=== PATIENT | female | born 1975 ===

== ENCOUNTER → 2020-04-30 09:03 | Outpatient (BNVA) | payer OTHER, SELFPAY | PROVIDERS: PCP Internal Medicine; Referring Provider Internal Medicine; Visit Provider Nurse Practitioner | DX: K59.04 Chronic idiopathic constipation (principal); K21.9 Gastro-esophageal reflux disease without esophagitis; R10.11 Right upper quadrant pain | CPT/HCPCS: 99214 ==

== ENCOUNTER 2020-06-12 15:28 | Outpatient (REF) | payer OTHER, SELFPAY ==
--- NOTE | 2020-06-12 | MM_ITS ---
EXAMINATION: MM SCREENING DIGITAL BREAST TOMOSYNTHESIS, BILATERAL CLINICAL INFORMATION: Screening. Asymptomatic. The lifetime risk of breast cancer based on the Tyrer-Cuzick Model is 8.6%. COMPARISON: Mammography: 06/07/2019 and studies dating back to 10/25/2012 TECHNIQUE: Digital breast tomosynthesis is performed in both the craniocaudal and mediolateral oblique views along with computer-aided detection (CAD). Synthesized 2D images are generated from the tomosynthesis. FINDINGS: There are scattered areas of fibroglandular density (ACR BI-RADS breast composition Category b). There is stable appearance of the right breast without new abnormal dominant mass or suspicious grouping of microcalcifications. On craniocaudal view of the left breast anteriorly, there are some small calcifications for which further evaluation with magnification films are recommended. I do not definitely see the calcifications on mediolateral oblique image. MM/MM tomosynthesis screening BI IMPRESSION: Question left breast calcifications for further evaluation with spot magnification views in craniocaudal and 90 degree mediolateral view. ASSESSMENT: BI-RADS 0: Incomplete - Need Additional Imaging Evaluation. RECOMMENDATION: 1. Additional views of the left breast. 2. Targeted ultrasound if warranted after review of the additional views. 3. Radiology department staff will contact the patient for additional imaging. This patient's information was entered into a reminder system with a target due date for their next mammogram.
== END 2020-06-12 15:29 | disposition home or self-care (01) ==
LOC: HO.MAMMO 15:28
PROVIDERS: PCP Internal Medicine; Visit Provider Internal Medicine
DX: Z12.31 Encounter for screening mammogram for malignant neoplasm of breast (principal)
CPT/HCPCS: 77063; 77067

== ENCOUNTER 2020-07-12 10:44 | Outpatient (REF) | payer OTHER, SELFPAY | END 2020-07-12 10:45 | disposition home or self-care (01) | LOC: HO.LAB 10:44 | PROVIDERS: Visit Provider Internal Medicine | DX: Z20.822 Contact with and (suspected) exposure to COVID-19 (principal) | CPT/HCPCS: 36415; C9803; U0003 ==

== ENCOUNTER 2020-07-16 11:55 | Outpatient (REF) | payer OTHER, SELFPAY ==
--- NOTE | 2020-07-16 11:59 | MM_ITS ---
EXAMINATION: MM DIAGNOSTIC DIGITAL MAMMOGRAPHY, LEFT CLINICAL INFORMATION: Recall from screening for question of punctate calcifications anterior breast on CC view. COMPARISON: Mammography: 06/12/2020 TECHNIQUE: Digital mammography is performed in the following views: Magnification CC, magnification ML FINDINGS: There are scattered areas of fibroglandular density (ACR BI-RADS breast composition Category b). The additional views show no grouped calcifications in the area of imaging concern. Findings on recent imaging are consistent with digital processing artifact. The tomographic images from the recent screening exam show no grouped calcifications at area of concern. Results are discussed with the patient at time of visit. MM/MM added views LT IMPRESSION: Additional views show no grouped calcifications in area of recent concern. Findings on recent imaging are consistent with digital processing artifact. ASSESSMENT: BI-RADS 1: Negative RECOMMENDATION: Routine annual mammography screening. This patient's information was entered into a reminder system with a target due date for their next mammogram.
== END 2020-07-16 11:56 | disposition home or self-care (01) ==
LOC: HO.MAMMO 11:55
PROVIDERS: PCP Internal Medicine; Visit Provider Internal Medicine
DX: R92.1 Mammographic calcification found on diagnostic imaging of breast (principal)
CPT/HCPCS: 77065

== ENCOUNTER → 2020-07-30 13:06 | Outpatient (BNVA) | payer OTHER, SELFPAY | PROVIDERS: PCP Internal Medicine; Visit Provider Nurse Practitioner | DX: R10.11 Right upper quadrant pain (principal); K59.04 Chronic idiopathic constipation; K21.9 Gastro-esophageal reflux disease without esophagitis | CPT/HCPCS: Q3014 ==

== ENCOUNTER 2020-09-16 13:46 | Outpatient (REF) | payer OTHER, SELFPAY | END 2020-09-16 13:47 | disposition home or self-care (01) | LOC: HO.LAB 13:46 | PROVIDERS: Visit Provider Internal Medicine | DX: Z20.822 Contact with and (suspected) exposure to COVID-19 (principal) | CPT/HCPCS: 36415; C9803; U0003; U0005 ==

== ENCOUNTER 2020-10-16 10:20 | Outpatient (REF) | payer OTHER, SELFPAY ==
--- NOTE | ~2020-10-16 | US_ITS ---
EXAMINATION: US ABDOMEN COMPLETE CLINICAL INFORMATION: Upper abdominal pain. COMPARISON: Abdominal ultrasound 02/20/2020, CT abdomen and pelvis with contrast 12/09/2019 TECHNIQUE: Real-time imaging of the abdominal viscera. FINDINGS: PANCREAS: Normal in size, contour, and echogenicity. No pancreatic ductal distention or retroperitoneal effusion. ABDOMINAL AORTA: Unremarkable. No aneurysmal enlargement. INFERIOR VENA CAVA: Visualized portions are normal. LIVER: The liver is normal in size and smooth in contour. There is increased hepatic parenchymal echogenicity consistent with hepatic steatosis. No focal hepatic parenchymal lesion or intrahepatic biliary ductal dilatation. GALLBLADDER: Surgically absent. COMMON BILE DUCT: Normal in caliber measuring 0.7 cm in diameter. RIGHT KIDNEY: Normal. No hydronephrosis. No renal calculi or focal parenchymal lesions. The kidney measures 11.4 cm in maximum dimension. LEFT KIDNEY: Normal. No hydronephrosis. No renal calculi or focal parenchymal lesions. The kidney measures 10.7 cm in maximum dimension. SPLEEN: Normal. The spleen measures 10.3 cm in maximum dimension. FREE FLUID: None. US/US abdomen complete IMPRESSION: 1. Prior cholecystectomy. No ductal dilatation. 2. Unremarkable pancreas. No hydronephrosis. 3. Hepatic steatosis.
== END 2020-10-16 10:21 | disposition home or self-care (01) ==
LOC: HO.US 10:20
PROVIDERS: Visit Provider Nurse Practitioner
DX: R10.10 Upper abdominal pain, unspecified (principal)
CPT/HCPCS: 76700

== ENCOUNTER → 2020-10-31 09:08 | Outpatient (BNVA) | payer OTHER, SELFPAY | PROVIDERS: PCP Internal Medicine; Visit Provider Nurse Practitioner | DX: Z13.89 Encounter for screening for other disorder (principal) | CPT/HCPCS: Q3014 ==

== ENCOUNTER 2020-11-04 12:38 | Outpatient (REF) | payer OTHER, SELFPAY ==
[2020-11-04 13:12] LABS: COVID-19 Test Negative (Negative)
== END 2020-11-04 12:39 | disposition home or self-care (01) ==
LOC: HO.LAB 12:38
PROVIDERS: Visit Provider Internal Medicine
DX: Z20.822 Contact with and (suspected) exposure to COVID-19 (principal)
CPT/HCPCS: 36415; 87635; C9803

== ENCOUNTER 2020-11-22 21:38 | Emergency (ER) | payer OTHER, SELFPAY | END 2020-11-23 02:08 | disposition left against medical advice (07) | PROVIDERS: Emergency Provider Emergency Medicine | DX: M54.2 Cervicalgia (principal) ==

== ENCOUNTER 2020-11-23 09:30 | Emergency (ER) | payer OTHER, SELFPAY ==
--- NOTE | ~2020-11-23 | XR_ITS ---
EXAMINATION: XR CERVICAL SPINE CLINICAL INFORMATION: Neck pain. COMPARISON: 06/30/2006 cervical spine radiographs. TECHNIQUE: 3 views of the cervical spine were obtained. FINDINGS: There is straightening of the normal cervical lordosis with normal spinal alignment. Mild anterior osteophyte formation is seen at C5-6. The vertebral bodies are intact. The intervertebral disc spaces are unremarkable. The odontoid process is intact. The prevertebral soft tissues are unremarkable. XR/XR cervical spine 3V IMPRESSION: Straightening of the normal cervical lordosis may be secondary to positioning and/or muscle spasm. No acute abnormality.
[2020-11-23 09:43] VITALS: BP 132/88; PULSE 102; RESP 16; TEMP 36.6; O2SAT 97; BMI 35.1
--- NOTE | 2020-11-23 09:57 | ECG_ITS ---
Test Reason : PALPITATIONS Blood Pressure : / mmHG Vent. Rate : 090 BPM Atrial Rate : 090 BPM P-R Int : 152 ms QRS Dur : 074 ms QT Int : 358 ms P-R-T Axes : 047 -04 019 degrees QTc Int : 437 ms Normal sinus rhythm Moderate voltage criteria for LVH, may be normal variant Borderline ECG When compared with ECG of 13-NOV-2008 13:19, Vent. rate has increased BY 31 BPM QT has lengthened Referred By: Jane Simmons Electronically Signed By:WENDY BERRIOS MD
--- NOTE | 2020-11-23 09:59 | ED_ITS ---
HPI - Neck Pain/Injury General Chief Complaint: Neck Pain/Injury Stated Complaint: neck pain Time Seen by Provider: 11/23/20 09:44 Source: patient Mode of arrival: ambulatory History of Present Illness HPI Narrative: 45-year-old female with a past medical history of asthma, presenting to the ED complaining of generalized fatigue and neck pain since waking on . Denies known injury/trauma, falls, new exercises or heavy lifting. 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 Denies palpitations at present. Denies fever, CP/SOB, abdominal pain, nausea/vomiting, lightheadedness/dizziness, ear pain, weakness MD complaint: neck pain Related Data Home Medications Medication Instructions Recorded Confirmed simethicone 180 mg capsule 180 mg PO . q.i.d. PRN cap 04/29/20 04/29/20 acetaminophen 650 mg 650 mg PO Q8H PRN 10/31/20 tablet,extended release bupropion HCl 300 mg 24 hr tablet, 300 mg PO QAM 10/31/20 extended release calcium carbonate 500 mg (1,250 1 tab PO BID 10/31/20 mg)-vitamin D3 200 unit tablet cholecalciferol (vitamin D3) 50 0 mcg PO 10/31/20 mcg (2,000 unit) capsule clonazepam 1 mg tablet 0 mg PO 10/31/20 lurasidone 40 mg tablet 40 mg PO DAILY 10/31/20 olanzapine 10 mg tablet 10 mg PO QPM 10/31/20 perphenazine 8 mg tablet 8 mg PO TID 10/31/20 prazosin 5 mg capsule 5 mg PO BEDTIME 10/31/20 valacyclovir 500 mg tablet 500 mg PO BID 10/31/20 zolpidem 10 mg tablet 10 mg PO BEDTIME PRN 10/31/20 Previous Rx's Medication Instructions Recorded imipramine HCl 25 mg tablet 50 mg PO BEDTIME 30 Days #60 tab 10/31/20 sennosides 8.6 mg tablet 17.2 mg PO .bedtime and am 30 Days 10/31/20 tab dexlansoprazole 60 mg 60 mg PO DAILY #30 cap 11/13/20 capsule,biphase delayed release [id number] 1 cap PO QID #120 cap 11/13/20 24,000-76,000-120,000 unit capsule,delayed rel linaclotide 290 mcg capsule 290 mcg PO QAM #30 cap 11/20/20 acetaminophen [Tylenol Extra 500 mg PO Q6H PRN #20 tab 11/23/20 Strength] cyclobenzaprine 5 mg PO Q8H PRN 5 Days #14 tab 11/23/20 lidocaine [Lidoderm] 1 patch TOPICAL DAILY PRN #30 ea 11/23/20 MDD remove after 12 hours Allergies Allergy/AdvReac Type Severity Reaction Status Date / Time aspirin [ASPIRIN] Allergy Unknown UNKNOWN Verified 10/31/20 09:09 REACTION PER PT. Review of Systems Review of Systems: Constitutional: No Fever, + Chills, No Night Sweats, + Fatigue, + Malaise ENT/Mouth: No Ear Pain, No Nasal Congestion, No Sinus Pain, + sore throat, No Swallowing Difficulty Eyes: No Eye Pain, No Vision Changes Cardiovascular: No Chest Pain, No SOB, + Palpitations (not at present) Respiratory: No Cough, No Dyspnea Gastrointestinal: No Nausea, No Vomiting, No Diarrhea, No Abdominal pain Genitourinary: No Dysuria, No Urinary Frequency, No Hematuria, No Flank Pain Musculoskeletal: No joint pain, No Myalgias, No Joint Swelling Skin: No Skin Lesions, No rash Neuro: No Weakness, No Numbness, No Paresthesias, No Dizziness, + Headache Yes all other systems are reviewed and are negative Neurologic: Denies Abnormal speech present [facility] Past Medical History Attestation statement: The following information was validated with the patient. Medical History (Updated 11/23/20 @ 11:38 by PAT Lutz) Asthma Surgical History (Updated 11/23/20 @ 09:46 by Mayra Pruett) History of colonoscopy Hx of cholecystectomy Hx of endoscopy Family History Family History Father No problems noted. Mother No problems noted. Social History Social History (Updated 10/31/20 @ 09:09 by ODILON Vargas) Alcohol intake: current Alcohol intake frequency: holidays/special occasions only Smoking Status: Never smoker Advance Directives: No Advance Directives Information Provided: No Patient : No Physical Exam Vital Signs: Vital Signs: Last Vital Signs Temp 97.9 F 11/23/20 09:43 Pulse 102 H 11/23/20 09:43 Resp 16 11/23/20 09:43 BP 132/88 11/23/20 09:43 Pulse Ox 97 11/23/20 09:43 Body Mass Index 35.1 Const: General: cooperative, healthy appearing, comfortable and no acute distress Orientation/consciousness: patient oriented x3 Limitations: no limitations HENMT: Head: Yes normal to inspection and Yes atraumatic Ears: hearing grossly normal bilaterally and TM's normal bilaterally General nose exam: Normal external nose present Face and sinus: Yes normal facial exam and Yes face symmetric Mouth: Normal oral and palatal mucosa present Teeth and gingiva: dentition normal Throat: Yes posterior oropharynx normal, Yes tonsils normal, Yes uvula midline, No peritonsillar mass, No uvula laterally displaced and No uvular edema Eyes: General: appearance normal, both eyes and all related structures Pupils: Equal, round and reactive pupils present EOM: EOMs intact bilaterally Neck: Other: No midline cervical spinous tenderness or step-offs. + bilateral paraspinal/MSK tenderness to palpation. Limited ROM of neck secondary to pain Neck: Yes normal visual inspection, Yes no lymphadenopathy, Yes no meningeal signs, Yes supple and No anterior neck swelling Chest: Chest palpation & inspection: normal inspection of the chest Resp: Effort & Inspection: normal respiratory effort, not labored and no respiratory distress Cardio: Rate: regular rate and tachycardic Rhythm: regular rhythm GI: Inspection: Yes normal to inspection Palpation (GI): Soft to palpation, nontender, no guarding and not rigid Skin: Rashes: no rashes Wounds: no wounds Neuro: General: patient oriented x3, gait normal, tone normal, moves all extremities, no meningeal signs, no focal motor deficits and CN's II-XI intact bilaterally Cranial nerves: Yes Equal, round and reactive pupils present Cognition (Neuro): normal cognition Speech: No Abnormal speech present Gait exam (Neuro): Normal gait present Motor exam (neuro): 5/5 motor strength present throughout, Pronator motor function not present and no tremor noted Coordination: [id number] test normal Extrem: General: Yes normal to inspection Course Course Course Narrative: XR cervical spine 3V IMPRESSION: Straightening of the normal cervical lordosis may be secondary to positioning and/or muscle spasm. No acute abnormality > results discussed with patient with wool supplier including worrisome signs and symptoms and strict return precautions MDM - Neck Pain/Injury MDM Narrative Medical decision making narrative: 45-year-old female with a past medical history of asthma, presenting to the ED complaining of generalized fatigue and neck pain since waking on . Also reports sore throat, headache, chills and intermittent palpitations. On exam mildly tachycardic, NAD/nontoxic appearing, physical exam as above. Likely MSK neck pain vs viral syndrome/COVID-19 vs migraine DE LEON. Patient without palpitations at present, will obtain EKG to rule out arrhythmia. Low concern for ACS/PE, CVT, meningitis/encephalitis. No evidence of strep at this time Plan: EKG, cervical spine x-ray due to patient request, COVID-19 testing, rapid strep Discharge Plan Discharge Clinical Impression: Neck muscle spasm Patient Disposition: Home, Self-Care Instructions: Muscle Spasm (ED) Additional Instructions: Your x-ray showed muscle spasm in her neck. Your COVID-19 and rapid strep are currently pending, I will call you with results later today. In the meantime yo u need to self isolate. Flexeril as a muscle relaxer, take at night as it makes you drowsy, do not drive, drink alcohol, or operate machinery while taking. Addition take Tylenol, and Lidoderm patches or numbing patches, apply to painful area. Follow-up with doctor. If symptoms persist or worsen, pain becomes unbearable, you develop weakness, or fever return to the ED Schulte radiograf?a mostr? espasmos musculares en schulte willian. Schulte COVID-19 y estreptococo r?pido est?n actualmente pendientes, lo llamar? hoy m?s tarde para informarle los resultados. Mientras tanto, necesita aislarse a s? mismo. Fl exeril sierra relajante muscular, t?preciado por la noche ya que le produce somnolencia, no conduzca, no tex alcohol ni utilice maquinaria mientras lo est? tomando. Adem?s, tome Tylenol y parches de Lidoderm o parches anest?sicos, apl?quelos en el ?rosa dolorida. Seguimiento con el m?dico. Si los s?ntomas persisten o empeoran, el dolor se vuelve insoportable, desarrolla debilidad o la fiebre vuelve al servicio de urgencias Prescriptions: New acetaminophen [Tylenol Extra Strength] 500 mg tablet 500 mg PO Q6H PRN (Reason: pain or fever) Qty: 20 RF: 0 lidocaine [Lidoderm] 5 % adhesive patch,medicated 1 patch topical DAILY MDD remove after 12 hours PRN (Reason: pain) Qty: 30 RF: 0 cyclobenzaprine 5 mg tablet 5 mg PO Q8H PRN (Reason: pain (scale score 7-10)) 5 Days Qty: 14 RF: 0 No Action Dexilant 60 mg capsule,biphase delayed releas 60 mg PO DAILY Qty: 30 RF: 0 Creon 24,000-76,000 -120,000 unit capsule,delayed release(DR/EC) 1 cap PO QID Qty: 120 RF: 0 linaclotide [Linzess] 290 mcg capsule 290 mcg PO QAM Qty: 30 RF: 0 simethicone [Gas Relief (simethicone)] 180 mg capsule 180 mg PO . q.i.d. PRNRF: 0 calcium carbonate-vitamin D3 500 mg(1,250mg) -200 unit tablet 1 tab PO BID RF: 0 perphenazine 8 mg tablet 8 mg PO TID RF: 0 Latuda 40 mg tablet 40 mg PO DAILY RF: 0 bupropion HCl 300 mg tablet extended release 24 hr 300 mg PO QAM RF: 0 zolpidem 10 mg tablet 10 mg PO BEDTIME PRNRF: 0 clonazepam 1 mg tablet 0 mg PO RF: 0 valacyclovir 500 mg tablet 500 mg PO BID RF: 0 prazosin 5 mg capsule 5 mg PO BEDTIME RF: 0 acetaminophen 650 mg tablet extended release 650 mg PO Q8H PRNRF: 0 cholecalciferol (vitamin D3) 50 mcg (2,000 unit) capsule 0 mcg PO RF: 0 olanzapine 10 mg tablet 10 mg PO QPM RF: 0 imipramine HCl 25 mg tablet 50 mg PO BEDTIME 30 Days Qty: 60 RF: 3 sennosides [So-wolfgang] 8.6 mg tablet 17.2 mg PO .bedtime and am 30 Days RF: 3 Referrals: Jane Piedra MD [Primary Care Provider] - 2 days Print Language: Swedish
[2020-11-23] MEDS: Cyclobenzaprine HCl 5 MG TABLET PO (10:17)
[2020-11-23] MEDS: Acetaminophen 325 MG TABLET 650 MG PO (10:17)
[2020-11-23] MEDS: Lidocaine 4 % Patch ADH..PATCH 1 PATCH TRANSDERMA (10:32)
[2020-11-23 11:41] LABS: Strep A Nucleic Acid Negative (Negative)
[2020-11-23 12:20] LABS: Influenza A PCR NEGATIVE (Negative); Influenza B PCR NEGATIVE (Negative); Resp Syncy Virus RNA Qual PCR NEGATIVE (Negative); SARS COV2 PCR INHOUSE NEGATIVE (Negative)
== END 2020-11-23 11:53 | disposition home or self-care (01) ==
PROVIDERS: Physician Assistant; Emergency Provider Emergency Medicine; PCP Internal Medicine
DX: M62.838 Other muscle spasm (principal); M54.2 Cervicalgia; R00.0 Tachycardia, unspecified; Z20.822 Contact with and (suspected) exposure to COVID-19; J02.9 Acute pharyngitis, unspecified; R51.9 Headache, unspecified; R68.83 Chills (without fever); R00.2 Palpitations; J45.909 Unspecified asthma, uncomplicated
CPT/HCPCS: 0241U; 36415; 72040; 87651; 93005; 99283; 99284

== ENCOUNTER → 2020-12-03 10:12 | Outpatient (BNVA) | payer OTHER, SELFPAY | PROVIDERS: PCP Internal Medicine; Visit Provider Nurse Practitioner | DX: R10.11 Right upper quadrant pain (principal); K59.04 Chronic idiopathic constipation; K21.9 Gastro-esophageal reflux disease without esophagitis; R13.12 Dysphagia, oropharyngeal phase | CPT/HCPCS: Q3014 ==

== ENCOUNTER → 2020-12-25 14:16 | Outpatient (BNVA) | payer OTHER, SELFPAY | PROVIDERS: PCP Internal Medicine; Referring Provider Internal Medicine; Visit Provider Internal Medicine Cardiovascular Disease | DX: R00.0 Tachycardia, unspecified (principal); R07.89 Other chest pain | CPT/HCPCS: 93005; 99202 ==

== ENCOUNTER 2020-12-27 14:10 | Outpatient (REF) | payer OTHER, SELFPAY ==
[2020-12-27 14:59] LABS: Hematocrit 38.9 % (37-47); Hemoglobin 13.1 g/dl (12.0-16.0); Mean Corpuscular HGB Conc 33.7 g/dl (31.0-35.0); Mean Platelet Volume 9.6 fL (9.4-12.3); Platelet Count 281 X10*3/uL (160-400); Red Blood Count 3.97 X10*6/uL (4.20-5.50); Red Cell Distribution Width 12.8 % (11.0-16.0); White Blood Count 6.5 X10*3/uL (4.8-10.8)
[2020-12-27 15:40] LABS: TSH reflex Free T4 1.94 uIU/mL (0.32-4.0)
== END 2020-12-27 14:11 | disposition home or self-care (01) ==
LOC: HO.LAB 14:10
PROVIDERS: PCP Internal Medicine; Visit Provider Internal Medicine Cardiovascular Disease
DX: R00.0 Tachycardia, unspecified (principal)
CPT/HCPCS: 36415; 84443; 85027

== ENCOUNTER → 2021-01-29 09:32 | Outpatient (REF) | payer OTHER, SELFPAY ==
--- NOTE | 2021-01-29 09:37 | ECG_ITS ---
Hook-up date: 2021-01-29 10:33:00 Duration: 25:12:00 Test Indications: UNSPEC. TACHYCARDIA Medications: 436187 QRS complexes * Ventricular ectopics which represent % of total QRS comp. 51 Supraventricular ectopics which represent <1 % of total QRS comp. * Paced QRS complexs which represent % of total QRS comp. VENTRICULAR ECTOPY * Isolated * Bigeminal Cycles * Couplets * Runs * Beats in Runs * Beats LONGEST at * BPM at :: -- * Beats FASTEST at * BPM at :: -- SUPRAVENTRICULAR ECTOPY 34 Isolated 7 Couplets 1 Runs 3 Beats in Runs 3 Beats LONGEST at 123 BPM at 18:09:07 2021-01-29 3 Beats FASTEST at 123 BPM at 18:09:07 2021-01-29 HEART RATES 62 MIN at 05:52:41 2021-01-30 91 AVG 132 MAX at 22:16:41 2021-01-29 LONGEST RR 0.9760 secs at 05:52:39 2021-01-30 S-T LEVELS Channel 1 - 128 mm at 10:33:00 2021-01-29 - 128 mm at 10:33:00 2021-01-29 Channel 2 - 128 mm at 10:33:00 2021-01-29 - 128 mm at 10:33:00 2021-01-29 Channel 3 - 128 mm at 02:95:21 -- - 128 mm at 02:95:21 Underlying rhythm is sinus; Average ventricular rate 91/mni; range 62-132/min; About 16% of the time, rate >100/min; Rare Premature atrial complexes ; No sustained arrhythmias; Patient did not report any symptoms in the diary Referred By: Mook Aguirre Overread By: HAI HOUGH
--- NOTE | 2021-01-29 09:37 | CA_ITS ---
Transthoracic Echocardiogram Patient (Last, First, Middle): Jesica Boothe, Gender: Female Date of : 1975 Age: 45 Procedure Date: 01/29/2021 Procedure Type: Transthoracic Echocardiogram Location: OP Height: 165.1 cm Weight: 83.92 kg BSA: 1.91 m2 Heart Rate: bpm BP: 120 / 80 mmHg Retail Account Manager: ZEE Referring MD: Mook Aguirre MD Symptoms: I42.9 - Cardiomyopathy, unspecified Study Quality: Fair/Contrast ECG Rhythm: Sinus Conclusions: - The left ventricular systolic function is mildly decreased. The visually estimated ejection fraction is between 45-50%. - No obvious valvular pathology seen on this study. Findings Procedure Information Contrast agent, definity, is being given per protocol without apparent complications. Left Ventricle Normal left ventricular cavity size. There is normal left ventricular wall thickness. The left ventricular systolic function is mildly decreased. The visually estimated ejection fraction is between 45-50%. There is mild global hypokinesis. Diastolic function is normal for age. Right Ventricle Normal right ventricular cavity size and systolic function. Atria Both atria are normal in size. Aortic Valve There is a normal trileaflet aortic valve. There is no aortic valve stenosis. There is no aortic valve regurgitation. Mitral Valve The mitral valve appears normal. There is trace mitral valve regurgitation. There is no mitral valve stenosis. Pulmonic Valve The pulmonic valve was not well visualized. Tricuspid Valve There is no tricuspid valve regurgitation. The pulmonary artery systolic pressure is normal. Great Vessels The aortic annulus, sinuses of valsalva, and asc aorta are normal in size. Venous The inferior vena cava is normal in size and collapses greater than 50% with inspiration. Pericardium/Pleural There is no evidence of pericardial effusion. Prior Study Comparison No prior study available for comparison. Recommendations, Care & Conclusions No obvious valvular pathology seen on this study. Measurements 2D Linear Measurements IVSd: 0.92 0.6-0.9/0.6-1.0 cm LVIDd: 4.18 3.9-5.3/4.2-5.9 cm LVIDd Index: 2.19 2.4-3.2/2.2-3.1 cm/m2 LVIDs: 2.96 2.0-3.6 cm LVPWd: 0.64 0.7-1.1 cm Ao Root: 3.00 2.1-3.5 cm LA Diam: 3.00 2.7-3.8/3.0-4.0 cm LAIDs Index: 1.57 1.5-2.3 cm/m2 LV Mass: 120.52 67-162/88-224 g LV Mass Index: 63.10 43-95/49-115 g/m2 LVOT Diam: 2.00 3.0+(-)1.3 cm 2D Systolic Function EF 4C: 56.70 >55% EF 2C: 51.60 >55% EF BiP: 54.50 >55% Mitral Valve MV Pk E: 1.03 MV PK A: 1.10 MV Decel Time: 162.00 E/A: 0.90 E'Lateral: 9.46 E'Medial: 7.94 E/E' Med: 13.00 E/E' Lat: 10.90 PHT: 47.00 MVA PHT: 4.68 Decel [place]: 6.35 Aortic Valve AoV Pk Juno: 1.22 AoV Mn Juno: 0.88 AoV VTI: 0.27 AoV Pk Grad: 6.00 Aov Mn Grad: 4.00 SHERRILL Cont.VTI: 2.40 LVOT LVOT Pk Juno: 0.91 LVOT Mn Juno: 0.64 LVOT VTI: 0.21 LVOT Pk Grad: 3.00 LVOT Mn Grad: 2.00 LVOT Diam: 2.00 LVOT Area: 3.14 Diastolic Function MV Pk E: 1.03 MV Pk A: 1.10 E/A: 0.90 E'Medial: 7.94 E/E' Med: 13.00 E' Laterial: 9.46 E/E' Lat: 10.90 Right Ventricle TAPSE (mm): 2.44 Tricuspid Valve TR Pk Juno: 2.40 TR Pk Grad: 23.00 Great Vessels Aorta Ao Root-2D: 3.00 2.0-3.7 cm Ao Asc: 3.20 2.1-3.4 cm Ao Arch: 2.60 Updated in Other Vendor System with Status of Final Maco Grace MD electronically signed on 01/31/2021 2:13:02 PM with status of Final
== END ==
LOC: HO.CARD 09:32
PROVIDERS: Visit Provider Internal Medicine Cardiovascular Disease
DX: R00.0 Tachycardia, unspecified (principal)
CPT/HCPCS: 93225; 93226; 93306; Q9957

== ENCOUNTER → 2021-02-11 08:33 | Outpatient (REF) | payer OTHER, SELFPAY ==
--- NOTE | 2021-02-11 08:37 | CA_ITS ---
Acquisition Time: 2021-02-11 08:35:49 Total Exercise Time: 00:08:00 Test Indications: Abnormal ECG Medications: SEE H Protocol: BIGG Max HR: 150 BPM 86% of Pred: 173 BPM Max BP: 134/080 mmHG Max Work Load: 10.1 METS Exercise stress test with exercise 8 min of Bigg protocol, without anginal symptoms, without arrythmia, with normotensive and normal chronotropic response to exercise, without EKG changes meeting criteria for ischemia. Test reviewed with Dr Nazario. Referred By: Mook Aguirre Overread By: DEMARCO QUESADA
== END ==
LOC: HO.CARD 08:33
PROVIDERS: Visit Provider Internal Medicine Cardiovascular Disease
DX: I42.9 Cardiomyopathy, unspecified (principal)
CPT/HCPCS: 93017

== ENCOUNTER → 2021-03-20 12:38 | Outpatient (BNVA) | payer OTHER, SELFPAY | PROVIDERS: PCP Internal Medicine; Visit Provider Internal Medicine Cardiovascular Disease | DX: I42.9 Cardiomyopathy, unspecified (principal); R00.0 Tachycardia, unspecified | CPT/HCPCS: 99212 ==

== ENCOUNTER 2021-03-28 08:49 | Outpatient (REF) | payer OTHER, SELFPAY ==
--- NOTE | 2021-03-28 | PFT_ITS ---
Forced vital capacity, FEV1, [id number] are normal. MVV is slightly decreased. Post bronchodilator therapy, no significant change except for the fact that MVV is improved. Total lung capacity and residual volume normal. Diffusion capacity normal. CONCLUSION: Normal pulmonary function tests. No evidence of obstructive or restrictive pulmonary disorder. MD PRANAY Cook/ANSHULL / [phone]
== END 2021-03-28 08:50 | disposition home or self-care (01) ==
LOC: HO.RESP 08:49
PROVIDERS: Visit Provider Internal Medicine
DX: J45.20 Mild intermittent asthma, uncomplicated (principal)
CPT/HCPCS: 94060; 94727; 94729

== ENCOUNTER 2021-04-03 13:10 | Outpatient (REF) | payer OTHER, SELFPAY | END 2021-04-03 13:11 | disposition home or self-care (01) | LOC: HO.LAB 13:10 | PROVIDERS: PCP Internal Medicine; Visit Provider Internal Medicine | DX: Z20.822 Contact with and (suspected) exposure to COVID-19 (principal) | CPT/HCPCS: C9803; U0003; U0005 ==

== ENCOUNTER 2021-06-02 10:19 | Outpatient (REF) | payer OTHER, SELFPAY ==
[2021-06-02 15:29] LABS: TSH reflex Free T4 1.48 uIU/mL (0.32-4.0)
== END 2021-06-02 10:20 | disposition home or self-care (01) ==
LOC: HO.LAB 10:19
PROVIDERS: PCP Internal Medicine; Referring Provider Internal Medicine; Visit Provider Internal Medicine Cardiovascular Disease
DX: R07.89 Other chest pain (principal); R00.0 Tachycardia, unspecified; I42.9 Cardiomyopathy, unspecified
CPT/HCPCS: 36415; 84443; 99212

== ENCOUNTER → 2021-06-16 10:27 | Outpatient (REF) | payer OTHER, SELFPAY ==
--- NOTE | 2021-06-16 10:30 | CA_ITS ---
Transthoracic Echocardiogram Patient (Last, First, Middle): Jesica Boothe, Gender: Female Date of : 1975 Age: 45 Procedure Date: 06/16/2021 Procedure Type: Transthoracic Echocardiogram Location: OP Height: 165.1 cm Weight: 90.72 kg BSA: 1.98 m2 Heart Rate: bpm BP: 126 / 82 mmHg Framing Manager: ZEE Harden MD: Mook Aguirre MD Inspector Chief: Mook Aguirre MD Symptoms: I42.9 - Cardiomyopathy, unspecified Study Quality: Fair/Contrast Conclusions: - Normal left ventricular size and systolic function. There is mildly increased left ventricular wall thickness. The visually estimated ejection fraction is between 55-60%. - Normal right ventricular cavity size and systolic function. Findings Procedure Information Contrast agent, definity, is being given per protocol without apparent complications. Left Ventricle Normal left ventricular size and systolic function. There is mildly increased left ventricular wall thickness. The visually estimated ejection fraction is between 55-60%. There is no evidence of regional wall motion abnormalities. Diastolic function is normal for age. Right Ventricle Normal right ventricular cavity size and systolic function. Atria Both atria are normal in size. Aortic Valve Normal aortic valve structure and function. There is no aortic valve stenosis. There is no aortic valve regurgitation. Mitral Valve Normal mitral valve structure and function. There is no mitral valve regurgitation. There is no mitral valve stenosis. Pulmonic Valve The pulmonic valve is likely normal. Tricuspid Valve Normal tricuspid valve structure and function. There is trace tricuspid valve regurgitation. Normal right atrial pressure. There is no evidence of pulmonary hypertension. Great Vessels All visible segments of the aorta are normal in size. The visualized portions of the pulmonary artery and branches are normal. Venous The inferior vena cava is normal in size and collapses greater than 50% with inspiration. Pericardium/Pleural Normal pericardial structure. There is no evidence of pericardial effusion. Prior Study Comparison Changes noted compared to prior study dated: 01/29/2021. LVEF is normal. Measurements 2D Linear Measurements IVSd: 0.99 0.6-0.9/0.6-1.0 cm LVIDd: 4.43 3.9-5.3/4.2-5.9 cm LVIDd Index: 2.24 2.4-3.2/2.2-3.1 cm/m2 LVIDs: 3.00 2.0-3.6 cm LVPWd: 0.98 0.7-1.1 cm Ao Root: 3.10 2.1-3.5 cm LA Diam: 2.90 2.7-3.8/3.0-4.0 cm LAIDs Index: 1.46 1.5-2.3 cm/m2 LV Mass: 182.34 67-162/88-224 g LV Mass Index: 92.09 43-95/49-115 g/m2 LVOT Diam: 2.00 3.0+(-)1.3 cm 2D Systolic Function EF 4C: 55.70 >55% EF 2C: 47.00 >55% EF BiP: 52.00 >55% Mitral Valve MV Pk E: 0.97 MV PK A: 1.34 MV Decel Time: 167.00 E/A: 0.70 E'Lateral: 7.72 E'Medial: 7.94 E/E' Med: 12.20 E/E' Lat: 12.60 PHT: 49.00 MVA PHT: 4.49 Decel [place]: 5.81 Aortic Valve AoV Pk Juno: 1.19 AoV Mn Juno: 0.86 AoV VTI: 0.24 AoV Pk Grad: 6.00 Aov Mn Grad: 3.00 SHERRILL Cont.VTI: 2.44 LVOT LVOT Pk Juno: 0.91 LVOT Mn Juno: 0.72 LVOT VTI: 0.19 LVOT Pk Grad: 3.00 LVOT Mn Grad: 2.00 LVOT Diam: 2.00 LVOT Area: 3.14 Diastolic Function MV Pk E: 0.97 MV Pk A: 1.34 E/A: 0.70 E'Medial: 7.94 E/E' Med: 12.20 E' Laterial: 7.72 E/E' Lat: 12.60 Right Ventricle TAPSE (mm): 2.03 TVS' Juno: 12.40 Tricuspid Valve TR Pk Juno: 2.19 TR Pk Grad: 19.00 RA Press: 3.00 RVSP: 22.00 Great Vessels Aorta Ao Root-2D: 3.10 2.0-3.7 cm Ao Asc: 3.00 2.1-3.4 cm Ao Arch: 2.70 Updated in Other Vendor System with Status of Final Mook Aguirre MD electronically signed on 06/16/2021 9:19:10 PM with status of Final
== END ==
LOC: HO.CARD 10:27
PROVIDERS: PCP Internal Medicine; Visit Provider Internal Medicine Cardiovascular Disease
DX: I42.9 Cardiomyopathy, unspecified (principal)
CPT/HCPCS: 93306; Q9957

== ENCOUNTER → 2021-07-17 07:17 | Outpatient (BNVA) | payer OTHER, SELFPAY | PROVIDERS: PCP Internal Medicine; Referring Provider Internal Medicine; Visit Provider Nurse Practitioner | DX: K59.04 Chronic idiopathic constipation (principal); K21.9 Gastro-esophageal reflux disease without esophagitis; K63.89 Other specified diseases of intestine | CPT/HCPCS: 99212 ==

== ENCOUNTER → 2021-07-22 13:53 | Outpatient (BNVA) | payer OTHER, SELFPAY | PROVIDERS: PCP Internal Medicine; Referring Provider Internal Medicine; Visit Provider Nurse Practitioner Family | DX: I42.9 Cardiomyopathy, unspecified (principal); R07.89 Other chest pain; R00.0 Tachycardia, unspecified | CPT/HCPCS: 99212 ==

== ENCOUNTER 2021-08-11 11:37 | Outpatient (REF) | payer OTHER, SELFPAY ==
[2021-08-11 13:23] LABS: Cholesterol 169 mg/dL; HDL Cholesterol 47 mg/dL; LDL Cholesterol Calculated 77 mg/dl; Triglycerides 226 mg/dL
[2021-08-11 13:30] LABS: Anion Gap 12 (12-20); Blood Urea Nitrogen 14 mg/dL (9-16); Calcium 9.4 mg/dL (8.4-10.2); Carbon Dioxide 26 mmol/L (22-29); Chloride 106 mmol/L (96-108); Estimated Glomerular Filt Rate > 60; Glucose Random 99 mg/dL (60-115); Potassium 4.7 mmol/L (3.3-5.1); Sodium 139 mmol/L (135-145)
[2021-08-11 14:27] LABS: HCG Quantitative 3 mIU/mL
== END 2021-08-11 11:38 | disposition home or self-care (01) ==
LOC: HO.LAB 11:37
PROVIDERS: Absent Provider Internal Medicine; PCP Internal Medicine; Visit Provider Internal Medicine Cardiovascular Disease
DX: I42.9 Cardiomyopathy, unspecified (principal); B37.2 Candidiasis of skin and nail; N95.1 Menopausal and female climacteric states; R79.9 Abnormal finding of blood chemistry, unspecified
CPT/HCPCS: 36415; 80048; 80061; 84702

== ENCOUNTER 2021-09-07 18:58 | Emergency (ER) | payer OTHER, SELFPAY ==
[2021-09-07 19:47] VITALS: BP 148/93; PULSE 113; RESP 18; TEMP 36.8; O2SAT 98; BMI 33.9
[2021-09-07] MEDS: Acetaminophen 325 MG TABLET 650 MG PO (19:52)
--- NOTE | 2021-09-07 22:01 | ED_ITS ---
HPI - Wound/Laceration General Chief Complaint: Wound/Laceration Stated Complaint: laceration above eye Time Seen by Provider: 09/07/21 22:01 Source: patient and diplomatic interpreter/translator Mode of arrival: ambulatory History of Present Illness HPI narrative: 46-year-old female was helping put together a bed when it slipped and fell onto the side of her face she did not lose consciousness. Related Data Home Medications Medication Instructions Recorded Confirmed acetaminophen 650 mg 650 mg PO Q8H PRN 10/31/20 07/22/21 tablet,extended release bupropion HCl 300 mg 24 hr tablet, 300 mg PO QAM 10/31/20 07/22/21 extended release calcium carbonate 500 mg-vitamin 1 tab PO BID 10/31/20 07/22/21 D3 5 mcg (200 unit) tablet cholecalciferol (vitamin D3) 50 0 mcg PO 10/31/20 07/22/21 mcg (2,000 unit) capsule clonazepam 1 mg tablet 0 mg PO 10/31/20 07/22/21 lurasidone 40 mg tablet 40 mg PO DAILY 10/31/20 07/22/21 olanzapine 10 mg tablet 10 mg PO QPM 10/31/20 07/22/21 perphenazine 8 mg tablet 8 mg PO TID 10/31/20 07/22/21 valacyclovir 500 mg tablet 500 mg PO BID 10/31/20 07/22/21 zolpidem 10 mg tablet 10 mg PO BEDTIME PRN 10/31/20 07/22/21 albuterol sulfate 90 mcg/actuation 0 mcg INHALATION 07/22/21 07/22/21 aerosol inhaler gabapentin 100 mg capsule 100 mg PO TID 07/22/21 07/22/21 Previous Rx's Medication Instructions Recorded acetaminophen 500 mg tablet 500 mg PO Q6H PRN #20 tab 11/23/20 (Tylenol Extra Strength) cyclobenzaprine 5 mg tablet 5 mg PO Q8H PRN 5 Days #14 tab 11/23/20 lidocaine 5 % topical patch 1 patch TOPICAL DAILY PRN #30 ea 11/23/20 (Lidoderm) MDD remove after 12 hours linaclotide 290 mcg capsule 290 mcg PO QAM #30 cap 12/03/20 (Linzess) dexlansoprazole 60 mg 60 mg PO DAILY #30 cap 02/06/21 capsule,biphase delayed release (Dexilant) simethicone 180 mg capsule (Gas 180 mg PO QID #90 cap 06/03/21 Relief (simethicone)) sulfamethoxazole 800 1 tab PO BID 5 Days #10 tab 06/30/21 mg-trimethoprim 160 mg tablet (Bactrim DS) Lactobacill 1 cap PO DAILY #30 cap 07/17/21 acidophilus-L.helvetic-B.bifidum 250 million cell capsule (Acidophilus Probiotic Complex) metronidazole 500 mg tablet 500 mg PO TID 10 Days #30 tab 07/17/21 metoprolol tartrate 25 mg tablet 25 mg PO ONCE #1 tab 07/22/21 epdujp-yykrnwub-egmhxvn 1 cap PO QID #120 cap 08/13/21 24,000-76,000-120,000 unit capsule,delayed rel (Creon) sennosides 8.6 mg tablet (So-wolfgang) 17.2 mg PO BID #120 tab 08/13/21 imipramine HCl 25 mg tablet 50 mg PO BEDTIME #60 ea 08/28/21 Allergies Allergy/AdvReac Type Severity Reaction Status Date / Time aspirin [ASPIRIN] Allergy Unknown UNKNOWN Verified 09/07/21 19:42 REACTION PER PT. Review of Systems Review of Systems: Pertinent positives and negatives as stated in HPI 10 point review of systems is otherwise negative. [facility]LY [facility] Past Medical History Source: nursing notes reviewed Medical History Anxiety Asthma Surgical History History of colonoscopy Hx of cholecystectomy Hx of endoscopy Family History Family History Father No problems noted. Mother No problems noted. Social History Social History Household Members: Children Alcohol intake: current Alcohol intake frequency: holidays/special occasions only Patient Tobacco Use Status: Never used Tobacco Advance Directives: No Advance Directives Information Provided: No Physical Exam Vital Signs: Vital Signs: Last Vital Signs Temp 98.3 F 09/07/21 19:47 Pulse 113 H 09/07/21 19:47 Resp 18 09/07/21 19:47 BP 148/93 H 09/07/21 19:47 Pulse Ox 98 09/07/21 19:47 BMI result Body Mass Index 33.9 VITAL SIGNS: Reviewed. GENERAL: Well developed, well nourished, in no acute distress. HEAD: Normocephalic/6 cm laceration cross acting the left eyebrow and into the left upper lid to the lateral canthus, hemostatic, neurovascular is intact (patient is able to open and close eyes raise and lower eyebrows) EYES: PERRLA, EOMI OROPHARYNX: no oral lesions noted, posterior pharynx clear LUNGS: Normal breath sounds. No adventitious sounds or accessory muscle use. SpO2<98> CARDIOVASCULAR: Regular rate and rhythm without noted murmurs ABDOMEN: Soft, non-tender, non-distended with bowel sounds. NEUROLOGIC: Alert and oriented x 4. Strength and sensation to light touch were grossly intact x 4. Course Course Course Narrative: 46-year-old female with history and clinical presentation consistent with moderate complexity laceration to the left eyebrow/left upper lid that is neurovascularly intact. After instilling local anesthetic patient underwent a 2 layer repair. Patient received Tdap as well as pain medication. Procedures Laceration Laceration 1: Site: face Side (If applicable): left Size (cm): 6 Description: linear and clean Depth: simple, single layer Local Anesthetic: lidocaine 2% Amount of anesthesia used (mL): 2 Pre-repair: wound explored, irrigated extensively and deep structures intact Skin layer closed with: nylon Size (cm): 6-0 Number of sutures: 7 Technique: simple, interrupted Subcutaneous layer closed with: vicryl Size: 5-0 Number of sutures: 3 Technique: simple, interrupted Discharge Plan Discharge Clinical Impression: Laceration Patient Disposition: Home, Self-Care Instructions: Care For Your Stitches (ED), Facial Laceration (ED), Laceration (ED) Additional Instructions: 1. Limpie suavemente el ?rosa con agua y jab?n, luego s?quela suavemente y aplique kumar pomada antibi?patricio (disponible sin receta). 2. Deber? retirar las suturas en 5 d?as, ya sea por horan proveedor de atenci?n primaria o regresar a esta gagandeep de emergencias. 3. Tylenol 1000 mg, por v?a oral, cada 6 horas seg?n sea necesario para controlar el dolor. No exceda los 4000 mg dentro de las 24 horas. 4. Aplique hielo sobre la piel no expuesta anival 5 a 10 minutos, 3 a 4 veces al d?a. Regrese a la gagandeep de emergencias si los s?ntomas empeoran. Prescriptions: No Action Dexilant 60 mg capsule,biphase delayed releas 60 mg PO DAILY Qty: 30 4RF simethicone [Gas Relief (simethicone)] 180 mg capsule 180 mg PO QID Qty: 90 6RF sennosides [So-wolfgang] 8.6 mg tablet 17.2 mg PO BID Qty: 120 6RF Creon 24,000-76,000 -120,000 unit capsule,delayed release(DR/EC) 1 cap PO QID Qty: 120 6RF imipramine HCl 25 mg tablet 50 mg PO BEDTIME Qty: 60 4RF acetaminophen [Tylenol Extra Strength] 500 mg tablet 500 mg PO Q6H PRN (Reason: pain or fever) Qty: 20 0RF lidocaine [Lidoderm] 5 % adhesive patch,medicated 1 patch topical DAILY MDD remove after 12 hours PRN (Reason: pain) Qty: 30 0RF Rx Instructions: leave on most painful area for up to 12 hrs cyclobenzaprine 5 mg tablet 5 mg PO Q8H PRN (Reason: pain (scale score 7-10)) 5 Days Qty: 14 0RF sulfamethoxazole-trimethoprim [Bactrim DS] 800-160 mg tablet 1 tab PO BID 5 Days Qty: 10 0RF Acidophilus Probiotic Complex 250 million cell capsule 1 cap PO DAILY Qty: 30 6RF metronidazole 500 mg tablet 500 mg PO TID 10 Days Qty: 30 0RF calcium carbonate-vitamin D3 500 mg(1,250mg) -200 unit tablet 1 tab PO BID 0RF perphenazine 8 mg tablet 8 mg PO TID 0RF Latuda 40 mg tablet 40 mg PO DAILY 0RF bupropion HCl 300 mg tablet extended release 24 hr 300 mg PO QAM 0RF zolpidem 10 mg tablet 10 mg PO BEDTIME PRN0RF clonazepam 1 mg tablet 0 mg PO 0RF valacyclovir 500 mg tablet 500 mg PO BID 0RF acetaminophen 650 mg tablet extended release 650 mg PO Q8H PRN0RF cholecalciferol (vitamin D3) 50 mcg (2,000 unit) capsule 0 mcg PO 0RF olanzapine 10 mg tablet 10 mg PO QPM 0RF Linzess 290 mcg capsule 290 mcg PO QAM Qty: 30 6RF albuterol sulfate 90 mcg/actuation HFA aerosol inhaler 0 mcg inhalation 0RF gabapentin 100 mg capsule 100 mg PO TID 0RF metoprolol tartrate 25 mg tablet 25 mg PO ONCE Qty: 1 0RF Rx Instructions: take 1 tablet one hour prior to CT scan of heart Print Language: Serbian
[2021-09-07] MEDS: Acetaminophen 325 MG TABLET 975 MG PO (22:17)
[2021-09-07] MEDS: Diphth,Pertus(ACell),Tet Adult 0.5 ML SYRINGE IM (22:17)
[2021-09-07] MEDS: oxyCODONE HCl Immed Release 5 MG TABLET PO (22:18)
[2021-09-07] MEDS: Bacitracin Oint 14 GM TUBE 1 APPL TOPICAL (22:18)
[2021-09-07] MEDS: Lidocaine HCl 2 % 20 ML VIAL 5 ML SUBCUT (22:19)
== END 2021-09-07 22:28 | disposition home or self-care (01) ==
PROVIDERS: Emergency Provider Student in an Organized Health Care Education/Training Program
DX: S01.112A Laceration without foreign body of left eyelid and periocular area, initial encounter (principal); W06.XXXA Fall from bed, initial encounter; Y93.9 Activity, unspecified; Y92.003 Bedroom of unspecified non-institutional (private) residence as the place of occurrence of the external cause; Y99.9 Unspecified external cause status; Z79.899 Other long term (current) drug therapy
CPT/HCPCS: 12014; 90471; 90715; 96372; 99283; 99284

== ENCOUNTER 2021-11-11 10:37 | Outpatient (REF) | payer OTHER, SELFPAY ==
--- NOTE | 2021-11-11 | PFT_ITS ---
Forced vital capacity 78%, FEV1 82%. FEV1/FVC ratio is 85, normal. FEF 25-75 is 89% and MVV 80%. Post-bronchodilator therapy, there is no significant improvement rather slight decrease in the flow volumes. Total lung capacity 87%. Residual volume 103%, normal. Diffusion capacity normal. CONCLUSION: Normal pulmonary function test. Slight decrease in FVC is probably effort related. No response to bronchodilator therapy. Compared to the pulmonary function study on 03/28/2021, there is slight decrease in FVC, but no other significant changes noted. Lee Eduardo MD MSB/MODL / [id number]
== END 2021-11-11 10:38 | disposition home or self-care (01) ==
LOC: HO.RESP 10:37
PROVIDERS: PCP Internal Medicine; Visit Provider Internal Medicine
DX: R06.02 Shortness of breath (principal)
CPT/HCPCS: 94060; 94727; 94729

== ENCOUNTER 2021-12-09 10:43 | Outpatient (REF) | payer OTHER, SELFPAY ==
--- NOTE | ~2021-12-09 | XR_ITS ---
EXAMINATION: XR SHOULDER, LEFT XR CERVICAL SPINE CLINICAL INFORMATION: Left shoulder pain and neck pain. COMPARISON: None. TECHNIQUE: Left shoulder 4 views. Cervical spine 6 views. FINDINGS: LEFT SHOULDER: There is no visible acute fracture, dislocation or subluxation. No bony erosive changes. The left AC joint is normal. The soft tissues are normal. CERVICAL SPINE: There is mild straightening of cervical lordosis. The vertebral heights and alignment are normal. There is loss of C5-C6 disc height with mild ventral spondylosis. Rest of the disc heights are normal. The neural foramina are patent bilaterally. No acute fracture or dislocation seen. The prevertebral soft tissues are normal. No lytic or sclerotic process seen. XR/XR cervical spine min 6V IMPRESSION: Unremarkable left shoulder exam. Mild degenerative disc changes C5-C6 disc level with ventral spondylosis. No acute fracture or dislocation. Mild straightening of cervical lordosis likely positional or spasm.
--- NOTE | ~2021-12-09 | XR_ITS ---
EXAMINATION: XR SHOULDER, LEFT XR CERVICAL SPINE CLINICAL INFORMATION: Left shoulder pain and neck pain. COMPARISON: None. TECHNIQUE: Left shoulder 4 views. Cervical spine 6 views. FINDINGS: LEFT SHOULDER: There is no visible acute fracture, dislocation or subluxation. No bony erosive changes. The left AC joint is normal. The soft tissues are normal. CERVICAL SPINE: There is mild straightening of cervical lordosis. The vertebral heights and alignment are normal. There is loss of C5-C6 disc height with mild ventral spondylosis. Rest of the disc heights are normal. The neural foramina are patent bilaterally. No acute fracture or dislocation seen. The prevertebral soft tissues are normal. No lytic or sclerotic process seen. XR/XR shoulder LT min 2V IMPRESSION: Unremarkable left shoulder exam. Mild degenerative disc changes C5-C6 disc level with ventral spondylosis. No acute fracture or dislocation. Mild straightening of cervical lordosis likely positional or spasm.
== END 2021-12-09 10:44 | disposition home or self-care (01) ==
LOC: HO.XRAY 10:43
PROVIDERS: Absent Provider Internal Medicine; PCP Internal Medicine; Visit Provider Emergency Medicine
DX: M54.2 Cervicalgia (principal)
CPT/HCPCS: 72052; 73030

== ENCOUNTER 2021-12-12 11:34 | Outpatient (REF) | payer OTHER, SELFPAY ==
[2021-12-12 13:58] LABS: Amylase 68 U/L (28-100); Lipase 42 U/L (8-78)
== END 2021-12-12 11:35 | disposition home or self-care (01) ==
LOC: HO.LAB 11:34
PROVIDERS: PCP Internal Medicine; Visit Provider Nurse Practitioner
DX: K59.04 Chronic idiopathic constipation (principal); K29.60 Other gastritis without bleeding; K21.9 Gastro-esophageal reflux disease without esophagitis; R14.0 Abdominal distension (gaseous); R10.10 Upper abdominal pain, unspecified; R10.11 Right upper quadrant pain
CPT/HCPCS: 36415; 82150; 83690; 99212

== ENCOUNTER 2022-02-26 14:15 | Outpatient (REF) | payer OTHER, SELFPAY ==
--- NOTE | ~2022-02-26 | XR_ITS ---
EXAMINATION: XR ABDOMEN WITH SUPINE AND UPRIGHT VIEWS CLINICAL INDICATION: Abdominal pain COMPARISON: March 22, 2020 TECHNIQUE: Supine and upright abdomen. FINDINGS: The bowel gas pattern is normal with no evidence of ileus or obstruction. No unusual soft tissue calcifications are noted. The bones are unremarkable. Clips from previous cholecystectomy and place. Psoas margins intact. Multiple phleboliths about the pelvis. XR/XR abdomen w decubitus IMPRESSION: No evidence of ileus or obstruction. No free air.
== END 2022-02-26 14:16 | disposition home or self-care (01) ==
LOC: HO.XRAY 14:15
PROVIDERS: PCP Internal Medicine; Visit Provider Nurse Practitioner
DX: R10.9 Unspecified abdominal pain (principal); K21.9 Gastro-esophageal reflux disease without esophagitis; K59.04 Chronic idiopathic constipation; K59.9 Functional intestinal disorder, unspecified
CPT/HCPCS: 74021; 99212

== ENCOUNTER 2022-03-17 10:03 | Emergency (ER) | payer OTHER, SELFPAY ==
[2022-03-17] VITALS (7 sets, daily range): BP systolic 122–143; BP diastolic 68–81; PULSE 77–118; RESP 16–25; TEMP 36.6–37.1; O2SAT 95–98; BMI 35.1
--- NOTE | ~2022-03-17 | XR_ITS ---
EXAMINATION: XR CHEST CLINICAL INFORMATION: Chest pain, shortness of breath. COMPARISON: None TECHNIQUE: Frontal view of the chest was obtained. FINDINGS: No significant abnormality is noted involving the heart, lungs, mediastinum, bony thorax or soft tissues. XR/XR chest 1V IMPRESSION: No acute cardiopulmonary process.
--- NOTE | 2022-03-17 10:34 | ECG_ITS ---
Test Reason : chest pain Blood Pressure : / mmHG Vent. Rate : 089 BPM Atrial Rate : 089 BPM P-R Int : 160 ms QRS Dur : 072 ms QT Int : 356 ms P-R-T Axes : 041 -01 019 degrees QTc Int : 433 ms Normal sinus rhythm Minimal voltage criteria for LVH, may be normal variant ( R in aVL ) Borderline ECG When compared with ECG of 23-NOV-2020 10:07, No significant change was found Referred By: Generic ED Physician Electronically Signed By:JON BECKER
[2022-03-17 11:04] LABS: COVID-19 Test Negative (Negative); IDNOW Serial# 55D5AD1C
--- NOTE | 2022-03-17 15:35 | ED.GENADULT ---
HPI - General Adult General Chief complaint: General Medical <PAT Cardona - Last Filed: 03/17/22 18:14> Stated complaint: Diff. breathing/chest pains/headaches <PAT Cardona Last Filed: 03/17/22 18:14> Time Seen by Provider: 03/17/22 15:30 <PAT Cardona - Last Filed: 03/17/22 18:14> Source: patient <PAT Cardona - Last Filed: 03/17/22 18:14> Mode of arrival: ambulatory <PAT Cardona Last Filed: 03/17/22 18:14> History of Present Illness HPI narrative: 46-year-old female with a past medical history of anxiety, asthma, presenting to the ED complaining dry cough, SOB, and chest discomfort when coughing times a couple days. Reports SOB worsening on exertion and when lying flat. Also reports bilateral LE soreness/pain. Has been using albuterol without relief. Denies fever, abdominal pain, nausea/vomiting, oral OCPs, cigarette smoking, sick contacts <PAT Cardona - Last Filed: 03/17/22 18:14> Onset (ago): day(s) <PAT Cardona - Last Filed: 03/17/22 18:14> Related Data Home medications: Home Medications Medication Instructions Recorded Confirmed bupropion HCl 300 mg 24 hr tablet, 300 mg PO QAM 10/31/20 07/22/21 extended release calcium carbonate 500 mg-vitamin 1 tab PO BID 10/31/20 07/22/21 D3 5 mcg (200 unit) tablet olanzapine 10 mg tablet 10 mg PO QPM 10/31/20 07/22/21 perphenazine 8 mg tablet 8 mg PO TID 10/31/20 07/22/21 valacyclovir 500 mg tablet 500 mg PO BID 10/31/20 07/22/21 gabapentin 100 mg capsule 100 mg PO TID 07/22/21 07/22/21 cetirizine 10 mg tablet 10 mg PO DAILY 12/12/21 diclofenac sodium 1 % topical gel 2 g topical QID 12/12/21 fluticasone propionate 50 spray intranasal 12/12/21 mcg/actuation nasal spray,suspension nystatin 100,000 unit/gram topical topical DAILY 12/12/21 powder tizanidine 2 mg tablet 2 mg PO Q8H PRN 12/12/21 venlafaxine 75 mg capsule,extended 225 mg PO DAILY 12/12/21 release 24 hr albuterol sulfate 90 mcg/actuation 2 inh inhalation PRN 02/26/22 aerosol inhaler cholecalciferol (vitamin D3) 50 2,000 unit PO DAILY 02/26/22 mcg (2,000 unit) capsule clonazepam 1 mg tablet 1 mg PO DAILY 02/26/22 fluticasone propionate 110 1 puff PO BID 02/26/22 mcg/actuation HFA aerosol inhaler (Flovent HFA) lurasidone 60 mg tablet (Latuda) 60 mg PO DAILY 02/26/22 naproxen sodium 550 mg tablet 550 mg PO BID 02/26/22 zolpidem 12.5 mg tablet,extended 12.5 mg PO BEDTIME PRN insomnia 02/26/22 release,multiphase Previous Rx's Medication Instructions Recorded acetaminophen 500 mg tablet 500 mg PO Q6H PRN pain or fever 11/23/20 (Tylenol Extra Strength) #20 tabs cyclobenzaprine 5 mg tablet 5 mg PO Q8H PRN pain (scale score 11/23/20 7-10) 5 days #14 tabs lidocaine 5 % topical patch 1 patch topical DAILY PRN pain #30 11/23/20 (Lidoderm) ea Lactobacill 1 cap PO DAILY #30 caps 07/17/21 acidophilus-L.helvetic-B.bifidum 250 million cell capsule (Acidophilus Probiotic Complex) metoprolol tartrate 25 mg tablet 25 mg PO ONCE #1 tab 07/22/21 dexlansoprazole 60 mg 60 mg PO DAILY #30 caps 12/12/21 capsule,biphase delayed release (Dexilant) linaclotide 290 mcg capsule 290 mcg PO QAM #30 caps 12/12/21 (Linzess) simethicone 180 mg capsule (Gas 180 mg PO QID #90 caps 12/12/21 Relief (simethicone)) reuisu-komgvalh-lfkweqr 1 cap PO QID #120 caps 02/19/22 24,000-76,000-120,000 unit capsule,delayed rel (Creon) sennosides 8.6 mg tablet (So-wolfgang) 17.2 mg PO BID #120 tabs 02/19/22 metoclopramide HCl 5 mg tablet 5 mg PO QIDACHS #120 tabs 02/26/22 (Reglan) albuterol sulfate 2.5 mg/0.5 mL 5 mg inhalation Q4H PRN shortness 03/17/22 solution for nebulization of breath or wheezing #30 ea prednisone 20 mg tablet 40 mg PO DAILY 5 days #10 tabs 03/17/22 <PAT Cardona Last Filed: 03/17/22 18:14> Allergies/adverse reactions: Allergies Allergy/AdvReac Type Severity Reaction Status Date / Time aspirin [ASPIRIN] Allergy Unknown UNKNOWN Verified 02/26/22 13:38 REACTION PER PT. <PAT Cardona Last Filed: 03/17/22 18:14> Review of Systems Review of Systems: Constitutional: No Fever, No Chills, No Fatigue, No Malaise ENT/Mouth: No Ear Pain, No Nasal Congestion, No sore throat, No Rhinorrhea, No Swallowing Difficulty Eyes: No Eye Pain, No Swelling, No Redness, No Vision Changes Cardiovascular: + Chest Pain, + SOB, + Dyspnea on Exertion, + Orthopnea, No Edema, No Palpitations Respiratory: + Cough, No Sputum, No Wheezing, No Dyspnea Gastrointestinal: No Nausea, No Vomiting, No Diarrhea, No Constipation, No Abdominal pain Genitourinary: No Dysuria, No Urinary Frequency, No Hematuria, No Flank Pain Musculoskeletal: No joint pain, No Myalgias, No Joint Swelling Skin: No Skin Lesions, No rash Neuro: No Weakness, No Numbness, No Dizziness, No Headache <PAT Cardona Last Filed: 03/17/22 18:14> Yes all other systems are reviewed and are negative <PAT Cardona Last Filed: 03/17/22 18:14> Constitutional: Constitutional: Reports as per HPI <PAT Cardona Last Filed: 03/17/22 18:14> [facility] Past Medical History Attestation statement: The following information was validated with the patient. <PAT Cardona Last Filed: 03/17/22 18:14> Medical History: Medical History Anxiety Asthma <PAT Cardona - Last Filed: 03/17/22 18:14> Surgical History: Surgical History History of colonoscopy Hx of cholecystectomy Hx of endoscopy <PAT Cardona - Last Filed: 03/17/22 18:14> Family History Family History: Family History Father No problems noted. Mother No problems noted. <PAT Cardona - Last Filed: 03/17/22 18:14> Social History Social History: Social History Household Members: Children Alcohol intake: current Alcohol intake frequency: holidays/special occasions only Patient Tobacco Use Status: Never used Tobacco Advance Directives: No Advance Directives Information Provided: Yes <PAT Cardona - Last Filed: 03/17/22 18:14> Physical Exam ED Vital Signs: Vital Signs - 24 hr 03/17/22 10:42 03/17/22 15:47 03/17/22 16:00 Temperature 98.7 F 97.8 F Pulse Rate 81 77 96 Respiratory Rate 16 18 18 Blood Pressure 137/81 143/79 H Pulse Oximetry 98 96 Oxygen Delivery Method Room Air Aerosol Mask 03/17/22 17:16 03/17/22 19:41 03/17/22 19:44 Temperature Pulse Rate 105 H 115 H 116 H Respiratory Rate 24 H 25 H 24 H Blood Pressure 122/70 Pulse Oximetry 96 Oxygen Delivery Method Room Air 03/17/22 23:55 Temperature 97.8 F Pulse Rate 118 H Respiratory Rate 24 H Blood Pressure 128/68 Pulse Oximetry 95 Oxygen Delivery Method Room Air BMI result Body Mass Index 35.1 <PAT Cardona - Last Filed: 03/17/22 18:14> Vital Signs - 24 hr 03/17/22 10:42 03/17/22 15:47 03/17/22 16:00 Temperature 98.7 F 97.8 F Pulse Rate 81 77 96 Respiratory Rate 16 18 18 Blood Pressure 137/81 143/79 H Pulse Oximetry 98 96 Oxygen Delivery Method Room Air Aerosol Mask 03/17/22 17:16 03/17/22 19:41 03/17/22 19:44 Temperature Pulse Rate 105 H 115 H 116 H Respiratory Rate 24 H 25 H 24 H Blood Pressure 122/70 Pulse Oximetry 96 Oxygen Delivery Method Room Air 03/17/22 23:55 Temperature 97.8 F Pulse Rate 118 H Respiratory Rate 24 H Blood Pressure 128/68 Pulse Oximetry 95 Oxygen Delivery Method Room Air BMI result Body Mass Index 35.1 <PAT Olvera - Last Filed: 03/18/22 01:36> Const General: cooperative, healthy appearing and no acute distress <PAT Cardona Last Filed: 03/17/22 18:14> Orientation/consciousness: patient oriented x3 <PAT Cardona - Last Filed: 03/17/22 18:14> Limitations: no limitations <PAT Cardona Last Filed: 03/17/22 18:14> HENMT Head: Yes normal to inspection and Yes atraumatic <PAT Cardona - Last Filed: 03/17/22 18:14> Ears: hearing grossly normal bilaterally <PAT Cardona Last Filed: 03/17/22 18:14> General nose exam: Normal external nose present <PAT Cardona Last Filed: 03/17/22 18:14> Face and sinus: Yes normal facial exam <PAT Cardona Last Filed: 03/17/22 18:14> Eyes General: appearance normal, both eyes and all related structures <PAT Cardona Last Filed: 03/17/22 18:14> EOM: EOMs intact bilaterally <PAT Cardona Last Filed: 03/17/22 18:14> Neck Neck: Yes normal visual inspection and Yes no meningeal signs <PAT Cardona Last Filed: 03/17/22 18:14> Resp Effort & Inspection: normal respiratory effort and no respiratory distress <PAT Cardona Last Filed: 03/17/22 18:14> Auscultation: wheezes expiratory wheezes and throughout <PAT Cardona Last Filed: 03/17/22 18:14> Cardio Rate: regular rate <PAT Cardona - Last Filed: 03/17/22 18:14> Heart sounds: S1 normal heart sound present and S2 normal heart sound present <PAT Cardona - Last Filed: 03/17/22 18:14> GI Inspection: Yes normal to inspection <Jane Tony PA - Last Filed: 03/17/22 18:14> Palpation (GI): Soft to palpation, nontender, no guarding and not rigid <Jane Tony PA - Last Filed: 03/17/22 18:14> General: Yes no CVA tenderness <Jane Tony PA - Last Filed: 03/17/22 18:14> Back/Spine/Pelvis Back: no CVA tenderness <Jane Tony PA - Last Filed: 03/17/22 18:14> Skin Rashes: no rashes <Jane Tony PA - Last Filed: 03/17/22 18:14> Wounds: no wounds <Jane Tony PA - Last Filed: 03/17/22 18:14> Neuro General: patient oriented x3, tone normal and no meningeal signs <PAT Cardona - Last Filed: 03/17/22 18:14> Gait exam (Neuro): Normal gait present <Jane Tony PA - Last Filed: 03/17/22 18:14> Extrem Other: 1+ bilateral LE edema with mild calf tenderness <Jane Tony PA - Last Filed: 03/17/22 18:14> General: Yes normal to inspection and Yes no pedal edema <Jane Tony PA - Last Filed: 03/17/22 18:14> Course Course Course Narrative: -no leukocytosis. Labs otherwise unremarkable. D-dimer WNL > PE unlikely XR chest 1V IMPRESSION: No acute cardiopulmonary process. -COVID-19 negative. 1700--on re-evaluation patient is still with shallow breath sounds and slight expiratory wheeze. Will order additional DuoNeb and IV magnesium -1800--ED care transferred to PAT Tang pending re-evaluation and anticipated discharge home <PAT Cardona - Last Filed: 03/17/22 18:14> Reevaluation(s) Reevaluation #1: Patient was still complaining of some chest discomfort, troponin was repeated and was slightly elevated, patient is still complaining of chest pain, was given cyclobenzaprine. Next troponin is pending. Sign-out given to Dr. Taylor <PAT Olvera - Last Filed: 03/18/22 01:36> Time: 01:36 <PAT Olvera - Last Filed: 03/18/22 01:36> Medical Decision Making MDM Narrative Medical decision making narrative: 46-year-old female with a past medical history of anxiety, asthma, presenting to the ED complaining dry cough, SOB, and chest discomfort when coughing times a couple days. On exam vital signs stable, NAD, diffuse expiatory wheezing noted, 1+ bilateral LE edema with calf tenderness. Concern for asthma exacerbation vs viral illness vs pneumonia vs DVT/PE or CHF. Lower suspicion for ACS Plan: EKG, labs, CXR, COVID-19 testing, DuoNebs, IV Solu-Medrol <PAT Cardona - Last Filed: 03/17/22 18:14> Medical Records Medical records reviewed: Yes I reviewed the patient's medical records. <PAT Cardona - Last Filed: 03/17/22 18:14> Lab Data Lab results reviewed: Yes I reviewed the patient's lab results. <PAT Cardona - Last Filed: 03/17/22 18:14> Result diagrams: : 03/17/22 16:07 03/17/22 16:07 <PAT Cardona - Last Filed: 03/17/22 18:14> Labs: Lab Results 03/17/22 03/17/22 03/17/22 Range/Units 10:39 16:07 16:07 WBC 7.6 (4.8-10.8) X10*3/uL RBC 3.87 L (4.20-5.50) X10*6/uL Hgb 12.3 (12.0-16.0) g/dl Hct 37.6 (37.0-47.0) % MCV 97.2 (80.0-98.0) fL MCH 31.8 (27.0-33.0) pg MCHC 32.7 (31.0-35.0) g/dl RDW 12.3 (11.0-16.0) % Plt Count 226 (160-400) X10*3/uL MPV 9.6 (9.4-12.3) fL Immature Gran % (Auto) 0.3 (0.0-0.4) % Neut % (Auto) 52.8 (45-73) % Lymph % (Auto) 34.1 (20-40) % [place] % (Auto) 6.3 (2-11) % Eos % (Auto) 6.0 H (0-4) % Baso % (Auto) 0.5 (0-2) % Lymph # (Auto) 2.6 (1.2-4.9) X10*3/uL [place] # (Auto) 0.5 (0.1-1.2) X10*3/uL Eos # (Auto) 0.5 H (0.0-0.4) X10*3/uL Baso # (Auto) 0.0 (0.0-0.2) X10*3/uL Abs Immat Gran (auto) 0.02 (0.00-0.03) X10*3/uL Absolute Neuts (auto) 4.0 (2.0-8.3) x10*3/uL Absolute Nucleated RBC 0.000 (0.0-0.012) X10*3/uL Nucleated RBC % (auto) 0.0 (0.0-0.2) /100WBC D-Dimer High Sensitivty 162 NG/ML Sodium (135-145) mmol/L Potassium (3.3-5.1) mmol/L Chloride (96-108) mmol/L Carbon Dioxide (22-29) mmol/L Anion Gap (12-20) BUN (9-16) mg/dL Creatinine (0.5-1.4) mg/dL Estim Creat Clear Calc Estimated GFR Random Glucose (60-115) mg/dL Calcium (8.4-10.2) mg/dL Troponin I High Sens (<3.5-17.0) ng/L B-Natriuretic Peptide (<100) pg/mL COVID-19 ([facility]) Negative (Negative) COVID-19 Clin Com See Note 03/17/22 03/17/22 03/17/22 Range/Units 16:07 16:07 22:22 WBC (4.8-10.8) X10*3/uL RBC (4.20-5.50) X10*6/uL Hgb (12.0-16.0) g/dl Hct (37.0-47.0) % MCV (80.0-98.0) fL MCH (27.0-33.0) pg MCHC (31.0-35.0) g/dl RDW (11.0-16.0) % Plt Count (160-400) X10*3/uL MPV (9.4-12.3) fL Immature Gran % (Auto) (0.0-0.4) % Neut % (Auto) (45-73) % Lymph % (Auto) (20-40) % [place] % (Auto) (2-11) % Eos % (Auto) (0-4) % Baso % (Auto) (0-2) % Lymph # (Auto) (1.2-4.9) X10*3/uL [place] # (Auto) (0.1-1.2) X10*3/uL Eos # (Auto) (0.0-0.4) X10*3/uL Baso # (Auto) (0.0-0.2) X10*3/uL Abs Immat Gran (auto) (0.00-0.03) X10*3/uL Absolute Neuts (auto) (2.0-8.3) x10*3/uL Absolute Nucleated RBC (0.0-0.012) X10*3/uL Nucleated RBC % (auto) (0.0-0.2) /100WBC D-Dimer High Sensitivty NG/ML Sodium 143 (135-145) mmol/L Potassium 4.4 (3.3-5.1) mmol/L Chloride 107 (96-108) mmol/L Carbon Dioxide 27 (22-29) mmol/L Anion Gap 13 (12-20) BUN 17 H (9-16) mg/dL Creatinine 0.78 (0.5-1.4) mg/dL Estim Creat Clear Calc 100.9 Estimated GFR > 60 Random Glucose 88 (60-115) mg/dL Calcium 9.4 (8.4-10.2) mg/dL Troponin I High Sens 4.6 8.0 D (<3.5-17.0) ng/L B-Natriuretic Peptide 15 (<100) pg/mL COVID-19 ([facility]) (Negative) COVID-19 Clin Com <PAT Cardona - Last Filed: 03/17/22 18:14> Lab Results 03/17/22 03/17/22 03/17/22 Range/Units 10:39 16:07 16:07 WBC 7.6 (4.8-10.8) X10*3/uL RBC 3.87 L (4.20-5.50) X10*6/uL Hgb 12.3 (12.0-16.0) g/dl Hct 37.6 (37.0-47.0) % MCV 97.2 (80.0-98.0) fL MCH 31.8 (27.0-33.0) pg MCHC 32.7 (31.0-35.0) g/dl RDW 12.3 (11.0-16.0) % Plt Count 226 (160-400) X10*3/uL MPV 9.6 (9.4-12.3) fL Immature Gran % (Auto) 0.3 (0.0-0.4) % Neut % (Auto) 52.8 (45-73) % Lymph % (Auto) 34.1 (20-40) % [place] % (Auto) 6.3 (2-11) % Eos % (Auto) 6.0 H (0-4) % Baso % (Auto) 0.5 (0-2) % Lymph # (Auto) 2.6 (1.2-4.9) X10*3/uL [place] # (Auto) 0.5 (0.1-1.2) X10*3/uL Eos # (Auto) 0.5 H (0.0-0.4) X10*3/uL Baso # (Auto) 0.0 (0.0-0.2) X10*3/uL Abs Immat Gran (auto) 0.02 (0.00-0.03) X10*3/uL Absolute Neuts (auto) 4.0 (2.0-8.3) x10*3/uL Absolute Nucleated RBC 0.000 (0.0-0.012) X10*3/uL Nucleated RBC % (auto) 0.0 (0.0-0.2) /100WBC D-Dimer High Sensitivty 162 NG/ML Sodium (135-145) mmol/L Potassium (3.3-5.1) mmol/L Chloride (96-108) mmol/L Carbon Dioxide (22-29) mmol/L Anion Gap (12-20) BUN (9-16) mg/dL Creatinine (0.5-1.4) mg/dL Estim Creat Clear Calc Estimated GFR Random Glucose (60-115) mg/dL Calcium (8.4-10.2) mg/dL Troponin I High Sens (<3.5-17.0) ng/L B-Natriuretic Peptide (<100) pg/mL COVID-19 ([facility]) Negative (Negative) COVID-19 Clin Com See Note 03/17/22 03/17/22 03/17/22 Range/Units 16:07 16:07 22:22 WBC (4.8-10.8) X10*3/uL RBC (4.20-5.50) X10*6/uL Hgb (12.0-16.0) g/dl Hct (37.0-47.0) % MCV (80.0-98.0) fL MCH (27.0-33.0) pg MCHC (31.0-35.0) g/dl RDW (11.0-16.0) % Plt Count (160-400) X10*3/uL MPV (9.4-12.3) fL Immature Gran % (Auto) (0.0-0.4) % Neut % (Auto) (45-73) % Lymph % (Auto) (20-40) % [place] % (Auto) (2-11) % Eos % (Auto) (0-4) % Baso % (Auto) (0-2) % Lymph # (Auto) (1.2-4.9) X10*3/uL [place] # (Auto) (0.1-1.2) X10*3/uL Eos # (Auto) (0.0-0.4) X10*3/uL Baso # (Auto) (0.0-0.2) X10*3/uL Abs Immat Gran (auto) (0.00-0.03) X10*3/uL Absolute Neuts (auto) (2.0-8.3) x10*3/uL Absolute Nucleated RBC (0.0-0.012) X10*3/uL Nucleated RBC % (auto) (0.0-0.2) /100WBC D-Dimer High Sensitivty NG/ML Sodium 143 (135-145) mmol/L Potassium 4.4 (3.3-5.1) mmol/L Chloride 107 (96-108) mmol/L Carbon Dioxide 27 (22-29) mmol/L Anion Gap 13 (12-20) BUN 17 H (9-16) mg/dL Creatinine 0.78 (0.5-1.4) mg/dL Estim Creat Clear Calc 100.9 Estimated GFR > 60 Random Glucose 88 (60-115) mg/dL Calcium 9.4 (8.4-10.2) mg/dL Troponin I High Sens 4.6 8.0 D (<3.5-17.0) ng/L B-Natriuretic Peptide 15 (<100) pg/mL COVID-19 ([facility]) (Negative) COVID-19 Clin Com <PAT Olvera - Last Filed: 03/18/22 01:36> Critical Care Time Critical Care Time Critical Care Time: No <PAT Olvera - Last Filed: 03/18/22 01:36> Discharge Plan Discharge Clinical Impression: Asthma exacerbation <PAT Cardona - Last Filed: 03/17/22 18:14> Patient Disposition: Home, Self-Care <PAT Cardona - Last Filed: 03/17/22 18:14> Instructions: Asthma (ED) <PAT Cardona - Last Filed: 03/17/22 18:14> Additional Instructions: Your blood work and chest x-ray were reassuring. You likely have an asthma exacerbation. Continue using albuterol inhaler and nebulizer at home. In addition starting prednisone. If symptoms persist or worsen return to the emergency department Schulte an?lisis de rsahid y la radiograf?a de t?rax fueron tranquilizadores. Es probable que tenga kumar exacerbaci?n del asma. Contin?e usando el inhalador y el nebulizador de albuterol en casa. Adem?s de empezar con prednisona. Si los s?ntomas persisten o empeoran, regrese al servicio de urgencias. <PAT Cardona - Last Filed: 03/17/22 18:14> Prescriptions: New prednisone 20 mg tablet 40 mg PO DAILY 5 Days Qty: 10 0RF albuterol sulfate 2.5 mg/0.5 mL solution for nebulization 5 mg inhalation Q4H PRN (Reason: shortness of breath or wheezing) Qty: 30 0RF No Action sennosides [So-wolfgang] 8.6 mg tablet 17.2 mg PO BID Qty: 120 6RF Creon 24,000-76,000 -120,000 unit capsule,delayed release(DR/EC) 1 cap PO QID Qty: 120 6RF acetaminophen [Tylenol Extra Strength] 500 mg tablet 500 mg PO Q6H PRN (Reason: pain or fever) Qty: 20 0RF lidocaine [Lidoderm] 5 % adhesive patch,medicated 1 patch topical DAILY MDD remove after 12 hours PRN (Reason: pain) Qty: 30 0RF Rx Instructions: leave on most painful area for up to 12 hrs cyclobenzaprine 5 mg tablet 5 mg PO Q8H PRN (Reason: pain (scale score 7-10)) 5 Days Qty: 14 0RF Acidophilus Probiotic Complex 250 million cell capsule 1 cap PO DAILY Qty: 30 6RF calcium carbonate-vitamin D3 500 mg(1,250mg) -200 unit tablet 1 tab PO BID perphenazine 8 mg tablet 8 mg PO TID bupropion HCl 300 mg tablet extended release 24 hr 300 mg PO QAM valacyclovir 500 mg tablet 500 mg PO BID olanzapine 10 mg tablet 10 mg PO QPM cholecalciferol (vitamin D3) 50 mcg (2,000 unit) capsule 2,000 unit PO DAILY clonazepam 1 mg tablet 1 mg PO DAILY Latuda 60 mg tablet 60 mg PO DAILY zolpidem 12.5 mg tablet,ext release multiphase 12.5 mg PO BEDTIME PRN (Reason: insomnia) fluticasone propionate [Flovent HFA] 110 mcg/actuation HFA aerosol inhaler 1 puff PO BID naproxen sodium 550 mg tablet 550 mg PO BID metoclopramide HCl [Reglan] 5 mg tablet 5 mg PO QIDACHS Qty: 120 3RF Rx Instructions: Provider aware of possible interactions with antipsychotics and is monitoring gabapentin 100 mg capsule 100 mg PO TID metoprolol tartrate 25 mg tablet 25 mg PO ONCE Qty: 1 0RF Rx Instructions: take 1 tablet one hour prior to CT scan of heart albuterol sulfate 90 mcg/actuation HFA aerosol inhaler 2 inh inhalation PRN venlafaxine 75 mg capsule,extended release 24hr 225 mg PO DAILY tizanidine 2 mg tablet 2 mg PO Q8H PRN cetirizine 10 mg tablet 10 mg PO DAILY diclofenac sodium 1 % gel 2 g topical QID fluticasone propionate 50 mcg/actuation spray,suspension intranasal nystatin 100,000 unit/gram powder topical DAILY dexlansoprazole [Dexilant] 60 mg capsule,biphase delayed releas 60 mg PO DAILY Qty: 30 6RF Linzess 290 mcg capsule 290 mcg PO QAM Qty: 30 6RF simethicone [Gas Relief (simethicone)] 180 mg capsule 180 mg PO QID Qty: 90 6RF <PAT Cardona - Last Filed: 03/17/22 18:14> Referrals: Jane Piedra MD [Primary Care Provider] - 2 days <PAT Cardona - Last Filed: 03/17/22 18:14> Stand Alone Forms: Work/School Release <PAT Cardona - Last Filed: 03/17/22 18:14> Print Language: Citizen Of [place] <PAT Cardona - Last Filed: 03/17/22 18:14>
[2022-03-17] MEDS: Albuterol Sulfate 2.5 MG/0.5 ML VIAL.NEB 5 MG INHALE (15:46)
[2022-03-17] MEDS: Albuterol/Iprat 2.5/0.5MG 3 ML AMPUL.NEB INHALE ×2 (15:46→17:15)
[2022-03-17 16:23] LABS: MANUAL DIFF FLAG NO
[2022-03-17 16:27] LABS: Basophils Percent Auto 0.5 % (0-2); Eosinophils Absolute Auto 0.5 X10*3/uL (0.0-0.4); Hematocrit 37.6 % (37.0-47.0); Hemoglobin 12.3 g/dl (12.0-16.0); Imm Gran Abs Auto 0.02 X10*3/uL (0.00-0.03); Imm Gran Pct Auto 0.3 % (0.0-0.4); Lymphocytes Absolute Auto 2.6 X10*3/uL (1.2-4.9); Lymphocytes Percent Auto 34.1 % (20-40); Mean Corpuscular HGB Conc 32.7 g/dl (31.0-35.0); Mean Corpuscular Hemoglobin 31.8 pg (27.0-33.0); Mean Corpuscular Volume 97.2 fL (80.0-98.0); Mean Platelet Volume 9.6 fL (9.4-12.3); Monocytes Absolute Auto 0.5 X10*3/uL (0.1-1.2); Monocytes Percent Auto 6.3 % (2-11); Neutrophils Percent Auto 52.8 % (45-73); Platelet Count 226 X10*3/uL (160-400); Red Blood Count 3.87 X10*6/uL (4.20-5.50); Red Cell Distribution Width 12.3 % (11.0-16.0); White Blood Count 7.6 X10*3/uL (4.8-10.8)
[2022-03-17 16:35] LABS: D Dimer High Sensitivity 162 NG/ML
[2022-03-17 16:40] LABS: Anion Gap 13 (12-20); Blood Urea Nitrogen 17 mg/dL (9-16); Calcium 9.4 mg/dL (8.4-10.2); Carbon Dioxide 27 mmol/L (22-29); Chloride 107 mmol/L (96-108); Creatinine Clr Calc Pharmacy 100.9; Estimated Glomerular Filt Rate > 60; Glucose Random 88 mg/dL (60-115); Potassium 4.4 mmol/L (3.3-5.1); Sodium 143 mmol/L (135-145)
[2022-03-17 16:47] LABS: B Type Natriuretic Peptide 15 pg/mL (<100); Troponin-I High Sensitivity 4.6 ng/L (<3.5-17.0)
[2022-03-17] MEDS: Magnesium Sulfate/H2O 2 GM/50 ML PIGGYBACK IV (17:24)
[2022-03-17] MEDS: methylPREDNISolone Sod Succ 125 MG/2 ML VIAL IVPUSH (17:24)
[2022-03-17] MEDS: Albuterol Sulfate 2.5 MG, Albuterol Sulfate (0.083%) 2.5 MG 5 MG INHALE (19:40)
[2022-03-17] MEDS: Morphine Sulfate 2 MG/ML CARTRIDGE IVPUSH (20:23)
[2022-03-17] MEDS: Cyclobenzaprine HCl 10 MG TABLET PO (23:37)
[2022-03-18 02:51] LABS: Troponin-I High Sensitivity 15.7 ng/L (<3.5-17.0)
[2022-03-18 03:38] VITALS: BP 129/61; PULSE 112; RESP 20; TEMP 36.8; O2SAT 95
[2022-03-18] MEDS: Metoprolol Tartrate 12.5 MG HALFTAB PO (03:40)
== END 2022-03-18 04:04 | disposition home or self-care (01) ==
PROVIDERS: Physician Assistant; Emergency Provider Student in an Organized Health Care Education/Training Program; PCP Internal Medicine
DX: J45.901 Unspecified asthma with (acute) exacerbation (principal); R06.02 Shortness of breath; R00.0 Tachycardia, unspecified; Z20.822 Contact with and (suspected) exposure to COVID-19; Z79.899 Other long term (current) drug therapy
CPT/HCPCS: 36415; 71045; 80048; 83880; 84484; 85025; 85379; 87635; 93005; 94640; 96365; 96366; 96375; 99285; J2270; J2930; J3475

== ENCOUNTER → 2022-04-14 15:03 | Outpatient (BNVA) | payer OTHER, SELFPAY | PROVIDERS: PCP Internal Medicine; Visit Provider Internal Medicine Pulmonary Disease | DX: J45.909 Unspecified asthma, uncomplicated (principal) | CPT/HCPCS: 99202 ==

== ENCOUNTER → 2022-04-15 09:31 | Outpatient (BNVA) | payer OTHER, SELFPAY | PROVIDERS: PCP Internal Medicine; Visit Provider Internal Medicine Cardiovascular Disease | DX: R07.9 Chest pain, unspecified (principal) | CPT/HCPCS: 99212 ==

== ENCOUNTER 2022-04-29 08:47 | Outpatient (REF) | payer OTHER, SELFPAY ==
[2022-04-29 09:04] LABS: MANUAL DIFF FLAG NO
[2022-04-29 10:07] LABS: Basophils Percent Auto 0.7 % (0-2); Eosinophils Absolute Auto 0.2 X10*3/uL (0.0-0.4); Eosinophils Percent Auto 3.3 % (0-4); Hematocrit 36.7 % (37.0-47.0); Hemoglobin 12.4 g/dl (12.0-16.0); Imm Gran Abs Auto 0.03 X10*3/uL (0.00-0.03); Imm Gran Pct Auto 0.6 % (0.0-0.4); Lymphocytes Absolute Auto 2.1 X10*3/uL (1.2-4.9); Lymphocytes Percent Auto 39.4 % (20-40); Mean Corpuscular HGB Conc 33.8 g/dl (31.0-35.0); Mean Corpuscular Hemoglobin 33.1 pg (27.0-33.0); Mean Corpuscular Volume 97.9 fL (80.0-98.0); Mean Platelet Volume 9.8 fL (9.4-12.3); Monocytes Absolute Auto 0.3 X10*3/uL (0.1-1.2); Monocytes Percent Auto 6.1 % (2-11); Neutrophils Absolute Auto 2.7 x10*3/uL (2.0-8.3); Neutrophils Percent Auto 49.9 % (45-73); Platelet Count 267 X10*3/uL (160-400); Red Blood Count 3.75 X10*6/uL (4.20-5.50); Red Cell Distribution Width 12.2 % (11.0-16.0); White Blood Count 5.4 X10*3/uL (4.8-10.8)
[2022-04-29 10:12] LABS: INTERNATIONAL NORM RATIO 0.9 (0.9-1.1); Prothrombin Time 10.6 SEC (10.0-13.1)
[2022-04-29 10:44] LABS: Anion Gap 17 (12-20); Blood Urea Nitrogen 14 mg/dL (9-16); Calcium 9.6 mg/dL (8.4-10.2); Carbon Dioxide 22 mmol/L (22-29); Chloride 108 mmol/L (96-108); Estimated Glomerular Filt Rate > 60; Glucose Random 90 mg/dL (60-115); Potassium 4.7 mmol/L (3.3-5.1); Sodium 142 mmol/L (135-145)
== END 2022-04-29 08:48 | disposition home or self-care (01) ==
LOC: HO.LAB 08:47
PROVIDERS: PCP Internal Medicine; Visit Provider Internal Medicine Cardiovascular Disease
DX: R07.9 Chest pain, unspecified (principal); I42.9 Cardiomyopathy, unspecified
CPT/HCPCS: 36415; 80048; 85025; 85610

== ENCOUNTER 2022-05-20 13:25 | Outpatient (REF) | payer OTHER, SELFPAY ==
--- NOTE | ~2022-05-20 | MM_ITS ---
EXAMINATION: MM SCREENING DIGITAL BREAST TOMOSYNTHESIS, BILATERAL CLINICAL INFORMATION: Screening. Asymptomatic. The lifetime risk of breast cancer based on the Tyrer-Cuzick Model is 7%. COMPARISON: Mammography: 07/16/2020, 06/12/2020, 06/07/2019 TECHNIQUE: Digital breast tomosynthesis is performed in both the craniocaudal and mediolateral oblique views along with computer-aided detection (CAD). Synthesized 2D images are generated from the tomosynthesis. FINDINGS: There are scattered areas of fibroglandular density (ACR BI-RADS breast composition Category b). There are no significant masses, abnormal calcifications, or other abnormalities. Breast tissue composition borders on predominantly fatty. Parenchymal pattern is similar to prior studies. There is no developing density or architectural abnormality. The axilla and skin contours are unremarkable. No significant changes. MM/MM tomosynthesis screening BI IMPRESSION: No mammographic evidence of malignancy. ASSESSMENT: BI-RADS 1: Negative RECOMMENDATION: Routine annual mammography screening. This patient's information was entered into a reminder system with a target due date for their next mammogram.
== END 2022-05-20 13:26 | disposition home or self-care (01) ==
LOC: HO.MAMMO 13:25
PROVIDERS: PCP Internal Medicine; Visit Provider Internal Medicine
DX: Z12.31 Encounter for screening mammogram for malignant neoplasm of breast (principal)
CPT/HCPCS: 77063; 77067

== ENCOUNTER → 2022-05-21 11:29 | Outpatient (BNVA) | payer OTHER, SELFPAY | PROVIDERS: PCP Internal Medicine; Visit Provider Internal Medicine Cardiovascular Disease | DX: R07.9 Chest pain, unspecified (principal); R00.0 Tachycardia, unspecified | CPT/HCPCS: 99212 ==

== ENCOUNTER 2022-06-01 06:52 | Emergency (ER) | payer OTHER, SELFPAY ==
--- NOTE | ~2022-06-01 | XR_ITS ---
EXAMINATION: XR CHEST CLINICAL INFORMATION: Cough. COMPARISON: 03/17/2022 chest radiograph. TECHNIQUE: Frontal view of the chest was obtained. FINDINGS: No significant abnormality is noted involving the heart, lungs, mediastinum, bony thorax or soft tissues. A surgical clip overlies the left lower chest. XR/XR chest 1V IMPRESSION: No acute cardiopulmonary process.
[2022-06-01 07:32] VITALS: BP 127/70; PULSE 103; RESP 20; TEMP 36.1; O2SAT 96; BMI 36.8
--- NOTE | 2022-06-01 08:06 | ED_ITS ---
HPI - SOB/Dyspnea General Chief Complaint: Dyspnea Stated Complaint: trouble breathing, cough Time Seen by Provider: 06/01/22 08:04 Source: patient Mode of arrival: ambulatory History of Present Illness HPI Narrative: 46-year-old female with past medical history of anxiety, asthma, presenting to the ED complaining of dry cough, SOB, and sore throat since 02:00. Has been using inhalers relief. Reports associated chest tightness. Denies recent steroid use. + sick contact. Denies any fever, chills, pedal edema, calf pain, recent travel MD elicited complaint: shortness of breath and cough Onset (ago): day(s) Related Data Home Medications Medication Instructions Recorded Confirmed bupropion HCl 300 mg 24 hr tablet, 300 mg PO QAM 10/31/20 05/21/22 extended release calcium carbonate 500 mg-vitamin 1 tab PO BID 10/31/20 05/21/22 D3 5 mcg (200 unit) tablet olanzapine 10 mg tablet 10 mg PO QPM 10/31/20 05/21/22 valacyclovir 500 mg tablet 500 mg PO BID 10/31/20 05/21/22 cetirizine 10 mg tablet 10 mg PO DAILY 12/12/21 05/21/22 diclofenac sodium 1 % topical gel 2 g topical QID 12/12/21 05/21/22 fluticasone propionate 50 spray intranasal 12/12/21 05/21/22 mcg/actuation nasal spray,suspension nystatin 100,000 unit/gram topical topical DAILY 12/12/21 05/21/22 powder venlafaxine 75 mg capsule,extended 225 mg PO DAILY 12/12/21 05/21/22 release 24 hr albuterol sulfate 90 mcg/actuation 2 inh inhalation PRN 02/26/22 05/21/22 aerosol inhaler naproxen sodium 550 mg tablet 550 mg PO BID 02/26/22 05/21/22 zolpidem 12.5 mg tablet,extended 12.5 mg PO BEDTIME PRN insomnia 02/26/22 05/21/22 release,multiphase clonazepam 1 mg tablet 1 mg PO TID 04/15/22 05/21/22 gabapentin 100 mg capsule 300 mg PO TID 04/15/22 05/21/22 gabapentin 300 mg capsule 300 mg PO TID 04/15/22 05/21/22 imipramine HCl 50 mg tablet 50 mg PO DAILY 04/15/22 05/21/22 lurasidone 80 mg tablet (Latuda) 80 mg PO DAILY 04/15/22 05/21/22 Previous Rx's Medication Instructions Recorded acetaminophen 500 mg tablet 500 mg PO Q6H PRN pain or fever 11/23/20 (Tylenol Extra Strength) #20 tabs cyclobenzaprine 5 mg tablet 5 mg PO Q8H PRN pain (scale score 11/23/20 7-10) 5 days #14 tabs dexlansoprazole 60 mg 60 mg PO DAILY #30 caps 12/12/21 capsule,biphase delayed release (Dexilant) linaclotide 290 mcg capsule 290 mcg PO QAM #30 caps 12/12/21 (Linzess) [id number]-[id number] 1 cap PO QID #120 caps 02/19/22 24,000-76,000-120,000 unit capsule,delayed rel (Creon) sennosides 8.6 mg tablet (So-wolfgang) 17.2 mg PO BID #120 tabs 02/19/22 albuterol sulfate 2.5 mg/0.5 mL 5 mg inhalation Q4H PRN shortness 03/17/22 solution for nebulization of breath or wheezing #30 ea metoprolol tartrate 25 mg tablet 12.5 mg PO BID #30 tabs 03/18/22 fluticasone furoate 200 1 inh inhalation DAILY 30 days #1 04/14/22 mcg-vilanterol 25 mcg/dose ea inhalation powder (Breo Ellipta) simethicone 180 mg capsule 180 mg PO QID #90 caps 04/23/22 albuterol sulfate 90 mcg/actuation 2 puff inhalation Q4-6H PRN 06/01/22 aerosol inhaler shortness of breath or wheezing #6.7 grams fluticasone propionate 50 2 spray intranasal DAILY #16 grams 06/01/22 mcg/actuation nasal spray,suspension (Flonase Allergy Relief) prednisone 20 mg tablet 40 mg PO DAILY 5 days #10 tabs 06/01/22 Allergies Allergy/AdvReac Type Severity Reaction Status Date / Time aspirin [ASPIRIN] Allergy Unknown UNKNOWN Verified 05/21/22 11:31 REACTION PER PT. Review of Systems Review of Systems: Constitutional: No Fever, No Chills,No Fatigue, No Malaise ENT/Mouth: No Ear Pain, + Nasal Congestion, No Sinus Pain, + Hoarseness, + sore throat, + Rhinorrhea, No Swallowing Difficulty Eyes: No Eye Pain, No Swelling, No Redness, No Foreign Body, No Discharge, No Vision Changes Cardiovascular: + Chest tightness, +o SOB, No Dyspnea on Exertion, No Orthopnea, No Edema, No Palpitations Respiratory: + Cough, No Sputum, + Wheezing, No Smoke Exposure, No Dyspnea Gastrointestinal: No Nausea, No Vomiting, No Diarrhea, No Constipation, No Abdominal pain Genitourinary: No Dysuria, No Urinary Frequency, No Hematuria, No Flank Pain, No Urinary Flow Changes, No Hesitancy Musculoskeletal: No joint pain, No Myalgias, No Joint Swelling Skin: No Skin Lesions, No rash Neuro: No Weakness, No Numbness, No Paresthesias, No Loss of Consciousness, No Dizziness, No Headache Yes all other systems are reviewed and are negative Constitutional: Constitutional: Reports as per [facility] Past Medical History Attestation statement: The following information was validated with the patient. Medical History Anxiety Asthma Surgical History History of cardiac cath History of colonoscopy Hx of cholecystectomy Hx of endoscopy Family History Family History Father No problems noted. Mother No problems noted. Social History Social History Household Members: Children Alcohol intake: current Alcohol intake frequency: holidays/special occasions only Patient Tobacco Use Status: Never used Tobacco Advance Directives: No Advance Directives Information Provided: Yes Physical Exam Vital Signs: Vital Signs: Last Vital Signs Temp 97.7 F 06/01/22 08:18 Pulse 89 06/01/22 08:23 Resp 18 06/01/22 08:23 BP 137/91 H 06/01/22 08:18 Pulse Ox 96 06/01/22 07:32 O2 Del Method 06/01/22 08:18 BMI result Body Mass Index 36.8 Const: General: cooperative, healthy appearing and no acute distress Orientation/consciousness: patient oriented x3 Limitations: no limitations HEENT: Head: Yes normal to inspection and Yes atraumatic Ears: hearing grossly normal bilaterally, external ears normal, TM's normal bilaterally and mastoids normal General nose exam: Normal external nose present Face and sinus: Yes normal facial exam Mouth: Normal oral and palatal mucosa present Throat: Yes uvula midline, No peritonsillar mass, Yes posterior oropharynx abnormal (+ mild erythema, no exudate) and No uvula laterally displaced Eyes: General: appearance normal, both eyes and all related structures EOM: EOMs intact bilaterally Neck: Neck: Yes normal visual inspection, Yes no lymphadenopathy and Yes no meningeal signs Resp: Effort & Inspection: normal respiratory effort, no respiratory distress and no stridor Auscultation: no crackles and wheezes expiratory wheezes Cardio: Rate: regular rate Heart sounds: S1 normal heart sound present and S2 normal heart sound present GI: Inspection: Yes normal to inspection Palpation (GI): Soft to palpation, nontender, no guarding and not rigid : General: Yes no CVA tenderness Back/Spine/Pelvis: Back: no CVA tenderness Skin: Rashes: no rashes Wounds: no wounds Neuro: General: patient oriented x3, tone normal and no meningeal signs Gait exam (Neuro): Normal gait present Extrem: General: Yes normal to inspection, Yes no pedal edema and Yes no calf tenderness Course Course Course Narrative: -921--no leukocytosis. Labs otherwise unremarkable. Troponin negative -COVID-19/influenza/RSV negative. Rapid strep negative. XR chest 1V IMPRESSION: No acute cardiopulmonary process. >0926---on re-evaluation patient reports symptomatic improvement, lungs CTA, no wheeze. Will discharge patient with albuterol inhaler, Flonase, and prednisone Results discussed with patient including worrisome signs and symptoms and strict return precautions, and when to return to the emergency department. They verbalized understanding and feel safe for discharge at this time. Medications Administered Discontinued Medications Generic Name Dose Route Start Last Admin Trade Name Freq PRN Reason Stop Dose Admin Albuterol/Ipratropium 3 ml 06/01/22 08:13 06/01/22 08:21 Albuterol/Iprat 2.5/0.5mg 3 Ml Ampul.Neb INHALE 06/01/22 08:14 3 ml ONCE ONE Administration Methylprednisolone Sodium Succinate 125 mg 06/01/22 08:13 06/01/22 08:44 Methylprednisolone Sod Succ 125 Mg/2 Ml Vial IVPUSH 06/01/22 08:14 125 mg ONCE ONE Administration MDM - SOB/Dyspnea MDM Narrative Medical decision making narrative: 46-year-old female with past medical history of anxiety, asthma, presenting to the ED complaining of dry cough, SOB, and sore throat since 02:00. On exam mildly tachycardic likely from albuterol use [employer], NAD, nontoxic appearing, mild end-expiratory wheeze noted with posterior or pharyngeal erythema, no uvular deviation, no pedal edema or calf tenderness. Concern for asthma exacerbation vs viral syndrome. Rule out pneumonia. Lower suspicion for ACS/PE. Low concern for severe sepsis at this time Plan: EKG, labs, CXR, COVID-19/influenza/RSV, rapid strep testing, DuoNeb, IV Solu-Medrol Differential Diagnosis Differential diagnosis: Likely acute exacerbation of chronic obstructive airways disease, pneumonia and asthma with exacerbation Medical Records Attestation: I reviewed the patient's medical records. Lab Data Attestation: I reviewed the patient's lab results. Result diagrams: 06/01/22 08:42 06/01/22 08:42 Labs: Lab Results 06/01/22 06/01/22 06/01/22 Range/Units 08:17 08:33 08:42 WBC 5.9 (4.8-10.8) X10*3/uL RBC 4.07 L (4.20-5.50) X10*6/uL Hgb 12.6 (12.0-16.0) g/dl Hct 38.6 (37.0-47.0) % MCV 94.8 (80.0-98.0) fL MCH 31.0 (27.0-33.0) pg MCHC 32.6 (31.0-35.0) g/dl RDW 12.2 (11.0-16.0) % Plt Count 275 (160-400) X10*3/uL MPV 9.4 (9.4-12.3) fL Immature Gran % (Auto) 0.3 (0.0-0.4) % Neut % (Auto) 50.7 (45-73) % Lymph % (Auto) 38.1 (20-40) % [place] % (Auto) 6.5 (2-11) % Eos % (Auto) 3.9 (0-4) % Baso % (Auto) 0.5 (0-2) % Lymph # (Auto) 2.2 (1.2-4.9) X10*3/uL [place] # (Auto) 0.4 (0.1-1.2) X10*3/uL Eos # (Auto) 0.2 (0.0-0.4) X10*3/uL Baso # (Auto) 0.0 (0.0-0.2) X10*3/uL Abs Immat Gran (auto) 0.02 (0.00-0.03) X10*3/uL Absolute Neuts (auto) 3.0 (2.0-8.3) x10*3/uL Absolute Nucleated RBC 0.000 (0.0-0.012) X10*3/uL Nucleated RBC % (auto) 0.0 (0.0-0.2) /100WBC Sodium (135-145) mmol/L Potassium (3.3-5.1) mmol/L Chloride (96-108) mmol/L Carbon Dioxide (22-29) mmol/L Anion Gap (12-20) BUN (9-16) mg/dL Creatinine (0.5-1.4) mg/dL Estim Creat Clear Calc Estimated GFR Random Glucose (60-115) mg/dL Calcium (8.4-10.2) mg/dL Troponin I High Sens (<3.5-17.0) ng/L Influenza Type A (PCR) NEGATIVE (Negative) Influenza Type B (PCR) NEGATIVE (Negative) RSV RNA Qual (PCR) NEGATIVE (Negative) SARS-CoV-2 RNA (RT-PCR) NEGATIVE (Negative) S. pyogenes GrpA ROME Negative (Negative) 06/01/22 06/01/22 Range/Units 08:42 08:42 WBC (4.8-10.8) X10*3/uL RBC (4.20-5.50) X10*6/uL Hgb (12.0-16.0) g/dl Hct (37.0-47.0) % MCV (80.0-98.0) fL MCH (27.0-33.0) pg MCHC (31.0-35.0) g/dl RDW (11.0-16.0) % Plt Count (160-400) X10*3/uL MPV (9.4-12.3) fL Immature Gran % (Auto) (0.0-0.4) % Neut % (Auto) (45-73) % Lymph % (Auto) (20-40) % [place] % (Auto) (2-11) % Eos % (Auto) (0-4) % Baso % (Auto) (0-2) % Lymph # (Auto) (1.2-4.9) X10*3/uL [place] # (Auto) (0.1-1.2) X10*3/uL Eos # (Auto) (0.0-0.4) X10*3/uL Baso # (Auto) (0.0-0.2) X10*3/uL Abs Immat Gran (auto) (0.00-0.03) X10*3/uL Absolute Neuts (auto) (2.0-8.3) x10*3/uL Absolute Nucleated RBC (0.0-0.012) X10*3/uL Nucleated RBC % (auto) (0.0-0.2) /100WBC Sodium 136 (135-145) mmol/L Potassium 4.6 (3.3-5.1) mmol/L Chloride 102 (96-108) mmol/L Carbon Dioxide 25 (22-29) mmol/L Anion Gap 14 (12-20) BUN 17 H (9-16) mg/dL Creatinine 0.79 (0.5-1.4) mg/dL Estim Creat Clear Calc 102.1 Estimated GFR > 60 Random Glucose 108 (60-115) mg/dL Calcium 9.7 (8.4-10.2) mg/dL Troponin I High Sens 4.1 (<3.5-17.0) ng/L Influenza Type A (PCR) (Negative) Influenza Type B (PCR) (Negative) RSV RNA Qual (PCR) (Negative) SARS-CoV-2 RNA (RT-PCR) (Negative) S. pyogenes GrpA ROME (Negative) ECG Data Attestation: I personally reviewed and interpreted this ECG as follows: ECG interpretation date: 11/28/22 ECG interpretation time: 08:26 Interpretation: EKG normal sinus rhythm at a rate of 90. QRS 70. QTc 445. No STEMI. Discharge Plan Discharge Clinical Impression: Asthma exacerbation Patient Disposition: Home, Self-Care Instructions: Asthma (ED) Additional Instructions: Your blood work and x-ray were reassuring today in the emergency department. you tested negative for COVID-19 and the flu Continue to use her inhaler at home Prednisone as a steroid which will help with inflammation/wheezing. Additionally Flonase is a nasal decongestant spray Take Tylenol and Motrin as needed. If symptoms persist or worsen please return to the emergency department. please have close follow-up with her doctor Schulte an?lisis de rashid y perri X fueron tranquilizadores hoy en el departamento d e emergencias. [place] negativo para COVID-19 y la gripe Contin?e usando schulte inhalador en casa Prednisona sierra un esteroide que ayudar? con la inflamaci?n/sibilancias. Adem?s, Flonase es un spray descongestionante nasal. [place] Tylenol y Motrin seg?n sea necesario. Si los s?ntomas persisten o empeoran, regrese al departamento de emergencias. por favor tenga un seguimiento cercano con schulte m?dico Prescriptions: New prednisone 20 mg tablet 40 mg PO DAILY 5 Days Qty: 10 0RF albuterol sulfate 90 mcg/actuation HFA aerosol inhaler 2 puff inhalation Q4-6H PRN (Reason: shortness of breath or wheezing) Qty: 6.7 0RF fluticasone propionate [Flonase Allergy Relief] 50 mcg/actuation spray,s uspension 2 spray intranasal DAILY Qty: 16 0RF Rx Instructions: administer into each nostril No Action sennosides [So-wolfgang] 8.6 mg tablet 17.2 mg PO BID Qty: 120 6RF Creon 24,000-76,000 -120,000 unit capsule,delayed release(DR/EC) 1 cap PO QID Qty: 120 6RF simethicone 180 mg capsule 180 mg PO QID Qty: 90 6RF acetaminophen [Tylenol Extra Strength] 500 mg tablet 500 mg PO Q6H PRN (Reason: pain or fever) Qty: 20 0RF cyclobenzaprine 5 mg tablet 5 mg PO Q8H PRN (Reason: pain (scale score 7-10)) 5 Days Qty: 14 0RF albuterol sulfate 2.5 mg/0.5 mL solution for nebulization 5 mg inhalation Q4H PRN (Reason: shortness of breath or wheezing) Qty: 30 0RF metoprolol tartrate 25 mg tablet 12.5 mg PO BID Qty: 30 0RF calcium carbonate-vitamin D3 500 mg(1,250mg) -200 unit tablet 1 tab PO BID bupropion HCl 300 mg tablet extended release 24 hr 300 mg PO QAM valacyclovir 500 mg tablet 500 mg PO BID olanzapine 10 mg tablet 10 mg PO QPM clonazepam 1 mg tablet 1 mg PO TID zolpidem 12.5 mg tablet,ext release multiphase 12.5 mg PO BEDTIME PRN (Reason: insomnia) naproxen sodium 550 mg tablet 550 mg PO BID fluticasone furoate-vilanterol [Breo Ellipta] 200-25 mcg/dose blister with device 1 inh inhalation DAILY 30 Days Qty: 1 6RF albuterol sulfate 90 mcg/actuation HFA aerosol inhaler 2 inh inhalation PRN gabapentin 100 mg capsule 300 mg PO TID venlafaxine 75 mg capsule,extended release 24hr 225 mg PO DAILY cetirizine 10 mg tablet 10 mg PO DAILY diclofenac sodium 1 % gel 2 g topical QID fluticasone propionate 50 mcg/actuation spray,suspension intranasal nystatin 100,000 unit/gram powder topical DAILY dexlansoprazole [Dexilant] 60 mg capsule,biphase delayed releas 60 mg PO DAILY Qty: 30 6RF Linzess 290 mcg capsule 290 mcg PO QAM Qty: 30 6RF gabapentin 300 mg capsule 300 mg PO TID imipramine HCl 50 mg tablet 50 mg PO DAILY Latuda 80 mg tablet 80 mg PO DAILY Referrals: Physician,Unknown J [Primary Care Provider] - 5 days Stand Alone Forms: Work/School Release Print Language: Brazilian
--- NOTE | 2022-06-01 08:13 | ECG_ITS ---
Test Reason : SOB Blood Pressure : / mmHG Vent. Rate : 090 BPM Atrial Rate : 090 BPM P-R Int : 156 ms QRS Dur : 070 ms QT Int : 364 ms P-R-T Axes : 036 -07 -02 degrees QTc Int : 445 ms Normal sinus rhythm Minimal voltage criteria for LVH, may be normal variant ( R in aVL ) Borderline ECG When compared with ECG of 17-MAR-2022 10:36, No significant change was found Referred By: Jane Tony Electronically Signed By:JORDY LEVY MD
[2022-06-01 08:18] VITALS: BP 137/91; PULSE 87; RESP 14; TEMP 36.5
[2022-06-01] MEDS: Albuterol/Iprat 2.5/0.5MG 3 ML AMPUL.NEB INHALE (08:21)
[2022-06-01 08:23] VITALS: PULSE 89; RESP 18; O2SAT 97
[2022-06-01] MEDS: methylPREDNISolone Sod Succ 125 MG/2 ML VIAL IVPUSH (08:44)
[2022-06-01 08:46] LABS: MANUAL DIFF FLAG NO
[2022-06-01 08:51] LABS: Basophils Percent Auto 0.5 % (0-2); Eosinophils Absolute Auto 0.2 X10*3/uL (0.0-0.4); Eosinophils Percent Auto 3.9 % (0-4); Hematocrit 38.6 % (37.0-47.0); Hemoglobin 12.6 g/dl (12.0-16.0); Imm Gran Abs Auto 0.02 X10*3/uL (0.00-0.03); Imm Gran Pct Auto 0.3 % (0.0-0.4); Lymphocytes Absolute Auto 2.2 X10*3/uL (1.2-4.9); Lymphocytes Percent Auto 38.1 % (20-40); Mean Corpuscular HGB Conc 32.6 g/dl (31.0-35.0); Mean Corpuscular Volume 94.8 fL (80.0-98.0); Mean Platelet Volume 9.4 fL (9.4-12.3); Monocytes Absolute Auto 0.4 X10*3/uL (0.1-1.2); Monocytes Percent Auto 6.5 % (2-11); Neutrophils Percent Auto 50.7 % (45-73); Platelet Count 275 X10*3/uL (160-400); Red Blood Count 4.07 X10*6/uL (4.20-5.50); Red Cell Distribution Width 12.2 % (11.0-16.0); White Blood Count 5.9 X10*3/uL (4.8-10.8)
[2022-06-01 09:06] LABS: Anion Gap 14 (12-20); Blood Urea Nitrogen 17 mg/dL (9-16); Calcium 9.7 mg/dL (8.4-10.2); Carbon Dioxide 25 mmol/L (22-29); Chloride 102 mmol/L (96-108); Creatinine Clr Calc Pharmacy 102.1; Estimated Glomerular Filt Rate > 60; Glucose Random 108 mg/dL (60-115); Potassium 4.6 mmol/L (3.3-5.1); Sodium 136 mmol/L (135-145)
[2022-06-01 09:07] LABS: Influenza A PCR NEGATIVE (Negative); Influenza B PCR NEGATIVE (Negative); Resp Syncy Virus RNA Qual PCR NEGATIVE (Negative); SARS COV2 PCR INHOUSE NEGATIVE (Negative)
[2022-06-01 09:11] LABS: Strep A Nucleic Acid Negative (Negative)
[2022-06-01 09:15] LABS: Troponin-I High Sensitivity 4.1 ng/L (<3.5-17.0)
[2022-06-01 10:00] VITALS: BP 116/85; PULSE 95; RESP 16; O2SAT 96
== END 2022-06-01 10:05 | disposition home or self-care (01) ==
PROVIDERS: Physician Assistant; Emergency Provider Emergency Medicine
DX: J45.901 Unspecified asthma with (acute) exacerbation (principal); Z20.822 Contact with and (suspected) exposure to COVID-19; J02.9 Acute pharyngitis, unspecified
CPT/HCPCS: 0241U; 36415; 71045; 80048; 84484; 85025; 87651; 93005; 94640; 96374; 99284; J2930

== ENCOUNTER → 2022-06-24 14:55 | Outpatient (BNVA) | payer OTHER, SELFPAY | PROVIDERS: PCP Internal Medicine; Visit Provider Nurse Practitioner | DX: R10.11 Right upper quadrant pain (principal); K21.9 Gastro-esophageal reflux disease without esophagitis; K59.04 Chronic idiopathic constipation; K59.9 Functional intestinal disorder, unspecified | CPT/HCPCS: 99212 ==

== ENCOUNTER → 2022-06-25 08:54 | Outpatient (BNVA) | payer OTHER, SELFPAY | PROVIDERS: PCP Internal Medicine; Referring Provider Internal Medicine; Visit Provider Physician Assistant Surgical | DX: Z13.89 Encounter for screening for other disorder (principal) ==

== ENCOUNTER 2022-07-30 14:14 | Emergency (ER) | payer OTHER, SELFPAY ==
--- NOTE | 2022-07-30 15:02 | ED_ITS ---
HPI - Female Genitourinary General Chief complaint: Urogenital-Female <Debbi Orozco NP - Last Filed: 08/01/22 08:08> Stated complaint: blood in urine <Debbi Orozco NP - Last Filed: 08/01/22 08:08> Time Seen by Provider: 07/30/22 15:14 <Debbi Oroczo NP - Last Filed: 08/01/22 08:08> History of Present Illness HPI Narrative: Patient complains of 1 day of some blood in the urine as well as burning and frequency and discomfort with urination She denies fever chills no nausea no vomiting no back pain no abdominal pain, denies any rash denies any vaginal discharge denies any genital sores <PAT Jean - Last Filed: 08/07/22 18:21> Related Data Home medications: Home Medications Medication Instructions Recorded Confirmed bupropion HCl 300 mg 24 hr tablet, 300 mg PO QAM 10/31/20 05/21/22 extended release calcium carbonate 500 mg-vitamin 1 tab PO BID 10/31/20 05/21/22 D3 5 mcg (200 unit) tablet valacyclovir 500 mg tablet 500 mg PO BID 10/31/20 05/21/22 cetirizine 10 mg tablet 10 mg PO DAILY 12/12/21 05/21/22 diclofenac sodium 1 % topical gel 2 g topical QID 12/12/21 05/21/22 fluticasone propionate 50 spray intranasal 12/12/21 05/21/22 mcg/actuation nasal spray,suspension zolpidem 12.5 mg tablet,extended 12.5 mg PO BEDTIME PRN insomnia 02/26/22 05/21/22 release,multiphase clonazepam 1 mg tablet 1 mg PO TID 04/15/22 05/21/22 gabapentin 100 mg capsule 300 mg PO TID 04/15/22 05/21/22 gabapentin 300 mg capsule 300 mg PO TID 04/15/22 05/21/22 imipramine HCl 50 mg tablet 50 mg PO DAILY 04/15/22 05/21/22 lurasidone 80 mg tablet (Latuda) 80 mg PO DAILY 04/15/22 05/21/22 Previous Rx's Medication Instructions Recorded acetaminophen 500 mg tablet 500 mg PO Q6H PRN pain or fever 11/23/20 (Tylenol Extra Strength) #20 tabs cyclobenzaprine 5 mg tablet 5 mg PO Q8H PRN pain (scale score 11/23/20 7-10) 5 days #14 tabs ibonub-kcrglcsz-papunad 1 cap PO QID #120 caps 02/19/22 24,000-76,000-120,000 unit capsule,delayed rel (Creon) sennosides 8.6 mg tablet (So-wolfgang) 17.2 mg PO BID #120 tabs 02/19/22 albuterol sulfate 2.5 mg/0.5 mL 5 mg inhalation Q4H PRN shortness 03/17/22 solution for nebulization of breath or wheezing #30 ea simethicone 180 mg capsule 180 mg PO QID #90 caps 04/23/22 albuterol sulfate 90 mcg/actuation 2 puff inhalation Q4-6H PRN 06/01/22 aerosol inhaler shortness of breath or wheezing #6.7 grams fluticasone propionate 50 2 spray intranasal DAILY #16 grams 06/01/22 mcg/actuation nasal spray,suspension (Flonase Allergy Relief) linaclotide 290 mcg capsule 290 mcg PO QAM #30 caps 06/09/22 (Linzess) metoclopramide HCl 5 mg tablet 5 mg PO QIDACHS #120 tabs 06/24/22 (Reglan) nitrofurantoin 100 mg PO Q12H 5 days #10 caps 07/30/22 monohydrate/macrocrystals 100 mg capsule (Macrobid) phenazopyridine 200 mg tablet 200 mg PO TID PRN Discomfort with 07/30/22 (Pyridium) urination 6 doses #6 tabs azithromycin 250 mg tablet See Rx Instructions PO .COMPLEX 5 07/31/22 days #6 tabs dexlansoprazole 60 mg 60 mg PO DAILY #30 caps 08/04/22 capsule,biphase delayed release <Debbi Orozco NP - Last Filed: 08/01/22 08:08> Allergies/Adverse reactions: Allergies Allergy/AdvReac Type Severity Reaction Status Date / Time aspirin [ASPIRIN] Allergy Unknown UNKNOWN Verified 07/31/22 11:21 REACTION PER PT. <Debbi Orozco NP - Last Filed: 08/01/22 08:08> PMFSH Past Medical History Source: nursing notes reviewed <PAT Jean - Last Filed: 08/07/22 18:21> Medical History: Medical History (Updated 07/31/22 @ 11:55 by Naman Townsend MD) Anxiety <Debbi Orozco NP - Last Filed: 08/01/22 08:08> Surgical History: Surgical History History of cardiac cath History of colonoscopy Hx of cholecystectomy Hx of endoscopy <Debbi Orozco NP - Last Filed: 08/01/22 08:08> Family History Family History: Family History Father No problems noted. Mother No problems noted. <Debbi Orozco NP - Last Filed: 08/01/22 08:08> Social History Social History: Social History Household Members: Children Alcohol intake: never Patient Tobacco Use Status: Never used Tobacco <Debbi Orozco NP - Last Filed: 08/01/22 08:08> Physical Exam Vital Signs: Vital Signs: Last Vital Signs Temp 97.7 F 07/30/22 15:03 Pulse 95 07/30/22 15:03 Resp 18 07/30/22 15:03 BP 141/84 H 07/30/22 15:03 Pulse Ox 99 07/30/22 15:03 O2 Del Method 07/30/22 15:03 BMI result Body Mass Index 37.3 <Debbi Orozco NP - Last Filed: 08/01/22 08:08> Vital Signs: Last Vital Signs Temp 97.7 F 07/30/22 15:03 Pulse 95 07/30/22 15:03 Resp 18 07/30/22 15:03 BP 141/84 H 07/30/22 15:03 Pulse Ox 99 07/30/22 15:03 O2 Del Method 07/30/22 15:03 BMI result Body Mass Index 37.3 <PAT Jean - Last Filed: 08/07/22 18:21> general appearance comfortable no distress Eyes anicteric no pallor Pharynx moist membranes, no redness swelling or exudate Neck is supple Respiratory no distress Abdomen soft nontender The back no CVA tenderness Extremities no edema full range of motion x4 Skin no rash <PAT Jean - Last Filed: 08/07/22 18:21> Course Course Course Narrative: This is a rapid medical exam> Deferred additional HPI, ROS, PE to primary provider. 47 yo female with history of asthma, anxiety/depression here with one day of dysuria/hematuria. NO abdominal pain/back pain. VSS. Will obtain UA, ur preg <Debbi Orozco NP - Last Filed: 08/01/22 08:08> This is a rapid medical exam> Deferred additional HPI, ROS, PE to primary provider. 47 yo female with history of asthma, anxiety/depression here with one day of dysuria/hematuria. NO abdominal pain/back pain. VSS. Will obtain UA, ur preg Urine did show likely infection with 3+ leukocyte esterase, 20 rbc's and 50 wbc's, bacteria was negative and nitrite was negative but given the symptoms it is likely she has a UTI with a new onset of dysuria so she is treated with antibiotics She did request STD testing so she is given the number of the clinic as well as testing for gonorrhea and chlamydia and we will call her if any positives <PAT Jean - Last Filed: 08/07/22 18:21> Medications Administered Discontinued Medications Generic Name Dose Route Start Last Admin Trade Name Freq PRN Reason Stop Dose Admin Nitrofurantoin Macrocrystals 100 mg 07/30/22 16:22 07/30/22 16:51 Nitrofurantoin Monohyd/M-Cryst 100 Mg Capsule PO 07/30/22 16:23 100 mg ONCE ONE Administration Phenazopyridine HCl 200 mg 07/30/22 16:22 07/30/22 16:51 Phenazopyridine Hcl 200 Mg Tablet PO 07/30/22 16:23 200 mg ONCE ONE Administration <Debbi Orozco NP - Last Filed: 08/01/22 08:08> Medications Administered Discontinued Medications Generic Name Dose Route Start Last Admin Trade Name Freq PRN Reason Stop Dose Admin Nitrofurantoin Macrocrystals 100 mg 07/30/22 16:22 07/30/22 16:51 Nitrofurantoin Monohyd/M-Cryst 100 Mg Capsule PO 01/26/23 16:23 100 mg ONCE ONE Administration Phenazopyridine HCl 200 mg 07/30/22 16:22 07/30/22 16:51 Phenazopyridine Hcl 200 Mg Tablet PO 07/30/22 16:23 200 mg ONCE ONE Administration <PAT Jean - Last Filed: 08/07/22 18:21> Medical Decision Making Lab Data Labs: Lab Results 07/30/22 07/30/22 07/30/22 Range/Units 15:17 15:17 16:27 Urine Color [place] A Urine Appearance Turbid Urine pH 5.5 (5.0-9.0) Ur Specific [place] <= 1.005 (1.005-1.025) Urine Protein 100 (2+) H (Neg-Trace) mg/dL Urine Glucose (UA) Negative (Negative) mg/dL Urine Ketones Negative (Negative) mg/dL Urine Blood Large (3+) H (Negative) Urine Nitrite Negative (Negative) Ur Leukocyte Esterase Large (3+) H (Negative) Urine RBC >20 H (0-2) /HPF Urine WBC >50 H (0-5) /HPF Ur Squamous Epith Cells 0-2 (0-2) /HPF Urine Bacteria None Seen (None Seen) Hyaline Casts 0-2 (0-2) /LPF Urine Test NEGATIVE (NEGATIVE) Chlam trachomat DNA PCR NOT DETECTED (Not Detect.) N.gonorrhoeae DNA (PCR) NOT DETECTED (Not Detect.) <Debbi Orozco NP - Last Filed: 08/01/22 08:08> Lab Results 07/30/22 07/30/22 07/30/22 Range/Units 15:17 15:17 16:27 Urine Color [place] A Urine Appearance Turbid Urine pH 5.5 (5.0-9.0) Ur Specific [place] <= 1.005 (1.005-1.025) Urine Protein 100 (2+) H (Neg-Trace) mg/dL Urine Glucose (UA) Negative (Negative) mg/dL Urine Ketones Negative (Negative) mg/dL Urine Blood Large (3+) H (Negative) Urine Nitrite Negative (Negative) Ur Leukocyte Esterase Large (3+) H (Negative) Urine RBC >20 H (0-2) /HPF Urine WBC >50 H (0-5) /HPF Ur Squamous Epith Cells 0-2 (0-2) /HPF Urine Bacteria None Seen (None Seen) Hyaline Casts 0-2 (0-2) /LPF Urine Test NEGATIVE (NEGATIVE) Chlam trachomat DNA PCR NOT DETECTED (Not Detect.) N.gonorrhoeae DNA (PCR) NOT DETECTED (Not Detect.) <PAT Jean - Last Filed: 08/07/22 18:21> Discharge Plan Discharge Clinical Impression: Urinary tract infection <Debbi Orozco NP - Last Filed: 08/01/22 08:08> Patient Disposition: Home, Self-Care <Debbi Oroczo NP - Last Filed: 08/01/22 08:08> Additional Instructions: Urine test showed you likely have a urinary tract infection so we are treating with antibiotic Pyridium turns the urine an orange color but often will relieve bladder discomfort and is taken if needed for discomfort with urination Return any time for fever chills vomiting abdominal pain flank pain or back pain any worse condition or any concerns <Debbi Orozco NP - Last Filed: 08/01/22 08:08> Prescriptions: New nitrofurantoin monohyd/m-cryst [Macrobid] 100 mg capsule 100 mg PO Q12H 5 Days Qty: 10 0RF Rx Instructions: must administer with a meal/food phenazopyridine [Pyridium] 200 mg tablet 200 mg PO TID PRN (Reason: Discomfort with urination) Qty: 6 0RF No Action sennosides [So-wolfgang] 8.6 mg tablet 17.2 mg PO BID Qty: 120 6RF Creon 24,000-76,000 -120,000 unit capsule,delayed release(DR/EC) 1 cap PO QID Qty: 120 6RF simethicone 180 mg capsule 180 mg PO QID Qty: 90 6RF Linzess 290 mcg capsule 290 mcg PO QAM Qty: 30 6RF dexlansoprazole 60 mg capsule,biphase delayed releas 60 mg PO DAILY Qty: 30 1RF acetaminophen [Tylenol Extra Strength] 500 mg tablet 500 mg PO Q6H PRN (Reason: pain or fever) Qty: 20 0RF cyclobenzaprine 5 mg tablet 5 mg PO Q8H PRN (Reason: pain (scale score 7-10)) 5 Days Qty: 14 0RF albuterol sulfate 90 mcg/actuation HFA aerosol inhaler 2 puff inhalation Q4-6H PRN (Reason: shortness of breath or wheezing) Qty: 6.7 0RF fluticasone propionate [Flonase Allergy Relief] 50 mcg/actuation spray,suspension 2 spray intranasal DAILY Qty: 16 0RF Rx Instructions: administer into each nostril albuterol sulfate 2.5 mg/0.5 mL solution for nebulization 5 mg inhalation Q4H PRN (Reason: shortness of breath or wheezing) Qty: 30 0RF calcium carbonate-vitamin D3 500 mg(1,250mg) -200 unit tablet 1 tab PO BID bupropion HCl 300 mg tablet extended release 24 hr 300 mg PO QAM valacyclovir 500 mg tablet 500 mg PO BID clonazepam 1 mg tablet 1 mg PO TID zolpidem 12.5 mg tablet,ext release multiphase 12.5 mg PO BEDTIME PRN (Reason: insomnia) metoclopramide HCl [Reglan] 5 mg tablet 5 mg PO QIDACHS Qty: 120 3RF Rx Instructions: Provider aware of possible interactions with psych meds and is monitoring, please dispense azithromycin 250 mg tablet See Rx Instructions PO .COMPLEX 5 Days Qty: 6 0RF Rx Instructions: For 250 mg dose pack: take 500 mg today (day 1), then 250 mg for 4 days (days 2-5) PO gabapentin 100 mg capsule 300 mg PO TID cetirizine 10 mg tablet 10 mg PO DAILY diclofenac sodium 1 % gel 2 g topical QID fluticasone propionate 50 mcg/actuation spray,suspension intranasal gabapentin 300 mg capsule 300 mg PO TID imipramine HCl 50 mg tablet 50 mg PO DAILY Latuda 80 mg tablet 80 mg PO DAILY <Debbi Orozco NP - Last Filed: 08/01/22 08:08> Interventions: ED Discharge Assessment Last Done: 07/30/22 16:53 <Debbi Orozco NP - Last Filed: 08/01/22 08:08> Discharge Date/Time: 07/30/22 16:56 <Debbi Orozco NP - Last Filed: 08/01/22 08:08>
[2022-07-30 15:03] VITALS: BP 141/84; PULSE 95; RESP 18; TEMP 36.5; O2SAT 99; BMI 37.3
[2022-07-30 15:31] LABS: Urine Pregnancy NEGATIVE (NEGATIVE)
[2022-07-30 15:32] LABS: UPreg QC Valid YES
[2022-07-30 15:45] LABS: Appearance Urine Turbid; Color Urine Orange; Glucose Urine UA Negative (Negative); Leukocyte Esterase Urine Large (3+) (Negative); Nitrite Urine Negative (Negative); PH 5.5 (5.0-9.0); Specific Gravity - Urine <= 1.005 (1.005-1.025); UMIC TRIGGER UACC YES; Urine Blood Large (3+) (Negative); Urine Ketones Negative (Negative); Urine Protein 100 (2+) mg/dL (Neg-Trace)
[2022-07-30 15:46] LABS: Bacteria Urine None Seen (None Seen); Hyaline Casts Urine 0-2 /LPF (0-2); RBC Urine >20 /HPF (0-2); Squamous Epithelial Cell Urine 0-2 /HPF (0-2); UACC Culture Trigger YES; WBC Urine >50 /HPF (0-5)
[2022-07-30] MEDS: Nitrofurantoin Monohyd/M-Cryst 100 MG CAPSULE PO (16:51)
[2022-07-30] MEDS: Phenazopyridine HCL 200 MG TABLET PO (16:51)
[2022-07-30 20:23] LABS: CT PCR NOT DETECTED (Not Detect.); NG PCR NOT DETECTED (Not Detect.)
== END 2022-07-30 16:56 | disposition home or self-care (01) ==
PROVIDERS: Nurse Practitioner Family; Physician Assistant Medical; Emergency Provider Student in an Organized Health Care Education/Training Program; PCP Internal Medicine
DX: N39.0 Urinary tract infection, site not specified (principal); R31.9 Hematuria, unspecified; Z79.899 Other long term (current) drug therapy
CPT/HCPCS: 0353U; 81001; 81025; 87086; 87088; 87147; 87186; 99283; 99284

== ENCOUNTER → 2022-07-31 11:20 | Outpatient (BNVA) | payer OTHER, SELFPAY | PROVIDERS: PCP Internal Medicine; Visit Provider Internal Medicine Pulmonary Disease | DX: J45.909 Unspecified asthma, uncomplicated (principal); G47.33 Obstructive sleep apnea (adult) (pediatric) | CPT/HCPCS: 99212 ==

== ENCOUNTER → 2022-08-12 15:49 | Outpatient (BNVA) | payer OTHER, SELFPAY | PROVIDERS: PCP Internal Medicine; Visit Provider Nurse Practitioner | DX: K59.04 Chronic idiopathic constipation (principal); K21.9 Gastro-esophageal reflux disease without esophagitis; K59.9 Functional intestinal disorder, unspecified; R10.10 Upper abdominal pain, unspecified | CPT/HCPCS: 99212 ==

== ENCOUNTER → 2022-08-25 09:54 | Outpatient (REF) | payer OTHER, SELFPAY | LOC: HO.SL 09:54 | PROVIDERS: Visit Provider Internal Medicine Pulmonary Disease | DX: G47.33 Obstructive sleep apnea (adult) (pediatric) (principal) | CPT/HCPCS: 95806 ==

== ENCOUNTER → 2022-11-23 10:33 | Outpatient (BNVA) | payer OTHER, SELFPAY | PROVIDERS: PCP Internal Medicine; Visit Provider Internal Medicine Cardiovascular Disease | DX: R07.9 Chest pain, unspecified (principal); R00.2 Palpitations; Z79.899 Other long term (current) drug therapy | CPT/HCPCS: 93005; 99212 ==

== ENCOUNTER 2022-12-04 13:52 | Outpatient (REF) | payer OTHER, SELFPAY ==
--- NOTE | ~2022-12-04 | MR_ITS ---
EXAMINATION: MR LUMBAR SPINE WITHOUT CONTRAST CLINICAL INFORMATION: Low back pain. COMPARISON: None TECHNIQUE: MRI of the lumbar spine was obtained using routine sequences without contrast. FINDINGS: The lumbar vertebral bodies maintain normal heights and alignment. There is moderate disc height loss at T10-T11 and T11-T12. There is no bone marrow edema. The distal spinal cord appears normal. The conus medullaris terminates normally at the L1-L2 level. The visualized paraspinal muscles and intra-abdominal and pelvic contents are within normal limits. SPINAL LEVELS: L1-L2: No posterior disc abnormality. No spinal canal or neural foraminal stenosis. L2-L3: Left foraminal protrusion abuts the exiting left L2 nerve root. No spinal canal stenosis. L3-L4: No posterior disc abnormality. No spinal canal or neural foraminal stenosis. L4-L5: Mild disc bulging with shallow central protrusion and mild facet arthropathy. No spinal canal or neural foraminal stenosis. L5-S1: No posterior disc abnormality. Mild facet arthropathy. No spinal canal or neural foraminal stenosis. MR/MR lumbar spine wo con IMPRESSION: At L2-L3 there is left foraminal protrusion which abuts the exiting left L2 nerve root. At L4-L5 there is shallow central protrusion without nerve root compression.
== END 2022-12-04 13:53 | disposition home or self-care (01) ==
LOC: HO.MRI 13:52
PROVIDERS: PCP Internal Medicine; Visit Provider Internal Medicine
DX: M54.50 Low back pain, unspecified (principal); M54.6 Pain in thoracic spine
CPT/HCPCS: 72148

== ENCOUNTER → 2022-12-24 15:22 | Outpatient (BNVA) | payer OTHER, SELFPAY | PROVIDERS: PCP Internal Medicine; Visit Provider Internal Medicine Pulmonary Disease | DX: J45.909 Unspecified asthma, uncomplicated (principal); J20.9 Acute bronchitis, unspecified | CPT/HCPCS: 99212 ==

== ENCOUNTER → 2022-12-31 10:59 | Outpatient (BNVA) | payer OTHER, SELFPAY | PROVIDERS: PCP Internal Medicine; Visit Provider Registered Nurse Emergency | DX: M54.10 Radiculopathy, site unspecified (principal); G62.9 Polyneuropathy, unspecified | CPT/HCPCS: 99202 ==

== ENCOUNTER 2023-02-10 15:34 | Outpatient (AMB) | payer OTHER, SELFPAY ==
--- NOTE | 2023-02-10 15:37 | A.OFFVIS_ITS ---
Intake Vital Signs 02/10/23 15:43 Height 5 ft 5 in Weight 196 lb 3.382 oz BMI 32.6 BP 130/77 Blood Pressure Location Lt brachial Position Sitting Intake Visit Reasons: 6 month follow up paresis, CIC, GERD Intake Note: Patient presents to in office visit today in follow up of CIC, abd pain, and GERD. Patient cc: Patient reports LUQ abdominal pain for a couple months, constipation. She reports GERD symptoms are well managed with medication. Denies any other GI issues. Correspondence Transcriber Required: Yes Correspondence Transcriber Name: Ena tidwell general cleaner Accompanied by: Self / Same As Patient Allergies aspirin [ASPIRIN] Allergy (Unknown, Verified 02/10/23 15:45) UNKNOWN REACTION PER PT. HPI 6 month follow up paresis, CIC, GERD HPI Details Assessment & Plan (1) Small bowel motility disorder: ?Code(s): K59.9 - Functional intestinal disorder, unspecified ?Plan: AFGHAN #AlyssaJimenez She did comply with stopping the Carafate and this combined with the increased dose of the Reglan have resolved her symptoms.? She is quite pleased about this.. She also continues her Dexilant and simethicone with improved control of her GERD now that she does not have gastric delay eyes and rumination. With this she is agreeable to a 6 month follow-up. (2) Chronic idiopathic constipation: ?Code(s): K59.04 - Chronic idiopathic constipation (3) GERD (gastroesophageal reflux disease): ?Code(s): K21.9 - Gastro-esophageal reflux disease without esophagitis (4) Upper abdominal pain: ?Code(s): R10.10 - Upper abdominal pain, unspecified ? ? ? Medications: Refilled linaclotide (Linze ss) 290 mcg? PO QAM 30 caps 6RF K59.04 - Chronic i diopathic constipa tion ? wyjuhs-rgyzipjq-gr ylase 24,000-76,00 0 -120,000 unit (C reon) 1 cap? PO QID 120 caps 6RF ? ? metoclopramide HCl (Reglan) ?? Provi mitch aware of possi ble interactions w ith psych meds and is monitoring, pl ease dispense 5 mg? PO QIDACHS 1 20 tabs 6RF K59.9 - Functional intestinal disord er, unspecified ? sennosides (So-k ot) 17.2 mg (2 x 8.6 m g) PO BID 120 tabs 6RF K21.9 - Gastro-eso phageal reflux dis ease without esoph agitis, K59.04 - C hronic idiopathic constipation, R10. 10 - Upper abdomin al pain, unspecifi ed, R10.11 - Right upper quadrant pa in, R10.9 - Unspec ified abdominal pa in ? simethicone 180 mg? PO QID 90 caps 6RF K21.9 - Gastro-eso phageal reflux dis ease without esoph agitis TODAY'S VISIT AFGHAN #JooJimenez She says that despite taking the Linzess 290 every morning she continues to struggle to move her bowels even with the addition of senna 2 tabs bid. She is also quite embarrassed that her stools are very odiferous (her children make fun of her!). She is also bothered by LUQ pain that is constant and not altered with eating or moving her bowels. I explain that there are many organs in this area, but the bowels are the most common suspect - however she does have significant osteoarthritis of the lumbar spine particularly at the L1-L2 level so it is possible that she has thoracic radiculopathy. She agrees to get an x- ray to help us exclude this as a possible problem. She had a CT scan in 2020 that did not seem to show any problem with the kidneys or any other organs in that general area. She exercises a lot and is currently dieting, but she drinks a LOT of water and eats a lot of fiber. HEr last colonoscopy was in 2019 and she did have a solitary ulcer r/t likely CIC and pressure but not other concerning findings. She continues on her Reglan 5 mg, Dexilant, and simethicone. Return office visit in 3 weeks. [facility] Medical History (Updated 02/10/23 @ 16:32 by JULIANA Rainey) Abdominal pain Anxiety Bile reflux gastritis Cardiomyopathy Chest pain Chest tightness Chronic idiopathic constipation GERD (gastroesophageal reflux disease) ANTHONY (obstructive sleep apnea) Palpitations Reactive airway disease Small bowel motility disorder Small intestinal bacterial overgrowth Tachycardia Upper abdominal pain Surgical History History of cardiac cath History of colonoscopy Hx of cholecystectomy Hx of endoscopy Family History (Reviewed 02/10/23 @ 15:45 by Adam Whitehead [facility]) Father No problems noted. Mother No problems noted. Social History Household Members: Children Alcohol intake: never Patient Tobacco Use Status: Never used Tobacco Review of Systems Const Denies fatigue, Denies fever(s), Denies night sweats, Denies poor appetite and Reports weight loss (Intentional dieting) ENT Reports Normal hearing present, Denies dental pain, Denies dysphagia, Denies hearing loss, Denies mouth pain, Denies odynophagia, Denies throat swelling, Denies tongue swelling and Reports other (Dentition adequate) Card Reports no additional complaints Resp Reports no additional complaints GI Reports abdominal pain, Denies melena, Reports bloating, Denies hematochezia, Reports constipation, Denies GI cramping, Denies dysphagia, Denies excessive flatus, Denies early satiety, Reports heartburn, Denies diarrhea, Denies nausea, Denies odynophagia, Denies vomiting and Denies hematemesis Reports flank pain Musc Reports back pain Skin/Breast Denies pruritus, Denies lesions, Denies rash and Denies jaundice Neuro Reports Normal hearing present and Denies Abnormal speech present Endo Denies fatigue Aller/Immun Denies throat swelling and Denies tongue swelling Physical Exam Const General: cooperative, no acute distress, well developed and well groomed Nutritional Appearance: well nourished and obese Orientation/consciousness: oriented to person, oriented to place and oriented to time Limitations: language barrier HEENT Head: Yes normocephalic and Yes atraumatic Eyes General: appearance normal, both eyes and all related structures Pupils: Equal, round and reactive pupils present Neck Neck: Yes normal visual inspection and Yes no lymphadenopathy Thyroid: Thyroid normal Resp Effort & Inspection: normal respiratory effort and able to speak in complete sentences Auscultation: clear to auscultation bilaterally Cardio Rate: regular rate Rhythm: regular rhythm Heart sounds: Normal, physiologic split S2 sound present Peripheral pulses: radial pulses present and posterior tibial pulses present GI Inspection: No distended, No Abdominal panniculus present and Yes obesity Palpation (GI): Soft to palpation, Tenderness to palpation present (GI) in the LUQ, no guarding, not rigid and No hepatosplenomegaly present Percussion: Yes normal to percussion Auscultation: Hypoactive bowel sounds present Rectal Exam - Female: deferred Skin General skin exam: no rashes or lesions noted, turgor normal, skin not dry, no jaundice, No spider nevi and no striae Rashes: no rashes Nails: normal Neuro General: oriented to person, oriented to place and oriented to time Cranial nerves: Yes Equal, round and reactive pupils present and Yes Normal hearing present Speech: No Abnormal speech present Extrem General: Yes normal to inspection, No clubbing, No cyanosis and No edema Psych Appearance: grossly normal and well kempt Mental Status: mental status grossly normal Speech and movement: Normal speech and movement present Affect: normal affect Attitude: cooperative Thought process: Normal thought process present and not confabulating Thought content: Normal thought content present Insight: Good insight present (Psych) Judgement: Good judgement present (Psych) Assessment & Plan Assessment & Plan (1) Chronic idiopathic constipation: Code(s): K59.04 - Chronic idiopathic constipation Plan: AFGHAN #Joo, Live She says that despite taking the Linzess 290 every morning she continues to struggle to move her bowels even with the addition of senna 2 tabs bid. She is also quite embarrassed that her stools are very odiferous (her children make fun of her!). She is also bothered by LUQ pain that is constant and not altered with eating or moving her bowels. I explain that there are many organs in this area, but the bowels are the most common suspect - however she does have significant osteoarthritis of the lumbar spine particularly at the L1-L2 level so it is possible that she has thoracic radiculopathy. She agrees to get an x- ray to help us exclude this as a possible problem. She had a CT scan in 2020 that did not seem to show any problem with the kidneys or any other organs in that general area. She exercises a lot and is currently dieting, but she drinks a LOT of water and eats a lot of fiber. HEr last colonoscopy was in 2019 and she did have a solita ry ulcer r/t likely CIC and pressure but not other concerning findings. She continues on her Reglan 5 mg, Dexilant, and simethicone. Return office visit in 3 weeks. (2) Right upper quadrant abdominal pain: Code(s): R10.11 - Right upper quadrant pain (3) Abdominal cramping: Code(s): R10.9 - Unspecified abdominal pain (4) Back pain: Code(s): M54.9 - Dorsalgia, unspecified (5) Left flank pain: Code(s): R10.9 - Unspecified abdominal pain (6) GERD (gastroesophageal reflux disease): Code(s): K21.9 - Gastro-esophageal reflux disease without esophagitis Orders: Orders XR thoracic spine 2V Today M54.9 - Dorsalgia, unspecified, R10.9 - Unspecified abdominal pain Medications: New bisacodyl (Dulcolax (bisacodyl)) 10 mg (2 x 5 mg) PO BEDTIME 30 days 60 tabs 6RF Refilled dexlansoprazole 60 mg PO DAILY 30 caps 6RF K59.04 - Chronic idiopathic constipation linaclotide (Linzess) 290 mcg PO QAM 30 caps 6RF K59.04 - Chronic idiopathic constipation yesscm-smoexodd-tqrfhan 24,000-76,000 -120,000 unit (Creon) 1 cap PO QID 120 caps 6RF metoclopramide HCl (Reglan) Provider aware of possible interactions with psych meds and is monitoring, please dispense 5 mg PO QIDACHS 120 tabs 6RF K59.9 - Functional intestinal disorder, unspecified simethicone 180 mg PO QID 90 caps 6RF K21.9 - Gastro-esophageal reflux disease without esophagitis On Hold sennosides (So-wolfgang) Hold Comment: Doctor's Order 17.2 mg (2 x 8.6 mg) PO BID 120 tabs 6RF K21.9 - Gastro-esophageal reflux disease without esophagitis, K59.04 - Chronic idiopathic constipation, R10.10 - Upper abdominal pain, unspecified, R10.11 - Right upper quadrant pain, R10.9 - Unspecified abdominal pain Coding Level of Care Code Est Pt Level 3 (48018) Diagnoses Chronic idiopathic constipation K59.04 Right upper quadrant abdominal pain R10.11 Abdominal cramping R10.9 Back pain M54.9 Left flank pain R10.9 GERD (gastroesophageal reflux disease) K21.9
[2023-02-10 15:43] VITALS: BP 130/77; BMI 32.6
== END 2023-02-10 16:07 | disposition home or self-care (01) ==
PROVIDERS: Visit Provider Nurse Practitioner
DX: K59.04 Chronic idiopathic constipation (principal); R10.11 Right upper quadrant pain; R10.9 Unspecified abdominal pain; M54.9 Dorsalgia, unspecified; K21.9 Gastro-esophageal reflux disease without esophagitis
CPT/HCPCS: 99213

== ENCOUNTER → 2023-02-10 15:34 | Outpatient (BNVA) | payer OTHER, SELFPAY | PROVIDERS: Visit Provider Nurse Practitioner | DX: K59.04 Chronic idiopathic constipation (principal); K21.9 Gastro-esophageal reflux disease without esophagitis; R10.11 Right upper quadrant pain; R10.9 Unspecified abdominal pain; M54.9 Dorsalgia, unspecified | CPT/HCPCS: 99212 ==

== ENCOUNTER 2023-02-11 10:04 | Outpatient (REF) | payer OTHER, SELFPAY ==
--- NOTE | ~2023-02-11 | XR_ITS ---
EXAMINATION: XR THORACIC SPINE CLINICAL INFORMATION: Reason for Exam R10.9 - Unspecified abdominal pain Back pain COMPARISON: Thoracic spine radiographs 10/05/2017 TECHNIQUE: 3 views of the thoracic spine FINDINGS: Vertebral body heights are maintained. Dextroconvex curvature of the thoracic spine. Mild multilevel degenerative disc disease with multilevel loss of disc space height similar to prior. Paravertebral soft tissues are unremarkable. XR/XR thoracic spine 2V IMPRESSION: 1. Dextroconvex curvature of the thoracic spine. 2. Mild multilevel degenerative disc disease similar to prior.
--- NOTE | 2023-02-11 10:12 | EMG_ITS ---
Left tibial and peroneal motor studies were performed. Left sural and superficial peroneal sensory studies were performed. Medial and lateral plantar sensory studies were performed. Tibial H-reflex was obtained. A needle examination was performed. IMPRESSION: 1. Distal tibial neuropathy, left foot. 2. Underlying mild sensory motor peripheral neuropathy. MD UZIEL Schneider/YANN / [id number]
== END 2023-02-11 10:05 | disposition home or self-care (01) ==
LOC: HO.NEURO 10:04
PROVIDERS: Visit Provider Registered Nurse Emergency
DX: R20.0 Anesthesia of skin (principal); R20.2 Paresthesia of skin; M54.10 Radiculopathy, site unspecified
CPT/HCPCS: 72070; 95860; 95886; 95907; 95910

== ENCOUNTER 2023-02-15 12:31 | Outpatient (REF) | payer OTHER, SELFPAY ==
--- NOTE | ~2023-02-15 | XR_ITS ---
EXAMINATION: XR CERVICAL SPINE CLINICAL INFORMATION: Pharyngeal dysphasia, neck pain Patient states neck pain for years COMPARISON: Cervical spine 12/09/2021 TECHNIQUE: 6 views of the cervical spine were obtained. FINDINGS: The tip of the odontoid is obscured on the open-mouth view. The inferior half of C7 is obscured on the lateral view by the soft tissues of the patient's shoulders. This is not better demonstrated on the Swimmer's view. There is no fracture or subluxation. Prevertebral soft tissues are within normal limits. There is mild disc space narrowing with marginal osteophyte formation at C5-C6.. There is straightening of the usual cervical lordosis which can be seen with muscle spasm or be due to patient positioning. The neural foramina are widely patent. XR/XR cervical spine 4V IMPRESSION: 1. Degenerative disc disease at C5-C6. 2. Straightening of the usual cervical lordosis which can be seen with muscle spasm or be due to patient positioning.
== END 2023-02-15 12:32 | disposition home or self-care (01) ==
LOC: HO.HHCX 12:31
PROVIDERS: Visit Provider Internal Medicine
DX: M54.2 Cervicalgia (principal); R13.13 Dysphagia, pharyngeal phase
CPT/HCPCS: 72050

== ENCOUNTER 2023-04-19 10:42 | Emergency (ER) | payer OTHER, SELFPAY ==
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
[2023-04-19 11:14] VITALS: BP 107/77; PULSE 96; RESP 14; TEMP 37.2; O2SAT 96; BMI 31.9
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
[2023-04-19] MEDS: Lidocaine 4 % Patch ADH..PATCH 2 PATCH TRANSDERMA (12:34)
[2023-04-19] MEDS: Acetaminophen 325 MG TABLET 975 MG PO (12:35)
--- NOTE | 2023-04-19 12:46 | PC.NURSE ---
pt medicated per MAR
[2023-04-19 14:28] VITALS: BP 133/69; PULSE 74; RESP 16; TEMP 36.6; O2SAT 100
--- NOTE | 2023-04-19 14:39 | PC.NURSE ---
aox4. calm, coop. no distress. no diff breathing. sitting up at bedside. verbalizes understanding of instructions and will pickling solution maker rx at pharm.
== END 2023-04-19 14:40 | disposition home or self-care (01) ==
PROVIDERS: Emergency Provider Emergency Medicine; PCP Internal Medicine
DX: M79.10 Myalgia, unspecified site (principal); M54.2 Cervicalgia; R07.89 Other chest pain; R51.9 Headache, unspecified; M54.50 Low back pain, unspecified; Z79.899 Other long term (current) drug therapy
CPT/HCPCS: 70450; 71046; 72100; 72125; 93005; 99284; 99285

== ENCOUNTER 2023-06-18 11:32 | Outpatient (REF) | payer OTHER, SELFPAY ==
[2023-06-18 14:13] LABS: Cholesterol 179 mg/dL (<200); HDL Cholesterol 54 mg/dL (>40); LDL Cholesterol Calculated 103 mg/dL (<100); Triglycerides 114 mg/dL (<150)
[2023-06-18 14:15] LABS: Alanine Aminotransferase 14 U/L (0-31); Albumin Level 3.9 g/dL (3.5-5.0); Alkaline Phosphatase 96 U/L (39-117); Anion Gap 14 (12-20); Aspartate Amino Transferase 15 U/L (5-31); Bilirubin Total 0.3 mg/dL (0.0-1.0); Blood Urea Nitrogen 16 mg/dL (9-16); Calcium 9.3 mg/dL (8.4-10.2); Carbon Dioxide 24 mmol/L (22-29); Chloride 110 mmol/L (96-108); Estimated Glomerular Filt Rate > 60; Glucose Random 85 mg/dL (60-115); Potassium 4.5 mmol/L (3.3-5.1); Sodium 143 mmol/L (135-145); Total Protein 6.9 g/dL (6.5-8.0)
[2023-06-18 14:20] LABS: Reflex LDLD? No
[2023-06-18 14:33] LABS: Vitamin D 25-OH Total 37.7 ng/mL (>30)
== END 2023-06-18 11:33 | disposition home or self-care (01) ==
LOC: HO.HHCL 11:32
PROVIDERS: Visit Provider Internal Medicine
DX: M54.9 Dorsalgia, unspecified (principal)
CPT/HCPCS: 36415; 80053; 80061; 82306; 84443

== ENCOUNTER 2023-06-24 08:49 | Outpatient (AMB) | payer OTHER, SELFPAY ==
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
[2023-06-24 08:59] VITALS: BP 134/64; PULSE 84; RESP 18; O2SAT 96; BMI 33.3
== END 2023-06-24 09:20 | disposition home or self-care (01) ==
PROVIDERS: PCP Internal Medicine; Visit Provider Registered Nurse Emergency
DX: G62.9 Polyneuropathy, unspecified (principal); M25.50 Pain in unspecified joint; M47.816 Spondylosis without myelopathy or radiculopathy, lumbar region
CPT/HCPCS: 99213

== ENCOUNTER → 2023-06-24 08:49 | Outpatient (BNVA) | payer OTHER, SELFPAY | PROVIDERS: PCP Internal Medicine; Visit Provider Registered Nurse Emergency | DX: J45.909 Unspecified asthma, uncomplicated (principal); J20.9 Acute bronchitis, unspecified; M25.50 Pain in unspecified joint; M47.816 Spondylosis without myelopathy or radiculopathy, lumbar region; G62.9 Polyneuropathy, unspecified; M54.10 Radiculopathy, site unspecified | CPT/HCPCS: 99212 ==

== ENCOUNTER 2023-06-24 15:26 | Outpatient (AMB) | payer OTHER, SELFPAY ==
[2023-06-24 15:28] VITALS: BP 110/72; PULSE 92; O2SAT 96; BMI 34.1
--- NOTE | 2023-06-24 15:28 | A.OFFVIS_ITS ---
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 HPI asthma HPI Details 47-year-old lady, nonsmoker, with underl tiffanie history of asthma, followed for reactive airway disease, controlled on duo nebs several times a week as needed. Today she complain of significant bronchitic symptoms, particular cough productive of yellowish sputum ongoing for the last [address] [facility] Medical History (Updated 06/24/23 @ 15:41 by Naman Townsend MD) Reactive airway disease Palpitations ANTHONY (obstructive sleep apnea) Chest pain Small bowel motility disorder Bile reflux gastritis Small intestinal bacterial overgrowth Abdominal pain Anxiety Cardiomyopathy Chest tightness Tachycardia Upper abdominal pain GERD (gastroesophageal reflux disease) Chronic idiopathic constipation Surgical History History of cardiac cath Hx of cholecystectomy Hx of endoscopy History of colonoscopy Family History Father No problems noted. Mother No problems noted. Social History Household Members: Children Alcohol intake: never Patient Tobacco Use Status: Never used Tobacco Review of Systems Const Denies daytime sleepiness, Denies excessive sweating, Denies fatigue, Denies fever(s), Denies lethargy, Denies malaise, Denies night sweats, Denies snoring and Denies weight loss Eyes Denies blurry vision and Denies itchy eyes ENT Denies nasal congestion, Denies post nasal drip, Denies sinus pain, Denies sinus pressure and Denies other ( Thrush) Card Denies chest pain, Denies pedal edema, Denies dyspnea, Denies orthopnea and Denies paroxysmal nocturnal dyspnea Resp Denies cough, Denies hemoptysis, Denies excessive phlegm production, Denies dyspnea, Denies snoring and Denies wheezing GI Denies abdominal pain and Denies heartburn Musc Denies myalgias, Denies arthralgias and Denies joint swelling Skin/Breast Denies rash Neuro Denies memory loss and Denies seizure-like activity Psych Denies abnormal sleep pattern, Denies anxiety and Denies memory loss Endo Denies excessive sweating, Denies fatigue and Denies heat intolerance Kain/Lymph Denies easy bruising Aller/Immun Denies itchy eyes, Denies seasonal rhinorrhea and Denies wheezing Physical Exam Vital Signs: Last Vital Signs Pulse 92 06/24/23 15:28 BP 110/72 06/24/23 15:28 Pulse Ox 96 06/24/23 15:28 Oxygen Delivery Method Room Air 06/24/23 15:28 BMI result Body Mass Index 34.1 Const General: no acute distress and alert Nutritional Appearance: not obese Orientation/consciousness: Other orientation findings ( oriented) HEENT Head: Yes atraumatic Eyes General: appearance normal, both eyes and all related structures Sclerae: sclerae normal EOM: EOMs intact bilaterally Neck Neck: Yes supple Lymphatic: no lymphadenopathy noted Resp Effort & Inspection: normal respiratory effort and no use of accessory muscles Auscultation: clear to auscultation bilaterally Cardio Rate: regular rate Rhythm: regular rhythm Heart sounds: no gallops, no murmurs and no rubs Skin General skin exam: other ( warm) Extrem General: No clubbing, No cyanosis and No edema Assessment & Plan Assessment & Plan (1) Acute bronchitis: Code(s): J20.9 - Acute bronchitis, unspecified Plan: Also with sinusitis and postnasal drip symptoms. Will treat with a course of Augmentin. (2) Reactive airway disease: Code(s): J45.909 - Unspecified asthma, uncomplicated Plan: Well controlled on as needed duo nebs and albuterol MDI. Continue current regimen. Medications: New ipratropium-albuterol 0.5 mg-3 mg(2.5 mg base)/3 mL 3 mL inhalation Q4-6H PRN 180 mL 6RF wheezing 30 days amoxicillin-pot clavulanate 875-125 mg 1 tab PO BID 14 days 28 tabs 0RF Coding Level of Care Code Est Pt Level 4 (45868) Diagnoses Acute bronchitis J20.9 Reactive airway disease J45.909
== END 2023-06-24 15:40 | disposition home or self-care (01) ==
PROVIDERS: PCP Internal Medicine; Visit Provider Internal Medicine Pulmonary Disease
DX: J20.9 Acute bronchitis, unspecified (principal); J45.909 Unspecified asthma, uncomplicated
CPT/HCPCS: 99214

== ENCOUNTER 2023-06-30 15:23 | Outpatient (REF) | payer OTHER, SELFPAY | END 2023-06-30 15:24 | disposition home or self-care (01) | LOC: HO.MAMMO 15:23 | PROVIDERS: PCP Internal Medicine; Visit Provider Internal Medicine | DX: Z12.31 Encounter for screening mammogram for malignant neoplasm of breast (principal) | CPT/HCPCS: 77063; 77067 ==

== ENCOUNTER → 2023-06-30 15:45 | Outpatient (BNV) | payer OTHER, SELFPAY | PROVIDERS: PCP Internal Medicine; Visit Provider Radiology Diagnostic Radiology | DX: Z12.31 Encounter for screening mammogram for malignant neoplasm of breast (principal) | CPT/HCPCS: 77063; 77067 ==

== ENCOUNTER 2023-07-08 10:13 | Outpatient (REF) | payer OTHER, SELFPAY | END 2023-07-08 10:14 | disposition home or self-care (01) | LOC: HO.HHCL 10:13 | PROVIDERS: Visit Provider Internal Medicine | DX: Z00.00 Encounter for general adult medical examination without abnormal findings (principal); F33.41 Major depressive disorder, recurrent, in partial remission; Z11.1 Encounter for screening for respiratory tuberculosis | CPT/HCPCS: 36415; 86481; 86704; 86706; 86709; 86803; 87340 ==

== ENCOUNTER 2023-07-27 14:30 | Outpatient (AMB) | payer OTHER, SELFPAY ==
--- NOTE | 2023-07-27 14:39 | MHC.OFFVIS ---
Intake Vital Signs 07/27/23 14:40 Height 5 ft 5 in Weight 209 lb 7.026 oz BMI 34.8 BP 119/66 Blood Pressure Location Lt brachial Position Sitting Pulse 80 Intake Visit Reasons: pt req appointment Intake Note: Patient presents to in office visit today in follow up of X rays. CC: Patient c/o RUQ abdominal pain that comes and goes and hardening above navel. 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 HPI pt req appointment HPI Details Assessment & Plan (1) Chronic idiopathic constipation: Code(s): K59.04 - Chronic idiopathic constipation Plan: SAMOAN #Joo, Live She says that despite taking the Linzess 290 every morning she continues to struggle to move her bowels even with the addition of senna 2 tabs bid. She is also quite embarrassed that her stools are very odiferous (her children make fun of her!). She is also bothered by LUQ pain that is constant and not altered with eating or moving her bowels. I explain that there are many organs in this area, but the bowels are the most common suspect - however she does have significant osteoarthritis of the lumbar spine particularly at the L1-L2 level so it is possible that she has thoracic radiculopathy. She agrees to get an x-ray to help us exclude this as a possible problem. She had a CT scan in 2020 that did not seem to show any problem with the kidneys or any other organs in that general area. She exercises a lot and is currently dieting, but she drinks a LOT of water and eats a lot of fiber. HEr last colonoscopy was in 2019 and she did have a solitary ulcer r/t likely CIC and pressure but not other concerning findings. She continues on her Reglan 5 mg, Dexilant, and simethicone. Return office visit in 3 weeks. (2) Right upper quadrant abdominal pain: Code(s): R10.11 - Right upper quadrant pain (3) Abdominal cramping: Code(s): R10.9 - Unspecified abdominal pain (4) Back pain: Code(s): M54.9 - Dorsalgia, unspecified (5) Left flank pain: Code(s): R10.9 - Unspecified abdominal pain (6) GERD (gastroesophageal reflux disease): Code(s): K21.9 - Gastro-esophageal reflux disease without esophagitis Orders: Orders XR thoracic spine 2V Today M54.9 - Dorsalgia, unspecified, R10. 9 - Unspecified ab dominal pain Medications: New bisacodyl (Dulcola x (bisacodyl)) 10 mg (2 x 5 mg) P O BEDTIME 30 days 60 tabs 6RF Refilled dexlansoprazole 60 mg PO DAILY 30 caps 6RF K59.04 - Chronic i diopathic constipa tion linaclotide (Linze ss) 290 mcg PO QAM 30 caps 6RF K59.04 - Chronic i diopathic constipa tion eerufx-dpujqznx-uc ylase 24,000-76,00 0 -120,000 unit (C reon) 1 cap PO QID 120 caps 6RF metoclopramide HCl (Reglan) Provi mitch aware of possi ble interactions w ith psych meds and is monitoring, pl ease dispense 5 mg PO QIDACHS 1 20 tabs 6RF K59.9 - Functional intestinal disord er, unspecified simethicone 180 mg PO QID 90 caps 6RF K21.9 - Gastro-eso phageal reflux dis ease without esoph agitis On Hold sennosides (So-k ot) Hold Commen t: Doctor's Order 17.2 mg (2 x 8.6 m g) PO BID 120 tabs 6RF K21.9 - Gastro-eso phageal reflux dis ease without esoph agitis, K59.04 - C hronic idiopathic constipation, R10. 10 - Upper abdomin al pain, unspecifi ed, R10.11 - Right upper quadrant pa in, R10.9 - Unspec ified abdominal pa in X-RAY OF THE THORACIC SPINE 02/15/23 FINDINGS: Vertebral body heights are maintained. Dextroconvex curvature of the thoracic spine. Mild multilevel degenerative disc disease with multilevel loss of disc space height similar to prior. Paravertebral soft tissues are unremarkable. XR/XR thoracic spine 2V IMPRESSION: 1. Dextroconvex curvature of the thoracic spine. 2. Mild multilevel degenerative disc disease similar to prior. TODAY'S VISIT SAMOAN Jose Live She is having pain still in the RUQ and a lot of bloating, at times the pain moves to the midline area of the upper abd. She is moving her bowels well with various consistencies. The T spine is not terribly convincing for radicular pain for this, so it seems it must be the bowels. We will try increasing the reglan to 10mg qidachs. She continues on creon, simethicone, and we could consider adding dicyclomine if I think that the pain is related to cramping. She has had this pain ever since her gallbladder was removed so it is possible that there are some surgical he is causing the issue. She expressed concerned that she did not want to ?get gallstones again. ? And I tell her that this is not likely since her gallbladder has been removed and that would be the source of gallstones. It would have to be something very rare where there was a stone still floating around in the peritoneal cavity that could find its weight into the pancreatic duct before this would become a problem. She continues on Linzess 290 micro g daily, bisacodyl 2 tabs at night, Dexilant and simethicone. Again, were increasing the Reglan. Return office visit in 4 weeks to see how the pain is doing. [facility] Medical History Reactive airway disease Palpitations ANTHONY (obstructive sleep apnea) Chest pain Small bowel motility disorder Bile reflux gastritis Small intestinal bacterial overgrowth Abdominal pain Anxiety Cardiomyopathy Chest tightness Tachycardia Upper abdominal pain GERD (gastroesophageal reflux disease) Chronic idiopathic constipation Surgical History History of cardiac cath Hx of cholecystectomy Hx of endoscopy History of colonoscopy Family History Father No problems noted. Mother No problems noted. Social History (Reviewed 07/27/23 @ 14:55 by Adam [facility]) Household Members: Children Alcohol intake: never Patient Tobacco Use Status: Never used Tobacco Review of Systems Const Denies fatigue, Denies fever(s), Denies night sweats, Denies poor appetite and Denies weight loss ENT Reports Normal hearing present, Denies dental pain, Denies dysphagia, Denies hearing loss, Denies mouth pain, Denies odynophagia, Denies throat swelling, Denies tongue swelling and Reports other (Dentition adequate) Card Reports no additional complaints Resp Reports no additional complaints GI Reports abdominal pain, Denies melena, Reports bloating, Denies hematochezia, Reports constipation, Denies GI cramping, Denies dysphagia, Denies excessive flatus, Denies early satiety, Reports heartburn, Denies diarrhea, Denies nausea, Denies odynophagia, Denies vomiting and Denies hematemesis Skin/Breast Denies pruritus, Denies lesions, Denies rash and Denies jaundice Neuro Reports Normal hearing present and Denies Abnormal speech present Endo Denies fatigue Aller/Immun Denies throat swelling and Denies tongue swelling Physical Exam Vital Signs: Last Vital Signs Pulse 80 07/27/23 14:40 BP 119/66 07/27/23 14:40 BMI result Body Mass Index 34.8 Const General: cooperative, no acute distress, well developed and well groomed Nutritional Appearance: well nourished and obese Orientation/consciousness: oriented to person, oriented to place and oriented to time Limitations: language barrier HEENT Head: Yes normocephalic and Yes atraumatic Eyes General: appearance normal, both eyes and all related structures Pupils: Equal, round and reactive pupils present Neck Neck: Yes normal visual inspection and Yes no lymphadenopathy Thyroid: Thyroid normal Resp Effort & Inspection: normal respiratory effort and able to speak in complete sentences Auscultation: clear to auscultation bilaterally Cardio Rate: regular rate Rhythm: regular rhythm Heart sounds: Normal, physiologic split S2 sound present Peripheral pulses: radial pulses present and posterior tibial pulses present GI Inspection: No distended, No Abdominal panniculus present and Yes obesity Palpation (GI): Soft to palpation, nontender, no guarding, not rigid and No hepatosplenomegaly present Percussion: Yes normal to percussion Auscultation: normal bowel sounds Rectal Exam - Female: deferred Skin General skin exam: no rashes or lesions noted, turgor normal, skin not dry, no jaundice, No spider nevi and no striae Rashes: no rashes Nails: normal Neuro General: oriented to person, oriented to place and oriented to time Cranial nerves: Yes Equal, round and reactive pupils present and Yes Normal hearing present Speech: No Abnormal speech present Extrem General: Yes normal to inspection, No clubbing, No cyanosis and No edema Psych Appearance: grossly normal and well kempt Mental Status: mental status grossly normal Speech and movement: Normal speech and movement present Affect: normal affect Attitude: cooperative Thought process: Normal thought process present and not confabulating Thought content: Normal thought content present Insight: Limited insight present (Psych) Judgement: Limited judgement present (Psych) Results Reviewed Results Reviewed: X-RAY OF THE THORACIC SPINE 02/15/23 FINDINGS: Vertebral body heights are maintained. Dextroconvex curvature of the thoracic spine. Mild multilevel degenerative disc disease with multilevel loss of disc space height similar to prior. Paravertebral soft tissues are unremarkable. XR/XR thoracic spine 2V IMPRESSION: 1. Dextroconvex curvature of the thoracic spine. 2. Mild multilevel degenerative disc disease similar to prior. Assessment & Plan Assessment & Plan (1) GERD (gastroesophageal reflux disease): Code(s): K21.9 - Gastro-esophageal reflux disease without esophagitis (2) Chronic idiopathic constipation: Code(s): K59.04 - Chronic idiopathic constipation (3) Right upper quadrant abdominal pain: Code(s): R10.11 - Right upper quadrant pain (4) Tubular adenoma of colon: Comment: 2019 scope = 3 TA repeat 3-4 years Code(s): D12.6 - Benign neoplasm of colon, unspecified Plan SAMOAN #Richie Live She is having pain still in the RUQ and a lot of bloating, at times the pain moves to the midline area of the upper abd. She is moving her bowels well with various consistencies. The T spine is not terribly convincing for radicular pain for this, so it seems it must be the bowels. We will try increasing the reglan to 10mg qidachs. She continues on creon, simethicone, and we could consider adding dicyclomine if I think that the pain is related to cramping. She has had this pain ever since her gallbladder was removed so it is possible that there are some surgical he is causing the issue. She expressed concerned that she did not want to ?get gallstones again. ? And I tell her that this is not likely since her gallbladder has been removed and that would be the source of gallstones. It would have to be something very rare where there was a stone still floating around in the peritoneal cavity that could find its weight into the pancreatic duct before this would become a problem. She continues on Linzess 290 micro g daily, bisacodyl 2 tabs at night, Dexilant and simethicone. Again, were increasing the Reglan. Return office visit in 4 weeks to see how the pain is doing.. Orders: Orders Colonoscopy - GI Use Only Today D12.6 - Benign neoplasm of colon, unspecified Medications: New bisacodyl (Dulcolax (bisacodyl)) 10 mg (2 x 5 mg) PO BEDTIME 2 days 4 tabs 0RF metoclopramide HCl (Reglan) 10 mg PO QIDACHS 120 tabs 6RF Refilled bisacodyl (Dulcolax (bisacodyl)) 10 mg (2 x 5 mg) PO BEDTIME 30 days 60 tabs 6RF fngwan-obfzpyfe-aimjpxz 24,000-76,000 -120,000 unit (Creon) 1 cap PO QID 120 caps 6RF simethicone 180 mg PO QID 90 caps 6RF K21.9 - Gastro-esophageal reflux disease without esophagitis dexlansoprazole 60 mg PO DAILY 30 caps 6RF K59.04 - Chronic idiopathic constipation linaclotide (Linzess) 290 mcg PO QAM 30 caps 6RF K59.04 - Chronic idiopathic constipation Discontinued sennosides (So-wolfgang) Discontinued Reason: Doctor's Order 17.2 mg (2 x 8.6 mg) PO BID 120 tabs 6RF K21.9 - Gastro-esophageal reflux disease without esophagitis, K59.04 - Chronic idiopathic constipation, R10.10 - Upper abdominal pain, unspecified, R10.11 - Right upper quadrant pain, R10.9 - Unspecified abdominal pain metoclopramide HCl (Reglan) Provider aware of possible interactions with psych meds and is monitoring, please dispense Discontinued Reason: Doctor's Order 5 mg PO QIDACHS 120 tabs 6RF K59.9 - Functional intestinal disorder, unspecified Coding Level of Care Code Est Pt Level 3 (81625) Diagnoses GERD (gastroesophageal reflux disease) K21.9 Chronic idiopathic constipation K59.04 Right upper quadrant abdominal pain R10.11 Tubular adenoma of colon D12.6
[2023-07-27 14:40] VITALS: BP 119/66; PULSE 80; BMI 34.8
== END 2023-07-27 15:22 | disposition home or self-care (01) ==
PROVIDERS: PCP Internal Medicine; Visit Provider Nurse Practitioner
DX: K21.9 Gastro-esophageal reflux disease without esophagitis (principal); K59.04 Chronic idiopathic constipation; R10.11 Right upper quadrant pain; D12.6 Benign neoplasm of colon, unspecified
CPT/HCPCS: 99213

== ENCOUNTER → 2023-07-27 14:30 | Outpatient (BNVA) | payer OTHER, SELFPAY | PROVIDERS: PCP Internal Medicine; Visit Provider Nurse Practitioner | DX: K59.04 Chronic idiopathic constipation (principal); K21.9 Gastro-esophageal reflux disease without esophagitis; R10.11 Right upper quadrant pain; Z79.899 Other long term (current) drug therapy; Z86.010 Personal history of colon polyps | CPT/HCPCS: 99212 ==

== ENCOUNTER 2023-08-06 09:46 | Outpatient (REF) | payer OTHER, SELFPAY ==
[2023-08-06 14:51] LABS: MANUAL DIFF FLAG NO
[2023-08-06 15:12] LABS: Basophils Percent Auto 0.4 % (0-2); Eosinophils Absolute Auto 0.1 X10*3/uL (0.0-0.4); Eosinophils Percent Auto 2.4 % (0-4); Hematocrit 37.1 % (37.0-47.0); Imm Gran Abs Auto 0.02 X10*3/uL (0.00-0.03); Imm Gran Pct Auto 0.4 % (0.0-0.4); Lymphocytes Absolute Auto 1.9 X10*3/uL (1.2-4.9); Lymphocytes Percent Auto 34.1 % (20-40); Mean Corpuscular HGB Conc 32.3 g/dl (31.0-35.0); Mean Corpuscular Hemoglobin 31.7 pg (27.0-33.0); Mean Corpuscular Volume 98.1 fL (80.0-98.0); Mean Platelet Volume 9.3 fL (9.4-12.3); Monocytes Absolute Auto 0.4 X10*3/uL (0.1-1.2); Monocytes Percent Auto 6.6 % (2-11); Neutrophils Absolute Auto 3.1 x10*3/uL (2.0-8.3); Neutrophils Percent Auto 56.1 % (45-73); Platelet Count 235 X10*3/uL (160-400); Red Blood Count 3.78 X10*6/uL (4.20-5.50); Red Cell Distribution Width 12.7 % (11.0-16.0); White Blood Count 5.5 X10*3/uL (4.8-10.8)
[2023-08-06 15:49] LABS: Erythrocyte Sedimentation Rate 8 MM/HR (0-20)
[2023-08-06 16:03] LABS: Alanine Aminotransferase 20 U/L (0-31); Albumin Level 3.9 g/dL (3.5-5.0); Alkaline Phosphatase 108 U/L (39-117); Anion Gap 10 (12-20); Aspartate Amino Transferase 20 U/L (5-31); Bilirubin Total 0.3 mg/dL (0.0-1.0); Blood Urea Nitrogen 13 mg/dL (9-16); Calcium 8.6 mg/dL (8.4-10.2); Carbon Dioxide 24 mmol/L (22-29); Chloride 111 mmol/L (96-108); Estimated Glomerular Filt Rate > 60; Glucose Random 98 mg/dL (60-115); Potassium 4.2 mmol/L (3.3-5.1); Sodium 141 mmol/L (135-145); Total Protein 6.9 g/dL (6.5-8.0); Uric Acid 5.2 mg/dL (2.4-5.7)
[2023-08-06 16:05] LABS: Rheumatoid Factor < 13.0 IU/mL (<15.0)
[2023-08-09 11:43] LABS: IgA 369 mg/dL (47-310); IgG 989 mg/dL (600-1640); IgM 185 mg/dL (50-300)
[2023-08-09 14:54] LABS: Cyclic Citrullinated Peptide <16 UNITS
[2023-08-09 19:18] LABS: SM/Ribonucleoprotein Ab <1.0 NEG AI (<1.0 NEG); Smith Protein <1.0 NEG AI (<1.0 NEG)
[2023-08-11 20:34] LABS: Aldolase 6.8 U/L (<=8.1)
[2023-08-15 14:13] LABS: Anti Nuclear Antibody Screen POSITIVE (NEGATIVE)
== END 2023-08-06 09:47 | disposition home or self-care (01) ==
LOC: HO.LAB 09:46
PROVIDERS: PCP Internal Medicine; Visit Provider Nurse Practitioner Family
DX: M79.18 Myalgia, other site (principal); M54.42 Lumbago with sciatica, left side; M54.41 Lumbago with sciatica, right side; G89.29 Other chronic pain; M25.50 Pain in unspecified joint; M54.9 Dorsalgia, unspecified
CPT/HCPCS: 36415; 80053; 82085; 82550; 82784; 84550; 85025; 85652; 86038; 86039; 86140; 86200; 86235; 86431; 99202

== ENCOUNTER 2023-08-06 09:46 | Outpatient (AMB) | payer OTHER, SELFPAY ==
--- NOTE | 2023-08-06 10:26 | MHC.OFFVIS ---
Intake Intake Visit Reasons: neck pain Allergies aspirin [ASPIRIN] Allergy (Unknown, Verified 07/27/23 14:46) UNKNOWN REACTION PER PT. PENDING SALE TO [facility] Medical History Reactive airway disease Palpitations ANTHONY (obstructive sleep apnea) Chest pain Small bowel motility disorder Bile reflux gastritis Small intestinal bacterial overgrowth Abdominal pain Anxiety Cardiomyopathy Chest tightness Tachycardia Upper abdominal pain GERD (gastroesophageal reflux disease) Chronic idiopathic constipation Surgical History History of cardiac cath Hx of cholecystectomy Hx of endoscopy History of colonoscopy Family History Father No problems noted. Mother No problems noted. Social History Household Members: Children Alcohol intake: never Patient Tobacco Use Status: Never used Tobacco Assessment & Plan Assessment & Plan (1) Back pain: Code(s): M54.9 - Dorsalgia, unspecified Plan Dear Dr Piedra, . Mrs Boothe came to our office today to be evaluated for chronic aches and pains throughout her whole body. She describes herself as having for many years even decades worth of neck pain, arm pain, thoracic pain, low back pain, bilateral leg pains. Her body feels diffusely weak and on energetic. Through the years she is tried some cortisone injections, [id number]-pxn-[id number] medications such as anti-inflammatories etc. without any relief. She tried chiropractic without any relief. She comes in today for evaluation with an MRI showing mild degenerative disc changes. PMH: Anxiety and depression seem to be an overriding part of her life, her daughter with her today tells me she is dealing with many issues in her life right now, history of cholecystectomy, hand surgery, tubal ligation Social hx: She does not smoke, denies any use of alcohol or marijuana. Medications: Klonopin, Latuda, Linzess, metoclopramide, metoprolol, ProAir, simethicone, Topamax, valacyclovir, venlafaxine Allergies: None Physical exam: Gait is normal, strength is somewhat limited by effort but appears to be normal, reflexes are normal, no Clinton sign, no clonus Imaging review: She has a lumbar MRI done here at [facility] which more less looks completely normal. The report suggests there are some mild degenerative changes but this is probably an over exaggeration. Impression: 48-year-old female presents today for acute body aches and pains all over from her neck her arms her mid back low back down into her legs. Her lumbar MRI is essentially normal. Certainly she does not need any surgery. She had likely has some form of fibromyalgia or rheumatological condition. Or this is some connection with her anxiety and depression which is expressing itself as a physical manifestation. I do not think any further cortisone injections are going help. She certainly could try to continue to do therapy or other exercises but I think without understandint the underlying cause these things are for the most part not going to have any meaningful use. Thank you for allowing us to care for your patient. The total time spent with this visit with this patient was 45 minutes reviewing history, physical exam, lumbar imaging review, and implementation of treatment plan or further diagnostic testing Suhail Ospina MD,PhD [facility] Coding Level of Care Code New Pt Level 4 (25881) Diagnoses Back pain M54.9
== END 2023-08-06 10:47 | disposition home or self-care (01) ==
PROVIDERS: PCP Internal Medicine; Visit Provider Neurological Surgery
DX: M54.9 Dorsalgia, unspecified (principal)
CPT/HCPCS: 99204

== ENCOUNTER 2023-08-06 13:40 | Outpatient (AMB) | payer OTHER, SELFPAY ==
[2023-08-06 13:49] VITALS: BP 124/84; PULSE 86; TEMP 36.1; O2SAT 97; BMI 36.1
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
== END 2023-08-06 14:32 | disposition home or self-care (01) ==
PROVIDERS: PCP Internal Medicine; Visit Provider Nurse Practitioner Family
DX: M54.42 Lumbago with sciatica, left side (principal); M54.41 Lumbago with sciatica, right side; G89.29 Other chronic pain; M25.50 Pain in unspecified joint
CPT/HCPCS: 99204

== ENCOUNTER 2023-08-10 06:11 | Outpatient (REF) | payer OTHER, SELFPAY ==
--- NOTE | ~2023-08-10 | FL_ITS ---
EXAMINATION: XR FLUOROSCOPY WITH IMAGES CLINICAL INFORMATION: Radiculopathy, site unspecified COMPARISON: None available. TECHNIQUE: Fluoroscopy Supervised By: Dr. Yonas Jacobs. Fluoroscopy Time: 0.3 minutes. Cumulative Dose: 11.9 mGy. DAP: 0.207 Gycm2. Images: 1. FINDINGS: A single fluoroscopic image demonstrates the tip of a needle projected over the right lateral aspect of the L3 vertebral body. FL/FL guidance in treatment room IMPRESSION: Fluoroscopy provided for Dr. Jacobs in treatment program as detailed above.
== END 2023-08-10 06:12 | disposition home or self-care (01) ==
LOC: CF 06:11
PROVIDERS: Visit Provider Anesthesiology
DX: M47.26 Other spondylosis with radiculopathy, lumbar region (principal); M51.36 Other intervertebral disc degeneration, lumbar region
CPT/HCPCS: 64483; J3301; Q9967

== ENCOUNTER 2023-08-10 08:52 | Outpatient (AMB) | payer OTHER, SELFPAY ==
--- OUTSIDE RECORDS SUMMARY | 2023-08-10 08:54 | XMS_ITS | Continuity of Care Document ---
Author Name Unknown Organization [facility] Richard dylon Address [address] [place] [address] [address] [place] [address]- Care Team Providers Care Appraisal Specialist Name Role Phone Jamey Casper MD Primary Care Physician Encounter [facility] [place] Date(s): 04/29/22 - 05/29/22 [facility] [address] [place] [address]- Allergies, Adverse Reactions, Alerts Substance Reaction Severity Status aspirin Active Medications Breo Ellipta 200 mcg-25 mcg/inh inhalation powder INHALE 1 PUFF INTO THE LUNGS ONCE DAILY. Start Date: 05/07/22 Status: Ordered cetirizine 10 mg oral tablet 1 tablet = 10 mg, By Mouth, Daily, # 30 tablet, 0 Refills, Maintenance, 05/07/22 9:50:00 EDT, Tablet, Partial fill upon patient request if the prescription is for a schedule II opioid drug. Start Date: 05/07/22 Status: Ordered clonazePAM 1 mg oral tablet 1 tablet = 1 mg, By Mouth, 3 times a day, 0 Refills, Maintenance, 05/07/22 9:51:00 EDT, Tablet, Partial fill upon patient request if the prescription is for a schedule II opioid drug. Start Date: 05/07/22 Status: Ordered Creon 24,000 units oral delayed release capsule 1 capsule, By Mouth, 4 times a day, # 120 capsule, 0 Refills, Maintenance, 05/07/22 9:50:00 EDT, ECCapsule, Partial fill upon patient request if the prescription is for a schedule II opioid drug. Start Date: 05/07/22 Status: Ordered dexlansoprazole 60 mg oral delayed release capsule 1 capsule = 60 mg, By Mouth, Daily, # 30 capsule, 0 Refills, Maintenance, 05/07/22 9:52:00 EDT, EC Capsule, Partial fill upon patient request if the prescription is for a schedule II opioid drug. Start Date: 05/07/22 Status: Ordered gabapentin 300 mg oral capsule 300 mg, 1, capsule, By Mouth, 3 times a day, # 90 capsule, Refills 5, Maintenance, 05/07/22 9:51:00EDT, Partial fill upon patient request if the prescription is for a schedule II opioid drug. Start Date: 05/07/22 Status: Ordered So-wolfgang 8.6 mg tablet TAKE 2 TABLETS BY MOUTH two (2) times a day Start Date: 05/07/22 Status: Ordered imipramine 25 mg oral tablet 2 tablet = 50 mg, By Mouth, Daily at bedtime, TAKE 2 TABLETS BY MOUTH DAILY AT BEDTIME Start Date: 05/07/22 Status: Ordered Latuda 80 mg oral tablet 1 tablet = 80 mg, By Mouth, Daily, with food, # 30 tablet, 0 Refills, Maintenance, 05/07/22 9:52:00EDT, Tablet, Partial fill upon patient request if the prescription is for a schedule II opioid drug. Start Date: 05/07/22 Status: Ordered Linzess 290 mcg oral capsule 1 capsule = 290 mcg, By Mouth, Daily, # 30 capsule, 0 Refills, Maintenance, 05/07/22 9:54:00 EDT, Capsule, Partial fill upon patient request if the prescription is for a schedule II opioid drug. Start Date: 05/07/22 Status: Ordered Metoprolol Tartrate 25 mg oral tablet 0.5 tablet = 12.5 mg, By Mouth, 2 times a day, 0 Refills, Maintenance, 05/07/22 9:53:00 EDT, Partial fill upon patient request if the prescription is for a schedule II opioid drug. Start Date: 05/07/22 Status: Ordered Oysco 500 with D 500 mg-200 intl units oral tablet 1 tablet, By Mouth, 2 times a day, # 60 tablet, 0 Refills, Maintenance, 05/07/22 9:51:00 EDT, Tablet, Partial fill upon patient request if the prescription is for a schedule II opioid drug. Start Date: 05/07/22 Status: Ordered simethicone 180 mg oral capsule 1 capsule = 180 mg, By Mouth, 4 times a day, # 60 capsule, 0 Refills, Maintenance, 05/07/22 9:52:00EDT, Capsule, Partial fill upon patient request if the prescription is for a schedule II opioid drug. Start Date: 05/07/22 Status: Ordered valACYclovir 500 mg oral tablet TAKE 1 TABLET BY MOUTH two (2) times a day Start Date: 05/07/22 Status: Ordered venlafaxine 75 mg oral capsule, extended release TAKE 3 CAPSULES BY MOUTH EVERY MORNING Start Date: 05/07/22 Status: Ordered zolpidem 12.5 mg oral tablet, extended release 1 tablet = 12.5 mg, By Mouth, Daily at bedtime, PRN as needed for insomnia, 0 Refills, Maintenance,05/07/22 9:53:00 EDT, ER Tablet, Partial fill upon patient request if the prescription is for a schedule II opioid drug. Start Date: 05/07/22 Status: Ordered Problem List Condition Confirmation Course Effective Dates Status Health St atus Informant Obese class II Confirmed Active Patient Care team information Care Team Personnel Name: Tremayne KING , Jamey Baker Position: Reference Physician Member Role: PCP Address: Address: [address] [place] [address]- Care Team Related Persons Name: ROBERT GREEN Address: home [address] [place] [address] Name: ANKITA JAVIER Address: home [address] [place] [id number]
--- OUTSIDE RECORDS SUMMARY | 2023-08-10 08:54 | XMS_ITS | Continuity of Care Document ---
Author Name Unknown Organization [facility] Address [address] [place] [address]- Care Team Providers Care Press Set Up Name Role Phone Jamey Casper MD Primary Care Physician Encounter [facility] [place] Date(s): 04/15/22 - 05/15/[address] [id number] Attending Physician: Mook Aguirre MD Admitting Physician: Mook Aguirre MD Allergies, Adverse Reactions, Alerts Substance Reaction Severity [...] atus Informant Obese class II Confirmed Active History and physical note * Event Display: History and Physical Hospital Authored Date: Patient Care team information Care Team Personnel Name: Jamey Casper MD Position: Reference Physician Member Role: PCP Address: Address: [address] [place] [address]- Care Team Related Persons Name: ROBERT GREEN Address: home [address] [place] [address] Name: ANKITA JAVIER Address: home [address] [place] [id number]
--- OUTSIDE RECORDS SUMMARY | 2023-08-10 08:54 | XMS_ITS | Continuity of Care Document ---
Author Name Unknown Organization [facility] ter Address [address] [place] [id number]- Care Team Providers Care Egyptologist Name Role Phone Jamey Casper MD Primary Care Physician [place] [facility] [place] Date(s): 05/07/22 - 05/07/[address] [id number] Discharge Disposition: A-D/C Home Attending Physician: Mook Aguirre MD Admitting Physician: Mook Aguirre MD Referring Physician: Mook Aguirre MD Allergies, Adverse Reactions, Alerts Substance Reaction Severity Status aspirin Active Medications acetaminophen 325 mg oral tablet 975 mg, Tablet, By Mouth, Every 6 hours, PRN for Pain , Moderate, Routine, 05/07/22 12:41:00 EDT Start Date: 05/07/22 Stop Date: 05/07/22 Status: Discontinued Breo Ellipta 200 mcg-25 mcg/inh inhalation powder [...] atus Informant Obese class II Confirmed Active Vital Signs Most recent to oldest [Reference Range]: 1 2 3 Height 165 cm (05/07/22 6:45 AM) 165 cm (05/07/22 6:45 AM) Weight 100.8 kg (05/07/22 6:45 AM) 100.8 kg (05/07/22 6:45 AM) Oxygen Saturation [94-100 %] 97 % (05/07/22 1:30 PM) 97 % (05/07/22 1:15 PM) 95 % (05/07/22 1:00 PM) Pulse Rate [55-90 bpm] 87 bpm (05/07/22 6:45 AM) Body Mass Index [18.5-24.99 kg/m2] 37.02 kg/m2 *>HHI* (05/07/22 6:45 AM) Blood Pressure [90-138/55-84 mm Hg] 147/92mm Hg *H* (05/07/22 1:00 PM) 128/100mm Hg (05/07/22 12:45 PM) 138/90mm Hg (05/07/22 12:30 PM) Respiratory Rate [16-30 br/min] 17 br/min (05/07/22 1:00 PM) 18 br/min (05/07/22 1:00 PM) 14 br/min *L* (05/07/22 12:45 PM) Temperature [96.8-100.4 DegF] 97.0 DegF (05/07/22 6:45 AM) Mode of Delivery (Oxygen) Room air (05/07/22 1:30 PM) Room air (05/07/22 1:15 PM) Room air (05/07/22 1:00 PM) Blood pressure sites Arm, right (05/07/22 6:45 AM) Temperature Route Temporal (05/07/22 6:45 AM) Patient Care team information Personnel Name: Tremayne KING , Jamey Baker Address: Address: [address] [place] [id number]
--- NOTE | 2023-08-10 09:06 | MHC.OFFVIS ---
Intake Vital Signs 08/10/23 09:09 08/10/23 09:10 Height 5 ft 5 in 5 ft 5 in Weight 216 lb 216 lb BMI 35.9 35.9 BP 126/72 140/72 H Blood Pressure Location Lt brachial Lt brachial Position Sitting Sitting Respiration 16 16 Pulse 74 76 Pulse Source Pulse Oximeter Pulse Oximeter Pulse Oximetry (%) 98 99 Oxygen Delivery Method Room Air Room Air Comment pre-op post-op Intake Visit Reasons: LEFT DIAGNOSTIC L2, L3 GALILEA Allergies aspirin [ASPIRIN] Allergy (Unknown, Verified 08/10/23 09:07) UNKNOWN REACTION PER PT. PFSH Medical History (Updated 08/10/23 @ 15:45 by Yonas Jacobs MD) Myalgia, multiple sites Reactive airway disease Palpitations ANTHONY (obstructive sleep apnea) Chest pain Small bowel motility disorder Bile reflux gastritis Small intestinal bacterial overgrowth Abdominal pain Anxiety Cardiomyopathy Chest tightness Tachycardia Upper abdominal pain GERD (gastroesophageal reflux disease) Chronic idiopathic constipation Surgical History History of cardiac cath Hx of cholecystectomy Hx of endoscopy History of colonoscopy Family History (Updated 08/06/23 @ 13:59 by ODILON Hendricks) Father No problems noted. Mother Arthritis Social History (Updated 08/06/23 @ 13:54 by ODILON Hendricks) Household Members: Children Alcohol intake: current Alcohol intake frequency: holidays/special occasions only Patient Tobacco Use Status: Never used Tobacco Current occupational status: unemployed Physical Exam Vital Signs: Last Vital Signs Pulse 76 08/10/23 09:10 Resp 16 08/10/23 09:10 BP 140/72 H 08/10/23 09:10 Pulse Ox 99 08/10/23 09:10 Oxygen Delivery Method Room Air 08/10/23 09:10 BMI result Body Mass Index 35.9 Assessment & Plan Assessment & Plan (1) Lumbar spondylosis: Code(s): M47.816 - Spondylosis without myelopathy or radiculopathy, lumbar region (2) Radiculopathy, lumbar region: Code(s): M54.16 - Radiculopathy, lumbar region (3) Disc degeneration, lumbar: Code(s): M51.36 - Other intervertebral disc degeneration, lumbar region Plan Transforaminal epidural steroid injection L2-L3 on the left. Informed consent was thoroughly explained to the patient before the procedure.? The patient came to the operating room.? He was positioned prone on operating table with a pillow under his abdomen.? Time-out was performed delineating correct site and side of the procedure, nature of the injection, name and date of of the patient. The lower back of the patient was prepped with ChloraPrep and draped with sterile utility towels.? C-arm was brought over the operating field and sq picture of L2 vertebra were demonstrated on the screen.? The left side was chosen as the side of the injection.? Tilting machine ipsilateral to the left at the level of L2 vertebra the most prominent picture of the left pedicle was obtained on the screen.? 3 mm below the level of the lowest point of the pedicle projection to the skin small amount of lidocaine 1% 3-4 cc was injected to anesthetize the skin.? After that 5 in 22 gauge Quincke point needle was inserted through the skin wheal and was advanced to were the L2-L3 foramina on anterior posterior , lateral and oblique views intermittently.? When tip of the needle entered foramina projection on AP view injection of the contrast was performed demonstrating epidural and perineural spread of the contrast.? After that injection of the treatment medicine 4 cc of lidocaine 1% mixed with Kenalog 40 mg was injected into the foramina.? Injection of the contrast and injection of the treatment medicine was observed live on the screen.? No intrathecal and no intravascular spread of the contrast was noted. Upon completion of the procedure sterile Band-Aids were applied. Patient tolerated procedure well he was taken outside of the operating room where he recovered uneventfully. She went home without immediate complications. Orders: Orders FL guidance in treatment room Today M54.10 - Radiculopathy, site unspecified Coding Level of Care Code Procedure Only Diagnoses Lumbar spondylosis M47.816 Radiculopathy, lumbar region M54.16 Disc degeneration, lumbar M51.36
[2023-08-10 09:09] VITALS: BP 126/72; PULSE 74; RESP 16; O2SAT 98; BMI 35.9
[2023-08-10 09:10] VITALS: BP 140/72; PULSE 76; RESP 16; O2SAT 99; BMI 35.9
== END 2023-08-10 10:06 | disposition home or self-care (01) ==
PROVIDERS: PCP Internal Medicine; Visit Provider Anesthesiology
DX: M47.816 Spondylosis without myelopathy or radiculopathy, lumbar region (principal); M54.16 Radiculopathy, lumbar region; M51.36 Other intervertebral disc degeneration, lumbar region
CPT/HCPCS: 64483

== ENCOUNTER 2023-08-19 13:40 | Outpatient (AMB) | payer OTHER, SELFPAY ==
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
[2023-08-19 14:14] VITALS: BP 132/84; PULSE 72; RESP 16; O2SAT 99; BMI 35.3
== END 2023-08-19 14:48 | disposition home or self-care (01) ==
LOC: HO.PMC 13:40
PROVIDERS: PCP Internal Medicine; Visit Provider Registered Nurse Emergency
DX: M25.50 Pain in unspecified joint (principal); M47.816 Spondylosis without myelopathy or radiculopathy, lumbar region; G62.9 Polyneuropathy, unspecified
CPT/HCPCS: 99213

== ENCOUNTER → 2023-08-19 13:40 | Outpatient (BNVA) | payer OTHER, SELFPAY | PROVIDERS: PCP Internal Medicine; Visit Provider Registered Nurse Emergency | DX: M25.50 Pain in unspecified joint (principal); M47.816 Spondylosis without myelopathy or radiculopathy, lumbar region; M54.10 Radiculopathy, site unspecified; G62.9 Polyneuropathy, unspecified | CPT/HCPCS: 99212 ==

== ENCOUNTER 2023-11-09 10:19 | Outpatient (AMB) | payer OTHER, SELFPAY ==
[2023-11-09 10:28] VITALS: BP 121/74; BMI 35.8
--- NOTE | 2023-11-09 10:28 | MHC.OFFVIS ---
Vital Signs 11/09/23 10:28 Height 5 ft 5 in Weight 215 lb 2.738 oz BMI 35.8 BP 121/74 Blood Pressure Location Rt radial Position Sitting Intake Visit Reasons: r/s from 08/27 Intake Note: Patient in office today in follow up of abdominal pain. CC: Patient c/o abdominal bloating and RUQ abd pain. 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 HPI HPI r/s from 08/27: Details: Assessment & Plan (1) GERD (gastroesophageal reflux disease): Code(s): K21.9 - Gastro-esophageal reflux disease without esophagitis (2) Chronic idiopathic constipation: Code(s): K59.04 - Chronic idiopathic constipation (3) Right upper quadrant abdominal pain: Code(s): R10.11 - Right upper quadrant pain (4) Tubular adenoma of colon: Comment: 2019 scope = 3 TA repeat 3-4 years Code(s): D12.6 - Benign neoplasm of colon, unspecified Plan MALAWIAN #Richie Live She is having pain still in the RUQ and a lot of bloating, at times the pain moves to the midline area of the upper abd. She is moving her bowels well with various consistencies. The T spine is not terribly convincing for radicular pain for this, so it seems it must be the bowels. We will try increasing the reglan to 10mg qidachs. She continues on creon, simethicone, and we could consider adding dicyclomine if I think that the pain is related to cramping. She has had this pain ever since her gallbladder was removed so it is possible that there are some surgical he is causing the issue. She expressed concerned that she did not want to ?get gallstones again. ? And I tell her that this is not likely since her gallbladder has been removed and that would be the source of gallstones. It would have to be something very rare where there was a stone still floating around in the peritoneal cavity that could find its weight into the pancreatic duct before this would become a problem. She continues on Linzess 290 micro g daily, bisacodyl 2 tabs at night, Dexilant and simethicone. Again, were increasing the Reglan. Return office visit in 4 weeks to see how the pain is doing.. Orders: Orders Colonoscopy - GI Use Only Today D12.6 - Benign neoplasm of colon, unspecified Medications: New bisacodyl (Dulcolax (bisacodyl)) 10 mg (2 x 5 mg) PO BEDTIME 2 days 4 tabs 0RF metoclopramide HCl (Reglan) 10 mg PO QIDACHS 120 tabs 6RF Refilled bisacodyl (Dulcolax (bisacodyl)) 10 mg (2 x 5 mg) PO BEDTIME 30 days 60 tabs 6RF irzbtm-bkstwmvj-lytthtc 24,000-76,000 -120,000 unit (Creon) 1 cap PO QID 120 caps 6RF simethicone 180 mg PO QID 90 caps 6RF K21.9 - Gastro-esophageal reflux disease without esophagitis dexlansoprazole 60 mg PO DAILY 30 caps 6RF K59.04 - Chronic idiopathic constipation linaclotide (Linzess) 290 mcg PO QAM 30 caps 6RF K59.04 - Chronic idiopathic constipation Discontinued sennosides (So-wolfgang) Discontinued Reason: Doctor's Order 17.2 mg (2 x 8.6 mg) PO BID 120 tabs 6RF K21.9 - Gastro-esophageal reflux disease without esophagitis, K59.04 - Chronic idiopathic constipation, R10.10 - Upper abdominal pain, unspecified, R10.11 - Right upper quadrant pain, R10.9 - Unspecified abdominal pain metoclopramide HCl (Reglan) Provider aware of possible interactions with psych meds and is monitoring, please dispense Discontinued Reason: Doctor's Order 5 mg PO QIDACHS 120 tabs 6RF K59.9 - Functional intestinal disorder, unspecified COLONOSCOPY BIOPSY TODAY'S VISIT MALAWIAN #family member translates per pt request. She continues to have RUQ pain with no improvement with the reglan dose increase. She says it feels like my GB is still there. The pain comes and goes but she has episodes every day and it is stabbing. It is always in the RUQ. She is also having a lot of bloating and her stomach feels hard with eating. She is already on reglan and simethicone and creon. I had ordered a colonoscopy, but she received a letter from our office saying it was too early. This is NOT true as she had 4 polups and needed a 3 year repeat. I will re order. She has obstructive sleep apnea and reactive airway disease and denies any cardiac problems. There are no prior problems with anesthesia or sedation. There are no infectious disease problems. rov 4 WEEKS. [facility] Medical History (Updated 11/09/23 @ 15:29 by JULIANA Rainey) Left flank pain Myalgia, multiple sites Reactive airway disease Palpitations ANTHONY (obstructive sleep apnea) Chest pain Small bowel motility disorder Bile reflux gastritis Small intestinal bacterial overgrowth Abdominal pain Anxiety Cardiomyopathy Chest tightness Tachycardia Upper abdominal pain GERD (gastroesophageal reflux disease) Chronic idiopathic constipation Surgical History History of cardiac cath Hx of cholecystectomy Hx of endoscopy History of colonoscopy Family History Father No problems noted. Mother Arthritis Social History Household Members: Children Alcohol intake: current Alcohol intake frequency: holidays/special occasions only Patient Tobacco Use Status: Never used Tobacco Current occupational status: unemployed Review of Systems Const Denies fatigue, Denies fever(s), Denies night sweats, Denies poor appetite and Denies weight loss ENT Reports Normal hearing present, Denies dental pain, Denies dysphagia, Denies hearing loss, Denies mouth pain, Denies odynophagia, Denies throat swelling, Denies tongue swelling and Reports other (Dentition adequate) Card Reports no additional complaints Resp Reports no additional complaints GI Details: Reports abdominal pain, Denies melena, Denies bloating, Denies hematochezia, Reports constipation, Denies GI cramping, Denies dysphagia, Denies excessive flatus, Reports early satiety, Reports heartburn, Denies diarrhea, Denies nausea, Denies odynophagia, Denies vomiting and Denies hematemesis Skin/Breast Denies pruritus, Denies lesions, Denies rash and Denies jaundice Neuro Reports Normal hearing present and Denies Abnormal speech present Endo Denies fatigue Aller/Immun Denies throat swelling and Denies tongue swelling Physical Exam Vital Signs: Last Vital Signs BP 121/74 11/09/23 10:28 BMI result Body Mass Index 35.8 Const General: cooperative, no acute distress, well developed and well groomed Nutritional Appearance: well nourished and obese Orientation/consciousness: oriented to person, oriented to place and oriented to time Limitations: language barrier HEENT Head: Yes normocephalic and Yes atraumatic Eyes General: appearance normal, both eyes and all related structures Pupils: Equal, round and reactive pupils present Neck Neck: Yes normal visual inspection and Yes no lymphadenopathy Thyroid: Thyroid normal Resp Effort & Inspection: normal respiratory effort and able to speak in complete sentences Auscultation: clear to auscultation bilaterally Cardio Rate: regular rate Rhythm: regular rhythm Heart sounds: Normal, physiologic split S2 sound present Peripheral pulses: radial pulses present and posterior tibial pulses present GI Inspection: No distended, Yes Abdominal panniculus present and Yes obesity Palpation (GI): Soft to palpation, nontender, no guarding, not rigid and No hepatosplenomegaly present Percussion: Yes normal to percussion Auscultation: normal bowel sounds Rectal Exam - Female: deferred Skin General skin exam: no rashes or lesions noted, turgor normal, skin not dry, no jaundice, No spider nevi and no striae Rashes: no rashes Nails: normal Neuro General: oriented to person, oriented to place and oriented to time Cranial nerves: Yes Equal, round and reactive pupils present and Yes Normal hearing present Speech: No Abnormal speech present Extrem General: Yes normal to inspection, No clubbing, No cyanosis and No edema Psych Appearance: grossly normal and well kempt Mental Status: mental status grossly normal Speech and movement: Normal speech and movement present Affect: normal affect Attitude: cooperative Thought process: Normal thought process present and not confabulating Thought content: Normal thought content present Insight: Limited insight present (Psych) Judgement: Limited judgement present (Psych) Results Reviewed Results Reviewed: Laboratory Tests 08/06/23 14:49 WBC 5.5 RBC 3.78 L Hgb 12.0 Hct 37.1 MCV 98.1 H MCH 31.7 Plt Count 235 Estimated GFR > 60 Total Bilirubin 0.3 AST 20 ALT 20 Alkaline Phosphatase 108 C-Reactive Protein 0.80 H Assessment & Plan Assessment & Plan (1) Tubular adenoma of colon: Comment: 2019 scope = 3 TA repeat 3-4 years Code(s): D12.6 - Benign neoplasm of colon, unspecified Category: Medical (2) GERD (gastroesophageal reflux disease): Code(s): K21.9 - Gastro-esophageal reflux disease without esophagitis Category: Medical (3) Chronic idiopathic constipation: Code(s): K59.04 - Chronic idiopathic constipation Category: Medical (4) Right upper quadrant abdominal pain: Code(s): R10.11 - Right upper quadrant pain Category: Medical (5) Pre-op examination: Code(s): Z01.818 - Encounter for other preprocedural examination Category: Medical Plan MALAWIAN #family member translates per pt request. She continues to have RUQ pain with no improvement with the reglan dose increase. She says it feels like my GB is still there. The pain comes and goes but she has episodes every day and it is stabbing. It is always in the RUQ. She is also having a lot of bloating and her stomach feels hard with eating. She is already on reglan and simethicone and creon. I had ordered a colonoscopy, but she received a letter from our office saying it was too early. This is NOT true as she had 4 polups and needed a 3 year repeat. I will re order. She has obstructive sleep apnea and reactive airway disease and denies any cardiac problems. There are no prior problems with anesthesia or sedation. There are no infectious disease problems. rov 4 WEEKS. Orders: Orders Colonoscopy - GI Use Only Today D12.6 - Benign neoplasm of colon, unspecified Medications: New dicyclomine 20 mg PO QID 120 tabs 3RF 30 days peg 3350-electrolytes 236-22.74-6.74 -5.86 gram (Golytely) until fecal effluent is clear; do not exceed a total volume of 2,000 mL 240 mL PO Q10M 4,000 mL 0RF 1 day Z12.11 - Encounter for screening for malignant neoplasm of colon bisacodyl (Dulcolax (bisacodyl)) 10 mg (2 x 5 mg) PO BEDTIME 4 tabs 0RF 2 days Coding Level of Care Code Est Pt Level 4 (66135) Diagnoses Tubular adenoma of colon D12.6 GERD (gastroesophageal reflux disease) K21.9 Chronic idiopathic constipation K59.04 Right upper quadrant abdominal pain R10.11 Pre-op examination Z01.818
== END 2023-11-09 11:11 | disposition home or self-care (01) ==
PROVIDERS: PCP Internal Medicine; Visit Provider Nurse Practitioner
DX: D12.6 Benign neoplasm of colon, unspecified (principal); K21.9 Gastro-esophageal reflux disease without esophagitis; K59.04 Chronic idiopathic constipation; R10.11 Right upper quadrant pain; Z01.818 Encounter for other preprocedural examination
CPT/HCPCS: 99214

== ENCOUNTER → 2023-11-09 10:19 | Outpatient (BNVA) | payer OTHER, SELFPAY | PROVIDERS: PCP Internal Medicine; Visit Provider Nurse Practitioner | DX: Z01.818 Encounter for other preprocedural examination (principal); R10.11 Right upper quadrant pain; K21.9 Gastro-esophageal reflux disease without esophagitis; K59.04 Chronic idiopathic constipation; Z86.010 Personal history of colon polyps; Z79.899 Other long term (current) drug therapy | CPT/HCPCS: 99212 ==

== ENCOUNTER 2023-12-24 10:28 | Outpatient (AMB) | payer OTHER, SELFPAY ==
[2023-12-24 10:33] VITALS: BP 142/70; PULSE 97; O2SAT 97; BMI 35.2
--- NOTE | 2023-12-24 10:33 | MHC.OFFVIS ---
Vital Signs 12/24/23 10:33 Height 5 ft 5 in Weight 211 lb 10.3 oz BMI 35.2 BP 142/70 H Blood Pressure Location Rt brachial Position Sitting Pulse 97 Pulse Source Pulse Oximeter Pulse Oximetry (%) 97 Oxygen Delivery Method Room Air Intake Visit Reasons: + CARLA/Cm Intake Note: Back pain, starts at neck down. Bl leg pain, tingling, numbing, cramping. Workday Manager Required: No Accompanied by: Self / Same As Patient Allergies aspirin [ASPIRIN] Allergy (Unknown, Verified 12/24/23 10:41) UNKNOWN REACTION PER PT. Medication List - Last Reconciled 12/24/23 by Guillaume Coffman MD acetaminophen ER (Tylenol Arthritis Pain) 650 mg PO Q12H PRN albuterol sulfate 90 mcg/actuation 2 puffs inhalation Q4-6H PRN bisacodyl (Dulcolax (bisacodyl)) 10 mg (2 x 5 mg) PO BEDTIME 30 days bisacodyl (Dulcolax (bisacodyl)) 10 mg (2 x 5 mg) PO BEDTIME 2 days bupropion HCl XL 300 mg PO QAM calcium carbonate-vitamin D3 500 mg-5 mcg (200 unit) 1 tab PO BID cetirizine 10 mg PO DAILY clonazepam 1 mg PO TID dexlansoprazole 60 mg PO DAILY diclofenac sodium 1% (Arthritis Pain (diclofenac)) 4 grams topical TID PRN dicyclomine 20 mg PO QID 30 days gabapentin 300 mg PO TID ipratropium-albuterol 0.5 mg-3 mg(2.5 mg base)/3 mL 3 mL inhalation Q4-6H PRN 30 days lidocaine 5% (Lidoderm) 1 patch topical DAILY linaclotide (Linzess) 290 mcg PO QAM cwduec-vlyqkelh-ozvqsqw 24,000-76,000 -120,000 unit (Creon) 1 cap PO QID lurasidone (Latuda) 80 mg PO DAILY metoclopramide HCl (Reglan) 10 mg PO QIDACHS metoprolol tartrate 12.5 mg (1/2 x 25 mg) PO BID 90 days peg 3350-electrolytes 236-22.74-6.74 -5.86 gram (Golytely) 240 mL PO Q10M 1 day simethicone 180 mg PO QID topiramate 50 mg PO DAILY valacyclovir 500 mg PO BID venlafaxine ER 150 mg PO DAILY vortioxetine (Trintellix) 10 mg PO DAILY zolpidem ER 12.5 mg PO BEDTIME PRN HPI Comments Details: Patient returns for follow-up. Her blood work showed a positive CARLA 1-80 dfs pattern. She continues to have diffuse back pain especially her back. She denies any pain swelling or stiffness of his hands. Denies any skin rashes. Initial history by Giovanna Sandoval 08/2023: Jesica is a very pleasant 48-year-old female who presents to the office today accompanied by her daughter for evaluation and management of her chronic lower back pain. She has a past medical history significant for obesity, asthma, tachycardia, stress incontinence, major depressive disorder, anxiety, anemia, GERD and tachycardia. The patient reports that she has had pain at the base of her skull into her neck, down her back to level of her buttocks and that radiates down her left leg into her foot. She also reports pain in both of her arms with lifting. Patient states she is not certain when her back pain started, it has been going on for many years. She states greater than 10 years. Patient denies inciting injury including accident, fall or lifting injury. Patient reports numbness weakness and burning and tingling of her left leg. She had a recent MRI. She uses a cane for walking and reports her pain is 10/10 and has not been helped by any treatment. She has tried heat, topical medications, physical therapy, muscle relaxers, gabapentin and NSAIDs all with no effect. She has had Steroid injections, physician primary care sports medicine The patient denies red flag symptoms including loss of bowel, bladder or saddle anesthesia. She states the pain negatively impacts her ability to sleep, perform activities of daily living, care for herself and function normally. In terms of muscle damage condition is described as pulsing, jumping, flushing, shooting, throbbing, pounding, stabbing, tingling, tugging, pulling, cramping, crushing, dull, sore, aching, tiring, tight, squeezing and tearing. --denies current use of tobacco, alcohol or illicit drugs. [facility] Medical History Left flank pain Myalgia, multiple sites Reactive airway disease Palpitations ANTHONY (obstructive sleep apnea) Chest pain Small bowel motility disorder Bile reflux gastritis Small intestinal bacterial overgrowth Abdominal pain Anxiety Cardiomyopathy Chest tightness Tachycardia Upper abdominal pain GERD (gastroesophageal reflux disease) Chronic idiopathic constipation Surgical History History of cardiac cath Hx of cholecystectomy Hx of endoscopy History of colonoscopy Family History Father No problems noted. Mother Arthritis Social History Household Members: Children Alcohol intake: current Alcohol intake frequency: holidays/special occasions only Patient Tobacco Use Status: Never used Tobacco Current occupational status: unemployed Female Reproductive History Menstrual Total pregnancies: 3 Review of Systems Musc Reports back pain and Reports myalgias Physical Exam Const General: cooperative, healthy appearing and comfortable Nutritional Appearance: obese Orientation/consciousness: patient oriented x3 Limitations: ambulation with cane HEENT Head: Yes normocephalic and Yes atraumatic Mouth: moist mucous membranes Resp Effort & Inspection: normal respiratory effort and able to speak in complete sentences Auscultation: clear to auscultation bilaterally Cardio Rate: regular rate Back/Spine/Pelvis Other: Multiple myofascial tender points Pain with any back movement Skin General skin exam: no rashes or lesions noted Neuro General: patient oriented x3 Extrem Other: No active synovitis Normal nailfold capillaroscopy Results Reviewed Results Reviewed: 04/19/23: XR lumbar spine 2-3V Three views of the lumbosacral spine. FINDINGS: Alignment is anatomic and stable compared to prior. No compression fracture. Mild multilevel degenerative disc disease. No fracture. IMPRESSION: Mild degenerative disc disease. No fracture. 12/09/21: XR SHOULDER, LEFT XR CERVICAL SPINE FINDINGS: LEFT SHOULDER: There is no visible acute fracture, dislocation or subluxation. No bony erosive changes. The left AC joint is normal. The soft tissues are normal. CERVICAL SPINE: There is mild straightening of cervical lordosis. The vertebral heights and alignment are normal. There is loss of C5-C6 disc height with mild ventral spondylosis. Rest of the disc heights are normal. The neural foramina are patent bilaterally. No acute fracture or dislocation seen. The prevertebral soft tissues are normal. No lytic or sclerotic process seen. IMPRESSION: Unremarkable left shoulder exam. Mild degenerative disc changes C5-C6 disc level with ventral spondylosis. No acute fracture or dislocation. Mild straightening of cervical lordosis likely positional or spasm. 12/2022: EXAMINATION: MR LUMBAR SPINE WITHOUT CONTRAST FINDINGS: The lumbar vertebral bodies maintain normal heights and alignment. There is moderate disc height loss at T10-T11 and T11-T12. There is no bone marrow edema. The distal spinal cord appears normal. The conus medullaris terminates normally at the L1-L2 level. The visualized paraspinal muscles and intra-abdominal and pelvic contents are within normal limits. SPINAL LEVELS: L1-L2: No posterior disc abnormality. No spinal canal or neural foraminal stenosis. L2-L3: Left foraminal protrusion abuts the exiting left L2 nerve root. No spinal canal stenosis. L3-L4: No posterior disc abnormality. No spinal canal or neural foraminal stenosis. L4-L5: Mild disc bulging with shallow central protrusion and mild facet arthropathy. No spinal canal or neural foraminal stenosis. L5-S1: No posterior disc abnormality. Mild facet arthropathy. No spinal canal or neural foraminal stenosis. IMPRESSION: At L2-L3 there is left foraminal protrusion which abuts the exiting left L2 nerve root. At L4-L5 there is shallow central protrusion without nerve root compression. Assessment & Plan Assessment & Plan (1) CARLA positive: Code(s): R76.8 - Other specified abnormal immunological findings in serum Category: Medical Plan: This is a 48-year-old female who was initially evaluated by Giovanna Sandoval for diffuse pain. She has known degenerative arthritis of her spine. Labs showed a positive CARLA 1-80 dfs pattern. I do not see any signs suggestive of an autoimmune rheumatic disease. Follow-up with PCP and pain management Plan I spent 15 minutes reviewing patient's chart, evaluating patient, counseling patient and documenting in the chart Coding Level of Care Code Est Pt Level 3 (86405) Diagnoses CARLA positive R76.8
== END 2023-12-24 11:11 | disposition home or self-care (01) ==
PROVIDERS: PCP Internal Medicine; Visit Provider Student in an Organized Health Care Education/Training Program
DX: R76.8 Other specified abnormal immunological findings in serum (principal)
CPT/HCPCS: 99213

== ENCOUNTER → 2023-12-24 10:28 | Outpatient (BNVA) | payer OTHER, SELFPAY | PROVIDERS: PCP Internal Medicine; Visit Provider Student in an Organized Health Care Education/Training Program | DX: R76.8 Other specified abnormal immunological findings in serum (principal) | CPT/HCPCS: 99212 ==

== ENCOUNTER 2023-12-28 13:13 | Outpatient (AMB) | payer OTHER, SELFPAY ==
[2023-12-28 13:16] VITALS: BP 114/70; PULSE 75; BMI 35.3
--- NOTE | 2023-12-28 13:16 | A.OFFVIS_ITS ---
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 Medication List - Last Reconciled 12/28/23 by MARIANGEL Llanes acetaminophen ER (Tylenol Arthritis Pain) 650 mg PO Q12H PRN albuterol sulfate 90 mcg/actuation 2 puffs inhalation Q4-6H PRN bisacodyl (Dulcolax (bisacodyl)) 10 mg (2 x 5 mg) PO BEDTIME 30 days bisacodyl (Dulcolax (bisacodyl)) 10 mg (2 x 5 mg) PO BEDTIME 2 days bupropion HCl XL 300 mg PO QAM calcium carbonate-vitamin D3 500 mg-5 mcg (200 unit) 1 tab PO BID cetirizine 10 mg PO DAILY clonazepam 1 mg PO TID dexlansoprazole 60 mg PO DAILY diclofenac sodium 1% (Arthritis Pain (diclofenac)) 4 grams topical TID PRN dicyclomine 20 mg PO QID 30 days gabapentin 300 mg PO TID lidocaine 5% (Lidoderm) 1 patch topical DAILY linaclotide (Linzess) 290 mcg PO QAM [id number] 24,000-76,000 -120,000 unit (Creon) 1 cap PO QID lurasidone (Latuda) 80 mg PO DAILY metoclopramide HCl (Reglan) 10 mg PO QIDACHS metoprolol tartrate 12.5 mg (1/2 x 25 mg) PO BID 90 days peg 3350-electrolytes 236-22.74-6.74 -5.86 gram (Golytely) 240 mL PO Q10M 1 day simethicone 180 mg PO QID topiramate 50 mg PO DAILY valacyclovir 500 mg PO BID venlafaxine ER 150 mg PO DAILY vortioxetine (Trintellix) 10 mg PO DAILY zolpidem ER 12.5 mg PO BEDTIME PRN HPI HPI 1 yr fu (WILLIAM) (rs): Details: Jesica is a 48-year-old female with past medical history of asthma, noncardiac chest discomfort, heart palpitations who presents for follow-up. Her last prior visit to our office was 11/23/2022. Today she reports that she still gets heart palpitations. She can feel her heart beating hard and fast. No lightheadedness, presyncope, syncope, falls. She will get periodic discomfort in her chest that will make her feel short of breath and last 5-7 minutes before resolving. She does not feel this is her asthma. She describes it as a pressure sensation. It does not happen often but when it does it causes her concern. She feels her asthma is well controlled. No PND, orthopnea or edema. Compliant with her meds. Certified counseling services manager used. [facility] Medical History Palpitations Chest pain Cardiomyopathy Left flank pain Myalgia, multiple sites Reactive airway disease ANTHONY (obstructive sleep apnea) Small bowel motility disorder Bile reflux gastritis Small intestinal bacterial overgrowth Abdominal pain Anxiety Chest tightness Tachycardia Upper abdominal pain GERD (gastroesophageal reflux disease) Chronic idiopathic constipation Surgical History History of cardiac cath Hx of cholecystectomy Hx of endoscopy History of colonoscopy Family History Father No problems noted. Mother Arthritis Social History Household Members: Children Alcohol intake: current Alcohol intake frequency: holidays/special occasions only Patient Tobacco Use Status: Never used Tobacco Current occupational status: unemployed Review of Systems Const All systems reviewed & are unremarkable except as noted in HPI and below ENT Denies dizziness Card Details: palpitations Denies chest pain, Denies chest pain at rest, Denies chest pain with activity, Denies rapid heart rate, Denies pedal edema, Denies edema, Denies leg edema, Denies lightheadedness, Denies palpitations, Denies dyspnea, Denies dyspnea on exertion and Denies orthopnea Resp Denies cough, Denies dyspnea and Denies dyspnea on exertion GI Denies hematochezia and Denies change in stool character Musc Denies abnormal gait, Denies limited range of motion, Denies muscle cramps, Denies muscle weakness, Denies numbness, Denies radiating pain into limb, Denies stiffness and Denies tingling Neuro Denies abnormal gait, Denies dizziness, Denies numbness and Denies tingling Endo Denies palpitations Physical Exam Vital Signs: Last Vital Signs Pulse 75 12/28/23 13:16 BP 114/70 12/28/23 13:16 BMI result Body Mass Index 35.3 Const General: cooperative, healthy appearing, comfortable and no acute distress Orientation/consciousness: patient oriented x3 Neck Neck: Yes normal visual inspection and Yes no JVD Resp Effort & Inspection: normal respiratory effort Auscultation: clear to auscultation bilaterally, no crackles, no rales, no rhonchi and no wheezes Cardio Jugular venous distension: no JVD Rate: regular rate Rhythm: regular rhythm Heart sounds: S1 normal heart sound present, S2 normal heart sound present, no murmurs and no rubs Neuro General: patient oriented x3 Extrem General: Yes normal to inspection, No no pedal edema and No calf tenderness Psych Appearance: grossly normal Mental Status: mental status grossly normal Speech and movement: Normal speech and movement present Office Procedures EKG Details: Today, read by me, normal sinus rhythm, no acute ST or T-wave abnormalities, normal AL and QRS intervals, QTC 4-2 milliseconds, rate 75 [id number], Complete Assessment & Plan Assessment & Plan (1) Palpitations: Code(s): R00.2 - Palpitations Category: Medical Plan: Report of heart palpitations that cause her concern. Holter monitor done 01/29/2021 showed sinus rhythm with average heart rate 91, 16% of the time heart rate greater than 100, rare PACs. She was put on low-dose metoprolol with reported improvement in her symptoms. At this point she continues on metoprolol but says she does still have palpitations. They cause her to be anxious. No presyncope, syncope, falls. Will recheck a Holter monitor to assess for any concerning arrhythmia. Last echo showed normal EF. No need to repeat at this time. Plan to call her with test results run available. (2) Chest pain: Code(s): R07.9 - Chest pain, unspecified Category: Medical Plan: Report of atypical sounding chest discomfort, nonexertional. Prior cardiac evaluation included CTA of the coronary arteries done on 08/19/2021 for chest discomfort symptoms showing no hemodynamically significant stenosis. She continued to report symptoms and underwent cardiac catheterization on 05/07/2022 showing normal coronary arteries. Last cardiac catheterization 06/16/2021 had shown EF 55-60%, normal RV, no regional wall motion abnormalities. Test results reviewed with her and offered reassurance that her chest discomfort is noncardiac in nature. She does have a history of asthma which can contribute. (3) History of cardiac cath: Comment: 04/2022 Code(s): Z98.890 - Other specified postprocedural states Category: Surgical Plan: As above (4) Cardiomyopathy: Code(s): I42.9 - Cardiomyopathy, unspecified Category: Medical Plan: Echocardiogram from 01/29/2021 had shown EF 45-50%. A repeat echo 06/16/2021 had shown EF 55-60%. On exam today she has no clinical signs of heart failure. She is on low-dose metoprolol. Will plan for cardiac evaluation in 1 year, sooner if needed. Plan Time spent on chart review, documentation, interview and assessment Orders: Orders ECG 3 day holter monitor Today R00.2 - Palpitations Coding Level of Care Code Est Pt Level 4 (05087) Diagnoses Palpitations R00.2 Chest pain R07.9 History of cardiac cath Z98.890 Cardiomyopathy I42.9 CPT Codes EKG - CPT: [id number], Complete ([id number]) Time Spent (min) 28
== END 2023-12-28 13:53 | disposition home or self-care (01) ==
PROVIDERS: PCP Internal Medicine; Visit Provider Nurse Practitioner Family
DX: R00.2 Palpitations (principal); R07.9 Chest pain, unspecified; Z98.890 Other specified postprocedural states; I42.9 Cardiomyopathy, unspecified
CPT/HCPCS: 93010; 99214

== ENCOUNTER → 2023-12-28 13:13 | Outpatient (BNVA) | payer OTHER, SELFPAY | PROVIDERS: PCP Internal Medicine; Visit Provider Nurse Practitioner Family | DX: R00.2 Palpitations (principal); R07.9 Chest pain, unspecified; I42.9 Cardiomyopathy, unspecified; Z98.890 Other specified postprocedural states | CPT/HCPCS: 93005; 99212 ==

== ENCOUNTER → 2024-01-11 13:10 | Outpatient (REF) | payer OTHER, SELFPAY ==
--- NOTE | 2024-01-11 13:12 | HM_ITS ---
* Total monitoring time 3 days. * Underlying rhythm is sinus with an average rate of 88/Min. About 16% of the time, ventricular rate > 100/Min. * Rare supraventricular ectopy. Very brief runs, fastest 156/Min. * Rare ventricular ectopy. * No significant pauses or AV blocks. * Patient markers used in association with sinus rhythm. * Palpitations, dizziness, chest pain in patient diary correlates with mild sinus tachycardia. MTDD
== END ==
LOC: HO.CARD 13:10
PROVIDERS: PCP Internal Medicine; Visit Provider Nurse Practitioner Family
DX: R00.2 Palpitations (principal)
CPT/HCPCS: 93242

== ENCOUNTER → 2024-01-11 13:12 | Outpatient (BNV) | payer OTHER, SELFPAY | PROVIDERS: PCP Internal Medicine; Visit Provider Internal Medicine | DX: I47.10 Supraventricular tachycardia, unspecified (principal); I49.3 Ventricular premature depolarization | CPT/HCPCS: 93244 ==

== ENCOUNTER 2024-02-15 09:47 | Outpatient (REF) | payer OTHER, SELFPAY ==
--- NOTE | ~2024-02-15 | XR_ITS ---
EXAMINATION: XR KNEE, LEFT CLINICAL INFORMATION: Left knee injury 2 days ago COMPARISON: None available. TECHNIQUE: Four views of the left knee. FINDINGS: Moderate suprapatellar effusion. Lucency identified anterior medial tibial plateau. Questionable step-off lateral aspect of the medial tibial plateau with question mild flattening. Alignment is maintained. XR/XR knee LT 4V IMPRESSION: Medial tibial plateau fracture suprapatellar effusion.
== END 2024-02-15 09:48 | disposition home or self-care (01) ==
LOC: HO.HHCX 09:47
PROVIDERS: Visit Provider Emergency Medicine
DX: Z13.89 Encounter for screening for other disorder (principal)
CPT/HCPCS: 73564

== ENCOUNTER 2024-02-15 14:19 | Emergency (ER) | payer OTHER, SELFPAY ==
--- NOTE | ~2024-02-15 | CT_ITS ---
EXAMINATION: CT EXTREMITY WITHOUT CONTRAST, LEFT LOWER CLINICAL INFORMATION: Tibial plateau fracture. COMPARISON: Radiograph left knee earlier on same day. TECHNIQUE: Contiguous axial imaging was performed of the left knee without intravenous administration of contrast. Coronal and sagittal reformats were obtained at the acquisition workstation. This CT examination was performed using dose optimization techniques as appropriate, variously including the following: *Automated exposure control *Adjustment of mA and/or kV according to patient size (this includes techniques or standardized protocols for targeted exams where dose is matched to indication/reason for exam; i.e. extremities or head) *Use of iterative reconstruction technique DLP: 295 mGy-cm FINDINGS: Minimally displaced obliquely oriented fracture in the anterior aspect of the medial tibial plateau with intra-articular extension. Very subtle fracture in the anterior aspect of the lateral tibial plateau with intra-articular extension and mild associated cortical depression by approximately 4 mm. No additional fractures. No subluxation. Partially seen moderate lipo-hemarthrosis in the suprapatellar region. Mild subcutaneous soft tissue swelling/edema in the lower calf and ankle. Scattered vascular calcifications. CT/CT lower leg LT wo IV con IMPRESSION: 1. Minimally displaced medial tibial plateau fracture with intra-articular extension. 2. Very subtle fracture in the anterior aspect of the lateral tibial plateau with intra-articular extension and mild cortical depression. 3. Partially seen moderate lipo-hemarthrosis.
--- NOTE | 2024-02-15 14:24 | ED.LOWEXIN ---
HPI - Extremity Injury (Lower) General Chief Complaint: Extremity Injury, Lower Stated Complaint: a knee bone broken, [facility] sent over Time Seen by Provider: 02/15/24 15:52 Source: patient and RN notes reviewed Mode of arrival: ambulatory Limitations: no limitations History of Present Illness ED Provider: Bonny Osorio PA-C HPI Narrative: This is a 48-year-old female, with a hx of GERD, ANTHONY, cardiomyopathy, arrhythmia, chronic back pain, radiculopathy who presents emergency department with complaints of left knee pain status post mechanical fall which occurred today. Patient states that she did not notice a break in the sidewalk and tripped landing forward. She states that she has been unable to bear weight on her left leg. Denies hitting her head or LOC. She went to her PCP were an x-ray was obtained, revealing a tibial plateau fracture. She was placed in a knee splint and sent over to the ER for further recommendations. Denies taking any medications prior to arrival. No other complaints or concerns at this time MD complaint: leg injury Onset (ago): hour(s) Severity: moderate Relieving factors: nothing Exacerbating factors: weight bearing, movement and palpation Context: fall and direct blow Other symptoms: none Related Data Home Medications ?Medication ?Instructions ?Recorded ?Confirmed bupropion HCl 300 mg 24 hr tablet, 300 mg PO QAM 10/31/20 12/28/23 extended release calcium carbonate 500 mg-vitamin 1 tab PO BID 10/31/20 12/28/23 D3 5 mcg (200 unit) tablet valacyclovir 500 mg tablet 500 mg PO BID 10/31/20 12/28/23 cetirizine 10 mg tablet 10 mg PO DAILY 12/12/21 12/28/23 zolpidem 12.5 mg tablet,extended 12.5 mg PO BEDTIME PRN insomnia 02/26/22 12/28/23 release,multiphase clonazepam 1 mg tablet 1 mg PO TID 04/15/22 12/28/23 gabapentin 300 mg capsule 300 mg PO TID 04/15/22 12/28/23 lurasidone 80 mg tablet (Latuda) 80 mg PO DAILY 04/15/22 12/28/23 topiramate 50 mg tablet 50 mg PO DAILY 08/12/22 12/28/23 vortioxetine 10 mg tablet 10 mg PO DAILY 02/10/23 12/28/23 (Trintellix) venlafaxine 75 mg capsule,extended 150 mg PO DAILY 07/27/23 12/28/23 release 24 hr fluticasone furoate 200 1 ea inhalation DAILY 02/18/24 mcg-vilanterol 25 mcg/dose inhalation powder (Breo Ellipta) Previous Rx's ?Medication ?Instructions ?Recorded albuterol sulfate 90 mcg/actuation 2 puff inhalation Q4-6H PRN 06/01/22 aerosol inhaler shortness of breath or wheezing #6.7 grams diclofenac sodium 1 % topical gel 4 g topical TID PRN pain #180 grams 12/31/22 (Arthritis Pain (diclofenac)) acetaminophen 650 mg 650 mg PO Q12H PRN pain (scale 04/19/23 tablet,extended release (Tylenol score 1-3) #14 tabs Arthritis Pain) lidocaine 5 % topical patch 1 patch topical DAILY #15 ea 04/19/23 (Lidoderm) dexlansoprazole 60 mg 60 mg PO DAILY #30 caps 07/27/23 capsule,biphase delayed release linaclotide 290 mcg capsule 290 mcg PO QAM #30 caps 07/27/23 (Linzess) jhiysy-uztxzmpz-sjnkmkm 1 cap PO QID #120 caps 07/27/23 24,000-76,000-120,000 unit capsule,delayed rel (Creon) metoclopramide HCl 10 mg tablet 10 mg PO QIDACHS #120 tabs 07/27/23 (Reglan) simethicone 180 mg capsule 180 mg PO QID #90 caps 10/05/23 bisacodyl 5 mg tablet,delayed 10 mg (2 x 5 mg) PO BEDTIME 2 days 11/09/23 release (Dulcolax (bisacodyl)) #4 tabs peg 3350-electrolytes 236 240 ml PO Q10M 1 day #4,000 mL 11/09/23 gram-22.74 gram-6.74 gram-5.86 gram solution (Golytely) metoprolol tartrate 25 mg tablet 25 mg PO BID 90 days #180 tabs 01/27/24 dicyclomine 20 mg tablet 20 mg PO QID #360 tabs 02/14/24 acetaminophen 500 mg tablet 1,000 mg (2 x 500 mg) PO Q8H PRN 02/15/24 (Tylenol Extra Strength) pain #30 tabs ibuprofen 600 mg tablet 600 mg PO Q6H PRN pain #30 tabs 02/15/24 Allergies Allergy/AdvReac Type Severity Reaction Status Date / Time aspirin [ASPIRIN] Allergy Unknown UNKNOWN Verified 02/18/24 13:42 REACTION PER PT. Review of Systems Review of Systems: Yes all other systems are reviewed and are negative Constitutional: Constitutional: Reports as per HPI [facility] Past Medical History Medical History Palpitations Chest pain Cardiomyopathy Left flank pain Myalgia, multiple sites Reactive airway disease ANTHONY (obstructive sleep apnea) Small bowel motility disorder Bile reflux gastritis Small intestinal bacterial overgrowth Abdominal pain Anxiety Chest tightness Tachycardia Upper abdominal pain GERD (gastroesophageal reflux disease) Chronic idiopathic constipation Surgical History History of cardiac cath Hx of cholecystectomy Hx of endoscopy History of colonoscopy Family History Family History Father No problems noted. Mother Arthritis Social History Social History Household Members: Children Alcohol intake: current Alcohol intake frequency: holidays/special occasions only Patient Tobacco Use Status: Never used Tobacco Current occupational status: unemployed Physical Exam Vital Signs: Vital Signs: Last Vital Signs Temp 98 F 02/15/24 18:13 Pulse 95 02/15/24 18:13 Resp 18 02/15/24 18:13 BP 134/81 02/15/24 18:13 Pulse Ox 98 02/15/24 18:13 O2 Del Method Room Air 02/15/24 18:13 BMI result Body Mass Index 35.6 Const: General: cooperative, comfortable and no acute distress Orientation/consciousness: patient oriented x3 Limitations: no limitations HEENT: Head: Yes normal to inspection, Yes normocephalic and Yes atraumatic Ears: hearing grossly normal bilaterally General nose exam: Normal external nose present Face and sinus: Yes normal facial exam Mouth: Normal oral and palatal mucosa present, oropharynx normal and moist mucous membranes Throat: Yes posterior oropharynx normal Eyes: General: appearance normal, both eyes and all related structures Eyelids: Yes eyelids normal Conjunctivae: conjunctivae normal Sclerae: sclerae normal Pupils: Equal, round and reactive pupils present EOM: EOMs intact bilaterally Neck: Neck: Yes normal visual inspection, Yes full ROM and Yes no lymphadenopathy Lymphatic: no lymphadenopathy noted Chest: Chest palpation & inspection: normal inspection of the chest Resp: Effort & Inspection: normal respiratory effort and able to speak in complete sentences Auscultation: clear to auscultation bilaterally, no crackles, no rales, no rhonchi and no wheezes Cardio: Rate: regular rate Rhythm: regular rhythm Heart sounds: S1 normal heart sound present and S2 normal heart sound present GI: Inspection: Yes normal to inspection Skin: General skin exam: no rashes or lesions noted Trauma: no lacerations or abrasions Wounds: no wounds Neuro: General: patient oriented x3 and moves all extremities Cranial nerves: Yes Equal, round and reactive pupils present Extrem: Other: Left lower extremity, with tenderness palpation along the proximal tibia, as well as diffusely throughout the knee, moderate edema, no tenderness in the calf or posterior knee. Strong radial pulse. No open wounds. Right knee with superficial abrasion, no surrounding erythema or warmth. General: Yes normal to inspection Right upper extremity: normal to inspection Left upper extremity: normal to inspection Right lower extremity: normal to inspection Left lower extremity: normal to inspection Course Course Course Narrative: This is a Rapid Medical Examination (RME) performed by Lise Allen PA-C in triage. Full HPI, ROS, assessment and treatment plan per primary provider in the Main ED. 48-year-old Guatemalan-speaking female presents to the ER for evaluation of an abnormal knee x-ray at the [facility] today. She fell on 02/12 and tripped on the sidewalk when she was exercising. No other injuries. started ambulating on the leg today w/ the help of a cane. Plan: ortho consult, knee immobilizer, NWB for now Medications Administered Discontinued Medications Generic Name Dose Route Start Last Admin Trade Name Freq PRN Reason Stop Dose Admin Acetaminophen 975 mg 02/15/24 16:44 02/15/24 17:43 Acetaminophen 325 Mg Tablet PO 02/15/24 16:45 975 mg ONCE ONE Administration Medical Decision Making Medical Decision Making MDM Narrative: This is a 48-year-old female who presents emergency department with complaints of left leg pain status post mechanical fall which occurred this afternoon. No LOC or head strike. On arrival, vital signs within normal limits. Patient has tenderness palpation along her proximal tibia. X-ray was performed outpatient revealing a medial tibial plateau fracture and super patellar effusion. I consulted with orthopedic PA, Lily Tian, who recommends obtaining CT scan of the lower extremity to follow-up with outpatient as well as placed in knee immobilizer, crutches, and patient should be nonweightbearing. Patient reports that she does not want to stay for the final report as she has transportation issues. 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 CT scan of the lower extremity was ordered, she was medicated with Tylenol. Knee immobilizer and crutches also provided to patient. She has no evidence of compartment syndrome. Given strict return precautions. She understands agrees with plan. Patient stable for discharge Differential Diagnosis Differential Diagnoses: The differential diagnosis associated with the presentation includes Fracture, contusion, sprain, strain. Compartment syndrome-unlikely Admission/Observation Consideration of admission/observation: Escalation of care including admission/observation considered Radiology Impression Discussion of test interpretation with radiology: I have reviewed the radiologist's reading. Radiologist Impression: XR/XR knee LT 4V IMPRESSION: Medial tibial plateau fracture suprapatellar effusion. Dictated By: Latoya Mckenna MD Signed By: <Electronically signed by Latoya Mckenna MD in OV> External Record Review External record reviewed: Inpatient record, Office record, Outpatient record, Prior outpatient labs, Prior outpatient radiology, Primary care record and Outside ED record Discharge Plan Discharge Clinical Impression: Fracture of tibial plateau Patient Disposition: Home, Self-Care Instructions: Leg Fracture (ED), Crutch Instructions (ED) Additional Instructions: You were seen in the ER for leg pain. You have a tibial plateau fracture. You need to keep your leg in the knee immobilizer until you were seen by Orthopedics. You can not put any weight on your left leg. Resting, elevating, applying ice to the area can help with your symptoms. Call Orthopedics tomorrow to make an appointment. If any new or worsening symptoms occur including but not limited to severe pain, changes in your skin in your lower extremity, please return for re-evaluation. Prescriptions: New ibuprofen 600 mg tablet 600 mg PO Q6H PRN (Reason: pain) Qty: 30 0RF acetaminophen [Tylenol Extra Strength] 500 mg tablet 1,000 mg PO Q8H PRN (Reason: pain) Qty: 30 0RF No Action simethicone 180 mg capsule 180 mg PO QID Qty: 90 6RF metoprolol tartrate 25 mg tablet 25 mg PO BID 90 Days Qty: 180 3RF Rx Instructions: Dose increased dicyclomine 20 mg tablet 20 mg PO QID Qty: 360 1RF albuterol sulfate 90 mcg/actuation HFA aerosol inhaler 2 puff inhalation Q4-6H PRN (Reason: shortness of breath or wheezing) Qty: 6.7 0RF lidocaine [Lidoderm] 5 % adhesive patch,medicated 1 patch topical DAILY Qty: 15 0RF Rx Instructions: leave on most painful area for up to 12 hrs acetaminophen [Tylenol Arthritis Pain] 650 mg tablet extended release 650 mg PO Q12H PRN (Reason: pain (scale score 1-3)) Qty: 14 0RF calcium carbonate-vitamin D3 500 mg(1,250mg) -200 unit tablet 1 tab PO BID bupropion HCl 300 mg tablet extended release 24 hr 300 mg PO QAM valacyclovir 500 mg tablet 500 mg PO BID clonazepam 1 mg tablet 1 mg PO TID zolpidem 12.5 mg tablet,ext release multiphase 12.5 mg PO BEDTIME PRN (Reason: insomnia) Trintellix 10 mg tablet 10 mg PO DAILY cetirizine 10 mg tablet 10 mg PO DAILY gabapentin 300 mg capsule 300 mg PO TID Latuda 80 mg tablet 80 mg PO DAILY topiramate 50 mg tablet 50 mg PO DAILY venlafaxine 75 mg capsule,extended release 24hr 150 mg PO DAILY diclofenac sodium [Arthritis Pain (diclofenac)] 1 % gel 4 g topical TID PRN (Reason: pain) Qty: 180 0RF Rx Instructions: Apply 1-2 pumps to the affected area three times daily dexlansoprazole 60 mg capsule,biphase delayed releas 60 mg PO DAILY Qty: 30 6RF Linzess 290 mcg capsule 290 mcg PO QAM Qty: 30 6RF Creon 24,000-76,000 -120,000 unit capsule,delayed release(DR/EC) 1 cap PO QID Qty: 120 6RF metoclopramide HCl [Reglan] 10 mg tablet 10 mg PO QIDACHS Qty: 120 6RF fluticasone furoate-vilanterol [Breo Ellipta] 200-25 mcg/dose blister with device 1 ea inhalation DAILY peg 3350-electrolytes [Golytely] 236-22.74-6.74 -5.86 gram recon soln 240 ml PO Q10M 1 Days Qty: 4000 0RF Rx Instructions: until fecal effluent is clear; do not exceed a total volume of 2,000 mL bisacodyl [Dulcolax (bisacodyl)] 5 mg tablet,delayed release (DR/EC) 10 mg PO BEDTIME 2 Days Qty: 4 0RF Referrals: [facility] [place]Provider Group] Stand Alone Forms: Work/School Release Interventions: ED Discharge Assessment Last Done: 02/15/24 18:13 Discharge Date/Time: 02/15/24 18:25 Print Language: Guatemalan
[2024-02-15 14:34] VITALS: BP 134/81; PULSE 95; RESP 18; TEMP 36.6; O2SAT 98; BMI 35.6
[2024-02-15] MEDS: Acetaminophen 325 MG TABLET 975 MG PO (17:43)
[2024-02-15 18:13] VITALS: BP 134/81; PULSE 95; RESP 18; TEMP 36.6; O2SAT 98
== END 2024-02-15 18:25 | disposition home or self-care (01) ==
PROVIDERS: Emergency Provider Emergency Medicine; PCP Internal Medicine
DX: S82.142A Displaced bicondylar fracture of left tibia, initial encounter for closed fracture (principal); W01.0XXA Fall on same level from slipping, tripping and stumbling without subsequent striking against object, initial encounter; Y93.01 Activity, walking, marching and hiking; Y92.480 Sidewalk as the place of occurrence of the external cause; Y99.9 Unspecified external cause status
CPT/HCPCS: 73564; 73700; 99283; 99284

== ENCOUNTER 2024-02-18 13:32 | Outpatient (AMB) | payer OTHER, SELFPAY ==
--- NOTE | 2024-02-18 13:33 | A.OFFVIS_ITS ---
Vital Signs 02/18/24 14:01 Height 5 ft 5 in Weight 214 lb BMI 35.6 Intake Visit Reasons: FC- Left tibial plateau fracture Intake Note: Jesica a 48 year old female who presents today for an ER follow up of her left tibial plateau fracture, DOI 02/13/24. Patient reports that she was walking on a sidewalk, she did not notice uneven surfaces that resulted in a trip and fall. She presented to [facility] who referred her to [facility] where xrays were taken, she was placed in a knee immobilizer and crutches were given. She has constant pain located at the anterior and lateral aspect of knee. Occasional numbness. Finds no relief with naproxen. Allergies aspirin [ASPIRIN] Allergy (Unknown, Verified 02/18/24 13:42) UNKNOWN REACTION PER PT. HPI HPI FC- Left tibial plateau fracture: Details: Jesica a 48 year old female who presents today for an ER follow up of her left tibial plateau fracture, DOI 02/13/24. Patient reports that she was walking on a sidewalk, she did not notice uneven surfaces that resulted in a trip and fall. She presented to [facility] who referred her to [facility] where xrays were taken, she was placed in a knee immobilizer and crutches were given. She has constant pain located at the anterior and lateral aspect of knee. Occasional numbness. Finds no relief with naproxen. [facility] Medical History Palpitations Chest pain Cardiomyopathy Left flank pain Myalgia, multiple sites Reactive airway disease ANTHONY (obstructive sleep apnea) Small bowel motility disorder Bile reflux gastritis Small intestinal bacterial overgrowth Abdominal pain Anxiety Chest tightness Tachycardia Upper abdominal pain GERD (gastroesophageal reflux disease) Chronic idiopathic constipation Surgical History History of cardiac cath Hx of cholecystectomy Hx of endoscopy History of colonoscopy Family History Father No problems noted. Mother Arthritis Social History Household Members: Children Alcohol intake: current Alcohol intake frequency: holidays/special occasions only Patient Tobacco Use Status: Never used Tobacco Current occupational status: unemployed Physical Exam Vital Signs: BMI result Body Mass Index 35.6 Extrem Other: effusion and pain with palpation globally and motion limited by pain and effusion skin c/d/i DP+2 SILT Results Reviewed Results Reviewed: I personally reviewed relevant radiographs. 1. Minimally displaced medial tibial plateau fracture with intra-articular extension. 2. Very subtle fracture in the anterior aspect of the lateral tibial plateau with intra-articular extension and mild cortical depression. 3. Partially seen moderate lipo-hemarthrosis. Assessment & Plan Assessment & Plan (1) Fracture of left tibial plateau: Code(s): S82.142A - Displaced bicondylar fracture of left tibia, initial encounter for closed fracture Category: Medical Plan: This is a 48 yo F with a minimally displaced left tiabial plateau fracture. I reviewed the injury with her and the surgical and non surgical treatment options. At this point, given the minimal displacement I recommend non operative treatment. I discussed this with her and she agrees. She will remain non weight bearing for 10 weeks. I will see her for follow up in 5 weeks. Coding Level of Care Code New Pt Level 4 (40343) Diagnoses Fracture of left tibial plateau S82.142A
[2024-02-18 14:01] VITALS: BMI 35.6
== END 2024-02-18 14:27 | disposition home or self-care (01) ==
PROVIDERS: Absent Provider Orthopaedic Surgery; PCP Internal Medicine; Visit Provider Orthopaedic Surgery
DX: S82.142A Displaced bicondylar fracture of left tibia, initial encounter for closed fracture (principal)
CPT/HCPCS: 99203

== ENCOUNTER → 2024-02-18 13:32 | Outpatient (BNVA) | payer OTHER, SELFPAY | PROVIDERS: Absent Provider Orthopaedic Surgery; PCP Internal Medicine; Visit Provider Physician Assistant | DX: S82.142A Displaced bicondylar fracture of left tibia, initial encounter for closed fracture (principal); W01.0XXA Fall on same level from slipping, tripping and stumbling without subsequent striking against object, initial encounter; Y93.9 Activity, unspecified; Y92.9 Unspecified place or not applicable; Y99.9 Unspecified external cause status | CPT/HCPCS: 99202 ==

== ENCOUNTER 2024-03-17 10:42 | Outpatient (AMB) | payer OTHER, SELFPAY ==
--- NOTE | 2024-03-17 10:45 | MHC.OFFVIS ---
Vital Signs 03/17/24 10:46 Height 5 ft 5 in Weight 214 lb BMI 35.6 Intake Visit Reasons: OV-Left tibial plateau fracture Intake Note: Jesica is a 48 year old female who presents today for a follow up of her Left Tibial Plateu Fracture DOI 02/13/24. Patient remain Non weight bearing and is being managed non operatively. Patient presents today partial weight bearing/weight bearing on her left leg. Allergies aspirin [ASPIRIN] Allergy (Unknown, Verified 02/18/24 13:42) UNKNOWN REACTION PER PT. HPI HPI OV-Left tibial plateau fracture: Details: Jesica is a 48 year old female who presents today for a follow up of her Left Tibial Plateu Fracture DOI 02/13/24. Patient remain Non weight bearing and is being managed non operatively. Patient presents today partial weight bearing/weight bearing on her left leg. PFSH Medical History Palpitations Chest pain Cardiomyopathy Left flank pain Myalgia, multiple sites Reactive airway disease ANTHONY (obstructive sleep apnea) Small bowel motility disorder Bile reflux gastritis Small intestinal bacterial overgrowth Abdominal pain Anxiety Chest tightness Tachycardia Upper abdominal pain GERD (gastroesophageal reflux disease) Chronic idiopathic constipation Surgical History History of cardiac cath Hx of cholecystectomy Hx of endoscopy History of colonoscopy Family History Father No problems noted. Mother Arthritis Social History Household Members: Children Alcohol intake: current Alcohol intake frequency: holidays/special occasions only Patient Tobacco Use Status: Never used Tobacco Current occupational status: unemployed Physical Exam Vital Signs: BMI result Body Mass Index 35.6 Extrem Other: 75 deg of motion with no effusion Assessment & Plan Assessment & Plan (1) Fracture of left tibial plateau: Code(s): S82.142A - Displaced bicondylar fracture of left tibia, initial encounter for closed fracture Category: Medical Plan: Non operative treatment of a tibial plateau fracture. I recommend continue NWB. No brace needed but she does need to improve ROM. She is going to [place] and I would like to see her in ~6 weeks. Coding Level of Care Code Est Pt Level 3 (87849) Diagnoses Fracture of left tibial plateau S82.142A
[2024-03-17 10:46] VITALS: BMI 35.6
== END 2024-03-17 11:14 | disposition home or self-care (01) ==
PROVIDERS: PCP Internal Medicine; Visit Provider Orthopaedic Surgery
DX: S82.142A Displaced bicondylar fracture of left tibia, initial encounter for closed fracture (principal); W01.0XXA Fall on same level from slipping, tripping and stumbling without subsequent striking against object, initial encounter
CPT/HCPCS: 99213

== ENCOUNTER → 2024-03-17 10:42 | Outpatient (BNVA) | payer OTHER, SELFPAY | PROVIDERS: PCP Internal Medicine; Visit Provider Orthopaedic Surgery | DX: S82.142D Displaced bicondylar fracture of left tibia, subsequent encounter for closed fracture with routine healing (principal); X58.XXXD Exposure to other specified factors, subsequent encounter | CPT/HCPCS: 99212 ==

== ENCOUNTER 2024-04-05 08:33 | Day surgery (SDC) | payer OTHER, SELFPAY ==
--- NOTE | 2024-04-03 15:05 | P.CONAN_ITS ---
Documented by User: Abby Kearney NP 04/03/24 15:08 HPI - Anesthesia Eval Consult details Narrative: 48yo F for Colonoscopy [place] [facility] [place]. Last office visit 12/2023 pt reports palp, holter ordered (rare, brief SVT) [facility] Active Problems Active Problems: All Active Problems Fracture of left tibial plateau (Acute) Cardiomyopathy (Acute) History of cardiac cath (Acute) Chest pain (Acute) Palpitations (Acute) CARLA positive (Acute) Pre-op examination (Acute) Disc degeneration, lumbar (Acute) Radiculopathy, lumbar region (Acute) Myalgia, multiple sites (Acute) Tubular adenoma of colon (Acute) Reactive airway disease (Acute) Lumbar spondylosis (Acute) Polyarthralgia (Acute) GERD (gastroesophageal reflux disease) (Acute) Chronic idiopathic constipation (Acute) Neuropathy (Acute) Numbness of left foot (Acute) Back pain (Acute) Radiculopathy (Acute) Acute bronchitis (Acute) Right upper quadrant abdominal pain (Acute) Abdominal cramping (Acute) Oropharyngeal dysphagia (Acute) Past Medical History Medical History Palpitations Chest pain Cardiomyopathy Left flank pain Myalgia, multiple sites Reactive airway disease ANTHONY (obstructive sleep apnea) Small bowel motility disorder Bile reflux gastritis Small intestinal bacterial overgrowth Abdominal pain Anxiety Chest tightness Tachycardia Upper abdominal pain GERD (gastroesophageal reflux disease) Chronic idiopathic constipation Family History Family History Father No problems noted. Mother Arthritis Surgical History Surgical History History of cardiac cath Hx of cholecystectomy Hx of endoscopy History of colonoscopy Social History Social History Household Members: Children Are you a primary caregivers homecare to a significant other at home: No Do you presently have visiting nurse or other home services: No Alcohol intake: current Alcohol intake frequency: holidays/special occasions only Patient Tobacco Use Status: Never used Tobacco Use of substances other than those prescribed or required for medical reasons: No Have you been hit, kicked, punched, or otherwise hurt by someone within the past year? If so, by whom?: No Are you DNR?: No Advance Directives: No Advance Directives Information Provided: Yes Recently lost weight without trying: No Nutrition Risks: No Nutritional Risk Patient : No (Tubal ligation) Current occupational status: unemployed Meds Allergies Allergy/AdvReac Type Severity Reaction Status Date / Time aspirin [ASPIRIN] Allergy Unknown UNKNOWN Verified 02/18/24 13:42 REACTION PER PT. Home Medications ?Medication ?Instructions ?Recorded ?Confirmed ?Last Taken ?Type bupropion HCl 300 mg 24 hr tablet, 300 mg PO QAM 10/31/20 12/28/23 Unknown History extended release calcium carbonate 500 mg-vitamin 1 tab PO BID 10/31/20 12/28/23 Unknown History D3 5 mcg (200 unit) tablet valacyclovir 500 mg tablet 500 mg PO BID 10/31/20 12/28/23 Unknown History cetirizine 10 mg tablet 10 mg PO DAILY 12/12/21 12/28/23 Unknown History zolpidem 12.5 mg tablet,extended 12.5 mg PO BEDTIME PRN insomnia 02/26/22 12/28/23 Unknown History release,multiphase clonazepam 1 mg tablet 1 mg PO TID 04/15/22 12/28/23 Unknown History gabapentin 300 mg capsule 300 mg PO TID 04/15/22 12/28/23 Unknown History lurasidone 80 mg tablet (Latuda) 80 mg PO DAILY 04/15/22 12/28/23 Unknown History topiramate 50 mg tablet 50 mg PO DAILY 08/12/22 12/28/23 Unknown History vortioxetine 10 mg tablet 10 mg PO DAILY 02/10/23 12/28/23 Unknown History (Trintellix) venlafaxine 75 mg capsule,extended 150 mg PO DAILY 07/27/23 12/28/23 Unknown History release 24 hr fluticasone furoate 200 1 ea inhalation DAILY 02/18/24 Unknown History mcg-vilanterol 25 mcg/dose inhalation powder (Breo Ellipta) Exam Narrative Narrative: EKG 12/2023 normal sinus rhythm, no acute ST or T-wave abnormalities, normal WA and QRS intervals, QTC 4-2 milliseconds, rate 75 Holter 01/2024 * Total monitoring time 3 days. * Underlying rhythm is sinus with an average rate of 88/Min. About 16% of the time, ventricular rate > 100/Min. * Rare supraventricular ectopy. Very brief runs, fastest 156/Min. * Rare ventricular ectopy. * No significant pauses or AV blocks. * Patient markers used in association with sinus rhythm. * Palpitations, dizziness, chest pain in patient diary correlates with mild sinus tachycardia. CTA of the coronary arteries done on 08/19/2021 for chest discomfort symptoms showing no hemodynamically significant stenosis. She continued to report symptoms and underwent cardiac catheterization on 05/07/2022 showing normal coronary arteries. Last cardiac catheterization 06/16/2021 had shown EF 55-60%, normal RV, no regional wall motion abnormalities. Assessment and Plan Assessment Anesthesia Assessment: Chart Reviewed Documented by User: Conrado Jaquez MD 04/05/24 10:38 [facility] Past Medical History Medical History Palpitations Chest pain Cardiomyopathy Left flank pain Myalgia, multiple sites Reactive airway disease ANTHONY (obstructive sleep apnea) Small bowel motility disorder Bile reflux gastritis Small intestinal bacterial overgrowth Abdominal pain Anxiety Chest tightness Tachycardia Upper abdominal pain GERD (gastroesophageal reflux disease) Chronic idiopathic constipation Family History Family History Father No problems noted. Mother Arthritis Family history of problems with anesthesia: No Surgical History Surgical History History of cardiac cath Hx of cholecystectomy Hx of endoscopy History of colonoscopy History of Problems with Anesthesia: No Social History Social History Household Members: Children Are you a primary caregivers homecare to a significant other at home: No Do you presently have visiting nurse or other home services: No Alcohol intake: current Alcohol intake frequency: holidays/special occasions only Patient Tobacco Use Status: Never used Tobacco Use of substances other than those prescribed or required for medical reasons: No Have you been hit, kicked, punched, or otherwise hurt by someone within the past year? If so, by whom?: No Are you DNR?: No Advance Directives: No Advance Directives Information Provided: Yes Recently lost weight without trying: No Nutrition Risks: No Nutritional Risk Patient : No (Tubal ligation) Current occupational status: unemployed Meds Allergies Allergy/AdvReac Type Severity Reaction Status Date / Time aspirin [ASPIRIN] Allergy Unknown UNKNOWN Verified 02/18/24 13:42 REACTION PER PT. Home Medications ?Medication ?Instructions ?Recorded ?Confirmed ?Last Taken ?Type bupropion HCl 300 mg 24 hr tablet, 300 mg PO QAM 10/31/20 12/28/23 Unknown History extended release calcium carbonate 500 mg-vitamin 1 tab PO BID 10/31/20 12/28/23 Unknown History D3 5 mcg (200 unit) tablet valacyclovir 500 mg tablet 500 mg PO BID 10/31/20 12/28/23 Unknown History cetirizine 10 mg tablet 10 mg PO DAILY 12/12/21 12/28/23 Unknown History zolpidem 12.5 mg tablet,extended 12.5 mg PO BEDTIME PRN insomnia 02/26/22 12/28/23 Unknown History release,multiphase clonazepam 1 mg tablet 1 mg PO TID 04/15/22 12/28/23 Unknown History gabapentin 300 mg capsule 300 mg PO TID 04/15/22 12/28/23 Unknown History lurasidone 80 mg tablet (Latuda) 80 mg PO DAILY 04/15/22 12/28/23 Unknown History topiramate 50 mg tablet 50 mg PO DAILY 08/12/22 12/28/23 Unknown History vortioxetine 10 mg tablet 10 mg PO DAILY 02/10/23 12/28/23 Unknown History (Trintellix) venlafaxine 75 mg capsule,extended 150 mg PO DAILY 07/27/23 12/28/23 Unknown History release 24 hr fluticasone furoate 200 1 ea inhalation DAILY 02/18/24 Unknown History mcg-vilanterol 25 mcg/dose inhalation powder (Breo Ellipta) Exam Airway Mallampati Class: II TM Dist: <=3cm Neck ROM: Full Partial: Upper Heart: ok Lungs: okl Assessment and Plan Assessment Anesthesia Assessment: Anesthesia Plan Discussed Final Anesthetic Review Family History of Problems with Anesthesia: No History of Problems with Anesthesia: No NPO: Yes ASA Class: III Final Preanesthetic Review: No Changes in Pt Med Stat, Meds/Allgs Chart Reviewed, Consent Obtained/Reviewed and Anes Risks/Benef Reviewed Patient Risk: Intermediate Procedure Risk: Low Anesthetic Plan Anesthetic Plan: MAC: and Agree w/ Assess. and Plan Disposition: Standard PACU
[2024-04-05 09:14] VITALS: BMI 33.3; BMI 36.6
[2024-04-05 09:35] VITALS: BP 141/85; PULSE 88; RESP 20; TEMP 36.5; O2SAT 95
[2024-04-05] MEDS: Lactated Ringers 1,000 ML 100 ML IVCONT (09:48)
--- NOTE | 2024-04-05 10:22 | MHC.SHP ---
Pre-Procedural Eval Section A - 24 Hr Update-Section A only Date of Service: 04/05/24 Section B - Complete if H&P > 30 days Chief Complaint: Benign neoplasm of colon, unspecified Relevant Family History (Specify if Yes): No Relevant Social History: None Present Medications: see Short Stay Collaborative assessment Medical History: Significant History ( Palpitations Chest pain Cardiomyopathy Left flank pain Myalgia, multiple sites Reactive airway disease ANTHONY (obstructive sleep apnea) Small bowel motility disorder Bile reflux gastritis Small intestinal bacterial overgrowth Abdominal pain Anxiety Chest tightness Tachycardia Upper abdominal pain GERD) History of Previous Operations: Relevant previous surgery/procedure and date(s) ( History of cardiac cath Hx of cholecystectomy Hx of endoscopy History of colonoscopy) Allergies: Allergies Allergy/AdvReac Type Severity Reaction Status Date / Time aspirin [ASPIRIN] Allergy Unknown UNKNOWN Verified 02/18/24 13:42 REACTION PER PT. Review of Systems Sugical H&P ROS: Negative: Constitution, Cardiovascular, Respiratory, Neurological, Psychiatric, Hem-Onc, Allergic/Immunologic, Gastrointestinal, Genitourinary, Musculoskeletal, Integumentary, Endocrine and Eyes/Ears/Nose/Throat Exam Surgical H&P Exam: Normal: HEENT, Normal: Heart, Normal: Lungs, Normal: Extremities, Normal: Abdomen, Normal: Skin and Normal: Neurological Plan Diagnosis/Plan: Unchanged I have reviewed the history and physical and performed a pertinent physical examination on my patient. No changes have occurred unless specified. Time Spent With Patient Time: Total time managing care of this patient today ____ minutes.
--- NOTE | 2024-04-05 10:48 | P.OPN-COLO_ITS ---
Colonoscopy Operative Note Operative Note Date of Service: 04/05/24 Narrative: Operative Information Procedure Description: Colonoscopy Indication: screening, hx of polyps Anesthesia: MAC COLONOSCOPY Instrument: Olympus variable stiffness pediatric scope 190L Colonoscopy Monitoring: Vital signs and clinical assessment, continuous EKG monitoring, Pulse oximetry, Carbon Dioxide monitoring and blood pressure monitoring were done throughout the procedure. Colon withdrawal time was 10 minutes. Procedure: The patient was placed in the left lateral decubitis position and pre-procedure medications were administered. After a digital rectal examination of the ano-rectum, the video colonoscope was inserted into the rectum and advanced through the colon to the cecum/TI. The colonoscope was slowly withdrawn in a retrograde panoramic fashion and the colon mucosa was carefully examined including a retroflexed view of the rectum. Findings and interventions are described below. Procedure Difficulty: easy Findings: Terminal Ileum-normal Cecum: 3-4 mm sessile polyp removed with cold forceps Ascending Colon: 4-6 mm sessile polyp removed with cold snare Transverse Colon -normal Descending Colon:normal Sigmoid Colon: normal Rectum: Retroflexion with small internal hemorrhoids seen, grade I Anorectum - normal Intervention: cold snare, biopsy forceps-cold Colon preparation: [place] Bowel Preparation Scale Right colon; 2 Transverse colon: 2 Left colon; 2 (0 = Unprepared colon segment with mucosa not seen due to solid stool that cannot be cleared. 1 = Portion of mucosa of the colon segment seen, but other areas of the colon segment not well seen due to staining, residual stool and/or opaque liquid. 2 = Minor amount of residual staining, small fragments of stool and/or opaque liquid, but mucosa of colon segment seen well. 3 = Entire mucosa of colon segment seen well with no residual staining, small fragments of stool or opaque liquid) Impression and Post Procedure Diagnosis: colon polyps internal hemorrhoids Plan: High fiber diet leaflet Avoid straining at stool, epsom salts and sitz bath, anusol supps or cream Repeat Colonoscopy in 5 years due to polyps or earlier if clinically indicated Above findings were reviewed with the patient and relevant handouts were provided if indicated.
[2024-04-05 10:52] VITALS: BP 103/63; PULSE 86; RESP 18; TEMP 36.3; O2SAT 94
[2024-04-05 11:07] VITALS: BP 127/82; PULSE 78; RESP 16; TEMP 36.4; O2SAT 95
== END 2024-04-05 11:36 | disposition home or self-care (01) ==
PROVIDERS: PCP Internal Medicine; Visit Provider Internal Medicine Gastroenterology
PROC: 0DJD8ZZ Inspection of Lower Intestinal Tract, Via Natural or Artificial Opening Endoscopic (ICD-10-PCS; CPT 45378; principal; 2024-04-05 09:50)
DX: Z12.11 Encounter for screening for malignant neoplasm of colon (principal); Z86.0101 Personal history of adenomatous and serrated colon polyps; D12.0 Benign neoplasm of cecum; K63.5 Polyp of colon; K64.0 First degree hemorrhoids; K59.04 Chronic idiopathic constipation; K21.9 Gastro-esophageal reflux disease without esophagitis; R10.11 Right upper quadrant pain; M79.10 Myalgia, unspecified site; I42.9 Cardiomyopathy, unspecified; G62.9 Polyneuropathy, unspecified; F41.9 Anxiety disorder, unspecified; G47.33 Obstructive sleep apnea (adult) (pediatric); J45.909 Unspecified asthma, uncomplicated; Z79.51 Long term (current) use of inhaled steroids; Z79.899 Other long term (current) drug therapy; Z88.6 Allergy status to analgesic agent; Z90.49 Acquired absence of other specified parts of digestive tract; Z56.0 Unemployment, unspecified
CPT/HCPCS: 45385; 45380; 88305; J2003; J2704

== ENCOUNTER → 2024-04-05 08:33 | Outpatient (BNV) | payer OTHER, SELFPAY | PROVIDERS: PCP Internal Medicine; Visit Provider Internal Medicine Gastroenterology | DX: Z12.11 Encounter for screening for malignant neoplasm of colon (principal); Z86.0100 Personal history of colon polyps, unspecified; D12.0 Benign neoplasm of cecum; K63.5 Polyp of colon; K64.0 First degree hemorrhoids | CPT/HCPCS: 45380; 45385 ==

== ENCOUNTER 2024-04-19 11:32 | Outpatient (AMB) | payer OTHER, SELFPAY ==
--- NOTE | 2024-04-19 11:39 | MHC.OFFVIS ---
Vital Signs 04/19/24 11:40 Height 5 ft 5 in Weight 220 lb 7.396 oz BMI 36.7 BP 105/66 Blood Pressure Location Rt brachial Position Sitting Pulse 78 Intake Visit Reasons: S/p colon Intake Note: Patient in office today in follow up s/p colonoscopy. CC: Patient reports that if she eats too much she gets upper abdominal pain. 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 HPI HPI S/p colon: Details: ssessment & Plan (1) Tubular adenoma of colon: Comment: 2019 scope = 3 TA repeat 3-4 years Code(s): D12.6 - Benign neoplasm of colon, unspecified Category: Medical (2) GERD (gastroesophageal reflux disease): Code(s): K21.9 - Gastro-esophageal reflux disease without esophagitis Category: Medical (3) Chronic idiopathic constipation: Code(s): K59.04 - Chronic idiopathic constipation Category: Medical (4) Right upper quadrant abdominal pain: Code(s): R10.11 - Right upper quadrant pain Category: Medical (5) Pre-op examination: Code(s): Z01.818 - Encounter for other preprocedural examination Category: Medical Plan [place] #family member translates per pt request. She continues to have RUQ pain with no improvement with the reglan dose increase. She says it feels like my GB is still there. The pain comes and goes but she has episodes every day and it is stabbing. It is always in the RUQ. She is also having a lot of bloating and her stomach feels hard with eating. She is already on reglan and simethicone and creon. I had ordered a colonoscopy, but she received a letter from our office saying it was too early. This is NOT true as she had 4 polups and needed a 3 year repeat. I will re order. She has obstructive sleep apnea and reactive airway disease and denies any cardiac problems. There are no prior problems with anesthesia or sedation. There are no infectious disease problems. rov 4 WEEKS. Orders: Orders Colonoscopy - GI Use Only Today D12.6 - Benign neoplasm of colon, unspecified Medications: New dicyclomine 20 mg PO QID 120 tabs 3RF 30 days peg 3350-electrolytes 236-22.74-6.74 -5.86 gram (Golytely) until fecal effluent is clear; do not exceed a total volume of 2,000 mL 240 mL PO Q10M 4,000 mL 0RF 1 day Z12.11 - Encounter for screening for malignant neoplasm of colon bisacodyl (Dulcolax (bisacodyl)) 10 mg (2 x 5 mg) PO BEDTIME 4 tabs 0RF 2 days COLONOSCOPY 04/05/24 Findings: Terminal Ileum-normal Cecum: 3-4 mm sessile polyp removed with cold forceps Ascending Colon: 4-6 mm sessile polyp removed with cold snare Transverse Colon -normal Descending Colon:normal Sigmoid Colon: normal Rectum: Retroflexion with small internal hemorrhoids seen, grade I Anorectum - normal Intervention: cold snare, biopsy forceps-cold Impression and Post Procedure Diagnosis: colon polyps internal hemorrhoids Plan: High fiber diet leaflet Avoid straining at stool, epsom salts and sitz bath, anusol supps or cream Repeat Colonoscopy in 5 years due to polyps or earlier if clinically indicated BIOPSY Received: 04/05/24 Diagnosis A. Colon, cecal polyp: Tubular adenoma; negative for high-grade dysplasia and carcinoma. B. Colon, ascending, polyp: Polypoid colonic mucosa with lymphoid aggregates; no adenomatous dysplasia seen. TODAY'S VISIT [place] #Martine Jimenez She is agreeable to a 5 year follow up. The procedure was well tolerated. The results were explained and the patient is agreeable to the follow-up interval as stated. The bowel pattern has returned to normal. Education was provided to tell any 1st degree relatives about their findings to be sure that they are screened by age 45. Educated that they will be put on a recall list when it is time for their repeat scope but should they move out of state or away from the hospital they will need to remember along with their primary to repeat the procedure in a timely fashion to avoid any adverse complications. She continues to have bilateral flank cramping. This did not respond to bentyl, so this makes me question if this is bowel vs musculoskeletal. I have her stop the bentyl and start imipramine as this has benefits for both IBS and msksk pain. Otherwise she is moving her bowels well with soft stools. (Mother is my pt and she is having dysphagia and bloating with food sticking both in the upper esophagus and GE jxn. Ask to chela her in with her dtr in 6 weeks. ) ROV with her mother in 6 weeks. [facility] Medical History (Updated 04/19/24 @ 11:58 by JULIANA Rainey) Oropharyngeal dysphagia Acute bronchitis Right upper quadrant abdominal pain Numbness of left foot Back pain Radiculopathy Fracture of left tibial plateau Pre-op examination Palpitations Chest pain Cardiomyopathy Left flank pain Myalgia, multiple sites Reactive airway disease ANTHONY (obstructive sleep apnea) Small bowel motility disorder Bile reflux gastritis Small intestinal bacterial overgrowth Abdominal pain Anxiety Chest tightness Tachycardia Upper abdominal pain GERD (gastroesophageal reflux disease) Chronic idiopathic constipation Surgical History (Updated 04/19/24 @ 11:58 by JULIANA Rainey) History of cardiac cath Hx of cholecystectomy Hx of endoscopy History of colonoscopy Family History Father No problems noted. Mother Arthritis Social History Household Members: Children Are you a primary vehicle care specialist to a significant other at home: No Do you presently have visiting nurse or other home services: No Alcohol intake: current Alcohol intake frequency: holidays/special occasions only Patient Tobacco Use Status: Never used Tobacco Current occupational status: unemployed Review of Systems Const Denies fatigue, Denies fever(s), Denies night sweats, Denies poor appetite and Denies weight loss Eyes Details: glasses Reports requires corrective lenses ENT Reports Normal hearing present, Denies dysphagia, Denies odynophagia, Denies throat swelling and Denies tongue swelling Card Reports no additional complaints Resp Reports no additional complaints GI Details: Denies abdominal pain, Denies melena, Denies bloating, Denies hematochezia, Reports constipation, Reports GI cramping, Denies dysphagia, Denies excessive flatus, Denies early satiety, Reports heartburn, Denies diarrhea, Denies nausea, Denies odynophagia, Denies vomiting and Denies hematemesis Reports flank pain Musc Reports back pain Skin/Breast Denies pruritus, Denies lesions, Denies rash and Denies jaundice Neuro Reports Normal hearing present and Denies Abnormal speech present Endo Denies fatigue Aller/Immun Denies throat swelling and Denies tongue swelling Physical Exam Vital Signs: Last Vital Signs Pulse 78 04/19/24 11:40 BP 105/66 04/19/24 11:40 BMI result Body Mass Index 36.7 Const General: cooperative, no acute distress, well developed and well groomed Nutritional Appearance: well nourished and obese Orientation/consciousness: oriented to person, oriented to place and oriented to time Limitations: language barrier HEENT Head: Yes normocephalic and Yes atraumatic Eyes General: appearance normal, both eyes and all related structures Pupils: Equal, round and reactive pupils present Neck Neck: Yes normal visual inspection and Yes no lymphadenopathy Thyroid: Thyroid normal Resp Effort & Inspection: normal respiratory effort and able to speak in complete sentences Auscultation: clear to auscultation bilaterally Cardio Rate: regular rate Rhythm: regular rhythm Heart sounds: Normal, physiologic split S2 sound present Peripheral pulses: radial pulses present and posterior tibial pulses present GI Inspection: No distended, Yes Abdominal panniculus present and Yes obesity Palpation (GI): Soft to palpation, nontender, no guarding, not rigid and No hepatosplenomegaly present Percussion: Yes normal to percussion Auscultation: normal bowel sounds Rectal Exam - Female: deferred Skin General skin exam: no rashes or lesions noted, turgor normal, skin not dry, no jaundice, No spider nevi and no striae Rashes: no rashes Nails: normal Neuro General: oriented to person, oriented to place and oriented to time Cranial nerves: Yes Equal, round and reactive pupils present and Yes Normal hearing present Speech: No Abnormal speech present Extrem General: Yes normal to inspection, No clubbing, No cyanosis and No edema Psych Appearance: grossly normal and well kempt Mental Status: mental status grossly normal Speech and movement: Normal speech and movement present Affect: normal affect Attitude: cooperative Thought process: Normal thought process present and not confabulating Thought content: Normal thought content present Insight: Fair insight present (Psych) Judgement: Fair judgement present (Psych) Assessment & Plan Assessment & Plan (1) Tubular adenoma of colon: Comment: 04/2024= 1 TA repeat in 5 years; 2019 scope = 3 TA repeat 3-4 years Code(s): D12.6 - Benign neoplasm of colon, unspecified Category: Medical (2) Abdominal cramping: Code(s): R10.9 - Unspecified abdominal pain Category: Medical (3) GERD (gastroesophageal reflux disease): Code(s): K21.9 - Gastro-esophageal reflux disease without esophagitis Category: Medical (4) Chronic idiopathic constipation: Code(s): K59.04 - Chronic idiopathic constipation Category: Medical Plan [place] #Martine Gaona She is agreeable to a 5 year follow up. The procedure was well tolerated. The results were explained and the patient is agreeable to the follow-up interval as stated. The bowel pattern has returned to normal. Education was provided to tell any 1st degree relatives about their findings to be sure that they are screened by age 45. Educated that they will be put on a recall list when it is time for their repeat scope but should they move out of state or away from the hospital they will need to remember along with their primary to repeat the procedure in a timely fashion to avoid any adverse complications. She continues to have bilateral flank cramping. This did not respond to bentyl, so this makes me question if this is bowel vs musculoskeletal. I have her stop the bentyl and start imipramine as this has benefits for both IBS and msksk pain. Otherwise she is moving her bowels well with soft stools. (Mother is my pt and she is having dysphagia and bloating with food sticking both in the upper esophagus and GE jxn. Ask to chela her in with her dtr in 6 weeks. ) ROV with her mother in 6 weeks. Medications: New imipramine HCl 10 mg PO BEDTIME 30 tabs 3RF 30 days R10.9 - Unspecified abdominal pain Refilled metoclopramide HCl (Reglan) 10 mg PO QIDACHS 120 tabs 6RF [id number] 24,000-76,000 -120,000 unit (Creon) 1 cap PO QID 120 caps 6RF linaclotide (Linzess) 290 mcg PO QAM 30 caps 6RF K59.04 - Chronic idiopathic constipation dexlansoprazole 60 mg PO DAILY 30 caps 6RF K59.04 - Chronic idiopathic constipation Discontinued bisacodyl (Dulcolax (bisacodyl)) Discontinued Reason: Patient Completed Course 10 mg (2 x 5 mg) PO BEDTIME 2 days 4 tabs 0RF dicyclomine Discontinued Reason: Doctor's Order 20 mg PO QID 360 tabs 1RF Coding Level of Care Code Est Pt Level 3 (85424) Diagnoses Tubular adenoma of colon D12.6 Abdominal cramping R10.9 GERD (gastroesophageal reflux disease) K21.9 Chronic idiopathic constipation K59.04
[2024-04-19 11:40] VITALS: BP 105/66; PULSE 78; BMI 36.7
== END 2024-04-19 12:51 | disposition home or self-care (01) ==
PROVIDERS: PCP Internal Medicine; Visit Provider Nurse Practitioner
DX: D12.6 Benign neoplasm of colon, unspecified (principal); R10.9 Unspecified abdominal pain; K21.9 Gastro-esophageal reflux disease without esophagitis; K59.04 Chronic idiopathic constipation
CPT/HCPCS: 99213

== ENCOUNTER → 2024-04-19 11:32 | Outpatient (BNVA) | payer OTHER, SELFPAY | PROVIDERS: PCP Internal Medicine; Visit Provider Nurse Practitioner | DX: R10.9 Unspecified abdominal pain (principal); D12.6 Benign neoplasm of colon, unspecified; K21.9 Gastro-esophageal reflux disease without esophagitis; K59.04 Chronic idiopathic constipation | CPT/HCPCS: 99212 ==

== ENCOUNTER 2024-04-28 09:20 | Outpatient (REF) | payer OTHER, SELFPAY ==
--- NOTE | ~2024-04-28 | XR_ITS ---
EXAMINATION: XR KNEE LEFT 3 VIEWS CLINICAL INFORMATION: Pain in left knee M25.562. COMPARISON: XR Left knee 02/15/2024 , CT 02/15/2024 TECHNIQUE: Three views of the left knee. FINDINGS: The previously described tibial plateau fracture is no longer visualized. No other acute fractures identified. Alignment is anatomic and joint spaces are maintained. No effusion is seen. No abnormal soft tissue calcification. XR/XR knee LT 3V IMPRESSION: Previously seen tibial plateau fracture is no longer appreciated. No new fracture identified. Electronically signed by: Jair Fontenot MD 06/14/2024 12:26 PM [facility]
== END 2024-04-28 09:21 | disposition home or self-care (01) ==
LOC: HO.HOSX 09:20
PROVIDERS: Visit Provider Orthopaedic Surgery
DX: M25.562 Pain in left knee (principal); S82.142D Displaced bicondylar fracture of left tibia, subsequent encounter for closed fracture with routine healing
CPT/HCPCS: 73562; 99212

== ENCOUNTER 2024-04-28 10:43 | Outpatient (AMB) | payer OTHER, SELFPAY ==
--- NOTE | 2024-04-28 10:56 | A.OFFVIS_ITS ---
Intake Visit Reasons: OV-Left tibial plateau fracture Intake Note: Jesica is a 48 year old female who presents today for a follow up of her Left Tibial Plateu Fracture DOI 02/13/24. At her last visit she was instructed to continue NWB but may discontinue brace. Patient presents to the office today weight bearing on left, she reports that she is doing well with mild discomfort. Allergies aspirin [ASPIRIN] Allergy (Unknown, Verified 04/19/24 11:50) UNKNOWN REACTION PER PT. HPI HPI OV-Left tibial plateau fracture: Details: Jesica is a 48 year old female who presents today for a follow up of her Left Tibial Plateu Fracture DOI 02/13/24. At her last visit she was instructed to continue NWB but may discontinue brace. Patient presents to the office today weight bearing on left, she reports that she is doing well with mild discomfort. [facility]LY [facility] Medical History (Updated 04/19/24 @ 11:58 by JULIANA Rainey) Oropharyngeal dysphagia Acute bronchitis Right upper quadrant abdominal pain Numbness of left foot Back pain Radiculopathy Fracture of left tibial plateau Pre-op examination Palpitations Chest pain Cardiomyopathy Left flank pain Myalgia, multiple sites Reactive airway disease ANTHONY (obstructive sleep apnea) Small bowel motility disorder Bile reflux gastritis Small intestinal bacterial overgrowth Abdominal pain Anxiety Chest tightness Tachycardia Upper abdominal pain GERD (gastroesophageal reflux disease) Chronic idiopathic constipation Surgical History (Updated 04/19/24 @ 11:58 by JULIANA Rainey) History of cardiac cath Hx of cholecystectomy Hx of endoscopy History of colonoscopy Family History Father No problems noted. Mother Arthritis Social History Household Members: Children Are you a primary managed care specialist to a significant other at home: No Do you presently have visiting nurse or other home services: No Alcohol intake: current Alcohol intake frequency: holidays/special occasions only Patient Tobacco Use Status: Never used Tobacco Current occupational status: unemployed Physical Exam Extrem Other: full ROM with no effusion wlking comfortably with no pain Results Reviewed Results Reviewed: I personally reviewed relevant radiographs. healed tibial plateau fracture Assessment & Plan Assessment & Plan (1) Fracture of left tibial plateau: Code(s): S82.142A - Displaced bicondylar fracture of left tibia, initial encounter for closed fracture Category: Medical Plan: healed and NON displaced tibial plateau fracture no intervention warranted f/u as needed Orders: Orders XR knee LT 3V Today M25.562 - Pain in left knee Coding Level of Care Code Est Pt Level 3 (70573) Diagnoses Fracture of left tibial plateau S82.142A
== END 2024-04-28 11:35 | disposition home or self-care (01) ==
PROVIDERS: PCP Internal Medicine; Visit Provider Orthopaedic Surgery
DX: S82.142D Displaced bicondylar fracture of left tibia, subsequent encounter for closed fracture with routine healing (principal)
CPT/HCPCS: 99213

== ENCOUNTER 2024-06-20 11:36 | Outpatient (AMB) | payer OTHER, SELFPAY ==
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
[2024-06-20 11:40] VITALS: BP 131/63; PULSE 77; O2SAT 98; BMI 37.8
--- OUTSIDE RECORDS SUMMARY | 2024-06-20 11:49 | XMS_ITS | Continuity of Care Document ---
Author Organization [facility] Address [address] [place] [address] [address] [place] [phone] Phone Care Team Providers Care Processing Assistant Name Role Phone Doug Hathaway MD, FACS, RVT Unavailable Unavailable Advance Directives Directive Yes / No Effective Date File Name No Information Encounters Encounter Description Practice Location Reason(s) For Visit Diagnoses Date Provider Providers Copied on Encounter [facility], [address] [place] [address] [address], [place], [id number], tel:[phone] [facility] No Information 3 Pancho Flaherty. [address], [address], [place]. tel:[phone] Family History Family Member Type Diagnosis Age At Onset No Information Payers Payer name Insurance type Covered constitution party ID Authoriza tion(s) No Information Social History Type Description Quantity Date Captured Comments Sex Female Smoking Status No Information Chief Complaint And Reason For Visit No Information Reason For Referral Reason For Referral No Information History Of Present Illness Encounter Date Complaint History Of Prese nt Illness No Information Functional Status Date Functional Assessmen t No Information Instructions Date Instruction Additional Infor mation No Information Assessments Type Assessment Date No Information Patient Care Teams Name Effective Dates (start - stop) Status Members No Information
== END 2024-06-20 12:14 | disposition home or self-care (01) ==
PROVIDERS: PCP Internal Medicine; Visit Provider Registered Nurse Emergency
DX: M79.18 Myalgia, other site (principal); M54.9 Dorsalgia, unspecified; G89.29 Other chronic pain; G89.4 Chronic pain syndrome; M25.50 Pain in unspecified joint; M47.816 Spondylosis without myelopathy or radiculopathy, lumbar region; G62.9 Polyneuropathy, unspecified; M54.10 Radiculopathy, site unspecified
CPT/HCPCS: 99213; G2211

== ENCOUNTER → 2024-06-20 11:36 | Outpatient (BNVA) | payer OTHER, SELFPAY | PROVIDERS: PCP Internal Medicine; Visit Provider Registered Nurse Emergency | DX: M79.18 Myalgia, other site (principal); M54.9 Dorsalgia, unspecified; M25.50 Pain in unspecified joint; M47.816 Spondylosis without myelopathy or radiculopathy, lumbar region; M54.10 Radiculopathy, site unspecified; G62.9 Polyneuropathy, unspecified; G89.29 Other chronic pain | CPT/HCPCS: 99212 ==

== ENCOUNTER 2024-07-19 10:42 | Outpatient (AMB) | payer OTHER, SELFPAY ==
--- NOTE | 2024-07-19 10:50 | A.OFFVIS_ITS ---
Vital Signs 07/19/24 10:51 Height 5 ft 5 in Weight 232 lb BMI 38.6 BP 122/58 L Blood Pressure Location Rt brachial Position Sitting Pulse 84 Pulse Source Pulse Oximeter Pulse Oximetry (%) 96 Oxygen Delivery Method Room Air Intake Visit Reasons: 1 Month Follow Up Clinical Support Manager Required: Yes Clinical Support Manager Name: #[phone] Information Interpreted: non-clinical & clinical Allergies aspirin [ASPIRIN] Allergy (Unknown, Verified 07/19/24 10:50) UNKNOWN REACTION PER PT. Medication List - Last Reconciled 07/19/24 by Amanda Pruett, CHIEF LOCK TENDER OPERATOR acetaminophen (Tylenol Extra Strength) 1,000 mg (2 x 500 mg) PO Q8H PRN acetaminophen ER (Tylenol Arthritis Pain) 650 mg PO Q12H PRN albuterol sulfate 90 mcg/actuation 2 puffs inhalation Q4-6H PRN bupropion HCl XL 300 mg PO QAM calcium carbonate-vitamin D3 500 mg-5 mcg (200 unit) 1 tab PO BID cetirizine 10 mg PO DAILY clonazepam 1 mg PO TID dexlansoprazole 60 mg PO DAILY diclofenac sodium 1% (Arthritis Pain (diclofenac)) 4 grams topical TID PRN fluticasone furoate-vilanterol 200-25 mcg/dose (Breo Ellipta) 1 ea inhalation DAILY gabapentin 300 mg PO TID ibuprofen 600 mg PO Q6H PRN imipramine HCl 10 mg PO BEDTIME 30 days lidocaine 5% (Lidoderm) 1 patch topical DAILY linaclotide (Linzess) 290 mcg PO QAM [id number]-[id number] 24,000-76,000 -120,000 unit (Creon) 1 cap PO QID lurasidone (Latuda) 80 mg PO DAILY metoclopramide HCl (Reglan) 10 mg PO QIDACHS metoprolol tartrate 25 mg PO BID 90 days simethicone 180 mg PO QID tizanidine 2 mg PO TID topiramate 50 mg PO DAILY topiramate 25 mg PO BID valacyclovir 500 mg PO BID venlafaxine ER 150 mg PO DAILY vortioxetine (Trintellix) 20 mg PO DAILY zolpidem ER 12.5 mg PO BEDTIME PRN PFSH Medical History (Updated 06/20/24 @ 12:16 by Neisha Jarvis, DEATH SURVEYS CODER, CLINICAL PRACTITIONER) Oropharyngeal dysphagia Acute bronchitis Right upper quadrant abdominal pain Numbness of left foot Back pain Radiculopathy Fracture of left tibial plateau Pre-op examination Palpitations Chest pain Cardiomyopathy Left flank pain Myalgia, multiple sites Reactive airway disease ANTHONY (obstructive sleep apnea) Small bowel motility disorder Bile reflux gastritis Small intestinal bacterial overgrowth Abdominal pain Anxiety Chest tightness Tachycardia Upper abdominal pain GERD (gastroesophageal reflux disease) Chronic idiopathic constipation Surgical History (Updated 04/19/24 @ 11:58 by JULIANA Rainey) History of cardiac cath Hx of cholecystectomy Hx of endoscopy History of colonoscopy Family History Father No problems noted. Mother Arthritis Social History Household Members: Children Are you a primary patient care provider to a significant other at home: No Do you presently have visiting nurse or other home services: No Alcohol intake: current Alcohol intake frequency: holidays/special occasions only Patient Tobacco Use Status: Never used Tobacco Current occupational status: unemployed Physical Exam Vital Signs: Last Vital Signs Pulse 84 07/19/24 10:51 BP 122/58 L 07/19/24 10:51 Pulse Ox 96 07/19/24 10:51 Oxygen Delivery Method Room Air 07/19/24 10:51 BMI result Body Mass Index 38.6 Assessment & Plan Assessment & Plan (1) Myofascial muscle pain: Code(s): M79.18 - Myalgia, other site Category: Medical (2) Chronic back pain: Code(s): M54.9 - Dorsalgia, unspecified; G89.29 - Other chronic pain Category: Medical (3) Chronic pain syndrome: Code(s): G89.4 - Chronic pain syndrome Category: Medical (4) Polyarthralgia: Code(s): M25.50 - Pain in unspecified joint Category: Medical (5) Lumbar spondylosis: Code(s): M47.816 - Spondylosis without myelopathy or radiculopathy, lumbar region Category: Medical (6) Neuropathy: Comment: left lower extremity Code(s): G62.9 - Polyneuropathy, unspecified Category: Medical (7) Radiculopathy: Code(s): M54.10 - Radiculopathy, site unspecified Category: Medical Plan Patient presents back to the office today for follow-up chronic back pain Patient has exhausted conservative therapy including NSAIDS, heat, ice, muscle relaxers, physical therapy and aqua therapy. Will increase dose of gabapentin to 600 mg 3 times daily. Patient advised on cautions for use. Patient has exhausted conservative therapy including NSAIDS, heat, ice, muscle relaxers, physical therapy and aqua therapy. Lengthy discussion regarding spinal cord stimulation trial/implant. [employer] pamphlet provided to patient [employer] mckenzie pamphlet provided to patient at last visit. These were both discussed again today. She would like to proceed with trial. She is aware that we will need clearance from her own mental health provider or [employer]. She will reach out to her mental health provider to obtain clearance letter, once this is received by our office we can submit to the insurance for SCS trial with [employer] All questions and concerns have been answered and patient agrees with the plan. Follow-up after SCS trial, sooner if needed. Medications: New gabapentin 600 mg PO TID 90 tabs 3RF Discontinued gabapentin Discontinued Reason: More recent result 300 mg PO TID Coding Level of Care Code Est Pt Level 3 (34188) Complex EM visit Add On G2211 Diagnoses Myofascial muscle pain M79.18 Chronic back pain M54.9; G89.29 Chronic pain syndrome G89.4 Polyarthralgia M25.50 Lumbar spondylosis M47.816 Neuropathy G62.9 Radiculopathy M54.10
[2024-07-19 10:51] VITALS: BP 122/58; PULSE 84; O2SAT 96; BMI 38.6
--- OUTSIDE RECORDS SUMMARY | 2024-07-19 12:22 | XMS_ITS | Continuity of Care Document ---
Author Organization [facility] Address [address] [place] [address] [address] [place] [phone] Phone Care Team Providers Care Retail Services Professional Name Role Phone Doug Hathaway MD, FACS, RVT Unavailable Unavailable Advance Directives Directive Yes / No Effective Date File Name No Information Encounters Encounter Description Practice Location Reason(s) For Visit Diagnoses Date Provider Providers Copied on Encounter [facility], [address] [place] [address] [address], [place], [id number], tel:[phone] [facility] No Information 3 Pancho Flaherty. [address], [address], [place]. tel:[phone] Family History Family Member Type Diagnosis Age At Onset No Information Payers Payer name Insurance type Covered green party ID Authoriza tion(s) No Information Social [...]
== END 2024-07-19 11:22 | disposition home or self-care (01) ==
PROVIDERS: PCP Internal Medicine; Visit Provider Registered Nurse Emergency
DX: M79.18 Myalgia, other site (principal); M54.9 Dorsalgia, unspecified; G89.29 Other chronic pain; G89.4 Chronic pain syndrome; M25.50 Pain in unspecified joint; M47.816 Spondylosis without myelopathy or radiculopathy, lumbar region; G62.9 Polyneuropathy, unspecified; M54.10 Radiculopathy, site unspecified
CPT/HCPCS: 99213; G2211

== ENCOUNTER → 2024-07-19 10:42 | Outpatient (BNVA) | payer OTHER, SELFPAY | PROVIDERS: PCP Internal Medicine; Visit Provider Registered Nurse Emergency | DX: M79.18 Myalgia, other site (principal); M54.9 Dorsalgia, unspecified; M47.816 Spondylosis without myelopathy or radiculopathy, lumbar region; G89.4 Chronic pain syndrome; M25.50 Pain in unspecified joint; G62.9 Polyneuropathy, unspecified | CPT/HCPCS: 99212 ==

== ENCOUNTER 2024-07-20 14:52 | Outpatient (REF) | payer OTHER, SELFPAY ==
--- OUTSIDE RECORDS SUMMARY | 2024-07-20 19:49 | XMS_ITS | Continuity of Care Document ---
Author Organization [facility] Address [address] [place] [address] [address] [place] [phone] Phone Care Team Providers Care Patient Support Representative Name Role Phone Doug Hathaway MD, FACS, RVT Unavailable Unavailable Advance Directives Directive Yes / No Effective Date File Name No Information Encounters Encounter Description Practice Location Reason(s) For Visit Diagnoses Date Provider Providers Copied on Encounter [facility], [address] [place] [address] [address], [place], [id number], tel:[phone] [facility] No Information 3 Pancho Flaherty. [address], [address], [place]. tel:[phone] Family History Family Member Type Diagnosis Age At Onset No Information Payers Payer name Insurance type Covered alliance party ID Authoriza tion(s) No Information Social [...]
== END 2024-07-20 14:53 | disposition home or self-care (01) ==
LOC: HO.MAMMO 14:52
PROVIDERS: PCP Internal Medicine; Visit Provider Internal Medicine
DX: Z12.31 Encounter for screening mammogram for malignant neoplasm of breast (principal)
CPT/HCPCS: 77063; 77067

== ENCOUNTER 2024-08-11 11:54 | Outpatient (REF) | payer OTHER, SELFPAY ==
--- OUTSIDE RECORDS SUMMARY | 2024-08-11 12:54 | XMS_ITS | Encounter Summary ---
Author Organization [employer] Address [address] [facility] [address] [place] [address] Care Team Providers Care Chip Mucker Name Role Phone Jane Piedra MD Primary Care Provider + Reason for Visit * Reason Comments Med Refill Encounter Details Date Type Department Care Team ([facility] st Contact Info) Description 05/29/2023 Refill [facility] [address] [place] [address] Jane Piedra MD [address] [place] [address] Allergic rhinitis due to other allergic trigger, unspecified seasonality Social History Tobacco Use Types Packs/Day Years Used Date Smoking Tobacco: Never Smokeless Tobacco: Never Alcohol Use Standard Drinks/Week Comments Not Currently 0 (1 standard drink = 0.6 oz pur e alcohol) Housing Stability Answer Date Recorded What is your housing situation today? I have alexsander anaya 04/19/[address] you li ve. Do you have problems with any of the following? None of the above 04/19/2023 Food Insecurity Answer Date Recorded Within the past 12 months, y ou worried that your food would run out before you got money to buy more: Never True 04/19/2023 Within the past 12 months,th e food you bought just didn't last and you didn't have enough money to get more: Never True Transportation Answer Date Recorded In the past 12 months, has l ack of transportation kept you from medical appts, meetings, work or from getting things needed for daily living? No 04/19/2023 Utilities Answer Date Recorded In the past 12 months, has t he electric, gas, oil or water company threatened to shut off services in your home? No 04/19/2023 Depression Answer Date Recorded Patient Health Questionnaire-2 Score 1 07/31/2022 Comments No Sex and Gender Information Value Date Recorded Sex Assigned at Female 05/04/2022 10:14 AM EDT Legal Sex Female 10:14 AM EDT Gender Identity Female 05/04/2022 10:14 AM EDT Sexual Orientation Straight 06/04/2022 9: 08 AM EST documented as of this encounter Plan of Treatment Upcoming Encounters Date Type Department Care Team (Late st Contact Info) Description 10/12/2024 11:15 AM EDT Office Visit [facility] [address] [place] [phone] Jane Piedra MD [address] [place] [phone] documented as of this encounter Visit Diagnoses Diagnosis Allergic rhinitis due to other allergic trigger, unspecified seasonality documented in this encounter Care Teams Chip Mucker Relationship Specialty Start Date End Date Jane Piedra MD [address] [place] [phone] PCP - General Family Medicine 02/18/17 documented as of this encounter
--- OUTSIDE RECORDS SUMMARY | 2024-08-11 12:54 | XMS_ITS | Encounter Summary ---
Author Organization [employer] Address [address] [place] [address] 7t [place] [address] Care Team Providers Care Picked Edge Sewing Machine Operator Name Role Phone Jane Piedra MD Primary Care Provider + Reason for Visit * Reason Comments Med Refill Encounter Details Date Type Department Care Team (Late st Contact Info) Description 01/24/2024 Refill [facility] [address] [place], [place] [phone] Name, MD Adarsh [address] [place], [place] [phone] Other cardiac arrhythmia Social History Tobacco Use Types Packs/Day Years Used Date Smoking Tobacco: Never Smokeless Tobacco: Never Alcohol Use Standard Drinks/Week Comments Not Currently 0 (1 standard drink = 0.6 oz pur e alcohol) Depression Answer Date Recorded Patient Health Questionnaire-9 Score 24 01/11/2024 Patient Health Questionnaire-9 Score 24 01/11/2024 Last PHQ-9: Questionnaire Data Not on file 0 01/11/2024 Housing Stability Answer Date Recorded What is [...] Answer Date Recorded Patient Health Questionnaire-2 Score 6 01/11/2024 Comments No Sex and Gender Information Value [...] Description 10/12/2024 11:15 AM EDT Office Visit [facility] [address] [place] [address] Jane Piedra MD [address] [place] [address] documented as of this encounter Visit Diagnoses Diagnosis Other cardiac arrhythmia documented in this encounter Additional Health Concerns Assessment Noted Time PHQ-9 Depression Total Score: 24 024 11:20 AM EDT documented as of this encounter Care Teams Picked Edge Sewing Machine Operator Relationship Specialty Start Date End Date Jane Piedra MD [address] [place] [address] PCP - General Family Medicine 02/18/17 documented as of this encounter
--- OUTSIDE RECORDS SUMMARY | 2024-08-11 12:54 | XMS_ITS | Encounter Summary ---
Author Organization [employer] Address [address] [facility] 7t [place] [address] Care Team Providers Care Promotions Coordinator Name Role Phone Jane Piedra MD Primary Care Provider + Encounter Details Date Type Department Care Team ([facility] st Contact Info) Description 07/20/2023 Abstract [facility] MEDICINE [address] [place], [place] [phone] Jane Piedra MD 230 [place], [place] [phone] Social History Tobacco Use Types Packs/Day Years Used Date Smoking Tobacco: Never Smokeless Tobacco: Never Alcohol Use Standard Drinks/Week Comments Not Currently 0 (1 standard drink = 0.6 oz pur e alcohol) Depression Answer Date Recorded Patient Health Questionnaire-9 Score 17 07/08/2023 Patient Health Questionnaire-9 Score 17 07/08/2023 Last PHQ-9: Questionnaire Data Not on file 0 07/08/2023 Housing Stability Answer Date Recorded What is [...] Answer Date Recorded Patient Health Questionnaire-2 Score 4 07/08/2023 Comments No Sex and Gender Information Value [...] Description 10/12/2024 11:15 AM EDT Office Visit [facility] MED[facility]INE [address] [place] [phone] Jane Piedra MD [address] [place] [phone] documented as of this encounter Procedures Procedure Name Priority Date/Time Associated Diagnosis Comments COLONOSCOPY Routine 08/30/2019 1:34 PM EST documented in this encounter Visit Diagnoses Not on filedocumented in this encounter Additional Health Concerns Assessment Noted Time PHQ-9 Depression Total Score: 17 024 9:32 AM EST documented as of this encounter Care Teams Promotions Coordinator Relationship Specialty Start Date End Date Jane Piedra MD [address] [place] [address] PCP - General Family Medicine 02/18/17 documented as of this encounter
--- OUTSIDE RECORDS SUMMARY | 2024-08-11 12:54 | XMS_ITS | Encounter Summary ---
Author Organization [employer] Address [address] [place] [address] 7 [place] [address] Care Team Providers Care Hydrographic Surveyor Name Role Phone Jane Piedra MD Primary Care Provider + Reason for Visit * Reason Onset Date Comments Appointment Request 06/03/2023 Encounter Details Date Type Department Care Team ([facility] Contact Info) Description 06/03/2023 Telephone [facility] MEDICINE [address] [place], [place] [phone] Jane Piedra MD [address] [place], [place] [phone] Appointment Request Social History Tobacco Use Types Packs/Day Years [...] AM EST documented as of this encounter Miscellaneous Notes * Telephone Encounter - Soniajosefa Fabian Pack - 06/03/2023 1:46 PM EST Tc from pt requesting to r/s appt for Physical on 06/08/2023 @ 9:30 am due to not doing any of her blood work requested by PCP . Please contact pt at [phone] Montenegrin Speaker documented in this encounter Plan of Treatment Upcoming Encounters Date Type Department Care Team (Late st Contact Info) Description 10/12/2024 11:15 AM EDT Office Visit [facility] [address] [place] [address] Jane Piedra MD [address] [place] [address] documented as of this encounter Visit Diagnoses Not on filedocumented in this encounter Care Teams Hydrographic Surveyor Relationship Specialty Start Date End Date Jane Piedra MD [address] [place] [address] PCP - General Family Medicine 02/18/17 documented as of this encounter
--- OUTSIDE RECORDS SUMMARY | 2024-08-11 12:54 | XMS_ITS | Encounter Summary ---
Author Organization [employer] Address [address] [place] [address] [address], [place] [address] Care Team Providers Care Steel Buffer Name Role Phone Jane Piedra MD Primary Care Provider + Reason for Visit * Reason Comments Med Refill Encounter Details Date Type Department Care Team ([facility] Contact Info) Description 10/06/2022 Refill [facility] [address] [place] [address] Jane Piedra MD [address] [place], [place] [phone] Allergic rhinitis due to other allergic trigger, unspecified seasonality Social History Tobacco Use Types Packs/Day Years Used Date Smoking Tobacco: Never Smokeless Tobacco: Never Alcohol Use Standard Drinks/Week Comments Not Currently 0 (1 standard drink = 0.6 oz pur e alcohol) Depression Answer Date Recorded Patient Health Questionnaire-2 Score 1 07/31/2022 Comments No Sex and Gender Information Value Date Recorded Sex Assigned at Female 05/04/2022 10:14 AM EDT Legal Sex Female 10:14 AM EDT Gender Identity Female 05/04/2022 10:14 AM EDT Sexual Orientation Straight 06/04/2022 9: 08 AM EST documented as of this encounter Plan of Treatment Upcoming Encounters Date Type Department Care Team ([facility] Contact Info) Description 10/12/2024 11:15 AM EDT Office Visit [facility] MED[facility]INE [address] [place], [place] [phone] Jane Piedra MD [address] [place] [address] documented as of this encounter Visit Diagnoses Diagnosis Allergic rhinitis due to other allergic trigger, unspecified seasonality documented in this encounter Care Teams Steel Buffer Relationship Specialty Start Date End Date Jane Piedra MD [address] [place] [phone] PCP - General Family Medicine 02/18/17 documented as of this encounter
--- OUTSIDE RECORDS SUMMARY | 2024-08-11 12:55 | XMS_ITS | Encounter Summary ---
Author Organization [employer] Address [address] [place] [address] 7 [place] [address] Care Team Providers Care Furnace Brazer Name Role Phone Jane Piedra MD Primary Care Provider + Reason for Visit * Reason Comments Med Change Request Encounter Details Date Type Department Care Team ([facility] st Contact Info) Description 07/11/2024 Refill [facility] MEDICINE [address] [place], [place] [phone] Jane Piedra MD [address] [place], [place] [phone] Obesity (BMI 35.0-39.9 without comorbidity) Social History Tobacco Use Types Packs/Day Years [...] Description 10/12/2024 11:15 AM EDT Office Visit [facility] MEDICINE [address] [place] [address] Jane Piedra MD [address] [place] [address] documented as of this encounter Visit Diagnoses Diagnosis Obesity (BMI 35.0-39.9 without comorbidity) documented in this encounter Additional Health Concerns Assessment Noted Time PHQ-9 Depression Total Score: 24 024 11:20 AM EDT documented as of this encounter Care Teams Furnace Brazer Relationship Specialty Start Date End Date Jane Piedra MD [address] [place] [address] PCP - General Family Medicine 02/18/17 documented as of this encounter
--- OUTSIDE RECORDS SUMMARY | 2024-08-11 12:55 | XMS_ITS | Data Portability ---
Author Organization [facility] [employer] [facility], [facility] Address [address] [place] [phone] Care Team Providers Care Oracle Hrms Consultant Name Role Phone [facility] Referring Provider Assessment No assessment recorded. Plan of Treatment Reminders Order Date Submit Date Provider Last Modified By Organization Details Last Modified Time Details Appointments None recorded. Lab rapid flu (A+B) 2022 023 [facility], [address] [place] [address], [id number], 3 13:41:16 rapid SARS CoV 2 Ag, QL IA, respiratory specimen 2022 023 [facility], [address] [place] [address], [phone], 3 13:41:18 Referral None recorded. Procedures None recorded. Surgeries None recorded. Imaging electrocard iogram 2022 023 [facility], [address] [place] [address], [id number], 3 13:41:14 Medication Orders ipratropium 0.5 mg-albutero l 3 mg (2.5 mg base)/3 mL nebulizatio n soln 2022 023 [email or web address] Not available 3 13:41:14 Patient TargetsNo targets recorded. Patient InstructionsNo instructions recorded. Reason for Referral None Reported. Results Created Date Observation Date Name Description Value Unit Range Abnormal Flag Note LastModifiedBy Organization Detail LastModifiedTime 05/21/20 23 05/21/2023 rapid SARS CoV 2 Ag, QL IA, respi rator y speci men rapid SARS CoV 2 Ag, QL IA, respiratory specimen negati ve Not Available [address], [place], [phone], 05/21/2023 13:40:19 05/21/20 23 05/21/2023 rapid flu (A+B) Flu negati ve Not Available [facility] ed [address] [place] [address], [phone], 05/21/2023 13:40:18 05/21/20 gricel boss am No observ ation record ed. [address], [phone], 05/21/2023 13:41:05 Result Notes None recorded. Procedures Surgical History None recorded. Imaging Results Imaging Date Name Status LastModified by Organization Details LastModified Time 05/21/2023 electrocardiogram completed [address], [phone], 05/21/2023 13:41:05 Procedure Notes None recorded. Medical Equipment None Reported. Allergies Allergen ID Allergen Name Allergen Category Reaction Reaction Severity Criticality Documentation Date Start Date Code Code System Note Provider Name and Address Organization Details Recorded Time 7276 aspirin medicatio n Not available Not available Not available 05/02/2024 1191 RxNorm Not Available [facility] - production 03:36:15 Medications Name Sig Start Date Stop Date Status Note LastModified by Organization Details LastModified Time cyclobenzapr ine 10 mg tablet TAKE 1 TABLET BY MOUTH DAILY AT BEDTIME FOR 10 DAYS active Not Available Not Available Not Available terconazole 0.4 % vaginal cream INSERT VAGINALLY AT BEDTIME FOR 3 DAYS active Not Available Not Available N ot Available venlafaxine ER 75 mg capsule,exte nded release 24 hr TAKE TWO CAPSULES BY MOUTH EVERY MORNING active Not Available Not Available No t Available tizanidine 2 mg tablet TAKE 2 TABLETS (4 MG) BY MOUTH EVERY 8 (EIGHT) HOURS IF NEEDED FOR MUSCLE SPASMS. active Not Available Not Available No t Available cetirizine 10 mg tablet TAKE 1 TABLET BY MOUTH ONCE DAILY active Not Available Not Available No t Available azithromycin 250 mg tablet TAKE 2 TABLETS BY MOUTH TODAY, THEN TAKE 1 TABLET DAILY FOR 4 DAYS active Not Available Not Available No t Available simethicone 180 mg capsule TAKE 1 CAPSULE BY MOUTH 4 (FOUR) TIMES DAILY active Not Available Not Available Not Available phenazopyrid ine 200 mg tablet TAKE 1 TABLET BY MOUTH THREE TIMES A DAY NEEDED FOR DISCOMFORT WITH URINATION X6 DOSES active Not Available Not Available No t Available prednisone 20 mg tablet TAKE 2 TABLETS BY MOUTH EVERY DAY FOR 5 DAYS active Not Available Not Available No t Available clonazepam 1 mg tablet TAKE 1 TABLET BY MOUTH 3 (THREE) TIMES A DAY active Not Available Not Available Not Available naproxen 250 mg tablet TAKE 2 TABLETS (500 MG) BY MOUTH IF NEEDED IN THE MORNING AND AT BEDTIME FOR MILD PAIN WITH FOOD active Not Available Not Available No t Available topiramate 25 mg tablet TAKE 1 TABLET BY MOUTH ONCE DAILY active Not Available Not Available No t Available metronidazol e 500 mg tablet TAKE 1 TABLET BY MOUTH TWICE A DAY FOR 7 DAYS active Not Available Not Available No t Available valacyclovir 500 mg tablet TAKE 1 TABLET BY MOUTH two (2) times a day active Not Available Not Available No t Available acetaminophe n ER 650 mg tablet,exten ded release TAKE 1 TABLET ORALLY EVERY 12 HOURS NEEDED FOR PAIN (SCALE SCORE 1-3) active Not Available Not Available N ot Available prednisolone acetate 1 % eye drops,suspen blayne INSTILL 1 DROP INTO RIGHT EYE EVERY HOUR SHAKE WELL. USE EVERY HOUR WHILE AWAKE. active Not Available Not Available No t Available metocloprami de 5 mg tablet TAKE 1 TABLET BY MOUTH 4 TIMES A DAY BEFORE MEALS AND BEDTIME active Not Available Not Available No t Available gabapentin 300 mg capsule TAKE 1 CAPSULE BY MOUTH 3 (THREE) TIMES A DAY active Not Available Not Available Not Available gabapentin 100 mg capsule TAKE 1 CAPSULE BY MOUTH 3 (THREE) TIMES A DAY active Not Available Not Available Not Available fluticasone propionate 50 mcg/actuatio n nasal spray,suspen blayne SPRAY TWICE IN EACH NOSTRIL ONCE DAILY NEEDED active Not Available Not Available No t Available clotrimazole 1 % topical cream APPLY TOPICALLY EVERY 12 (TWELVE) HOURS. APPLY 1 LIBERALLY TO SKIN TWICE A DAY active Not Available Not Available Not Available naproxen 500 mg tablet TAKE 1 TABLET ORALLY EVERY 12 HOURS NEEDED FOR PAIN (SCALE SCORE 7-10) active Not Available Not Available Not Available Laxative (bisacodyl) 5 mg tablet,delay ed release TAKE 2 TABLETS BY MOUTH AT BEDTIME FOR 30 DAYS active Not Available Not Available No t Available Oyster Shell Calcium-Melva min D3 500 mg-5 mcg (200 unit) tablet TAKE 1 TABLET BY MOUTH two (2) times a day active Not Available Not Available No t Available Premarin 0.625 mg/gram vaginal cream PLACE 1 APPLICATOR VAGINALLY TWICE A WEEK. active Not Available Not Available No t Available metoprolol tartrate 25 mg tablet TAKE 1/2 TABLETS BY MOUTH two (2) times a day active Not Available Not Available No t Available topiramate 50 mg tablet TAKE 1 TABLET BY MOUTH ONCE DAILY active Not Available Not Available No t Available nitrofuranto in monohydrate/ macrocrystal s 100 mg capsule TAKE 1 CAPSULE BY MOUTH EVERY 12 HOURS X5 DAYS WITH MEAL/FOOD active Not Available Not Available No t Available Flovent HFA 220 mcg/actuatio n aerosol inhaler active Not Available Not Available Not Available zolpidem ER 12.5 mg tablet,exten ded release,mult iphase TAKE 1 TABLET BY MOUTH ONCE DAILY AT BEDTIME NEEDED FOR SLEEP active Not Available Not Available No t Available Antacid Extra Strength 300 mg (as calcium carb 750 mg) chewable tablet TAKE 1 TABLET BY MOUTH 3 TIMES A DAY BEFORE MEALS NEEDED FOR PAIN active Not Available Not Available No t Available diclofenac 1 % topical gel APPLY 2 GRAMS TOPICALLY TO THE AFFECTED AREA EVERY 6 HOURS (4 TIMES A DAY) active Not Available Not Available No t Available dexlansopraz ole 60 mg capsule,biph ase delayed release TAKE 1 CAPSULE BY MOUTH ONCE DAILY active Not Available Not Available No t Available Creon 24,000-76,00 0-120,000 unit capsule,nita yed release TAKE 1 CAPSULE BY MOUTH 4 (FOUR) TIMES DAILY active Not Available Not Available Not Available D3-2000 50 mcg (2,000 unit) capsule TAKE 1 CAPSULE BY MOUTH ONCE DAILY active Not Available Not Available No t Available lurasidone 80 mg tablet TAKE 1 TABLET BY MOUTH ONCE DAILY active Not Available Not Available No t Available Linzess 290 mcg capsule TAKE 1 CAPSULE BY MOUTH EVERY MORNING active Not Available Not Available No t Available So-wolfgang 8.6 mg tablet TAKE 2 TABLETS BY MOUTH two (2) times a day active Not Available Not Available No t Available Breo Ellipta 200 mcg-25 mcg/dose powder for inhalation INHALE 1 PUFF INTO THE LUNGS ONCE DAILY. active Not Available Not Available Not Available Trintellix 10 mg tablet TAKE 1 TABLET BY MOUTH ONCE DAILY AT BEDTIME active Not Available Not Available No t Available Vitals Date Recorded Oxygen saturation Oxygen saturation in Arterial blood by Pulse oximetry Body temperature Respiratory rate Heart rate Systolic blood pressure Diastolic blood pressure Provider Name and Address Organization Details Last Updated DateTime 3 98 % 98 % 98.1 [degF] 18 /min 93 /min 130 mm[Hg] 85 mm[Hg] Not Available [facility] - production 3 11:07:54 Social History None recorded. Functional Status None recorded. Mental Status None recorded. Family History Nothing Reported. Medical History No medical history recorded. Gynecological HistoryNo gynecological history recorded. Obstetrics History GPAL:G 0 P 0 0 0 0 Past Encounters Encounter ID Performer Location Encounter Start Date Encounter Closed Date Diagnosis/Indication Diagnosis SNOMED-CT Code Diagnosis ICD10 Code Diagnosis Note [id number] Jerome Shearer MD [facility] [address] [place] [phone] 05/21/2023 11:07:44 05/23/2023 15:40:57 Acute upper respiratory infection 82347257 J06.9 Patient reports URI symptoms. COVID and Influenza obtained and negative. Reports at least several days of sharp, seconds-lo ng chest pain, not associated with activity nor respiratio ns. EKG without ischemia. Provided with DuoNeb and advised PCP follow-up for chest pain evaluation . Health Concerns Section Related Observation LastModified by Organization Detai ls LastModified Time None Recorded Concern Status LastModified by Organization Details LastModified Time None Recorded Advance Directives Directive None Recorded Payers Encounter Date Sequence Insurance Name Policy Number Policy Cummings Covered Member ID Cummings Member ID Guarantor Name 05/21/2023 1 [facility] - DOS ON OR AFTER 2022 - DUAL ELIGIBLE - DETENTION OPTIONS AND ONE CARE (MEDICARE REPLACEMENT/ADV ANTAGE - HMO) Jesica Boothe [id number] Jesica Boothe Notes Date Note Type Note Provider Name and Address Organization Details Recorded Time 05/21/2023 text/html [facility] Nursing Assessment: Reason For Request: Sore throat + cough + mild trouble breathing>symptoms going on 3 days>denies fever/chills>has not taken anything OTC yet, just inhaler Chief Complaints: Cough PMH: COPD/Asthma, Severe Persistent Mental Illness (SPMI), Other Allergies: Aspirin Pain Assessment: Level 5 out of 10 Comments: Visiting nurse called in to request visit for member with respiratory symptoms x3 days. Reports right sided LS diminished. + cough, sore throat, shortness of breath. Denies fevers. Member c/o 5/10 right lower back pain which is new. Home Covid test done yesterday that was negative. Not taking any OTCs for symptom relief. .................. .................. .................. .................. .................. .................. .................. ............... Holistic Pulser Note From Kelly Bardales: Upon arrival pt was sitting in a chair. Pt color is pink/warm/dry and pt is not in any immediate respiratory distress. No edema is noted. Pt states symptoms began Wednesday with sore throat. Pt now has SOB, yellow mucus, muscle/joint pain along with right side back pain. Pt also states she has stabbing CP on and off from before she started to get sick. Pt denies any radiating pain, dizziness, nausea and/or diarrhea. Pt states she? s been taking her Albuterol inhaler every 4 hours and the last time she gave herself an albuterol neb treatment was 7am this morning. Pt has Hx of asthma and tachycardia. Pt takes naproxen daily for back pain. Vitals as noted. Bilateral breath sounds reveal diminished on right side. No fever is noted. [facility] [place] and duoneb administered. Pt is Covid and flu negative. After duoneb, bilateral breath sounds reveal right side wheezing. A 12 lead EKG reveals no ST elevations. PT was advised to continue neb treatments when needed and if SOB increases despite treatment to be evaluated in the ED. Pt was also advised to contact her concrete craftsman regarding chest pain. Call was then cleared. Holistic Pulser Allergies: Aspirin .................. .................. .................. .................. .................. .................. .................. ............... Disposition: Fulfilled Jerome Shearer MD [address] [facility],[address] [facility], [place], [phone], [employer] 05/21/2023 13:41:31 OBGyn Episode No OBEpisode recorded.
--- OUTSIDE RECORDS SUMMARY | 2024-08-11 12:55 | XMS_ITS | Encounter Summary ---
Author Organization [employer] Address [address] [facility] 7[address] [place] [address] Care Team Providers Care Technical Associate Name Role Phone Jane Piedra MD Primary Care Provider + Encounter Details Date Type Department Care Team ([facility] st Contact Info) Description 07/20/2024 Orders Only [facility] [address] [place], [place] [phone] Jane Piedra MD [address] [place], [place] [phone] Social History Tobacco Use Types Packs/Day Years [...] Description 10/12/2024 11:15 AM EDT Office Visit [facility] [address] [place] [phone] Jane Piedra MD [address] [place] [phone] documented as of this encounter Procedures Procedure Name Priority Date/Time Associated Diagnosis Comments BI MAMMOGRAM SCREENING TOMOSYNTHESIS BILATERAL Routine 07/20/2024 2:58 PM EST documented in this encounter Results * BI Mammogram Screening Tomosynthesis Bilateral (07/20/2024 2:58 PM EST) Anatomical Region Laterality Modality Breast Bilateral Mammography 07/20/2024 2:58 PM EST Narrative 07/30/2024 1:26 PM EST ? [facility] [place] ? [address] ?[place] [address] ? Mammography Report ? Signed ? Patient: Boothe Boothe,Jesica ?MR#: [id number] ?? [id number] ? : 1975 ?Acct:[id number] ? Age/Sex: 49 / F ?ADM Date: 01/16/25 ? Loc: HO.MAMMO ? Attending Dr: Jane Piedra MD ? Ordering Physician: Jane Piedra MD ?Results: 1Ne ?? gative ? Date of Service: 07/20/24 ?Follow Up: 1 Year From Orig ?? inal Mammogram ? Procedure(s): MM tomosynthesis screening BI ?? Accession Number(s): [id number] ? cc: Jane Piedra MD ? EXAMINATION: ?? MM SCREENING DIGITAL BREAST TOMOSYNTHESIS, BILATERAL ? CLINICAL INFORMATION: ? Screening. Asymptomatic. ? COMPARISON: ?? Mammography: Comparison is made with available priors ? TECHNIQUE: ?? Digital breast mammography with tomosynthesis is performed in both the ?? craniocaudal and mediolateral oblique views along with computer-aided ?? detection (CAD). ? FINDINGS: ?? There are scattered areas of fibroglandular density (ACR BI-RADS breast ?? composition Category b). ? There are no significant masses, abnormal calcifications, or other ?? abnormalities. ? MM/MM tomosynthesis screening BI ?? IMPRESSION: ?? No mammographic evidence of malignancy. ? ASSESSMENT: ? BI-RADS BI-RADS 1 - Negative ? RECOMMENDATION: ?? Routine annual mammography screening. ? 1 year F/U ? This examination should not preclude the clinical evaluation of a ?? suspicious palpable abnormality. ? This patient's information was entered into a reminder system with a ?? target due date for their next mammogram. ? Electronically signed by: ??Patricia Packer DO ??07/30/2024 01:24 PM EST ?? RP ? Dictated By: ?Patricia Packer DO ? Signed By: ?<Electronically signed by Patricia Packer, DO in OV> ? 07/30/24 1324 ? DD/ 1458 ? TD/TT: 07/20/24 1514 ? Internship: ? Procedure Note Donotuseinterpreter, Image - 07/30/2024 [place] [facility] [address] [place] [address] Mammography Report Signed Patient: Ranjit Abernathy#: [id number] : 1975Acct:[id number] Age/Sex: 49 / FADM Date: 07/20/24 Loc: HO.MAMMO Attending Dr: Jane Piedra MD Ordering Physician: Jane Piedra MDResults: 1Ne gative Date of Service: 07/20/24Follow Up: 1 Year From Orig inal Mammogram Procedure(s): MM tomosynthesis screening BI Accession Number(s): [id number] cc: Jane Piedra MD EXAMINATION: MM SCREENING DIGITAL BREAST TOMOSYNTHESIS, BILATERAL CLINICAL INFORMATION: Screening. Asymptomatic. COMPARISON: Mammography: Comparison is made with available priors TECHNIQUE: Digital breast mammography with tomosynthesis is performed in both the craniocaudal and mediolateral oblique views along with computer-aided detection (CAD). FINDINGS: There are scattered areas of fibroglandular density (ACR BI-RADS breast composition Category b). There are no significant masses, abnormal calcifications, or other abnormalities. MM/MM tomosynthesis screening BI IMPRESSION: No mammographic evidence of malignancy. ASSESSMENT: BI-RADS BI-RADS 1 - Negative RECOMMENDATION: Routine annual mammography screening. 1 year F/U This examination should not preclude the clinical evaluation of a suspicious palpable abnormality. This patient's information was entered into a reminder system with a target due date for their next mammogram. Electronically signed by: Patricia Packer DO 07/30/2024 01:24 PM [facility] Dictated By: Patricia Packer DO Signed By: <Electronically signed by Patricia Packer DO in OV> 07/30/24 1324 DD/ 1458 TD/TT: 07/20/24 1514 Internship: Jane Piedra MD IMG BI PROCEDURES Edited Result - Final documented in this encounter Visit Diagnoses Not on filedocumented in this encounter Additional Health Concerns Assessment Noted Time PHQ-9 Depression Total Score: 24 024 11:20 AM EDT documented as of this encounter Care Teams Technical Associate Relationship Specialty Start Date End Date Jane Piedra MD [address] [place] [phone] PCP - General Family Medicine 02/18/17 documented as of this encounter
--- OUTSIDE RECORDS SUMMARY | 2024-08-11 12:55 | XMS_ITS | Encounter Summary ---
Author Organization [email or web address] [facility] Address [address] [place] [address] [place] [address] Care Team Providers Care Bag Bundler Name Role Phone Jane Piedra MD Primary Care Provider + Encounter Details Date Type Department Care Team (Late st Contact Info) Description 05/19/2022 Orders Only [facility] [address] [place] [phone] Selin Alston RN [address] [place] [address] Social History Tobacco Use Types Packs/Day Years Used Date Smoking Tobacco: Never Assessed Comments Unknown Sex and Gender Information Value Date Recorded Sex Assigned at Female 05/04/2022 10:14 AM EDT Legal Sex Female 10:14 AM EDT Gender Identity Female 05/04/2022 10:14 AM EDT Sexual Orientation Straight 06/04/2022 9: 08 AM EST documented as of this encounter Plan of Treatment Upcoming Encounters Date Type Department Care Team (Late st Contact Info) Description 10/12/2024 11:15 AM EDT Office Visit [facility] [address] [place] [address] [phone] Jane Piedra MD [address] [place] [address] [phone] documented as of this encounter Visit Diagnoses Not on filedocumented in this encounter Care Teams Bag Bundler Relationship Specialty Start Date End Date Jane Piedra MD [address] [place] [phone] PCP - General Family Medicine 02/18/17 documented as of this encounter
--- OUTSIDE RECORDS SUMMARY | 2024-08-11 12:55 | XMS_ITS | Encounter Summary ---
Author Organization [employer] Address [address] [facility] 7[address] [place] [address] Care Team Providers Care Sales Clerk Food Name Role Phone Jane Piedra MD Primary Care Provider + Encounter Details Date Type Department Care Team (Latest Contact Info) Description 08/11/2024 Travel Social History Tobacco Use Types Packs/Day Years [...] housing situation today? I have alexsander anaya 08/11/[address] you li ve. Do you have problems with any of the following? None of the above 08/11/2024 Food Insecurity Answer Date Recorded Within the past 12 months, y ou worried that your food would run out before you got money to buy more: Never True 08/11/2024 Within the past 12 months,th e food you bought just didn't last and you didn't have enough money to get more: Never True 01/2025 Transportation Answer Date Recorded In the past 12 months, has l ack of transportation kept you from medical appts, meetings, work or from getting things needed for daily living? No 08/11/2024 Utilities Answer Date Recorded In the past 12 months, has t he electric, gas, oil or water company threatened to shut off services in your home? No 08/11/2024 Depression Answer Date Recorded Patient Health Questionnaire-2 Score 6 01/11/2024 Internet Access Answer Date Recorded Internet Access Q1 No 08/11/2024 Internet Access Q2 I do not want or need it 01/2025 Comments No Sex and Gender Information Value [...] Description 10/12/2024 11:15 AM EDT Office Visit [facility] [address] [place] [address] Jane Piedra MD [address] [place] [address] documented as of this encounter Visit Diagnoses Not on filedocumented in this encounter Additional Health Concerns Assessment Noted Time PHQ-9 Depression Total Score: 24 024 11:20 AM EDT documented as of this encounter Care Teams Sales Clerk Food Relationship Specialty Start Date End Date Jane Piedra MD [address] [place] [address] PCP - General Family Medicine 02/18/17 documented as of this encounter
--- OUTSIDE RECORDS SUMMARY | 2024-08-11 12:55 | XMS_ITS | Encounter Summary ---
Author Organization [employer] Address [address] [facility] 7[address] [place] [address] Care Team Providers Care Field Control Inspector Name Role Phone Jane Piedra MD Primary Care Provider + Reason for Visit * Reason Comments Med Refill Encounter Details Date Type Department Care Team ([facility] st Contact Info) Description 07/13/2024 Refill [facility] [address] [place] [address] Jane Piedra MD [address] [place] [address] Allergic rhinitis due to other allergic trigger, [...] is your housing situation today? I have alexsandermindy anaya 04/19/[address] you [...] Description 10/12/2024 11:15 AM EDT Office Visit [facility] [address] [place] [address] Jane Piedra MD [address] [place] [address] documented as of this encounter Visit Diagnoses Diagnosis Allergic rhinitis due to other allergic trigger, unspecified seasonality documented in this encounter Additional Health Concerns Assessment Noted Time PHQ-9 Depression Total Score: 24 024 11:20 AM EDT documented as of this encounter Care Teams Field Control Inspector Relationship Specialty Start Date End Date Jane Piedra MD [address] [place] [address] PCP - General Family Medicine 02/18/17 documented as of this encounter
--- OUTSIDE RECORDS SUMMARY | 2024-08-11 12:55 | XMS_ITS | Encounter Summary ---
Author Organization [employer] Address [address] [place] [address] 7 [place] [address] Care Team Providers Care Men'S Basketball Coach Name Role Phone Jane Piedra MD Primary Care Provider + Reason for Visit * Reason Comments Med Refill Encounter Details Date Type Department Care Team ([facility] st Contact Info) Description 03/25/[address] [facility] [address] [place], [place] [phone] Jane Piedra MD [address] [place], [place] [phone] Chronic idiopathic constipation; Gastro-esophageal reflux disease without esophagitis Social History Tobacco Use Types Packs/Day Years [...] Description 10/12/2024 11:15 AM EDT Office Visit [facility] [address] [place] [address] Jane Piedra MD [address] [place] [address] documented as of this encounter Visit Diagnoses Diagnosis Chronic idiopathic constipation Unspecified constipation Gastro-esophageal reflux disease without esophagitis documented in this encounter Additional Health Concerns Assessment Noted Time PHQ-9 Depression Total Score: 24 024 11:20 AM EDT documented as of this encounter Care Teams Men'S Basketball Coach Relationship Specialty Start Date End Date Jane Piedra MD [address] [place] [address] PCP - General Family Medicine 02/18/17 documented as of this encounter
--- OUTSIDE RECORDS SUMMARY | 2024-08-11 12:55 | XMS_ITS | Clinical Summary ---
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 07/30/24 1324 DD/ 1458 TD/TT: 07/20/24 1514 Inspector Floor: us Jane Piedra MD IMG BI PROCEDURES Edited Result - Final * (ABNORMAL) Hm Colonoscopy (04/05/2024) Colonoscopy Abnormal(A ) Normal [facility] Comment:TA us Jane Piedra MD HEALTH MAINTENANCE Final Result [facility] [address] [place] [phone] * (ABNORMAL) HM PAP/HPV (11/08/2023 12:00 AM EDT) Pap Smear 4. LSIL(A) 1. NILM HPV Not Detected Undetected, Indeterminat e, Quantitative , Not Detected Historical Provider HEALTH MAINTENANCE Edited Result - Final * Hepatitis Panel, General (07/08/2023 10:16 AM EST) Hepatitis A IgM Nonreactive Nonreactive [facility] Comment:IgM antibodies to DE LEON V not detected; does not exclude earlyacute or recovered HAV infection. ~Hepatitis B Surface Antibody REACTIVE Nonreactive [facility] Comment:REACTIVE: > 11.99 mI U/mL Hepatitis B Core Antibody Reactive Nonreactive [facility] Comment:Presumptive evidence of anti-HBc. Hepatitis C Antibody Nonreactive Nonreactive [facility] Comment:Antibodies to HCV no t detected; does not exclude early acuteHCV infection. Hepatitis B Surface Ag Negative Negative [facility] Blood 07/08/2023 10:1 6 AM EST 07/08/2023 11:23 AM EST Jane Piedra MD LAB BLOOD ORDERABLES Fin al Result [facility] [address] [place] [phone] * (ABNORMAL) Lipid Panel with Reflex to Direct LDL (06/18/2023 11:36 AM EST) Triglycerides 114 <150 mg/dL [facility] Comment:Desirable Triglyceri de: less than 150 mg/dLBorderline High Triglyceride 150-199 mg/dLHigh Triglyceride: 200-499 mg/dLVery High Triglyceride: greater than or equal to 5OO mg/dL Cholesterol 179 <200 mg/dL [facility] Comment:Desirable Cholestero l: less than 200 mg/dLBorderline High Cholesterol: 200-239 mg/dLHigh Cholesterol: greater than 239 mg/dL LDL Cholesterol Calculated 103(H) <100 mg/dL [facility] Comment:Desirable LDL: less than 100 mg/dLNear Optimal/Above Optimal LDL: 110- 129 mg/dLBorderline High LDL: 130-159 mg/dLHigh LDL: 160-189 mg/dLVery High LDL: greater than or equal to 190 mg/dL HDL Cholesterol 54 >40 mg/dL [facility] Comment:Desirable HDL: great er than 40 mg/dL Note: This HDL assay may give artificially low results in patients with liver disease. Blood 06/18/2023 11:3 6 AM EST 06/18/2023 1:20 PM EST Jane Piedra MD LAB BLOOD ORDERABLES Fin al Result [facility] [address] [place] [address] [phone] from Last 3 Months or Most Recently Relevant to Health Maintenance Insurance - [employer] Care Teams Business Intelligence Manager Relationship Specialty Start Date End Date Jane Piedra MD [address] [place] [phone] PCP - General Family Medicine 02/18/17
--- OUTSIDE RECORDS SUMMARY | 2024-08-11 12:55 | XMS_ITS | Encounter Summary ---
Author Organization [employer] Address [address] [place] [address] 7 [place] [address] Care Team Providers Care Pond Sawyer Name Role Phone Jane Piedra MD Primary Care Provider + Reason for Visit * Reason Onset Date Comments Error 08/03/2023 Encounter Details Date Type Department Care Team ([facility] st Contact Info) Description 08/03/2023 Telephone [facility] [address], [place] [phone] Jane Piedra MD [address], [place] [phone] Error Social History Tobacco Use Types Packs/Day Years [...] Description 10/12/2024 11:15 AM EDT Office Visit [facility] [address] [place] [address] Jane Piedra MD [address] [place] [phone] documented as of this encounter Visit Diagnoses Not on filedocumented in this encounter Additional Health Concerns Assessment Noted Time PHQ-9 Depression Total Score: 17 024 9:32 AM EST documented as of this encounter Care Teams Pond Sawyer Relationship Specialty Start Date End Date Jane Piedra MD [address] [place] [address] PCP - General Family Medicine 02/18/17 documented as of this encounter
--- OUTSIDE RECORDS SUMMARY | 2024-08-11 12:55 | XMS_ITS | Encounter Summary ---
Author Organization [employer] Address [address] [place] [address] 7 [place] [address] Care Team Providers Care Spindle Sander Name Role Phone Jane Piedra MD Primary Care Provider + Reason for Visit * Reason Comments BMI Encounter Details Date Type Department Care Team ([facility] st Contact Info) Description 08/11/2024 11:15 AM EST Office Visit [facility] [address] [place], [place] [phone] Jane Piedra MD [address] [place], [place] [phone] Dizziness (Primary Dx); Recurrent major depressive disorder, in partial remission (CMS/HCC); Dietary counseling; Class 2 severe obesity due to excess calories with serious comorbidity and body mass index (BMI) of 38.0 to 38.9 in adult (CMS/HCC); Exercise counseling Social History Tobacco Use Types Packs/Day Years [...] AM EST documented as of this encounter Last Filed Vital Signs Vital Sign Reading [...] Mass Index 38.46 08/11/2024 11:11 AM EST documented in this encounter Plan of Treatment Upcoming Encounters Date Type Department Care Team (Late st Contact Info) Description 10/12/2024 11:15 AM EDT Office Visit [facility] [address] [place] [address] Jane Piedra MD [address] [place] [address] Scheduled Orders Name Type Priority Associated Diagnoses Orde r Schedule Lipid Panel with Reflex to Direct LDL Lab Routine Class 2 severe obesity due to excess calories with serious comorbidity and body mass index (BMI) of 38.0 to 38.9 in adult ([facility] Expected: 08/11/2024 (Approximate), Expires: 08/11/2025 Comprehensive Metabolic Panel Lab Routine Class 2 severe obesity due to excess calories with serious comorbidity and body mass index (BMI) of 38.0 to 38.9 in adult ([facility] Expected: 08/11/2024 (Approximate), Expires: 08/11/2025 TSH with Reflex to Free T4 Lab Routine Dizziness Expected: 08/11/2024 (Approximate), Expires: 08/11/2025 Hemoglobin A1c Lab Routine Class 2 severe obesity due to excess calories with serious comorbidity and body mass index (BMI) of 38.0 to 38.9 in adult ([facility]) Dizziness Expected: 08/11/2024 (Approximate), Expires: 08/11/2025 CBC auto differential Lab Routine Dizziness Expected: 08/11/2024 (Approximate), Expires: 08/11/2025 documented as of this encounter Visit Diagnoses Diagnosis Dizziness- Primary Dizziness and giddiness Recurrent major depressive disorder, in partial remission ([facility]) Dietary counseling Dietary surveillance and counseling Class 2 severe obesity due to excess calories with serious comorbidity and body mass index (BMI) of 38.0 to 38.9 in adult ([facility]) Exercise counseling documented in this encounter Additional Health Concerns Assessment Noted Time PHQ-9 Depression Total Score: 24 024 11:20 AM EDT documented as of this encounter Care Teams Spindle Sander Relationship Specialty Start Date End Date Jane Piedra MD [address] [place] [address] PCP - General Family Medicine 02/18/17 documented as of this encounter
--- OUTSIDE RECORDS SUMMARY | 2024-08-11 12:55 | XMS_ITS | Clinical Summary ---
Author Organization [facility] Address [address] [place] [address] Care Team Providers Care Process Safety Specialist Name Role Phone Unavailable Primary Care Provider Unavailabl e Allergies Active Allergy Reactions Criticality Noted Date Comments Aspirin Other 09/17/2016 Unknown reaction had allergy testing done that confirmed ASA allergy Medications Medication Sig Dispensed Refills Start Date End Date Status valACYclovir (VALTREX) 500 mg tablet TAKE 1 TABLET BY MOUTH two (2) times a day 60 tablet 6 07/10/2024 Active zolpidem (AMBIEN) 10 mg tablet Take by mouth at bedtime as needed. Active venlafaxine XR (EFFEXOR-XR) 75 mg 24 hr capsule Take 1 capsule (75 mg total) by mouth 1 (one) time each day in the morning. Active simethicone (MYLICON,GAS-X) 180 mg capsule TAKE ONE CAPSULE BY MOUTH 4 (FOUR) TIMES DAILY 06/04/2021 Active plecanatide (Trulance) 3 mg tablet Take 1 tablet (3 mg total) by mouth 1 (one) time each day. 03/27/2021 Active lurasidone (Latuda) 40 mg tablet Take 1 tablet (40 mg total) by mouth 1 (one) time each day. 06/19/2021 Active Creon 24,000-76,000 -120,000 unit capsule TAKE ONE CAPSULE BY MOUTH 4 (FOUR) TIMES DAILY 06/19/2021 Active Linzess 290 mcg capsule Take 1 capsule (290 mcg total) by mouth 1 (one) time each day in the morning. 06/10/2021 Active imipramine (TOFRANIL) 25 mg tablet TAKE 2 TABLETS BY MOUTH DAILY AT BEDTIME 06/04/2021 Active gabapentin (NEURONTIN) 100 mg capsule TAKE ONE CAPSULE BY MOUTH 3 (THREE) TIMES A DAY 06/19/2021 Active fluticasone propionate (Flovent Diskus) 100 mcg/actuation diskus inhaler Inhale into the lungs as needed. Active conjugated estrogens (Premarin) vaginal cream Place 1 Applicator vaginally twice a week. 09/28/2022 Active [address] capsule Take 1 capsule (60 mg total) by mouth 1 (one) time each day. 06/04/2021 Active clonazePAM (KlonoPIN) 0.5 mg tablet Take 1 mg by mouth 2 times daily as needed. Active calcium carbonate-vitamin D (Oysco 500/D) 500 mg-5 mcg (200 unit) per tablet TAKE ONE TABLET BY MOUTH two (2) times a day 06/19/2021 Active buPROPion XL (WELLBUTRIN XL) 300 mg 24 hr tablet Take 1 tablet (300 mg total) by mouth 1 (one) time each day in the morning. 06/04/2021 Active Lactobacillus acidophilus (PROBIOTIC ORAL) Take 1 capsule by mouth 1 (one) time each day. 03/22/2018 Active ALBUTEROL INHL Inhale into the lungs as needed. Active calcium carbonate (CALCIUM ORAL) Take 2 tablets by mouth 1 (one) time each day. Active UNABLE TO FIND Lactobacillus Acid-Pectin (ACIDOPHILUS/CITRUS PECTIN) Tab 90 Tab 3 04/24/2019 Sig - Route: Take 1 Tab by mouth daily. - Oral Sent to pharmacy as: Acidophilus/[place] Pectin Oral Tablet 04/24/2019 Active Active Problems Problem Noted Date Diagnosed Date Low grade squamous intraepit h lesion on cytologic smear cervix (lgsil) 07/02/2020 Overview (08/04/2024): 06/2020 PAP- LSIL. Neg HPV Per [facility]- repeat co-testing in one year 07/2020 PAP LSIL, HPV not done Plan: [facility] for Colpo- benign 08/2021 Plan: repeat PAP one year 06/2022 PAP Ascus, neg hpv Repeat one year 11/2023 PAP LSIL, neg HPV Plan: per [facility]P: RECOMMENDATION 1-year follow-up?? RISK 5 year risk of CIN3+ is 3.1%?? Surgical History Surgery Date Site/Laterality Comments CYSTOSCOPY 2007 PROCEDURE: HISTORICAL CYSTOSCOPY; COMMENT: moncerc sling WRIST SURGERY PROCEDURE: HISTORICAL WRIST SURGERY HAND SURGERY PROCEDURE: HISTORICAL HAND SURGERY TUBAL LIGATION PROCEDURE: HISTORICAL TUBAL LIGATION Medical History Medical History Date Comments Anemia DX:Anemia Anxiety state DX:Anxiety state Asthma DX:Asthma Vitamin D insufficiency 10/30/2013 DX:Vitam in D insufficiency; COMMENT: Vitamin D = 22 Bacterial vaginosis 07/28/2011 DX:Bacterial vaginosis; COMMENT: 04/09/10, 08/13/09 History of colposcopy 07/15/2010 DX:History of colposcopy; COMMENT: chronic cervicitis with squamous metaplasia ASCUS with positive high ris k HPV cervical 06/13/2010 DX:ASCUS with positive high risk HPV cervical Vaginal yeast infection 03/05/2006 DX:Vagin al yeast infection Depression DX:Depression Constipation DX:Constipation HSV-2 (herpes simplex virus 2) infection 2007 DX:HSV-2 (herpes simplex vir us 2) infection Family History Medical History Relation Name Comments Diabetes Brother 1 Hypertension Brother 1 Diabetes Brother 2 Diabetes Brother 3 Diabetes Father Hypertension Father Stroke Father Diabetes Maternal Grandfather Hypertension Maternal Grandfather Diabetes Maternal Grandmother Hypertension Maternal Grandmother Alzheimer's disease Mother Arthritis Mother Diabetes Mother Hypertension Mother Diabetes Paternal Grandfather Hypertension Paternal Grandfather Diabetes Paternal Grandmother Hypertension Paternal Grandmother Diabetes Sister 1 Hypertension Sister 1 Other: pre-diabetes Sister 2 Breast cancer Neg Hx Colon cancer Neg Hx Ovarian cancer Neg Hx Prostate cancer Neg Hx Relation Name Status Comments Brother 1 Alive Brother 2 Alive Brother 3 Alive Father Maternal Grandfather Maternal Grandmother Mother Alive Paternal Grandfather Paternal Grandmother Sister 1 Alive Sister 2 Alive Sister 3 Alive Social History Tobacco Use Types Packs/Day Years Used Date Smoking Tobacco: Never Smokeless Tobacco: Never Alcohol Use Standard Drinks/Week Comments Yes 0 (1 standard drink = 0.6 oz pur e alcohol) Sex and Gender Information Value Date Recorded Sex Assigned at Not on file Gender Identity Not on file Sexual Orientation Not on file Obstetrics History Last Filed Vital Signs Vital Sign Reading Time Taken Comments Blood Pressure 113/73 11/08/2023 9:52 AM EDT Pulse 67 11/08/2023 9:52 AM EDT Temperature - - Respiratory Rate - - Oxygen Saturation - - Inhaled Oxygen Concentration - - Weight 95.7 kg (211 lb) 11/08/2023 9:52 AM EDT Height 165.1 cm (5' 5 ) 11/08/2023 9:52 AM EDT Body Mass Index 35.11 11/08/2023 9:52 AM EDT Plan of Treatment Upcoming Encounters Date Type Department Care Team (Late st Contact Info) Description 11/29/2024 11:15 AM EDT Office Visit Obstetrics & Gynecology - [address] [phone] Mikaela Russo, CNM [address] [place] [address] Health Maintenance Due Date Last Done Comments DTaP,Tdap,and Td Vaccines (1 - Tdap) 1992 Hepatitis B Vaccines (1 of 3 - 19+ 3-dose series) 1992 Colorectal Cancer Screening: Colonoscopy 06/13/2022 Depression Screening 06/13/2022 Social Influencers of Health Screening 06/13/2022 Zoster Vaccines (1 of 2) 2023 Breast Cancer Screening 07/30/2023 07/30/2021 COVID-19 Vaccine ( - 2023-2 5 season) 2024 Influenza Vaccine (#1) 2024 Cervical Cancer Screening: HPV 11/07/2028 11/08/2023 HIV Screening Completed 11/08/2023, 11/08/2023 Hepatitis C Screening Completed 11/08/2023 HIB Vaccines Aged Out No longer eligi [...] on patient's age to complete this topic MMR Vaccines Aged Out No longer eligi ble based on patient's age to complete this topic Meningococcal ACWY Vaccine Aged Out N o longer eligible based on patient's age to complete this topic Pneumococcal Vaccine: Pediatrics (0 to 5 Years) and At-Risk Patients (6 to 64 Years) Aged Out No longer eligible b ased on patient's age to complete this topic RSV Immunization Patients Under 20 months Aged Out No longer eligible b ased on patient's age to complete this topic Varicella Vaccines Aged Out No longer eligible based on patient's age to complete this topic Procedures Procedure Name Priority Date/Time Associated Diagnosis Comments HPV Routine 11/08/2023 HEPATITIS C SCREENING Routine 11/08/2023 HIV SCREENING Routine 11/08/2023 AYUSH SCREENING DIGITAL Routine 07/30/2021 11:31 AM EST Encounter for screening mammogram for malignant neoplasm of breast from Last 3 Months or Most Recently Relevant to Health Maintenance Results * Cervical Cancer Screening: HPV (11/08/2023) Cervical Cancer Screening: HPV negative,a bstracted Historical Provider [facility] * HIV Screening (11/08/2023) HIV Screening ABSTRACTED Historical Provider [facility] * Hepatitis C Screening (11/08/2023) Hepatitis C Screening ABSTRACTED Historical Provider [facility] * AYUSH SCREENING DIGITAL (07/30/2021 11:31 AM EST) Anatomical Region Laterality Modality Mammography 07/28/2021 11:0 4 AM EST Narrative 07/30/2021 11:[address] [facility] Diagnostic Imaging Department [address] [place], [place] [phone] Patient: ??BOOTHE,JESICA ?/Age/Sex: 1975 - 46 - F Unit#: ??[id number] ? Location/Status: ??SPDIMAM/REG CLI ? Mnemonic/Ordering Site: ??DIGSC/SPMAM Ordering Physician: ??MIKAELA RUSSO CNM Ayush Screening Digital - 07/28/21 - 1135 INDICATION: SCREENING COMPARISON: [facility] mammograms dating back to ?? 11/02/2013 TECHNIQUE: CC and MLO views of the breasts were obtained, using full field digital mammography with 3D tomosynthesis views in the MLO projection. Computer aided detection with the [employer] 7.2-H was employed. FINDINGS: The breasts are almost entirely composed of fat. No suspicious masses, suspicious microcalcifications, or areas of architectural distortion are identified. ??There are no secondary signs of breast malignancy. Vascular type calcifications are visualized bilaterally IMPRESSION: ??No specific mammographic evidence of breast malignancy. Lack of an imaging correlate should not deter or delay biopsy of a clinically significant palpable finding. BI-RADS ??- Category 2 - Benign finding 3342F, 7025F Annual screening mammography is recommended. Patient entered into a reminder system with a target date for the next mammogram. (G0202 / [id number]) , ??[id number] Dictating Physician: ??TRENT TIRADO MD Electronically Signed by: ??TRENT TIRADO MD Dic Date/Time: ??07/30/21 1128 Sign date/Time: ??07/30/21 1131 Procedure Note Trent Tirado MD - 06/24/2022 [facility] Diagnostic Imaging Department [address] [place] [address] Patient: JESICA BOOTHE /Age/Sex: 1975 - 46 - F Unit#: [id number] Location/Status: [facility]/REG CLI Mnemonic/Ordering Site: [facility] Ordering Physician: MIKAELA RUSSO CNM Ayush Screening Digital - 07/28/21 - 1135 INDICATION: SCREENING COMPARISON: [facility] mammograms dating back to 11/02/2013 TECHNIQUE: CC and MLO views of the breasts were obtained, using full field digital mammography with 3D tomosynthesis views in the MLO projection. Computer aided detection with the [employer] 7.2-H was employed. FINDINGS: The breasts are almost entirely composed of fat. No suspicious masses, suspicious microcalcifications, or areas ofarchitectural distortion are identified. There are no secondary signs of breastmalignancy. Vascular type calcifications are visualized bilaterally IMPRESSION: No specific mammographic evidence of breast malignancy. Lack of an imaging correlate should not deter or delay biopsy of aclinically significant palpable finding. BI-RADS - Category 2 - Benign finding 3342F, 7025F Annual screening mammography is recommended. Patient entered into a reminder system with a target date for the next mammogram. [id number] , [id number] Dictating Physician: TRENT TIRADO MD Electronically Signed by: TRENT TIRADO MD Dic Date/Time: 07/30/21 1128 Sign date/Time: 07/30/21 1131 Mikaela Russo CNM IMG BI PROCEDURES from Last 3 Months or Most Recently Relevant to Health Maintenance
--- OUTSIDE RECORDS SUMMARY | 2024-08-11 12:55 | XMS_ITS | Encounter Summary ---
Author Organization [employer] [facility] Address [address] [place] [address] [address] [address] Care Team Providers Care Senior Data Modeler Name Role Phone Jane Piedra MD Primary Care Provider + Encounter Details Date Type Department Care Team (Late st Contact Info) Description 05/19/2022 Abstract [facility] [address] [place] [address] ProviderRaffaele MD Social History Tobacco Use Types Packs/Day Years [...] Description 10/12/2024 11:15 AM EDT Office Visit [facility] [address] [place] [phone] Jane Pidera MD [address] [place] [phone] documented as of this encounter Visit Diagnoses Not on filedocumented in this encounter Care Teams Senior Data Modeler Relationship Specialty Start Date End Date Jane Piedra MD [address] [place] [phone] PCP - General Family Medicine 02/18/17 documented as of this encounter
--- OUTSIDE RECORDS SUMMARY | 2024-08-11 12:55 | XMS_ITS | Continuity of Care Document ---
Author Organization [facility] Address [address] [place] [address] [address] [place] [address] Phone Care Team Providers Care Hand Profiler Name Role Phone Doug Hathaway MD, FACS, RVT Unavailable Unavailable Advance Directives Directive Yes / No Effective Date File Name No Information Encounters Encounter Description Practice Location Reason(s) For Visit Diagnoses Date Provider Providers Copied on Encounter [facility], [address] [place] [address] [address], [place], [id number], tel:[phone] [facility] No Information 3 Pancho Flaherty. [address], [address], [place]. tel:[phone] Family History Family Member Type Diagnosis Age [...]
--- OUTSIDE RECORDS SUMMARY | 2024-08-11 12:55 | XMS_ITS | Encounter Summary ---
Author Organization [employer] Address [address] [facility] 7t [place] [address] Care Team Providers Care Hematology Technician Name Role Phone Jane Piedra MD Primary Care Provider + Encounter Details Date Type Department Care Team (Late st Contact Info) Description 06/15/2024 Orders Only [facility] [address] [place] [address] Kristal Monroy Social History Tobacco Use Types Packs/Day Years [...] Description 10/12/2024 11:15 AM EDT Office Visit [facility] [address] [place], [place] [phone] Jaen Piedra MD [address] [place] [address] documented as of this encounter Procedures Procedure Name Priority Date/Time Associated Diagnosis Comments HM PAP/HPV Routine 11/08/2023 12:00 AM EDT documented in this encounter Results * (ABNORMAL) HM PAP/HPV (11/08/2023 12:00 AM EDT) Pap Smear 4. LSIL(A) 1. NILM HPV Not Detected Undetected, Indeterminat e, Quantitative , Not Detected Historical Provider HEALTH MAINTENANCE Edited Result - Final documented in this encounter Visit Diagnoses Not on filedocumented in this encounter Additional Health Concerns Assessment Noted Time PHQ-9 Depression Total Score: 24 024 11:20 AM EDT documented as of this encounter Care Teams Hematology Technician Relationship Specialty Start Date End Date Jane Piedra MD [address] [place] [phone] PCP - General Family Medicine 02/18/17 documented as of this encounter
--- OUTSIDE RECORDS SUMMARY | 2024-08-11 12:55 | XMS_ITS | Encounter Summary ---
Author Organization [employer] [facility] Address [address] [place] [address] [address], [place] [address] Care Team Providers Care Transmission Assembler Name Role Phone Jane Piedra MD Primary Care Provider + Reason for Visit * Reason Comments Med Refill Encounter Details Date Type Department Care Team (Late Contact Info) Description 02/25/2023 Refill [facility] [address] [place], [place] [phone] Jane Piedra MD [address] [place], [place] [phone] Social History Tobacco Use Types Packs/Day Years [...] Encounters Date Type Department Care Team (Late Contact Info) Description 10/12/2024 11:15 AM EDT Office Visit [facility] [address] [place], [place] [phone] Jane Piedra MD [address] [place], [place] [phone] documented as of this encounter Visit Diagnoses Not on filedocumented in this encounter Care Teams Transmission Assembler Relationship Specialty Start Date End Date Jane Piedra MD [address] [place] [phone] PCP - General Family Medicine 02/18/17 documented as of this encounter
[2024-08-11 13:20] LABS: MANUAL DIFF FLAG NO
[2024-08-11 13:49] LABS: Basophils Percent Auto 0.5 % (0-2); Eosinophils Absolute Auto 0.1 X10*3/uL (0.0-0.4); Eosinophils Percent Auto 1.8 % (0-4); Hematocrit 37.4 % (37.0-47.0); Hemoglobin 12.2 g/dl (12.0-16.0); Imm Gran Abs Auto 0.02 X10*3/uL (0.00-0.03); Imm Gran Pct Auto 0.3 % (0.0-0.4); Lymphocytes Percent Auto 32.1 % (20-40); Mean Corpuscular HGB Conc 32.6 g/dl (31.0-35.0); Mean Corpuscular Hemoglobin 31.2 pg (27.0-33.0); Mean Corpuscular Volume 95.7 fL (80.0-98.0); Monocytes Absolute Auto 0.3 X10*3/uL (0.1-1.2); Monocytes Percent Auto 5.4 % (2-11); Neutrophils Absolute Auto 3.8 x10*3/uL (2.0-8.3); Neutrophils Percent Auto 59.9 % (45-73); Platelet Count 273 X10*3/uL (160-400); Red Blood Count 3.91 X10*6/uL (4.20-5.50); Red Cell Distribution Width 12.4 % (11.0-16.0); White Blood Count 6.3 X10*3/uL (4.8-10.8)
[2024-08-11 14:17] LABS: Estimated Average Glucose 105 mg/dL; Hemoglobin A1C 110.9577 umol/L; Hemoglobin A1c % 5.3 % (<6.0); Total Hemoglobin (HGBA1C) 3236.0035 umol/L
[2024-08-11 14:18] LABS: Alanine Aminotransferase 34 U/L (0-31); Albumin Level 4.2 g/dL (3.5-5.0); Alkaline Phosphatase 100 U/L (39-117); Anion Gap 15 (12-20); Aspartate Amino Transferase 29 U/L (5-31); Bilirubin Total 0.3 mg/dL (0.0-1.0); Blood Urea Nitrogen 13 mg/dL (9-16); Calcium 9.5 mg/dL (8.4-10.2); Carbon Dioxide 23 mmol/L (22-29); Chloride 108 mmol/L (96-108); Cholesterol 162 mg/dL (<200); Estimated Glomerular Filt Rate > 60; Glucose Random 96 mg/dL (60-115); HDL Cholesterol 42 mg/dL (>40); LDL Cholesterol Calculated 94 mg/dL (<100); Potassium 4.4 mmol/L (3.3-5.1); Sodium 142 mmol/L (135-145); TSH reflex Free T4 2.73 uIU/mL (0.32-4.0); Total Protein 7.6 g/dL (6.5-8.0); Triglycerides 134 mg/dL (<150)
[2024-08-11 14:26] LABS: Reflex LDLD? No
== END 2024-08-11 11:55 | disposition home or self-care (01) ==
LOC: HO.HHCL 11:54
PROVIDERS: Visit Provider Internal Medicine
DX: R42 Dizziness and giddiness (principal); E66.812 Obesity, class 2; E66.01 Morbid (severe) obesity due to excess calories; Z68.38 Body mass index [BMI] 38.0-38.9, adult
CPT/HCPCS: 36415; 80053; 80061; 83036; 84443; 85025

== ENCOUNTER 2024-10-11 15:50 | Outpatient (AMB) | payer OTHER, SELFPAY ==
--- NOTE | 2024-10-11 16:02 | A.OFFVIS_ITS ---
Vital Signs 10/11/24 16:03 Height 5 ft 5 in Weight 224 lb 13.944 oz BMI 37.4 BP 119/71 Blood Pressure Location Rt brachial Position Sitting Pulse 104 H Intake Visit Reasons: CIC GERD Intake Note: Patient in office today in follow up of CIC and GERD. CC: Patient states that she gets LUQ abd pain almost always. Development Scientist Required: No Accompanied by: Family/Other Allergies aspirin [ASPIRIN] Allergy (Unknown, Verified 10/11/24 16:09) UNKNOWN REACTION PER PT. HPI HPI CIC GERD: Details: Assessment & Plan (1) Tubular adenoma of colon: Comment: 04/2024= 1 TA repeat in 5 years; 2019 scope = 3 TA repeat 3-4 years Code(s): D12.6 - Benign neoplasm of colon, unspecified Category: Medical (2) Abdominal cramping: Code(s): R10.9 - Unspecified abdominal pain Category: Medical (3) GERD (gastroesophageal reflux disease): Code(s): K21.9 - Gastro-esophageal reflux disease without esophagitis Category: Medical (4) Chronic idiopathic constipation: Code(s): K59.04 - Chronic idiopathic constipation Category: Medical Plan POLISH #Martine Gaona She is agreeable to a 5 year follow up. The procedure was well tolerated. The results were explained and the patient is agreeable to the follow-up interval as stated. The bowel pattern has returned to normal. Education was provided to tell any 1st degree relatives about their findings to be sure that they are sc reened by age 45. Educated that they will be put on a recall list when it is time for their repeat scope but should they move out of state or away from the hospital they will need to remember along with their primary to repeat the procedure in a timely fashion to avoid any adverse complications. She continues to have bilateral flank cramping. This did not respond to bentyl, so this makes me question if this is bowel vs musculoskeletal. I have her stop the bentyl and start imipramine as this has benefits for both IBS and msksk pain. Otherwise she is moving her bowels well with soft stools. (Mother is my pt and she is having dysphagia and bloating with food sticking both in the upper esophagus and GE jxn. Ask to chela her in with her dtr in 6 weeks. ) ROV with her mother in 6 weeks. Medications: New imipramine HCl 10 mg PO BEDTIME 30 tabs 3RF 30 days R10.9 - Unspecified abdominal pain Refilled metoclopramide HCl (Reglan) 10 mg PO QIDACHS 120 tabs 6RF gccrtu-mqjlgppy-njzjsyb 24,000-76,000 -120,000 unit (Creon) 1 cap PO QID 120 ca ps 6RF linaclotide (Linzess) 290 mcg PO QAM 30 caps 6RF K59.04 - Chronic idiopathic constipation dexlansoprazole 60 mg PO DAILY 30 caps 6RF K59.04 - Chronic idiopathic constipation Discontinued bisacodyl (Dulcolax (bisacodyl)) Discontinued Reason: Patient Completed Course 10 mg (2 x 5 mg) PO BEDTIME 2 days 4 tabs 0RF dicyclomine Discontinued Reason: Doctor's Order 20 mg PO QID 360 tabs 1RF TODAY'S VISIT POLISH #V live She continues to have the left side abd pain, at times in the abd and at times in the back. BUT she never received the imipramine, so we don't know any more than at the last visit. I'm unsure if this is a musculskeletal problem or a GI problems. She also has widespread chronic pain which makes the dx difficult. She would like and US of the area, and this certainly would not be harmful although I'm unsure what if any pathology it may uncover. i will order it. ROV next avail. [facility] Medical History (Updated 10/11/24 @ 16:28 by JULIANA Rainey) Oropharyngeal dysphagia Acute bronchitis Right upper quadrant abdominal pain Numbness of left foot Back pain Radiculopathy Fracture of left tibial plateau Pre-op examination Palpitations Chest pain Cardiomyopathy Left flank pain Myalgia, multiple sites Reactive airway disease ANTHONY (obstructive sleep apnea) Small bowel motility disorder Bile reflux gastritis Small intestinal bacterial overgrowth Abdominal pain Anxiety Chest tightness Tachycardia Upper abdominal pain GERD (gastroesophageal reflux disease) Chronic idiopathic constipation Surgical History (Updated 04/19/24 @ 11:58 by JULIANA Rainey) History of cardiac cath Hx of cholecystectomy Hx of endoscopy History of colonoscopy Family History Father No problems noted. Mother Arthritis Social History Household Members: Children Are you a primary healthcare risk control consultant to a significant other at home: No Do you presently have visiting nurse or other home services: No Alcohol intake: current Alcohol intake frequency: holidays/special occasions only Patient Tobacco Use Status: Never used Tobacco Current occupational status: unemployed Review of Systems Const Denies fatigue, Denies fever(s), Denies night sweats, Denies poor appetite and Denies weight loss Eyes Details: Glasses Reports requires corrective lenses ENT Reports Normal hearing present, Denies dental pain, Denies dysphagia, Denies hearing loss, Denies mouth pain, Denies odynophagia, Denies throat swelling, Denies tongue swelling and Reports other (Dentition adequate) Card Reports no additional complaints Resp Reports no additional complaints GI Details: Reports abdominal pain, Denies melena, Denies bloating, Denies hematochezia, Reports constipation, Denies GI cramping, Denies dysphagia, Denies excessive flatus, Reports early satiety, Reports heartburn, Denies diarrhea, Denies nausea, Denies odynophagia, Denies vomiting and Denies hematemesis Musc Reports back pain, Reports myalgias, Reports arthralgias, Reports stiffness and Reports tingling Skin/Breast Denies pruritus, Denies lesions, Denies rash and Denies jaundice Neuro Reports Normal hearing present, Denies Abnormal speech present and Reports tingling Endo Denies fatigue Aller/Immun Denies throat swelling and Denies tongue swelling Physical Exam Vital Signs: Last Vital Signs Pulse 104 H 10/11/24 16:03 BP 119/71 10/11/24 16:03 BMI result Body Mass Index 37.4 Const General: cooperative, no acute distress, well developed and well groomed Nutritional Appearance: well nourished and obese Orientation/consciousness: oriented to person, oriented to place and oriented to time Limitations: language barrier and other limitations HEENT Head: Yes normocephalic and Yes atraumatic Eyes General: appearance normal, both eyes and all related structures Pupils: Equal, round and reactive pupils present Neck Neck: Yes normal visual inspection and Yes no lymphadenopathy Thyroid: Thyroid normal Resp Effort & Inspection: normal respiratory effort and able to speak in complete sentences Auscultation: clear to auscultation bilaterally Cardio Rate: regular rate Rhythm: regular rhythm Heart sounds: Normal, physiologic split S2 sound present Peripheral pulses: radial pulses present and posterior tibial pulses present GI Inspection: No distended, Yes Abdominal panniculus present and Yes obesity Palpation (GI): Soft to palpation, nontender, no guarding, not rigid and No hepatosplenomegaly present Percussion: Yes normal to percussion Auscultation: normal bowel sounds Rectal Exam - Female: deferred Skin General skin exam: no rashes or lesions noted, turgor normal, skin not dry, no jaundice, No spider nevi and no striae Rashes: no rashes Nails: normal Neuro General: oriented to person, oriented to place and oriented to time Cranial nerves: Yes Equal, round and reactive pupils present and Yes Normal hearing present Speech: No Abnormal speech present Extrem General: Yes normal to inspection, No clubbing, No cyanosis and No edema Psych Appearance: grossly normal and well kempt Mental Status: mental status grossly normal Speech and movement: Normal speech and movement present Affect: normal affect Attitude: cooperative Thought process: Normal thought process present and not confabulating Thought content: Normal thought content present Insight: Poor insight present (Psych) Judgement: Poor judgement present (Psych) Assessment & Plan Assessment & Plan (1) Left sided abdominal pain: Code(s): R10.9 - Unspecified abdominal pain Category: Medical (2) GERD (gastroesophageal reflux disease): Code(s): K21.9 - Gastro-esophageal reflux disease without esophagitis Category: Medical (3) Chronic idiopathic constipation: Code(s): K59.04 - Chronic idiopathic constipation Category: Medical (4) Abdominal cramping: Code(s): R10.9 - Unspecified abdominal pain Category: Medical (5) Myofascial muscle pain: Code(s): M79.18 - Myalgia, other site Category: Medical (6) Chronic pain syndrome: Code(s): G89.4 - Chronic pain syndrome Category: Medical (7) Radiculopathy, lumbar region: Code(s): M54.16 - Radiculopathy, lumbar region Category: Medical (8) Lumbar spondylosis: Code(s): M47.816 - Spondylosis without myelopathy or radiculopathy, lumbar region Category: Medical Plan POLISH #V live She continues to have the left side abd pain, at times in the abd and at times in the back. BUT she never received the imipramine, so we don't know any more than at the last visit. I'm unsure if this is a musculskeletal problem or a GI problems. She also has widespread chronic pain which makes the dx difficult. She would like and US of the area, and this certainly would not be harmful although I'm unsure what if any pathology it may uncover. i will order it. She continues on Dexilant, Creon, Reglan, Linzess 290, and simethicone. ROV next avail. Orders: Orders US abdomen complete Today R10.9 - Unspecified abdominal pain Medications: Refilled imipramine HCl 10 mg PO BEDTIME 30 tabs 6RF 30 days R10.9 - Unspecified abdominal pain Coding Level of Care Code Est Pt Level 3 (44216) Diagnoses Left sided abdominal pain R10.9 GERD (gastroesophageal reflux disease) K21.9 Chronic idiopathic constipation K59.04 Abdominal cramping R10.9 Myofascial muscle pain M79.18 Chronic pain syndrome G89.4 Radiculopathy, lumbar region M54.16 Lumbar spondylosis M47.816
[2024-10-11 16:03] VITALS: BP 119/71; PULSE 104; BMI 37.4
--- OUTSIDE RECORDS SUMMARY | 2024-10-11 17:36 | XMS_ITS | Encounter Summary ---
Author Organization [employer] Address [address] [place] [address] 7 [place] [address] Care Team Providers Care Intelligence Group Supervisor Name Role Phone Jane Piedra MD Primary Care Provider + Reason for Visit * Reason Comments Med Refill Encounter Details Date Type Department Care Team ([facility] st Contact Info) Description 03/25/2024 Refill [facility] MEDICINE [address] [place], [place] [phone] Jane Piedra MD [address] [place], [place] [phone] Chronic idiopathic constipation; Gastro-esophageal reflux disease without [...] 10/12/2024 11:15 AM EDT Office Visit [facility] MEDICINE [address] [place] [address] Jane Piedra MD [address] [place] [address] documented as of this encounter Visit Diagnoses Diagnosis Chronic idiopathic constipation Unspecified constipation Gastro-esophageal reflux disease without esophagitis documented in this encounter Additional Health Concerns Assessment Noted Time PHQ-9 Depression Total Score: 24 024 11:20 AM EDT documented as of this encounter Care Teams Intelligence Group Supervisor Relationship Specialty Start Date End Date Jane Piedra MD [address] [place] [address] PCP - General Family Medicine 02/18/17 documented as of this encounter
--- OUTSIDE RECORDS SUMMARY | 2024-10-11 17:36 | XMS_ITS | Encounter Summary ---
Author Organization [employer] Address [address] [place] [address], [place] [address] Care Team Providers Care Music Assistant Name Role Phone Jane Piedra MD Primary Care Provider + Reason for Visit * Reason Comments Med Refill Encounter Details Date Type Department Care Team ([facility] Contact Info) Description 10/06/2022 Refill [facility] & PEDS [address] [place] [address] Jane Piedra MD [address] [place], [place] [phone] Allergic rhinitis due to other allergic trigger, [...] Upcoming Encounters Date Type Department Care Team ([facility] Contact Info) Description 10/12/2024 11:15 AM EDT Office Visit [facility] MEDICINE [address] [place], [place] [phone] Jane Piedra MD [address] [place] [address] documented as of this encounter Visit Diagnoses Diagnosis Allergic rhinitis due to other allergic trigger, unspecified seasonality documented in this encounter Care Teams Music Assistant Relationship Specialty Start Date End Date Jane Piedra MD [address] [place] [phone] PCP - General Family Medicine 02/18/17 documented as of this encounter
--- OUTSIDE RECORDS SUMMARY | 2024-10-11 17:36 | XMS_ITS | Encounter Summary ---
Author Organization [employer] Address [address] [place] [address] 7t [place] [address] Care Team Providers Care Manager Outreach Name Role Phone Jane Piedra MD Primary Care Provider + Reason for Visit * Reason Comments Med Refill Encounter Details Date Type Department Care Team (Late st Contact Info) Description 01/24/2024 Refill [facility] MEDICINE [address] [place], [place] [phone] Name, MD Adarsh [address] [place], [place] [phone] Other cardiac arrhythmia Social History Tobacco Use [...] Description 10/12/2024 11:15 AM EDT Office Visit [facility] MEDICINE [address] [place] [address] Jane Piedra MD [address] [place] [address] documented as of this encounter Visit Diagnoses Diagnosis Other cardiac arrhythmia documented in this encounter Additional Health Concerns Assessment Noted Time PHQ-9 Depression Total Score: 24 024 11:20 AM EDT documented as of this encounter Care Teams Manager Outreach Relationship Specialty Start Date End Date Jane Piedra MD [address] [place] [address] PCP - General Family Medicine 02/18/17 documented as of this encounter
--- OUTSIDE RECORDS SUMMARY | 2024-10-11 17:36 | XMS_ITS | Encounter Summary ---
Author Organization [employer] Address [address] [facility] 7t [place] [address] Care Team Providers Care Clinical Project Assistant Name Role Phone Jane Piedra MD Primary Care Provider + Reason for Visit * Reason Comments Med Refill Encounter Details Date Type Department Care Team ([facility] st Contact Info) Description 05/29/2023 Refill [facility] CH[facility] MED & PEDS [address] [place] [address] Jane Piedra MD [address] [place] [address] Allergic rhinitis due to other allergic trigger, [...] 11:15 AM EDT Office Visit [facility] MEDICINE [address] [place] [address] Jane Piedra MD [address] [place] [address] documented as of this encounter Visit Diagnoses Diagnosis Allergic rhinitis due to other allergic trigger, unspecified seasonality documented in this encounter Care Teams Clinical Project Assistant Relationship Specialty Start Date End Date Jane Piedra MD [address] [place] [phone] PCP - General Family Medicine 02/18/17 documented as of this encounter
--- OUTSIDE RECORDS SUMMARY | 2024-10-11 17:36 | XMS_ITS | Encounter Summary ---
Author Organization [employer] Address [address] [place] [address] 7 [place] [address] Care Team Providers Care Welder Gun Name Role Phone Jane Piedra MD Primary Care Provider + Reason for Visit * Reason Onset Date Comments Appointment Request 06/03/2023 Encounter Details Date Type Department Care Team ([facility] Contact Info) Description 06/03/2023 Telephone [facility] MEDICINE [address] [place], [place] [phone] Jane Piedra MD [address] [place], [place] [phone] Appointment Request Social History Tobacco Use Types [...] by PCP . Please contact pt at [phone] Dutch Speaker documented in this encounter Plan of Treatment Upcoming Encounters Date Type Department Care Team (Late st Contact Info) Description 10/12/2024 11:15 AM EDT Office Visit [facility] MEDICINE [address] [place] [address] Jane Piedra MD [address] [place] [address] documented as of this encounter Visit Diagnoses Not on filedocumented in this encounter Care Teams Welder Gun Relationship Specialty Start Date End Date Jane Piedra MD [address] [place] [address] PCP - General Family Medicine 02/18/17 documented as of this encounter
--- OUTSIDE RECORDS SUMMARY | 2024-10-11 17:36 | XMS_ITS | Encounter Summary ---
Author Organization [employer] Address [address] [facility] 7t [place] [address] Care Team Providers Care Horse Buyer Name Role Phone Jane Piedra MD Primary Care Provider + Encounter Details Date Type Department Care Team ([facility] st Contact Info) Description 07/20/[address] [facility] MEDICINE [address] [place], [place] [phone] Jane Piedra MD [address] [place], [place] [phone] Social History Tobacco Use Types Packs/Day Years [...] 11:15 AM EDT Office Visit [facility] MEDICINE [address] [place] [address] Jane Piedra MD [address] [place] [address] documented as of this encounter Procedures Procedure Name Priority Date/Time Associated Diagnosis Comments COLONOSCOPY Routine 08/30/2019 1:34 PM EST documented in this encounter Visit Diagnoses Not on filedocumented in this encounter Additional Health Concerns Assessment Noted Time PHQ-9 Depression Total Score: 17 024 9:32 AM EST documented as of this encounter Care Teams Horse Buyer Relationship Specialty Start Date End Date Jane Piedra MD [address] [place] [phone] PCP - General Family Medicine 02/18/17 documented as of this encounter
--- OUTSIDE RECORDS SUMMARY | 2024-10-11 17:37 | XMS_ITS | Encounter Summary ---
Author Organization [employer] Address [address] [place] [address] 7 [place] [address] Care Team Providers Care Whiting Can Worker Name Role Phone Jane Piedra MD Primary Care Provider + Reason for Visit * Reason Comments Med Refill Encounter Details Date Type Department Care Team ([facility] st Contact Info) Description 10/05/2024 Refill [facility] MEDICINE [address] [place], [place] [phone] Jane Piedra MD [address] [place], [place] [phone] Social History Tobacco Use Types Packs/Day Years [...] Description 10/12/2024 11:15 AM EDT Office Visit [facility]INE [address] [place] [address] Jane Piedra MD [address] [place] [address] documented as of this encounter Visit Diagnoses Not on filedocumented in this encounter Additional Health Concerns Assessment Noted Time PHQ-9 Depression Total Score: 24 024 11:20 AM EDT documented as of this encounter Care Teams Whiting Can Worker Relationship Specialty Start Date End Date Jane Piedra MD [address] [place] [address] PCP - General Family Medicine 02/18/17 documented as of this encounter
--- OUTSIDE RECORDS SUMMARY | 2024-10-11 17:37 | XMS_ITS | Encounter Summary ---
Author Organization [employer] Address [address] [place] [address] 7 [place] [address] Care Team Providers Care Control Manager Name Role Phone Jane Piedra MD Primary Care Provider + Reason for Visit * Reason Comments Med Change Request Encounter Details Date Type Department Care Team ([facility] st Contact Info) Description 07/11/2024 Refill [facility] MEDICINE [address] [place], [place] [phone] Jane Piedra MD [address] [place], [place] [phone] Obesity (BMI 35.0-39.9 without comorbidity) Social History [...] Visit [facility] MEDICINE [address] [place] [address] Jane Piedra MD [address] [place] [address] documented as of this encounter Visit Diagnoses Diagnosis Obesity (BMI 35.0-39.9 without comorbidity) documented in this encounter Additional Health Concerns Assessment Noted Time PHQ-9 Depression Total Score: 24 024 11:20 AM EDT documented as of this encounter Care Teams Control Manager Relationship Specialty Start Date End Date Jane Piedra MD [address] [place] [address] PCP - General Family Medicine 02/18/17 documented as of this encounter
--- OUTSIDE RECORDS SUMMARY | 2024-10-11 17:37 | XMS_ITS | Encounter Summary ---
Author Organization [facility] Address [address] [place] [address] 7[place], [place] [address] Care Team Providers Care Rib Stiffener And Heel Dipper Name Role Phone Jane Piedra MD Primary Care Provider + Encounter Details Date Type Department Care Team (Late st Contact Info) Description 05/19/[address] [facility] MEDICINE [address] [place] [phone] ProviderRaffaele MD Social History Tobacco Use Types [...] AM EDT Office Visit [facility] MEDICINE [address] [place] [address] Jane Piedra MD [address] [place] [address] documented as of this encounter Visit Diagnoses Not on filedocumented in this encounter Care Teams Rib Stiffener And Heel Dipper Relationship Specialty Start Date End Date Jane Piedra MD [address] [place] [address] PCP - General Family Medicine 02/18/17 documented as of this encounter
--- OUTSIDE RECORDS SUMMARY | 2024-10-11 17:37 | XMS_ITS | Encounter Summary ---
Author Organization [facility] Address [address] [place] [address], [place] [address] Care Team Providers Care Workers Compensation Consultant Name Role Phone Jane Piedra MD Primary Care Provider + Encounter Details Date Type Department Care Team (Late st Contact Info) Description 05/19/2022 Orders Only [facility] MEDICINE [address] [place] [phone] Selin Alston RN [address] [place] [address] Social History Tobacco Use Types Packs/Day Years [...] Description 10/12/2024 11:15 AM EDT Office Visit [facility] MEDICINE [address] [place] [address] [phone] Jane Piedra MD [address] [place] [address] [phone] documented as of this encounter Visit Diagnoses Not on filedocumented in this encounter Care Teams Workers Compensation Consultant Relationship Specialty Start Date End Date Jane Piedra MD [address] [place] [phone] PCP - General Family Medicine 02/18/17 documented as of this encounter
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
--- OUTSIDE RECORDS SUMMARY | 2024-10-11 17:37 | XMS_ITS | Encounter Summary ---
Author Organization [employer] Address [address] [place] [address] [address] [place] [address] Care Team Providers Care Yoga Teacher Name Role Phone Jane Piedra MD Primary Care Provider + Reason for Visit * Reason Onset Date Comments Chart prep 10/11/2024 Encounter Details Date Type Department Care Team ([facility] st Contact Info) Description 10/11/2024 Telephone [facility] [address] [place], [place] [phone] Jane Piedra MD [address] [place], [place] [phone] Chart prep Social History Tobacco Use Types Packs/Day Years [...] encounter Miscellaneous Notes * Telephone Encounter - Megan Villareal [place] - 10/11/2024 8:40 AM EDT Chart Prep Labs: done Images: done Vaccines due: yes Referrals: complete Screenings: Up to date Overdue care gaps: PHQ-9 documented in this encounter Plan of Treatment Upcoming Encounters Date Type Department Care Team (Late st Contact Info) Description 10/12/2024 11:15 AM EDT Office Visit [facility] [address] [place] [phone] Jane Piedra MD [address] [place] [phone] documented as of this encounter Visit Diagnoses Not on filedocumented in this encounter Additional Health Concerns Assessment Noted Time PHQ-9 Depression Total Score: 24 024 11:20 AM EDT documented as of this encounter Care Teams Yoga Teacher Relationship Specialty Start Date End Date Jane Piedra MD [address] [place] [address] PCP - General Family Medicine 02/18/17 documented as of this encounter
--- OUTSIDE RECORDS SUMMARY | 2024-10-11 17:37 | XMS_ITS | Encounter Summary ---
Author Organization [facility] Address [address] [place] [address] [address], [place] [address] Care Team Providers Care Specialized Developer Name Role Phone Jane Piedra MD Primary Care Provider + Reason for Visit * Reason Comments Med Refill Encounter Details Date Type Department Care Team (Late Contact Info) Description 02/25/2023 Refill [facility] [address] [place], [place] [phone] Jane Piedra MD [address] [place], [place] [phone] Social History Tobacco Use Types Packs/Day Years [...] Description 10/12/2024 11:15 AM EDT Office Visit [facility] [address] [place], [place] [phone] Jane Piedra MD [address] [place], [place] [phone] documented as of this encounter Visit Diagnoses Not on filedocumented in this encounter Care Teams Specialized Developer Relationship Specialty Start Date End Date Jane Piedra MD [address] [place] [phone] PCP - General Family Medicine 02/18/17 documented as of this encounter
--- OUTSIDE RECORDS SUMMARY | 2024-10-11 17:37 | XMS_ITS | Data Portability ---
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 I have reviewed and agree with the Assessment and Plan as documented by the Testing Consultant. Patient given the opportunity to ask questions. Our service contacted for an assessment of: Viral URI symptoms and possible asthma exacerbation As per above, patient with approximately several days of viral URI symptoms. Denies fever or chills. Denies chest pain, shortness of breath, dyspnea on exertion. Positive nasal congestion and dry cough. Positive sick contacts. Also feels like is exacerbated asthma. Per gum machine filler on the scene, vital signs are stable and patient is afebrile. No wheezing heard on exam. COVID and Flu are both negative. No increased work of breathing and no distress. Impression: Common cold and likely asthma exacerbation Plan: Continue with tigu-[id number]-[id number] medications to control symptoms. Additionally will prescribe prednisone 40 mg in the field x1 with 40 mg for the next 4 days sent to her pharmacy. Additionally she needs a refill of albuterol nebs which were prescribed for her. I have also included a prescription for Mucinex to see if she would benefit from an ozfv-thx-pzxdlod solution for congestion. Red flags discussed as to when to seek a higher level care. Allergies: Reviewed PCP f/u: We discussed the diagnostic uncertainty of home visits and the risk associated with this. In this case, the patient and I felt this to be an acceptable and reasonable amount of risk given the benefit of avoiding an ED visit. We discussed the need to seek care urgently/emergen tly in the setting of any new or worsening serious symptoms, particularly fever chills [email or web address] Not available 08/23/2024 22:08:17 Plan of Treatment Reminders Order Date Submit Date Provider Last Modified By Organization Details Last Modified Time Details Appointments None recorded. Lab rapid SARS CoV 2 Ag, QL IA, respiratory specimen [address], [address] [place] [address], [id number] 5 22:06:41 rapid flu (A+B) [address], [address] [place] [address], [id number] 5 22:06:41 rapid flu (A+B) 2022 023 [facility], [address] [place] [address], [id number] 3 13:41:16 rapid SARS CoV 2 Ag, QL IA, respiratory specimen 2022 023 [facility], [address] [place] [address], [id number] 3 13:41:18 Referral None recorded. Procedures None recorded. Surgeries None recorded. Imaging electrocard iogram 2022 023 [facility], [address] [place] [address], [id number] 3 13:41:14 Medication Orders prednisone 20 mg tablet [address]/[facility]armacy #[id number], [address] [place], [address], 5 22:06:41 prednisone 20 mg tablet 2024 025 [facility]/Pharmacy #[id number], [address] [place], [address], 5 22:06:43 albuterol sulfate 2.5 mg/3 mL (0.083 %) solution for nebulizatio n 2024 025 [facility]/Pharmacy #[id number], [address] [place], [address], 5 22:09:42 Mucinex 600 mg tablet, extended release 2024 025 [facility]/Pharmacy #[id number], [address] [facility] [place], [address], 5 22:09:42 ipratropium 0.5 mg-albutero l 3 mg (2.5 mg base)/3 mL nebulizatio n soln 2022 023 [email or web address] Not available 13:41:14 Patient TargetsNo targets recorded. Patient InstructionsNo instructions recorded. Reason for Referral None Reported. Results Created Date Observation Date Name Description Value Unit Range Abnormal Flag Note LastModifiedBy Organization Detail LastModifiedTime 05/21/2005/21/2023 rapid SARS CoV 2 Ag, QL IA, respi rator y speci men rapid SARS CoV 2 Ag, QL IA, respiratory specimen negati ve Not Available Main - [facility] ed [address] [place] [address], [id number] 05/21/2023 13:40:19 05/21/20 23 05/21/2023 rapid flu (A+B) Flu negati ve Not Available Main - [facility] ed [address] [place] [address], [id number] 05/21/2023 13:40:18 08/23/19 25 08/23/2024 rapid flu (A+B) Flu negati ve Not Available Main - [facility] ed [address] [place] [address], [id number] 08/23/2024 22:05:33 08/23/19 25 08/23/2024 rapid SARS CoV 2 Ag, QL IA, respi rator y speci men rapid SARS CoV 2 Ag, QL IA, respiratory specimen negati ve Not Available Main - [facility] [address] [place] [address], [id number] 08/23/2024 22:05:33 05/21/20 23 gricel boss am No observ ation record ed. [email or web address] Main - [facility] [address] [place] [address], [phone] 05/21/2023 13:41:05 Result Notes None recorded. Procedures Surgical History None recorded. Imaging Results Imaging Date Name Status LastModified by Organization Details LastModified Time 05/21/2023 electrocardiogram completed danica Fletcher - [facility] [address] [place] [address], [place], [phone] 05/21/2023 13:41:05 Procedure Notes None recorded. Medical Equipment None Reported. Allergies Allergen ID Allergen Name Allergen Category Reaction Reaction Severity Criticality Documentation Date Start Date Code Code System Note Provider Name and Address Organization Details Recorded Time 7212 aspirin medicatio n Not available Not available Not available 05/02/2024 1191 RxNorm Not Available [facility] - production 03:36:15 Medications Name Sig Start Date Stop Date Status Note LastModified by Organization Details LastModified Time cyclobenzapr ine 10 mg tablet TAKE 1 TABLET BY MOUTH DAILY AT BEDTIME FOR 10 DAYS active Not Available Not Available Not Available amoxicillin 500 mg capsule TAKE 1 CAPSULE BY MOUTH EVERY 8 HOURS active Not Available Not Available No t Available terconazole 0.4 % vaginal cream INSERT VAGINALLY AT BEDTIME FOR 3 DAYS active Not Available Not Available N ot Available venlafaxine ER 75 mg capsule,exte nded release 24 hr TAKE 1 CAPSULE BY MOUTH EVERY MORNING active Not Available Not Available No t Available gabapentin 600 mg tablet TAKE 1 TABLET BY MOUTH THREE TIMES A DAY active Not Available Not Available Not Available tizanidine 2 mg tablet TAKE 1 TABLET BY MOUTH THREE TIMES A DAY NEEDED FOR MUSCLE SPASMS active Not Available Not Available No t Available albuterol sulfate 2.5 mg/3 mL (0.083 %) solution for nebulization INHALE 3 MLS ( 1 VIAL) BY NEBULIZATIO N 4 TIMES A DAY active Not Available Not Available No t [...] active Not Available Not Available Not Available senna 8.6 mg tablet TAKE 2 TABLETS BY MOUTH two (2) times a day active Not Available Not Available No t Available phenazopyrid ine 200 mg tablet TAKE 1 TABLET BY MOUTH THREE TIMES A DAY NEEDED FOR DISCOMFORT WITH URINATION X6 DOSES active Not Available Not Available No t Available prednisone 20 mg tablet TAKE 2 TABLETS BY MOUTH EVERY DAY FOR 4 DAYS active Not Available Not Available No t Available clonazepam 1 mg tablet TAKE 1 TABLET BY MOUTH 3 (THREE) TIMES A DAY active Not Available Not Available Not Available naproxen 250 mg tablet PLEASE SEE ATTACHED FOR DETAILED DIRECTIONS active Not Available Not Available N ot Available topiramate 25 mg tablet TAKE 1 TABLET (25 MG) BY MOUTH EVERY 12 (TWELVE) HOURS. active Not Available Not Available No t Available lithium carbonate 150 mg capsule TAKE 1 CAPSULE BY MOUTH IN THE EVENING active Not Available Not Available Not Available metronidazol e 500 mg tablet TAKE 1 TABLET BY MOUTH TWICE A DAY FOR 7 DAYS active Not Available Not Available No t Available valacyclovir 500 mg tablet TAKE 1 TABLET BY MOUTH two (2) times a day active Not Available Not Available No t Available acetaminophe n 500 mg tablet PLEASE SEE ATTACHED FOR DETAILED DIRECTIONS active Not Available Not Available N ot Available acetaminophe n ER 650 mg tablet,exten ded release TAKE 1 TABLET ORALLY EVERY 12 HOURS NEEDED FOR PAIN (SCALE SCORE 1-3) active Not Available Not Available N ot Available cefadroxil 500 mg capsule TAKE 1 CAPSULE BY MOUTH 2 TIMES DAILY FOR 7 DAYS. active Not Available Not Available Not Available prednisolone acetate 1 % eye drops,suspen blayne INSTILL 1 DROP INTO RIGHT EYE EVERY HOUR SHAKE WELL. USE EVERY HOUR WHILE AWAKE. active Not Available Not Available No t Available metocloprami de 5 mg tablet TAKE 1 TABLET BY MOUTH 4 TIMES A DAY BEFORE MEALS AND BEDTIME active Not Available Not Available No t Available dicyclomine 20 mg tablet TAKE 1 TABLET BY MOUTH 4 TIMES A DAY active Not Available Not Available Not Available lithium carbonate 300 mg capsule TAKE 1 CAPSULE BY MOUTH EVERY EVENING active Not Available Not Available No t Available gabapentin 300 mg capsule TAKE 1 CAPSULE BY MOUTH 3 (THREE) TIMES A DAY active Not Available Not Available Not Available bisacodyl 5 mg tablet,delay ed release PLEASE SEE ATTACHED FOR DETAILED DIRECTIONS active Not Available Not Available N ot Available gabapentin 100 mg capsule TAKE 1 CAPSULE BY MOUTH 3 (THREE) TIMES A DAY active Not Available Not Available Not Available ibuprofen 600 mg tablet TAKE 1 TABLET BY MOUTH EVERY 6 HOURS NEEDED FOR PAIN active Not Available Not Available No t Available imipramine 10 mg tablet active Not Available Not Available Not Available [...] active Not Available Not Available Not Available metocloprami de 10 mg tablet TAKE 1 TABLET BY MOUTH 4 (FOUR) TIMES DAILY BEFORE MEALS AND AT BEDTIME active Not Available Not Available N ot Available Oyster Shell Calcium-Melva min D3 500 mg-5 mcg (200 unit) tablet TAKE 1 TABLET BY MOUTH two (2) times a day active Not Available Not Available No t Available Premarin 0.625 mg/gram vaginal cream PLACE 1 APPLICATOR VAGINALLY TWICE A WEEK. active Not Available Not Available No t Available metoprolol tartrate 25 mg tablet TAKE 1 TABLET BY MOUTH two (2) times a day Dose increased active Not Available Not Available No t [...] release,mult iphase TAKE 1 TABLET BY MOUTH AT BEDTIME NEEDED FOR SLEEP active Not Available Not Available No t Available chlorhexidin e gluconate 0.12 % mouthwash SWISH BY MOUTH WITH 15 ML (UNDILUTED) FOR 30 SECONDS, THEN SPIT (AFTER BREAKFAST AND BEFORE BEDTIME) active Not Available Not Available No t Available Antacid Extra Strength 300 mg (as calcium carb 750 mg) chewable tablet TAKE 1 TABLET BY MOUTH 3 TIMES A DAY BEFORE MEALS NEEDED FOR PAIN active Not Available Not Available No t Available diclofenac 1 % topical gel APPLY 2 G TOPICALLY EVERY 6 HOURS EVERY DAY TO THE AFFECTED AREA active Not Available Not Available No t Available dexlansopraz ole 60 mg capsule,biph ase delayed release TAKE 1 CAPSULE BY MOUTH ONCE DAILY active Not Available Not Available No t Available GaviLyte-G 236 gram-22.74 gram-6.74 gram-5.86 gram oral solution PLEASE SEE ATTACHED FOR DETAILED DIRECTIONS active Not Available Not Available N ot Available Creon 24,000-76,00 0-120,000 unit capsule,nita yed release TAKE 1 CAPSULE BY MOUTH 4 (FOUR) TIMES DAILY active Not Available Not Available Not Available D3-2000 50 mcg (2,000 unit) capsule TAKE 1 CAPSULE BY MOUTH ONCE DAILY active Not Available Not Available No t Available Mucus Relief ER 600 mg tablet, extended release TAKE 1 TABLET BY MOUTH EVERY 12 HOURS FOR 10 DAYS active Not Available Not Available Not Available lurasidone 80 mg tablet TAKE 1 [...] Not Available Not Available No t Available Trintellix 20 mg tablet TAKE 1 TABLET BY MOUTH AT BEDTIME active Not Available Not Available No t Available Zepbound 2.5 mg/0.5 mL subcutaneous pen injector INJECT 0.5 ML (2.5 MG) UNDER THE SKIN 1 (ONE) TIME PER WEEK. active Not Available Not Available No t Available Vitals Date Recorded Oxygen saturation Oxygen saturation in Arterial blood by Pulse oximetry Body temperature Respiratory rate Heart rate Systolic blood pressure Diastolic blood pressure Provider Name and Address Organization Details Last Updated DateTime 3 98 % 98 % 98.1 [degF] 18 /min 93 /min 130 mm[Hg] 85 mm[Hg] Not Available [employer] 3 11:07:54 Date Recorded Body height Body weight Respiratory rate Body temperature Heart rate Oxygen saturation Oxygen saturation in Arterial blood by Pulse oximetry Systolic blood pressure Diastolic blood pressure Provider Name and Address Organization Details Last Updated DateTime 5 165.1 cm 786749. 792 g 18 /min 98.6 [degF] 108 /min 97 % 97 % 149 mm[Hg] 89 mm[Hg] Not Available [employer] 5 17:24:25 Social History None recorded. Functional Status None recorded. Mental Status None recorded. Family History Nothing Reported. Medical History No medical history recorded. Gynecological HistoryNo gynecological history recorded. Obstetrics History GPAL:G 0 P 0 0 0 0 Past Encounters Encounter ID Performer Location Encounter Start Date Encounter Closed Date Diagnosis/Indication Diagnosis SNOMED-CT Code Diagnosis ICD10 Code Diagnosis Note [id number] Jerome Shearer MD Main - [address] [phone] 05/21/2023 11:07:44 05/23/2023 15:40:57 Acute upper respiratory infection 19162011 J06.9 Patient reports URI symptoms. COVID and Influenza obtained and negative. Reports at least several days of sharp, seconds-lo ng chest pain, not associated with activity nor respiratio ns. EKG without ischemia. Provided with DuoNeb and advised PCP follow-up for chest pain evaluation . [id number] Susanna Germain MD Main - [facility] [address] [place] [phone] 08/23/2024 17:24:23 08/24/2024 08:56:23 Common cold 29661995 J00 Exacerbati on of intermittent asthma 112968248 J45.21 Health Concerns Section Related Observation LastModified by Organization Detai ls LastModified Time None Recorded Concern Status LastModified by Organization Details LastModified Time None Recorded Advance Directives Directive None Recorded Payers Encounter Date Sequence Insurance Name Policy Number Policy Cummings Covered Member ID Cummings Member ID Guarantor Name 05/21/2023 1 [facility] - DOS ON OR AFTER 2022 - DUAL ELIGIBLE - CORRECTION OPTIONS AND ONE CARE (MEDICARE REPLACEMENT/ADV ANTAGE - HMO) [facility] [id number] Jesica Boothe 08/23/2024 1 [facility] - DOS ON OR AFTER 2022 - DUAL ELIGIBLE - CORRECTION OPTIONS AND ONE CARE (MEDICARE REPLACEMENT/ADV ANTAGE - HMO) [facility] [id number] [facility] Notes Date Note Type Note Provider Name [...] .................. .................. .................. .................. .................. .................. ............... Testing Consultant Note From Kelly Bardales: Upon arrival pt [...] on right side. No fever is noted. [facility] contacted and duoneb administered. Pt is Covid and flu negative. After duoneb, bilateral breath sounds reveal right side wheezing. A 12 lead EKG reveals no ST elevations. PT was advised to continue neb treatments when needed and if SOB increases despite treatment to be evaluated in the ED. Pt was also advised to contact her heart nurse regarding chest pain. Call was then cleared. Testing Consultant Allergies: Aspirin .................. .................. .................. .................. .................. .................. .................. ............... Disposition: Fulfilled Jerome Shearer MD [address] [facility],[address], [place], [phone], [employer] 05/21/2023 13:41:31 08/23/2024 text/html CRC Nurse Triage Notes (Jessica Boyd - RN): Reason For Request: Pt has cold symptoms and is not feeling well Patient Reports: Cough, fever greater than 2 days ; History of asthma, increased use of inhaler; Sputum increase ; Cough Denies: Increased work of breathing/labored ? with or without fever Unable to speak in full sentences without distress Discoloration of skin -cyanosis Needs to sleep sitting up, can? 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 Call was completed with an sanitation associate. She has had symptoms since wednesday. She is having a Curiel, chest pain, and back pain. She has congestion and a cough. She has brown and yellow sputum. She has fever that has resolved. She has no nausea and vomiting. She did have sob but it has resolved. She feels she is chest pain when she is taking deep breaths and feeling the congestion in her chest. She has asthma , has nebs but does not have the medicine for it. She is taking tylenol Education provided on the response time and the Patient was advised to monitor reported s/s and seek emergency treatment if needed Testing Consultant Organization Information for Nicholas Farris [employer] Legal Name: [facility] Address: [address] [place], [place] [address] [address], Government Property Inspector: Jerald CURRAN No.: [id number] Testing Consultant POC Test Results from Nicholas Farris - ALS Rapid COVID antigen (18:33:35) COVID: - Rapid influenza antigen (18:33:36) Flu: - .................. .................. .................. .................. .................. .................. .................. ............... Testing Consultant Note From Nicholas Farris[facility] Pt presents complaining of cough, congestion, and headache. Pt reports getting ill 4 days ago last weekend. Pt's sister also became sick around the same time. Pt reports fever over the weekend but none now. Pt has been relying on her inhaler every 4 hours and taking cough syrup as well. V/S taken with tachycardia noted. Pt afebrile. Rhonchi noted on lung exam. Pt swabbed for flu and covid and found to be negative. Consulted with [facility] Dr. Germain who ordered 40 mg oral prednisone given on scene with additional prednisone sent to the pharmacy. Rx also sent for mucinex and refilled albuterol for pt's nebulizer. Reviewed red flags for ED. Pt education provided. .................. .................. .................. .................. .................. .................. .................. ............... [facility] Consulted: Susanna Germain .................. .................. .................. .................. .................. .................. .................. ............... Disposition: Fulfilled Susanna Germain MD [address] [place] [address],[address], [place], [phone], [employer], [facility] 08/23/2024 22:10:14 OBGyn Episode No OBEpisode recorded.
--- OUTSIDE RECORDS SUMMARY | 2024-10-11 17:37 | XMS_ITS | Encounter Summary ---
Author Organization [employer] Address [address] [place] [address] [address] [place] [address] Care Team Providers Care Power Regulator Name Role Phone Jane Piedra MD Primary Care Provider + Reason for Visit * Reason Onset Date Comments Error 08/03/2023 Encounter Details Date Type Department Care Team ([facility] st Contact Info) Description 08/03/2023 Telephone [facility] [address] [place], [place] [phone] Jane Piedra MD [address] [place], [place] [phone] Error Social History Tobacco Use Types Packs/Day [...] Description 10/12/2024 11:15 AM EDT Office Visit [facility] [address] [place] [address] Jane Piedra MD [address] [place] [phone] documented as of this encounter Visit Diagnoses Not on filedocumented in this encounter Additional Health Concerns Assessment Noted Time PHQ-9 Depression Total Score: 17 024 9:32 AM EST documented as of this encounter Care Teams Power Regulator Relationship Specialty Start Date End Date Jane Piedra MD [address] [place] [address] PCP - General Family Medicine 02/18/17 documented as of this encounter
--- OUTSIDE RECORDS SUMMARY | 2024-10-11 17:37 | XMS_ITS | Clinical Summary ---
Author Organization [facility] Address [address] [place] [phone] Phone Care Team Providers Care Reporting Process Consultant Name Role Phone Unavailable Primary Care Provider Unavailabl e Allergies Active Allergy Reactions Criticality Noted Date Comments Aspirin Other 09/17/2016 Unknown reaction had allergy testing done that confirmed ASA allergy Medications valACYclovir (VALTREX) 500 mg tablet TAKE 1 TABLET BY MOUTH two (2) times a day 60 tablet 6 5 Active zolpidem (AMBIEN) 10 mg tablet Take by mouth at bedtime as needed. Active venlafaxine XR (EFFEXOR-XR) 75 mg 24 hr capsule Take 1 capsule (75 mg total) by mouth 1 (one) time each day in the morning. Active simethicone (MYLICON,GAS-X) 180 mg capsule TAKE ONE CAPSULE BY MOUTH 4 (FOUR) TIMES DAILY 1 Active plecanatide (Trulance) 3 mg tablet Take 1 tablet (3 mg total) by mouth 1 (one) time each day. 1 Active lurasidone (Latuda) 40 mg tablet Take 1 tablet (40 mg total) by mouth 1 (one) time each day. 1 Active Creon 24,000-76,000 -120,000 unit capsule TAKE ONE CAPSULE BY MOUTH 4 (FOUR) TIMES DAILY 1 Active Linzess 290 mcg capsule Take 1 capsule (290 mcg total) by mouth 1 (one) time each day in the morning. 1 Active imipramine (TOFRANIL) 25 mg tablet TAKE 2 TABLETS BY MOUTH DAILY AT BEDTIME 1 Active gabapentin (NEURONTIN) 100 mg capsule TAKE ONE CAPSULE BY MOUTH 3 (THREE) TIMES A DAY 1 Active fluticasone propionate (Flovent Diskus) 100 mcg/actuation diskus inhaler Inhale into the lungs as needed. Active conjugated estrogens (Premarin) vaginal cream Place 1 Applicator vaginally twice a week. 3 Active Dexilant [address] capsule Take 1 capsule (60 mg total) by mouth 1 (one) time each day. 1 Active clonazePAM (KlonoPIN) 0.5 mg tablet Take 1 mg by mouth 2 times daily as needed. Active calcium carbonate-vitam in D (Oysco 500/D) 500 mg-5 mcg (200 unit) per tablet TAKE ONE TABLET BY MOUTH two (2) times a day 1 Active buPROPion XL (WELLBUTRIN XL) 300 mg 24 hr tablet Take 1 tablet (300 mg total) by mouth 1 (one) time each day in the morning. 1 Active Lactobacillus acidophilus (PROBIOTIC ORAL) Take 1 capsule by mouth 1 (one) time each day. 8 Active ALBUTEROL INHL Inhale into the lungs as needed. Active calcium carbonate (CALCIUM ORAL) Take 2 tablets by mouth 1 (one) time each day. Active UNABLE TO FIND Lactobacillus Acid-Pectin (ACIDOPHILUS/CITR US PECTIN) Tab 90 Tab 3 04/24/2019 Sig - Route: Take 1 Tab by mouth daily. - Oral Sent to pharmacy as: Acidophilus/Citru s Pectin Oral Tablet 9 Active Active Problems Problem Noted Date Diagnosed Date Low grade squamous intraepit h lesion on cytologic smear cervix (lgsil) 07/02/2020 Overview (08/04/2024): 06/2020 PAP- LSIL. Neg HPV Per [facility]CC[facility]- repeat co-testing in one year 07/2020 PAP LSIL, HPV not done Plan: [facility] for Colpo- benign 08/2021 Plan: repeat PAP [...] drink = 0.6 oz pur e alcohol) Comments Unknown Sex and Gender Information Value Date Recorded Sex Assigned at Not on file Legal Sex Female 4:34 AM EST Gender Identity Not on file Sexual Orientation [...] EDT Office Visit Obstetrics & Gynecology - [facility] [address] [place] [phone] Mikaela Russo, CNM [address] [place] [address] Health Maintenance Due Date Last Done Comments DTaP,Tdap,and Td Vaccines (1 - Tdap) 1992 Hepatitis B Vaccines (1 of 3 - 19+ 3-dose series) 1992 Colorectal Cancer Screening: Colonoscopy 06/13/2022 Depression Screening 06/13/2022 Social Influencers of Health Screening 06/13/2022 Pneumococcal Vaccine: 50+ Years (1 of 1 - PCV) 2023 Zoster Vaccines (1 of 2) 2023 Breast Cancer Screening 07/30/2023 07/30/2021 COVID-19 Vaccine ( - 2023-2 5 season) 2024 Influenza Vaccine (Season Ended) 2025 Cervical Cancer Screening: HPV 11/07/2028 11/08/2023 HIV [...] patient's age to complete this topic Meningococcal B Vaccine Aged Out No l onger eligible based on patient's age to complete [...] SCREENING Routine 11/08/2023 HIV SCREENING Routine 11/08/2023 [facility] SCREENING DIGITAL Routine 07/30/2021 11:31 AM EST Encounter for screening mammogram for malignant neoplasm of breast from Last 3 Months or Most Recently Relevant to Health Maintenance Results * Cervical Cancer Screening: HPV (11/08/2023) Cervical Cancer Screening: HPV negative,a bstracted Historical Provider HEALTH MAINTENANCE Final Result * HIV Screening (11/08/2023) Pathologist [facility] HIV Screening ABSTRACTED [facility] Provider HEALTH MAINTENANCE Final Result * Hepatitis C Screening (11/08/2023) Hepatitis C Screening ABSTRACTED Historical Provider HEALTH MAINTENANCE Final Result * AYUSH SCREENING DIGITAL (07/30/2021 11:31 AM EST) Anatomical Region Laterality Modality Mammography 07/28/2021 11:0 4 AM EST Narrative 07/30/2021 11:31 AM EST [facility] Diagnostic Imaging Department [address] [place] [id number] Patient: ??PETER,JESICA ?/Age/Sex: 1975 - 46 - F Unit#: ??[id number] ? Location/Status: ??SPDIMAM/REG CLI ? Mnemonic/Ordering Site: ??DIGSC/SPMAM Ordering Physician: ??MIKAELA RUSSO CNM Ayush Screening Digital - 07/28/21 - 1135 INDICATION: SCREENING COMPARISON: [facility] mammograms dating back to ?? 11/02/2013 TECHNIQUE: CC and MLO views of the breasts were obtained, using full field digital mammography with 3D tomosynthesis views in the MLO projection. Computer aided detection with the Dotted Block 7.2-H was employed. FINDINGS: The breasts are [...] date for the next mammogram. (G0202 / [id number]) , ??[id number] Dictating Physician: ??TRENT TIRADO MD Electronically Signed by: ??TRENT TIRADO MD Dic Date/Time: ??07/30/21 1128 Sign date/Time: ??07/30/21 1131 Procedure Note Trent Tirado MD - 06/24/2022 [facility] Diagnostic Imaging Department [address] [place], [place] [id number] Patient: JESICA BOOTHE /Age/Sex: 1975 - 46 - F Unit#: [id number] Location/Status: SPDIMAM/REG CLI Mnemonic/Ordering Site: [facility] Ordering Physician: MIKAELA RUSSO CNM Ayush Screening Digital - 07/28/21 - 1135 INDICATION: SCREENING COMPARISON: [facility] mammograms dating back to 11/02/2013 TECHNIQUE: CC and MLO views of the breasts were obtained, using full field digital mammography with 3D tomosynthesis views in the MLO projection. Computer aided detection with the Dotted Block 7.2-H was employed. FINDINGS: The breasts are [...] a target date for the next mammogram. ([id number] / [id number]) , [id number] Dictating Physician: TRENT TIRADO MD Electronically Signed by: TRENT TIRADO MD Dic Date/Time: 07/30/21 1126 Sign date/Time: 07/30/21 1134 Mikaela Russo CNM IMG BI PROCEDURES Final Resul t from Last 3 Months or Most Recently Relevant to Health Maintenance Insurance [facility] Member Subscriber Plan / Payer (Ef fective 2013-Present) Name:Jesica Boothe Relation to Subscriber:Self Name:Jesica Boothe Payer ID:[id number] Group ID:[id number] Type:Not on file Address: [address] [id number]
--- OUTSIDE RECORDS SUMMARY | 2024-10-11 17:37 | XMS_ITS | Encounter Summary ---
Author Organization [employer] Address [address] [facility] [address] [place] [address] Care Team Providers Care Fabrication Technician Name Role Phone Jane Piedra MD Primary Care Provider + Encounter Details Date Type Department Care Team (Late st Contact Info) Description 06/15/2024 Orders Only [facility] MEDICINE [address] [place] [address] Kristal Monroy Social History Tobacco Use Types [...] 10/12/2024 11:15 AM EDT Office Visit [facility] MEDICINE [address], [place] [phone] Jane Piedra MD [address] [place] [address] documented as of this encounter Procedures Procedure [...] documented as of this encounter Care Teams Fabrication Technician Relationship Specialty Start Date End Date Jane Piedra MD [address] [place] [id number] PCP - General Family Medicine 02/18/17 documented as of this encounter
== END 2024-10-11 16:35 | disposition home or self-care (01) ==
LOC: HO.HGI 15:50
PROVIDERS: PCP Internal Medicine; Visit Provider Nurse Practitioner
DX: R10.9 Unspecified abdominal pain (principal); K21.9 Gastro-esophageal reflux disease without esophagitis; K59.04 Chronic idiopathic constipation; M79.18 Myalgia, other site; G89.4 Chronic pain syndrome; M54.16 Radiculopathy, lumbar region; M47.816 Spondylosis without myelopathy or radiculopathy, lumbar region
CPT/HCPCS: 99213

== ENCOUNTER → 2024-10-11 15:50 | Outpatient (BNVA) | payer OTHER, SELFPAY | PROVIDERS: PCP Internal Medicine; Visit Provider Nurse Practitioner | DX: K59.04 Chronic idiopathic constipation (principal); K21.9 Gastro-esophageal reflux disease without esophagitis; M79.18 Myalgia, other site; M47.26 Other spondylosis with radiculopathy, lumbar region; R10.9 Unspecified abdominal pain; G89.4 Chronic pain syndrome | CPT/HCPCS: 99212 ==

== ENCOUNTER 2025-03-23 16:30 | Outpatient (AMB) | payer MEDICARE, MEDICAID, SELFPAY ==
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
--- OUTSIDE RECORDS SUMMARY | 2025-03-23 16:34 | XMS_ITS | Encounter Summary ---
Author Organization [facility] Address [address] [place] [address] Care Team Providers Care Tank Erector Name Role Phone Physician, Pcp Unknown Primary Care Provider Vera vailable Reason for Visit * Reason Onset Date Comments Results 03/23/2025 Encounter Details Date Type Department Care Team (Late st Contact Info) Description 03/23/2025 Telephone Obstetrics & Gynecology - [address] [phone] Russo Iris, [facility] [address] [place] [phone] Social History Tobacco Use Types Packs/Day Years [...] on file documented as of this encounter Progress Notes * Tanja Smalsl RN - 03/23/2025 3:22 PM EDT Spoke with pt- advised of all lab results. Aware PAP is not back at this time. * Paulina Dennis - 03/23/2025 2:57 PM EDT Pt calling requesting callback with lab results form 03/21/25. Pls advise documented in this encounter Plan of Treatment Not on file documented as of this encounter Visit Diagnoses Not on filedocumented in this encounter Care Teams Tank Erector Relationship Specialty Start Date End Date Physician, Pcp Unknown PCP - General 03/21/25 documented as of this encounter
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
--- OUTSIDE RECORDS SUMMARY | 2025-03-23 16:34 | XMS_ITS ---
Author Name [facility] Organization Unknown History of Medication Use Medication Directions Dispensed Refills Start Date End Date Stat us METOPROLOL TARTRATE METOPROLOL TARTRATE 25 MG TABS 12/01/2024 completed TIZANIDINE HCL TIZANIDINE HCL 2 MG TABS 12/01/2024 completed LATUDA LATUDA 80 MG TABS 11/25/2024 com pleted IMIPRAMINE HCL IMIPRAMINE HCL 10 MG TABS 11/17/2024 completed LITHIUM CARBONATE LITHIUM CARBONATE 300 MG CAPS 11/17/2024 completed ALBUTEROL SULFATE HFA ALBUTEROL SULFATE HFA 108 (90 Base) MCG/ACT AERS 11/14/2024 completed FLUTICASONE PROPIONATE HFA FLUTICASONE PROPIONATE HFA 220 MCG/ACT AERO 11/14/2024 completed LORATADINE LORATADINE 10 MG TABS 11/14/2024 completed PANTOPRAZOLE SODIUM PANTOPRAZOLE SODIUM 40 MG TBEC 11/14/2024 completed No information available. No information available. completed Allergies Allergen Reaction Severity Comment Documented Date Source Statu s ASPIRIN Critical [facility] active Problems Problem Status Onset Date Problem Type Date of Resoluti on Source Gastroesophageal reflux disease active 2024-11-14 ProblemAct [facility] Benzodiazepine dependence active 2024-11-17 ProblemAct [facility] Bipolar disorder, unspecified active 2024-11-17 ProblemAct [facility] Care Team Organization Name Specialty Phone Email Start Date End Da maria elena [facility] 2024
--- OUTSIDE RECORDS SUMMARY | 2025-03-23 16:34 | XMS_ITS | Encounter Summary ---
Author Organization [email or web address] Address [address] [place] [address] [address] [place] [address] Care Team Providers Care Master Automotive Technician Name Role Phone Jane Piedra MD Primary Care Provider + Reason for Visit * Reason Onset Date Comments Error 08/03/2023 Encounter Details Date Type Department Care Team ([facility] st Contact Info) Description 08/03/2023 Telephone [facility] [address], [place] [phone] Jane Piedra MD [address] [place], [place] [phone] Error Social History Tobacco Use Types Packs/Day [...] Care Team (Late st Contact Info) Description 05/16/2025 11:30 AM EST Telemedicine [facility] [address] [place] [phone] Jane Piedra MD [address] [place] [phone] 05/28/2025 1:00 PM EST Immunization [facility] [address] [place] [phone] documented as of this encounter Visit Diagnoses Not on filedocumented in this encounter Additional Health Concerns Assessment Noted Time PHQ-9 Depression Total Score: 17 024 9:32 AM EST documented as of this encounter Care Teams Master Automotive Technician Relationship Specialty Start Date End Date Jane Piedra MD [address] [place] [phone] PCP - General Family Medicine 02/18/17 documented as of this encounter
--- OUTSIDE RECORDS SUMMARY | 2025-03-23 16:34 | XMS_ITS | Encounter Summary ---
Author Organization [employer] Address [address] [facility] [address] [place] [address] Care Team Providers Care Stave Inspector Name Role Phone Jaen Piedra MD Primary Care Provider + Encounter Details Date Type Department Care Team (Late st Contact Info) Description 06/15/2024 Orders Only [facility] [address] [place] [address] Kristal Monroy Social History Tobacco Use Types [...] Info) Description 05/16/2025 11:30 AM EST Telemedicine [address] [phone] Jane Piedra MD [address] [place] [phone] 05/28/2025 1:00 PM EST Immunization [address] [phone] documented as of this encounter Procedures Procedure Name Priority Date/Time Associated Diagnosis Comments PAP/HPV Routine 11/08/2023 12:00 AM EDT documented in this encounter Results * (ABNORMAL) PAP/HPV (11/08/2023 12:00 AM EDT) Pap Smear 4. LSIL(A) 1. NILM HPV Not Detected Undetected, Indeterminat e, Quantitative , Not Detected us Historical Provider HEALTH MAINTENANCE Edited Result - Final documented in this encounter Visit Diagnoses Not on filedocumented in this encounter Additional Health Concerns Assessment Noted Time PHQ-9 Depression Total Score: 24 024 11:20 AM EDT documented as of this encounter Care Teams Stave Inspector Relationship Specialty Start Date End Date Jane Piedra MD [address] [place] [phone] PCP - General Family Medicine 02/18/17 documented as of this encounter
--- OUTSIDE RECORDS SUMMARY | 2025-03-23 16:34 | XMS_ITS | Encounter Summary ---
Author Organization [employer] Address [address] [place] [address] [address] [place] [address] Care Team Providers Care Tab Card Press Operator Name Role Phone Jane Piedra MD Primary Care Provider + Reason for Visit * Reason Comments Med Refill Encounter Details Date Type Department Care Team (Late st Contact Info) Description 02/25/2023 Refill [facility] [address] [place] [address] [phone] Jane Piedra MD [address] [place], [place] [phone] Social History Tobacco Use Types Packs/Day Years [...] Info) Description 05/16/2025 11:30 AM EST Telemedicine [facility] [address] [place], [place] [phone] Jane Piedra MD [address] [place], [place] [phone] 05/28/2025 1:00 PM EST Immunization [facility] [address] [place] [address] documented as of this encounter Visit Diagnoses Not on filedocumented in this encounter Care Teams Tab Card Press Operator Relationship Specialty Start Date End Date Jane Piedra MD [address] [place] [address] PCP - General Family Medicine 02/18/17 documented as of this encounter
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
--- OUTSIDE RECORDS SUMMARY | 2025-03-23 16:34 | XMS_ITS | Encounter Summary ---
Author Organization [employer] Address [address] [place] [address] [address] [place] [address] Care Team Providers Care Occupational Safety Specialist Name Role Phone Jane Piedra MD Primary Care Provider + Reason for Visit * Reason Comments Med Refill Encounter Details Date Type Department Care Team (Late st Contact Info) Description 03/25/2024 Refill [facility] [address] [place], [place] [phone] Jane Piedra MD [address] [place], [place] [phone] Chronic idiopathic constipation; Gastro-esophageal reflux disease without [...] Info) Description 05/16/2025 11:30 AM EST Telemedicine [facility] [address] [place] [phone] Jane Piedra MD [address] [place] [address] 05/28/2025 1:00 PM EST Immunization [facility] [address] [place] [phone] documented as of this encounter Visit Diagnoses Diagnosis Chronic idiopathic constipation Unspecified constipation Gastro-esophageal reflux disease without esophagitis documented in this encounter Additional Health Concerns Assessment Noted Time PHQ-9 Depression Total Score: 24 024 11:20 AM EDT documented as of this encounter Care Teams Occupational Safety Specialist Relationship Specialty Start Date End Date Jane Piedra MD [address] [place] [phone] PCP - General Family Medicine 02/18/17 documented as of this encounter
--- OUTSIDE RECORDS SUMMARY | 2025-03-23 16:34 | XMS_ITS | Encounter Summary ---
Author Organization [employer] Address [address] [facility] [address] [place] [address] Care Team Providers Care Public Speaker Name Role Phone Jane Piedra MD Primary Care Provider + Reason for Visit * Reason Comments Med Refill Encounter Details Date Type Department Care Team ([facility] st Contact Info) Description 05/29/2023 Refill [facility] [address] [place] [address] Jane Piedra MD [address] [place] [address] Allergic rhinitis due to other allergic trigger, [...] Info) Description 05/16/2025 11:30 AM EST Telemedicine [address] [address] Jane Piedra MD [address] [place] [phone] 05/28/2025 1:00 PM EST Immunization [facility] [address] [place] [phone] documented as of this encounter Visit Diagnoses Diagnosis Allergic rhinitis due to other allergic trigger, unspecified seasonality documented in this encounter Care Teams Public Speaker Relationship Specialty Start Date End Date Jane Piedra MD [address] [place] [phone] PCP - General Family Medicine 02/18/17 documented as of this encounter
--- OUTSIDE RECORDS SUMMARY | 2025-03-23 16:34 | XMS_ITS | Encounter Summary ---
Author Organization [employer] Address [address] [facility] 7t [place] [address] Care Team Providers Care Electrical Timing Device Calibrator Name Role Phone Jane Piedra MD Primary Care Provider + Encounter Details Date Type Department Care Team (Latest Contact Info) Description 03/21/2025 Travel Social History Tobacco Use Types Packs/Day Years Used Date Smoking Tobacco: Never Passive Smoke Exposure: Never Smokeless Tobacco: Never Alcohol Use Standard [...] t he electric, gas, oil or water [employer] threatened to shut off services in your [...] Info) Description 05/16/2025 11:30 AM EST Telemedicine [address] [phone] Jane Piedra MD [address] [place] [address] 05/28/2025 1:00 PM EST Immunization [facility] MEDICINE [address] [place] [address] documented as of this encounter Visit Diagnoses Not on filedocumented in this encounter Additional Health Concerns Assessment Noted Time PHQ-9 Depression Total Score: 19 025 10:56 AM EDT documented as of this encounter Care Teams Electrical Timing Device Calibrator Relationship Specialty Start Date End Date Jane Piedra MD [address] [place] [address] PCP - General Family Medicine 02/18/17 documented as of this encounter
--- OUTSIDE RECORDS SUMMARY | 2025-03-23 16:34 | XMS_ITS | Encounter Summary ---
Author Organization [employer] [facility] Address [address] [place] [address] 7t [place] [address] Care Team Providers Care Chef Saucier Name Role Phone Jane Piedra MD Primary Care Provider + Encounter Details Date Type Department Care Team (Late st Contact Info) Description 05/19/2022 Orders Only [facility] MEDICINE [address] [place] [phone] Selin Alston RN [address] [place] [address] Social History Tobacco Use Types Packs/Day Years [...] Info) Description 05/16/2025 11:30 AM EST Telemedicine [facility] MEDICINE [address] [place] [address] Jane Piedra MD [address] [place] [address] [phone] 05/28/2025 1:00 PM EST Immunization [address] [address] documented as of this encounter Visit Diagnoses Not on filedocumented in this encounter Care Teams Chef Saucier Relationship Specialty Start Date End Date Jane Piedra MD [address] [place] [phone] PCP - General Family Medicine 02/18/17 documented as of this encounter
--- OUTSIDE RECORDS SUMMARY | 2025-03-23 16:34 | XMS_ITS | Encounter Summary ---
Author Organization [facility] Address [address] [place] [address] 7t [place] [address] Care Team Providers Care Blade Aligner Name Role Phone Jane Piedra MD Primary Care Provider + Encounter Details Date Type Department Care Team (Late st Contact Info) Description 05/19/2022 Abstract [facility] MEDICINE [address] [place] [phone] Provider, MD Raffaele Social History Tobacco Use Types Packs/Day Years [...] Info) Description 05/16/2025 11:30 AM EST Telemedicine [facility] MED[facility]INE [address] [place] [address] Jane Piedra MD [address] [place] [address] 05/28/2025 1:00 PM EST Immunization [facility] MED[facility]INE [address] [place] [address] documented as of this encounter Visit Diagnoses Not on filedocumented in this encounter Care Teams Blade Aligner Relationship Specialty Start Date End Date Jane Piedra MD [address] [place] [address] PCP - General Family Medicine 02/18/17 documented as of this encounter
--- OUTSIDE RECORDS SUMMARY | 2025-03-23 16:34 | XMS_ITS | Encounter Summary ---
Author Organization [employer] Address [address] [facility] 7t [place] [address] Care Team Providers Care Cloth Grader Supervisor Name Role Phone Jane Piedra MD Primary Care Provider + Reason for Visit * Reason Comments Med Refill Encounter Details Date Type Department Care Team (Late st Contact Info) Description 01/24/2024 Refill [facility] MEDICINE [address] [place], [place] [phone] Name, MD Adarsh [address] [place] [address] Other cardiac arrhythmia Social History Tobacco Use [...] Description 05/16/2025 11:30 AM EST Telemedicine [facility] MEDICINE [address] [place] [address] Jane Piedra MD [address] [place] [address] 05/28/2025 1:00 PM EST Immunization [facility] [address] [place] [address] documented as of this encounter Visit Diagnoses Diagnosis Other cardiac arrhythmia documented in this encounter Additional Health Concerns Assessment Noted Time PHQ-9 Depression Total Score: 24 024 11:20 AM EDT documented as of this encounter Care Teams Cloth Grader Supervisor Relationship Specialty Start Date End Date Jane Piedra MD [address] [place] [address] PCP - General Family Medicine 02/18/17 documented as of this encounter
--- OUTSIDE RECORDS SUMMARY | 2025-03-23 16:34 | XMS_ITS | Encounter Summary ---
Author Organization [employer] Address [address] [place] [address] 7t [place] [address] Care Team Providers Care Parts Counter Specialist Name Role Phone Jane Piedra MD Primary Care Provider + Reason for Visit * Reason Comments Med Change Request Encounter Details Date Type Department Care Team ([facility] st Contact Info) Description 07/11/2024 Refill [facility] MEDICINE 230 [place], [place] [phone] Jane Piedra MD 230 [place], [place] [phone] Obesity (BMI 35.0-39.9 without comorbidity) Social History [...] AM EST Telemedicine [facility] MEDICINE [address] [place] [address] Jane Piedra MD [address] [place] [address] 05/28/2025 1:00 PM EST Immunization [facility] MEDICINE [address] [place] [address] documented as of this encounter Visit Diagnoses Diagnosis Obesity (BMI 35.0-39.9 without comorbidity) documented in this encounter Additional Health Concerns Assessment Noted Time PHQ-9 Depression Total Score: 24 024 11:20 AM EDT documented as of this encounter Care Teams Parts Counter Specialist Relationship Specialty Start Date End Date Jane Piedra MD [address] [place] [address] PCP - General Family Medicine 02/18/17 documented as of this encounter
--- OUTSIDE RECORDS SUMMARY | 2025-03-23 16:34 | XMS_ITS | Encounter Summary ---
Author Organization [employer] Address [address] [place] [address] 7t [place] [address] Care Team Providers Care Pivot End Polisher Name Role Phone Jaen Piedra MD Primary Care Provider + Reason for Visit * Reason Comments Med Refill Encounter Details Date Type Department Care Team (Late Contact Info) Description 10/06/2022 Refill [facility] [address] [place] [address] Jane Piedra MD 230 [place], [place] [phone] Allergic rhinitis due to other allergic trigger, [...] Upcoming Encounters Date Type Department Care Team ([facility] Contact Info) Description 05/16/2025 11:30 AM EST Telemedicine [facility] MEDICINE [address] [place], [place] [phone] Jane Piedra MD [address] [place] [address] 05/28/2025 1:00 PM EST Immunization [facility] MEDICINE [address] [place] [address] documented as of this encounter Visit Diagnoses Diagnosis Allergic rhinitis due to other allergic trigger, unspecified seasonality documented in this encounter Care Teams Pivot End Polisher Relationship Specialty Start Date End Date Jane Piedra MD [address] [place] [address] PCP - General Family Medicine 02/18/17 documented as of this encounter
--- OUTSIDE RECORDS SUMMARY | 2025-03-23 16:34 | XMS_ITS | Encounter Summary ---
Author Organization [employer] Address [address] [facility] 7t [place] [address] Care Team Providers Care Watch Assembler Name Role Phone Jane Piedra MD Primary Care Provider + Encounter Details Date Type Department Care Team (Late st Contact Info) Description 07/20/2023 Abstract [facility] MEDICINE [address] [place], [place] [phone] Jane Piedra MD [address] [place], [place] [phone] Social History Tobacco Use Types Packs/Day Years [...] Info) Description 05/16/2025 11:30 AM EST Telemedicine [facility] MEDICINE [address] [place] [address] Jane Piedra MD [address] [place] [address] 05/28/2025 1:00 PM EST Immunization [facility] MEDICINE [address] [place] [address] documented as of this encounter Procedures Procedure Name Priority Date/Time Associated Diagnosis Comments COLONOSCOPY Routine 08/30/2019 1:34 PM EST documented in this encounter Visit Diagnoses Not on filedocumented in this encounter Additional Health Concerns Assessment Noted Time PHQ-9 Depression Total Score: 17 024 9:32 AM EST documented as of this encounter Care Teams Watch Assembler Relationship Specialty Start Date End Date Jane Piedra MD [address] [place] [address] PCP - General Family Medicine 02/18/17 documented as of this encounter
--- OUTSIDE RECORDS SUMMARY | 2025-03-23 16:34 | XMS_ITS | Encounter Summary ---
Author Organization [employer] Address [address] [facility] 7t [place] [address] Care Team Providers Care Radio Recorder Name Role Phone Jane Piedra MD Primary Care Provider + Reason for Visit * Reason Onset Date Comments Appointment Request 06/03/2023 Encounter Details Date Type Department Care Team ([facility] st Contact Info) Description 06/03/2023 Telephone [facility] MEDICINE [address] [place], [place] [phone] Jane Piedra MD [address] [place], [place] [phone] Appointment Request Social History Tobacco Use Types [...] encounter Miscellaneous Notes * Telephone Encounter - Verna Pack - 06/03/2023 1:46 PM EST Tc from pt requesting to r/s appt for Physical on 06/08/2023 @ 9:30 am due to not doing any of her blood work requested by PCP . Please contact pt at [phone] Niuean Speaker documented in this encounter Plan of Treatment Upcoming Encounters Date Type Department Care Team (Late st Contact Info) Description 05/16/2025 11:30 AM EST Telemedicine [facility] MEDICINE [address] [place] [address] Jane Piedra MD [address] [place] [address] 05/28/2025 1:00 PM EST Immunization [facility] MEDICINE [address] [place] [address] documented as of this encounter Visit Diagnoses Not on filedocumented in this encounter Care Teams Radio Recorder Relationship Specialty Start Date End Date Jane Piedra MD [address] [place] [phone] PCP - General Family Medicine 02/18/17 documented as of this encounter
--- OUTSIDE RECORDS SUMMARY | 2025-03-23 16:34 | XMS_ITS | Encounter Summary ---
Author Organization [employer] Address [address] [facility] 7t [place] [address] Care Team Providers Care Pond Tender Name Role Phone Jane Piedra MD Primary Care Provider + Reason for Visit * Reason Onset Date Comments Medication Question 03/19/2025 Encounter Details Date Type Department Care Team ([facility] st Contact Info) Description 03/19/2025 Telephone [facility] MEDICINE [address] [place], [place] [phone] Jane Piedra MD [address] [place], [place] [phone] Medication Question Social History Tobacco Use Types Packs/Day Years Used Date Smoking Tobacco: Never Passive Smoke Exposure: Never Smokeless Tobacco: Never Alcohol Use Standard Drinks/Week Comments Not Currently 0 (1 standard drink = 0.6 oz pur e alcohol) Depression Answer Date Recorded Patient Health Questionnaire-9 Score 10/12/2024 Patient Health Questionnaire-9 Score 10/12/2024 Last PHQ-9: Questionnaire Data Not on file 0 10/12/2024 Housing Stability Answer Date Recorded What is your housing situation today? I have alexsandermindy anaya 08/11/[address] you [...] encounter Miscellaneous Notes * Telephone Encounter - Leigh Sandoval RN - 03/20/2025 9:14 AM EDT TC placed to patient [phone] however no answer, RN left VM requesting CB to red team nurses. TC placed to secondary number [phone] via [employer] ([employer] #[id number]) in regards to belowmessage. Patient reports [facility] needs authorization from the provider for her medication. Upon chart review, [facility]ep[facility] needs PA however patients insurance was going into effect on 03/14/25 and patient wasadvised to return call with new insurance information. Patient reports she contacted the pharmacy to provide updated insurance information however they are still stating they need PCP authorization. RN placed patient on hold to call [facility] pharmacy [phone] to inquire further. [facility] pharmacy reports all of patients medications from 03/12/25 are in the process of being filled. [facility] reports the only medication that needs authorization is zepbound. Patient informed we were unable to process the PA on the day the medication was Rx'd as patients insurance was not active until 03/14/25. RN had FD update insurance information in chart. Patient informed message will be sent to PA specialists to process PA with updated insurance information. Patienteducated on PA process. Patient to f/u PRN. * Telephone Encounter - Crow Trejo - 03/19/2025 8:11 AM EDT Tc from pt requesting a call back stating she was advised to discuss medication with pcp and she would also like to discuss zoster vaccine. Please contact pt at [phone]. (Hungarian Speaker) documented in this encounter Plan of Treatment Upcoming Encounters Date Type Department Care Team (Late st Contact Info) Description 05/16/2025 11:30 AM EST Telemedicine [address] [address] Jane Piedra MD [address] [place] [address] 05/28/2025 1:00 PM EST Immunization [address] [address] documented as of this encounter Visit Diagnoses Not on filedocumented in this encounter Additional Health Concerns Assessment Noted Time PHQ-9 Depression Total Score: 19 025 10:56 AM EDT documented as of this encounter Care Teams Pond Tender Relationship Specialty Start Date End Date Jane Piedra MD [address] [place] [address] PCP - General Family Medicine 02/18/17 documented as of this encounter
[2025-03-23 16:42] VITALS: BP 119/68; PULSE 69; BMI 33.1
--- NOTE | 2025-03-23 16:42 | MHC.OFFVIS ---
Vital Signs 03/23/25 16:42 Height 5 ft 5 in Weight 198 lb 13.711 oz BMI 33.1 BP 119/68 Blood Pressure Location Rt brachial Position Sitting Pulse 69 Intake Visit Reasons: Follow up abd pain Intake Note: Jesica returns in follow up of abd pain. CC: Patient c/o epigastric pain and heartburn. She also c/o constipation. Telecasting Technician Required: Yes Telecasting Technician Language: Mozambican Accompanied by: Grand Child Allergies aspirin (ASPIRIN) Allergy (Unknown, Verified 10/11/24 16:09) UNKNOWN REACTION PER PT. HPI HPI Follow up abd pain: Details: Assessment & Plan (1) Left sided abdominal pain: Code(s): R10.9 - Unspecified abdominal pain Category: Medical (2) GERD (gastroesophageal reflux disease): Code(s): K21.9 - Gastro-esophageal reflux disease without esophagitis Category: Medical (3) Chronic idiopathic constipation: Code(s): K59.04 - Chronic idiopathic constipation Category: Medical (4) Abdominal cramping: Code(s): R10.9 - Unspecified abdominal pain Category: Medical (5) Myofascial muscle pain: Code(s): M79.18 - Myalgia, other site Category: Medical (6) Chronic pain syndrome: Code(s): G89.4 - Chronic pain syndrome Category: Medical (7) Radiculopathy, lumbar region: Code(s): M54.16 - Radiculopathy, lumbar region Category: Medical (8) Lumbar spondylosis: Code(s): M47.816 - Spondylosis without myelopathy or radiculopathy, lumbar region Category: Medical Plan ARMENIAN #V live She continues to have the left side abd pain, at times in the abd and at times in the back. BUT she never received the imipramine, so we don't know any more than at the last visit. I'm unsure if this is a musculskeletal problem or a GI problems. She also has widespread chronic pain which makes the dx difficult. She would like and US of the area, and this certainly would not be harmful although I'm unsure what if any pathology it may uncover. i will order it. She continues on Dexilant, Creon, Reglan, Linzess 290, and simethicone. ROV next avail. Orders: Orders US abdomen complete Today R10.9 - Unspecified abdominal pain Medications: Refilled imipramine HCl 10 mg PO BEDTIME 30 tabs 6RF 30 days R10.9 - Unspecified abdominal pain ULTRASOUND OF THE ABDOMEN TODAY'S VISIT Mozambican #V live [facility] Medical History (Updated 10/11/24 @ 16:28 by JULIANA Rainey) Oropharyngeal dysphagia Acute bronchitis Right upper quadrant abdominal pain Numbness of left foot Back pain Radiculopathy Fracture of left tibial plateau Pre-op examination Palpitations Chest pain Cardiomyopathy Left flank pain Myalgia, multiple sites Reactive airway disease ANTHONY (obstructive sleep apnea) Small bowel motility disorder Bile reflux gastritis Small intestinal bacterial overgrowth Abdominal pain Anxiety Chest tightness Tachycardia Upper abdominal pain GERD (gastroesophageal reflux disease) Chronic idiopathic constipation Surgical History (Updated 04/19/24 @ 11:58 by JULIANA Rainey) History of cardiac cath Hx of cholecystectomy Hx of endoscopy History of colonoscopy Family History Father No problems noted. Mother Arthritis Social History Household Members: Children Are you a primary acute care certified nursing assistant to a significant other at home: No Do you presently have visiting nurse or other home services: No Alcohol intake: current Alcohol intake frequency: holidays/special occasions only Patient Tobacco Use Status: Never used Tobacco Current occupational status: unemployed Review of Systems Const Denies fatigue, Denies fever(s), Denies night sweats, Denies poor appetite and Denies weight loss ENT Reports Normal hearing present, Denies dental pain, Denies dysphagia, Denies hearing loss, Denies mouth pain, Denies odynophagia, Denies throat swelling, Denies tongue swelling and Reports other (Dentition adequate) Card Reports no additional complaints Resp Reports no additional complaints GI Details: Denies abdominal pain, Denies melena, Reports bloating, Denies hematochezia, Reports constipation, Denies GI cramping, Denies dysphagia, Denies excessive flatus, Reports early satiety, Reports heartburn, Denies diarrhea, Denies nausea, Denies odynophagia, Denies vomiting and Denies hematemesis Skin/Breast Denies pruritus, Denies lesions, Denies rash and Denies jaundice Neuro Reports Normal hearing present and Denies Abnormal speech present Endo Denies fatigue Aller/Immun Denies throat swelling and Denies tongue swelling Physical Exam Vital Signs: Last Vital Signs Pulse 69 03/23/25 16:42 BP 119/68 03/23/25 16:42 BMI result Body Mass Index 33.1 Const General: cooperative, no acute distress, well developed and well groomed Nutritional Appearance: well nourished and obese Orientation/consciousness: oriented to person, oriented to place and oriented to time Limitations: language barrier HEENT Head: Yes normocephalic and Yes atraumatic Eyes General: appearance normal, both eyes and all related structures Pupils: Equal, round and reactive pupils present Neck Neck: Yes normal visual inspection and Yes no lymphadenopathy Thyroid: Thyroid normal Resp Effort & Inspection: normal respiratory effort and able to speak in complete sentences Auscultation: clear to auscultation bilaterally Cardio Rate: regular rate Rhythm: regular rhythm Heart sounds: Normal, physiologic split S2 sound present Peripheral pulses: radial pulses present and posterior tibial pulses present GI Inspection: No distended, No Abdominal panniculus present and Yes obesity Palpation (GI): Soft to palpation, nontender, no guarding, not rigid and No hepatosplenomegaly present Percussion: Yes normal to percussion Auscultation: normal bowel sounds Rectal Exam - Female: deferred Skin General skin exam: no rashes or lesions noted, turgor normal, skin not dry, no jaundice, No spider nevi and no striae Rashes: no rashes Nails: normal Neuro General: oriented to person, oriented to place and oriented to time Cranial nerves: Yes Equal, round and reactive pupils present and Yes Normal hearing present Speech: No Abnormal speech present Extrem General: Yes normal to inspection, No clubbing, No cyanosis and No edema Psych Appearance: grossly normal and well kempt Mental Status: mental status grossly normal Speech and movement: Normal speech and movement present Affect: normal affect Attitude: cooperative Thought process: Normal thought process present and not confabulating Thought content: Normal thought content present Insight: Limited insight present (Psych) Judgement: Limited judgement present (Psych) Assessment & Plan Assessment & Plan (1) GERD (gastroesophageal reflux disease): Code(s): K21.9 - Gastro-esophageal reflux disease without esophagitis Category: Medical Plan Mozambican #V live She continues on Dexilant, Creon, Reglan, Linzess 290, and simethicone. ABD PAIN BETTER, NOW hb IS THE ISSUE. NOT MOVING BOWEL WELL - PCP GOT INVOLVED AND ORDERED LINZESS 145M=BID (not how it should be prescribed!), and pantorpazole - but pt does better on Dexilant. She does not know if she received imipramine. I believe that having multiple prescribers in the mix is confusing and potentially interfering with her best therapy. This is especially true because insurance is not going to pay for multiples of the same medication. I explained this to the patient and ask her to remind her primary care provider that she is under our services and that she really should coordinate with us so that the patient can have the best possible outcomes. In the meantime we will order Linzess 290 micro g once a day which would be the correct way of prescribing it. I also want the patient to bring all her meds as she is unclear as to what she is taking and if the metoclopramide has dropped off some how that also would slow down her gastric motility. We will see if we can get Dexilant approved for her, and for now I will hold her Creon. BRING ALL MEDS TO NEXT VISIT ROV 3 WEEKS Medications: Refilled linaclotide (Linzess) 290 mcg PO QAM 30 caps 6RF K59.04 - Chronic idiopathic constipation metoclopramide HCl (Reglan) 10 mg PO QIDACHS 120 tabs 6RF simethicone 180 mg PO QID 90 ea 6RF K21.9 - Gastro-esophageal reflux disease without esophagitis dexlansoprazole 60 mg PO DAILY 30 caps 6RF K59.04 - Chronic idiopathic constipation On Hold [id number] 24,000-76,000 -120,000 unit (Creon) Hold Comment: Doctor's Order 1 cap PO QID 120 caps 6RF Coding Level of Care Code Est Pt Level 3 (38917) Diagnoses GERD (gastroesophageal reflux disease) K21.9
== END 2025-03-23 17:11 | disposition home or self-care (01) ==
LOC: HO.HGI 16:31
PROVIDERS: PCP Internal Medicine; Visit Provider Nurse Practitioner
DX: K21.9 Gastro-esophageal reflux disease without esophagitis (principal)
CPT/HCPCS: 99213

== ENCOUNTER → 2025-03-23 16:30 | Outpatient (BNVA) | payer OTHER, SELFPAY | PROVIDERS: PCP Internal Medicine; Visit Provider Nurse Practitioner | DX: K21.9 Gastro-esophageal reflux disease without esophagitis (principal); R10.9 Unspecified abdominal pain; K59.04 Chronic idiopathic constipation; M79.18 Myalgia, other site; G89.4 Chronic pain syndrome; M54.16 Radiculopathy, lumbar region; M47.816 Spondylosis without myelopathy or radiculopathy, lumbar region | CPT/HCPCS: 99212 ==

== ENCOUNTER 2025-05-18 13:31 | Outpatient (AMB) | payer OTHER, SELFPAY ==
--- OUTSIDE RECORDS SUMMARY | 2025-05-15 09:45 | XMS_ITS | Encounter Summary ---
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); Vaginal atrophy Social History Tobacco Use Types Packs/Day Years [...] Sign Reading Time Taken Comments Blood Pressure 108/72 05/15/2025 9:46 AM EST Pulse 67 05/15/2025 9:46 AM EST Temperature - - Respiratory Rate 18 05/15/2025 9:46 AM EST Oxygen Saturation - - Inhaled Oxygen Concentration - - Weight 82.6 kg (182 lb) 05/15/2025 9:46 AM EST Height 165.1 cm (5' 5 ) 05/15/2025 9:46 AM EST Body Mass Index 30.29 05/15/2025 9:46 AM EST documented in this encounter Ordered Prescriptions Prescription Sig Dispense Quantity Refills Last Filled Start Date End Date estradioL (ESTRACE) 0.01 % (0.1 mg/gram) vaginal cream 1g PV nightly x 2 weeks then twice weekly thereafter 34 g 4 05/15/2025 documented in this encounter Progress Notes * Vandana De La O DO - 05/15/2025 9:45 AM ESTAssociated Order(s): Cervical procedures (colposcopy/ECC/biopsy) Post-Procedure Diagnose(s): LGSIL on Pap smear of cervix Colposcopy only Indication: 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) Date/Time: 05/15/2025 10:07 AM Performed by: Vandana De La O DO Authorized by: Vandana De La O DO Informed Consent: Relevant images/test results available and reviewed: yes Health status cleared: yes Procedure/treatment, purpose, treatment alternatives, risks/potential complications and benefits explained: yes Risk/complications/benefits details: Discomfort, bleeding, inadequate sample Patient questions answered: yes Patient agrees, verbalizes understanding, and wants to proceed: yes Consent given by: Patient Informed consent discussion completed by Physician/CLOVER with patient: Written; patient signed and dated; copy to patient Pre-procedure: Negative urine test: Not indicated Prepped with: acetic acid Procedure: Under satisfactory analgesia the patient was prepped and draped in the dorsal lithotomy position: yes [place] speculum was placed in the vagina: yes Endometrial biopsy performed: no Specimen to pathology: no Post-procedure: Findings comment: Cervix is atrophic without visible evidence of abnormality Impression: normal appearance Colposcopy satisfactory: yes Patient tolerance of procedure: Patient tolerated the procedure well with no immediate complications Comments: Pt to use vaginal estrogen for this next year prior to repeating pap smear in 2025 documented in this encounter Plan of Treatment Not on file documented as of this encounter Procedures Procedure Name Priority Date/Time Associated Diagnosis Comments SC COLPOSCOPY CERVIX Routine 05/15/2025 10:07 AM EST LGSIL on Pap smear of cervix documented in this encounter Results * SC COLPOSCOPY CERVIX (05/15/2025 10:07 AM EST) Vandana Esquivel DO - 05/15/2025 10:07 AM EST Vandana De La O DO 05/15/2025 10:09 AM Colposcopy only Indication: 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) Date/Time: 05/15/2025 10:07 AM Performed by: Vandana De La O DO Authorized by: Vandana De La O DO Informed Consent: Relevant images/test results available and reviewed: yes Health status cleared: yes Procedure/treatment, purpose, treatment alternatives, risks/potential complications and benefits explained: yes Risk/complications/benefits details: Discomfort, bleeding, inadequate sample Patient questions answered: yes Patient agrees, verbalizes understanding, and wants to proceed: yes Consent given by: Patient Informed consent discussion completed by Physician/CLOVER with patient: Written; patient signed and dated; copy to patient Pre-procedure: Negative urine test: Not indicated Prepped with: acetic acid Procedure: Under satisfactory analgesia the patient was prepped and draped in the dorsal lithotomy position: yes [place] speculum was placed in the vagina: yes Endometrial biopsy performed: no Specimen to pathology: no Post-procedure: Findings comment: Cervix is atrophic without visible evidence of abnormality Impression: normal appearance Colposcopy satisfactory: yes Patient tolerance of procedure: Patient tolerated the procedure well with no immediate complications Comments: Pt to use vaginal estrogen for this next year prior to repeating pap smear in 2025 Vandana De La O DO IN CLINIC/BEDSIDE ORDERABLES Final Result documented in this encounter Visit Diagnoses Diagnosis LGSIL on Pap smear of cervix- Primary Vaginal atrophy Postmenopausal atrophic vaginitis documented in this encounter Discontinued Medications Medication Sig Discontinue Reason Start Date End Da te conjugated estrogens (Premarin) vaginal cream Place 1 Applicator vaginally twice a week. 09/28/2022 05/15/2025 documented as of this encounter Care Teams Wire Rope Sales Representative Relationship Specialty Start Date End Date Physician, No Pcp PCP - General 04/30/25 documented as of this encounter
--- NOTE | 2025-05-18 13:42 | MHC.OFFVIS ---
Vital Signs 05/18/25 13:43 Height 5 ft 5 in Weight 182 lb BMI 30.3 BP 104/62 Blood Pressure Location Rt brachial Position Sitting Respiration 16 Pulse 81 Pulse Source Pulse Oximeter Pulse Oximetry (%) 93 Oxygen Delivery Method Room Air Intake Visit Reasons: Back Pain Pan Shaker Required: Yes Pan Shaker Name: Jodee [id number] Accompanied by: Self / Same As Patient Allergies aspirin (ASPIRIN) Allergy (Unknown, Verified 05/18/25 13:42) UNKNOWN REACTION PER PT. HPI Comments Details: Visit completed with loan workout officer Ashley #[id number]. The patient is a 49-year-old female presenting with chronic lower back pain and numbness in the legs. The pain has been persistent and is now accompanied by worsening numbness in her legs, which she reports has been progressively getting worse. Previously, she attempted pain management through injections, which did not provide relief, leading to the consideration of a spinal cord stimulator trial. At last visit she was offered SCS trial which she was ready to proceed with, office did not receive psych eval clearance in order to submit PA to insurance for approval. Patient states she was nervous about the procedure but she is now ready to proceed with the SCS trial. - Onset: Persistent lower back pain with progressive numbness in legs - Quality: Chronic pain with worsening numbness - Location: Lower back and legs - Exacerbating factors: Not specified - Relieving factors: Not specified - Affect: Patient is very nervous about the spinal cord stimulator trial - Analgesia: Previous injections did not provide relief - Adverse Effects: None reported - Activities of Daily Living: Pain and numbness affecting mobility - Aberrant Drug Related Behaviors: None reported [facility] Medical History (Updated 10/11/24 @ 16:28 by JULIANA Rainey) Oropharyngeal dysphagia Acute bronchitis Right upper quadrant abdominal pain Numbness of left foot Back pain Radiculopathy Fracture of left tibial plateau Pre-op examination Palpitations Chest pain Cardiomyopathy Left flank pain Myalgia, multiple sites Reactive airway disease ANTHONY (obstructive sleep apnea) Small bowel motility disorder Bile reflux gastritis Small intestinal bacterial overgrowth Abdominal pain Anxiety Chest tightness Tachycardia Upper abdominal pain GERD (gastroesophageal reflux disease) Chronic idiopathic constipation Surgical History (Updated 04/19/24 @ 11:58 by JULIANA Rainey) History of cardiac cath Hx of cholecystectomy Hx of endoscopy History of colonoscopy Family History Father No problems noted. Mother Arthritis Social History Household Members: Children Are you a primary vehicle care specialist to a significant other at home: No Do you presently have visiting nurse or other home services: No Alcohol intake: current Alcohol intake frequency: holidays/special occasions only Patient Tobacco Use Status: Never used Tobacco Current occupational status: unemployed Review of Systems Narrative - Neurological: Reports worsening numbness in legs - Musculoskeletal: Reports chronic lower back pain Physical Exam Exam Exam: General: awake, alert, oriented. Answers questions appropriately. Fully engaged in examination. Skin: warm, dry, intact HEENT: Normocephalic. Hearing intact. Cardiac: External chest normal in appearance. Respiratory: No cough, audible wheezing or stridor. Abdomen: without gross distension. MS: No obvious swelling or deformities. Able to transition from sit to stand unassisted. Ambulates with bilaterally normal heel strike and toe off Neurological: Oriented to person, place, time and situation. Thought process intact. Ambulates with use of a cane. Psychiatric: Appropriate mood and affect. Good judgment and insight. Vital Signs: Last Vital Signs Pulse 81 05/18/25 13:43 Resp 16 05/18/25 13:43 BP 104/62 05/18/25 13:43 Pulse Ox 93 05/18/25 13:43 Oxygen Delivery Method Room Air 05/18/25 13:43 BMI result Body Mass Index 30.3 Results Reviewed Results Reviewed: 04/19/23: XR lumbar spine 2-3V Three views of the lumbosacral spine. FINDINGS: Alignment is anatomic and stable compared to prior. No compression fracture. Mild multilevel degenerative disc disease. No fracture. IMPRESSION: Mild degenerative disc disease. No fracture. 12/09/21: XR SHOULDER, LEFT XR CERVICAL SPINE FINDINGS: LEFT SHOULDER: There is no visible acute fracture, dislocation or subluxation. No bony erosive changes. The left AC joint is normal. The soft tissues are normal. CERVICAL SPINE: There is mild straightening of cervical lordosis. The vertebral heights and alignment are normal. There is loss of C5-C6 disc height with mild ventral spondylosis. Rest of the disc heights are normal. The neural foramina are patent bilaterally. No acute fracture or dislocation seen. The prevertebral soft tissues are normal. No lytic or sclerotic process seen. IMPRESSION: Unremarkable left shoulder exam. Mild degenerative disc changes C5-C6 disc level with ventral spondylosis. No acute fracture or dislocation. Mild straightening of cervical lordosis likely positional or spasm. 12/2022: EXAMINATION: MR LUMBAR SPINE WITHOUT CONTRAST FINDINGS: The lumbar vertebral bodies maintain normal heights and alignment. There is moderate disc height loss at T10-T11 and T11-T12. There is no bone marrow edema. The distal spinal cord appears normal. The conus medullaris terminates normally at the L1-L2 level. The visualized paraspinal muscles and intra-abdominal and pelvic contents are within normal limits. SPINAL LEVELS: L1-L2: No posterior disc abnormality. No spinal canal or neural foraminal stenosis. L2-L3: Left foraminal protrusion abuts the exiting left L2 nerve root. No spinal canal stenosis. L3-L4: No posterior disc abnormality. No spinal canal or neural foraminal stenosis. L4-L5: Mild disc bulging with shallow central protrusion and mild facet arthropathy. No spinal canal or neural foraminal stenosis. L5-S1: No posterior disc abnormality. Mild facet arthropathy. No spinal canal or neural foraminal stenosis. IMPRESSION: At L2-L3 there is left foraminal protrusion which abuts the exiting left L2 nerve root. At L4-L5 there is shallow central protrusion without nerve root compression. Assessment & Plan Assessment & Plan (1) Myofascial muscle pain: Code(s): M79.18 - Myalgia, other site Category: Medical (2) Chronic back pain: Code(s): M54.9 - Dorsalgia, unspecified; G89.29 - Other chronic pain Category: Medical (3) Chronic pain syndrome: Code(s): G89.4 - Chronic pain syndrome Category: Medical (4) Polyarthralgia: Code(s): M25.50 - Pain in unspecified joint Category: Medical (5) Lumbar spondylosis: Code(s): M47.816 - Spondylosis without myelopathy or radiculopathy, lumbar region Category: Medical (6) Neuropathy: Comment: left lower extremity Code(s): G62.9 - Polyneuropathy, unspecified Category: Medical (7) Radiculopathy: Code(s): M54.10 - Radiculopathy, site unspecified Category: Medical Plan The patient has agreed to proceed with a spinal cord stimulator trial to address her chronic lower back pain and associated leg symptoms. Prior to the trial, she must complete a mental health clearance, which is required by insurance for any implantable device. The clearance can be conducted by a specific company that is covered by her insurance, and once completed, the results will be sent to the clinic to proceed with insurance submission. Patient given information packet with contact number for [email or web address]. and [employer] brochure. Patient was informed and verbally consented to the use of an ambient scribe for clinic note documentation during this visit. Patient Instructions: - Contact the designated company to schedule a mental health clearance for the spinal cord stimulator trial. - Follow up with the clinic once the mental health clearance is completed to proceed with insurance submission. Coding Level of Care Code Est Pt Level 3 (28261) Complex EM visit Add On G2211 Diagnoses Myofascial muscle pain M79.18 Chronic back pain M54.9; G89.29 Chronic pain syndrome G89.4 Polyarthralgia M25.50 Lumbar spondylosis M47.816 Neuropathy G62.9 Radiculopathy M54.10
[2025-05-18 13:43] VITALS: BP 104/62; PULSE 81; RESP 16; O2SAT 93; BMI 30.3
--- OUTSIDE RECORDS SUMMARY | 2025-05-18 19:50 | XMS_ITS | Encounter Summary ---
Author Organization [employer] Address [address] [place] [address] 7[address] [place] [address] Care Team Providers Care Paper Cup Machine Operator Name Role Phone Jane Piedra MD Primary Care Provider + Reason for Visit * Reason Comments Med Refill Encounter Details Date Type Department Care Team ([facility] Contact Info) Description 10/06/2022 Refill [facility] MED & PEDS [address] [place] [address] Jane Piedra MD [address] [place] [address] [phone] Allergic rhinitis due to other allergic trigger, [...] Upcoming Encounters Date Type Department Care Team ([facility] Contact Info) Description 05/28/2025 1:00 PM EST Immunization [address] [phone] 06/05/2025 11:00 AM EST Office Visit [facility] [address] [place] [address] Jane Piedra MD [address] [place] [address] documented as of this encounter Visit Diagnoses Diagnosis Allergic rhinitis due to other allergic trigger, unspecified seasonality documented in this encounter Care Teams Paper Cup Machine Operator Relationship Specialty Start Date End Date Jane Piedra MD [address] [place] [address] PCP - General Family Medicine 02/18/17 documented as of this encounter
--- OUTSIDE RECORDS SUMMARY | 2025-05-18 19:50 | XMS_ITS | Encounter Summary ---
Author Organization [employer] Address [address] [facility] 7t [place] [address] Care Team Providers Care Surgical Assistant Certified Name Role Phone Jane Piedra MD Primary Care Provider + Encounter Details Date Type Department Care Team (Late st Contact Info) Description 07/20/2023 Abstract [facility] [address] [place], [place] [phone] Jane Piedra MD [address] [place], [place] [phone] Social History Tobacco Use Types Packs/Day Years [...] Care Team (Late st Contact Info) Description 05/28/2025 1:00 PM EST Immunization [facility] [address] [place] [phone] 06/05/2025 11:00 AM EST Office Visit [facility] [address] [place] [phone] Jane Piedra MD [address] [place] [phone] documented as of this encounter Procedures Procedure Name Priority Date/Time Associated Diagnosis Comments COLONOSCOPY Routine 08/30/2019 1:34 PM EST documented in this encounter Visit Diagnoses Not on filedocumented in this encounter Additional Health Concerns Assessment Noted Time PHQ-9 Depression Total Score: 17 024 9:32 AM EST documented as of this encounter Care Teams Surgical Assistant Certified Relationship Specialty Start Date End Date Jane Piedra MD [address] [place] [phone] PCP - General Family Medicine 02/18/17 documented as of this encounter
--- OUTSIDE RECORDS SUMMARY | 2025-05-18 19:50 | XMS_ITS | Encounter Summary ---
Author Organization [employer] Address [address] [facility] 7t [place] [address] Care Team Providers Care Shine Worker Name Role Phone Jane Piedra MD Primary Care Provider + Reason for Visit * Reason Onset Date Comments Appointment Request 06/03/2023 Encounter Details Date Type Department Care Team ([facility] st Contact Info) Description 06/03/2023 Telephone [facility]INE [address] [place], [place] [phone] Jane Piedra MD [address] [place], [place] [phone] Appointment Request Social History Tobacco Use Types [...] by PCP . Please contact pt at [phone] Romansh Speaker documented in this encounter Plan of Treatment Upcoming Encounters Date Type Department Care Team (Late st Contact Info) Description 05/28/2025 1:00 PM EST Immunization [facility] [address] [place] [phone] 06/05/2025 11:00 AM EST Office Visit [facility] [address] [place] [phone] Jane Piedra MD [address] [place] [phone] documented as of this encounter Visit Diagnoses Not on filedocumented in this encounter Care Teams Shine Worker Relationship Specialty Start Date End Date Jane Piedra MD [address] [place] [phone] PCP - General Family Medicine 02/18/17 documented as of this encounter
--- OUTSIDE RECORDS SUMMARY | 2025-05-18 19:50 | XMS_ITS | Encounter Summary ---
Author Organization [employer] Address [address] [facility] 7t [place] [address] Care Team Providers Care [employer] Executive Director Name Role Phone Jane Piedra MD Primary Care Provider + Reason for Visit * Reason Comments Med Refill Encounter Details Date Type Department Care Team ([facility] st Contact Info) Description 05/29/2023 Refill [facility] MED & PEDS [address] [place] [address] Jane Piedra MD [address] [place] [address] Allergic rhinitis due to other allergic trigger, [...] Info) Description 05/28/2025 1:00 PM EST Immunization [address] [phone] 06/05/2025 11:00 AM EST Office Visit [address] [address] Jane Piedra MD [address] [place] [address] documented as of this encounter Visit Diagnoses Diagnosis Allergic rhinitis due to other allergic trigger, unspecified seasonality documented in this encounter Care Teams [employer] Executive Director Relationship Specialty Start Date End Date Jane Piedra MD [address] [place] [phone] PCP - General Family Medicine 02/18/17 documented as of this encounter
--- OUTSIDE RECORDS SUMMARY | 2025-05-18 19:51 | XMS_ITS | Encounter Summary ---
Author Organization [employer] Address [address] [place] [address] [address] [place] [address] Care Team Providers Care Production Lead Name Role Phone Jane Piedra MD Primary Care Provider + Reason for Visit * Reason Comments Med Refill Encounter Details Date Type Department Care Team (Late st Contact Info) Description 03/25/2024 Refill [facility] [address] [place], [place] [phone] Jane Piedra MD [address] [place], [place] [phone] Chronic idiopathic constipation; Gastro-esophageal reflux disease without [...] Info) Description 05/28/2025 1:00 PM EST Immunization [facility] [address] [place] [phone] 06/05/2025 11:00 AM EST Office Visit [facility] [address] [place] [phone] Jane Piedra MD [address] [place] [phone] documented as of this encounter Visit Diagnoses Diagnosis Chronic idiopathic constipation Unspecified constipation Gastro-esophageal reflux disease without esophagitis documented in this encounter Additional Health Concerns Assessment Noted Time PHQ-9 Depression Total Score: 24 024 11:20 AM EDT documented as of this encounter Care Teams Production Lead Relationship Specialty Start Date End Date Jane Piedra MD [address] [place] [phone] PCP - General Family Medicine 02/18/17 documented as of this encounter
--- OUTSIDE RECORDS SUMMARY | 2025-05-18 19:51 | XMS_ITS | Encounter Summary ---
Author Organization [employer] Address [address] [place] [address] [address] [place] [address] Care Team Providers Care Hot Top Liner Helper Name Role Phone Jane Piedra MD Primary Care Provider + Reason for Visit * Reason Onset Date Comments chart prep 05/17/2025 Encounter Details Date Type Department Care Team (Late st Contact Info) Description 05/17/2025 Telephone [facility] MEDICINE [address] [place], [place] [phone] Prudence Lucio, ANP [address] [place], [place] [phone] chart prep Social History Tobacco Use Types Packs/Day [...] encounter Miscellaneous Notes * Telephone Encounter - Gurpreet Peralta [place] - 05/17/2025 11:57 AM EST Chart Prep Labs: done Images: done Referrals: not applicable Vaccines due: Covid, Hep B, RSV, and Zoster Screenings: pap smear and HIV screening Overdue care gaps: Oral health screening and Disability screen documented in this encounter Plan of Treatment Upcoming Encounters Date Type Department Care Team ([facility] st Contact Info) Description 05/28/2025 1:00 PM EST Immunization [facility] MEDICINE [address] [place] [phone] 06/05/2025 11:00 AM EST Office Visit [facility] MED[facility] [address] [place] [phone] Jane Piedra MD [address] [place] [address] documented as of this encounter Visit Diagnoses Not on filedocumented in this encounter Additional Health Concerns Assessment Noted Time PHQ-9 Depression Total Score: 19 025 10:56 AM EDT documented as of this encounter Care Teams Hot Top Liner Helper Relationship Specialty Start Date End Date Jane Piedra MD [address] [place] [phone] PCP - General Family Medicine 02/18/17 documented as of this encounter
--- OUTSIDE RECORDS SUMMARY | 2025-05-18 19:51 | XMS_ITS | Encounter Summary ---
Author Organization [employer] [facility] Address [address] [place] [address] [address] [place] [address] Care Team Providers Care Floor Care Technician Name Role Phone Jane Piedra MD Primary Care Provider + Reason for Visit * Reason Comments Med Refill Encounter Details Date Type Department Care Team (Late Contact Info) Description 02/25/2023 Refill [facility] [address] [place] [phone] Jane Piedra MD [address] [place] [address] Social History Tobacco Use Types Packs/Day Years [...] Department Care Team (Late Contact Info) Description 05/28/2025 1:00 PM EST Immunization [facility] [address] [place] [address] [phone] 06/05/2025 11:00 AM EST Office Visit [facility] [address] [place] [address] [phone] Jane Piedra MD [address] [place], [place] [phone] documented as of this encounter Visit Diagnoses Not on filedocumented in this encounter Care Teams Floor Care Technician Relationship Specialty Start Date End Date Jane Piedra MD [address] [place] [address] PCP - General Family Medicine 02/18/17 documented as of this encounter
--- OUTSIDE RECORDS SUMMARY | 2025-05-18 19:51 | XMS_ITS | Encounter Summary ---
Author Organization [employer] Address [address] [place] [address] 7t [place] [address] Care Team Providers Care Pets And Pet Supplies Salesperson Name Role Phone Jane Piedra MD Primary Care Provider + Reason for Visit * Reason Onset Date Comments No Show 05/18/2025 Encounter Details Date Type Department Care Team (Late st Contact Info) Description 05/18/2025 Telephone [facility] [address] [place], [place] [phone] Prudence Lucio, ANP [address] [place], [place] [phone] No Show Social History Tobacco Use Types Packs/Day Years [...] 05/28/2025 1:00 PM EST Immunization [facility] [address] [place] [phone] 06/05/2025 11:00 AM EST Office Visit [facility] [address] [place] [phone] Jane Piedra MD [address] [place] [phone] documented as of this encounter Visit Diagnoses Not on filedocumented in this encounter Additional Health Concerns Assessment Noted Time PHQ-9 Depression Total Score: 19 025 10:56 AM EDT documented as of this encounter Care Teams Pets And Pet Supplies Salesperson Relationship Specialty Start Date End Date Jane Piedra MD [address] [place] [phone] PCP - General Family Medicine 02/18/17 documented as of this encounter
--- OUTSIDE RECORDS SUMMARY | 2025-05-18 19:51 | XMS_ITS | Encounter Summary ---
Author Organization [employer] Address [address] [facility] 7t [place] [address] Care Team Providers Care Rolling Mill Plugger Name Role Phone Jane Piedra MD Primary Care Provider + Reason for Visit * Reason Comments Med Refill Encounter Details Date Type Department Care Team (Late st Contact Info) Description 01/24/2024 Refill [facility] [address] [place], [place] [phone] Name, MD Adarsh [address] [place] [address] Other cardiac arrhythmia Social History Tobacco Use [...] Info) Description 05/28/2025 1:00 PM EST Immunization [address] [address] 06/05/2025 11:00 AM EST Office Visit [facility] [address] [place] [phone] Jane Piedra MD [address] [place] [address] documented as of this encounter Visit Diagnoses Diagnosis Other cardiac arrhythmia documented in this encounter Additional Health Concerns Assessment Noted Time PHQ-9 Depression Total Score: 24 024 11:20 AM EDT documented as of this encounter Care Teams Rolling Mill Plugger Relationship Specialty Start Date End Date Jane Piedra MD [address] [place] [phone] PCP - General Family Medicine 02/18/17 documented as of this encounter
--- OUTSIDE RECORDS SUMMARY | 2025-05-18 19:51 | XMS_ITS | Encounter Summary ---
Author Organization [employer] Address [address] [place] [address] 7t [place] [address] Care Team Providers Care Cocoa Roaster Name Role Phone Jane Piedra MD Primary Care Provider + Reason for Visit * Reason Onset Date Comments Error 08/03/2023 Encounter Details Date Type Department Care Team ([facility] st Contact Info) Description 08/03/2023 Telephone [facility] 230 [place], [place] [phone] Jane Piedra MD 230 [place], [place] [phone] Error Social History Tobacco Use Types Packs/Day [...] Info) Description 05/28/2025 1:00 PM EST Immunization [facility] [address] [place] [address] 06/05/2025 11:00 AM EST Office Visit [facility] [address] [place] [address] Jane Piedra MD [address] [place] [phone] documented as of this encounter Visit Diagnoses Not on filedocumented in this encounter Additional Health Concerns Assessment Noted Time PHQ-9 Depression Total Score: 17 024 9:32 AM EST documented as of this encounter Care Teams Cocoa Roaster Relationship Specialty Start Date End Date Jane Piedra MD [address] [place] [phone] PCP - General Family Medicine 02/18/17 documented as of this encounter
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
--- OUTSIDE RECORDS SUMMARY | 2025-05-18 19:51 | XMS_ITS | Encounter Summary ---
Author Organization [employer] Address 75 [facility] 7t [place] [address] Care Team Providers Care Equine Breeder Name Role Phone Jane Peidra MD Primary Care Provider + Reason for Visit * Reason Onset Date Comments chart prep 05/15/2025 Encounter Details Date Type Department Care Team ([facility] st Contact Info) Description 05/15/2025 Telephone [facility] 230 [place], [place] [phone] Jane Piedra MD 230 [place], [place] [phone] chart prep Social History Tobacco Use Types [...] encounter Miscellaneous Notes * Telephone Encounter - Prachi Donahue [place] - 05/15/2025 2:49 PM EST Chart Prep Labs: done Images: done Referrals: complete Vaccines due: Covid, Hep B, and Zoster Screenings: pap smear Overdue care gaps: PHQ-9, TOMAS-7, and Disability screen documented in this encounter Plan of Treatment Upcoming Encounters Date Type Department Care Team (Late st Contact Info) Description 05/28/2025 1:00 PM EST Immunization [facility] [address] [place] [address] 06/05/2025 11:00 AM EST Office Visit [facility] [address] [place] [address] Jane Piedra MD [address] [place] [address] documented as of this encounter Visit Diagnoses Not on filedocumented in this encounter Additional Health Concerns Assessment Noted Time PHQ-9 Depression Total Score: 19 025 10:56 AM EDT documented as of this encounter Care Teams Equine Breeder Relationship Specialty Start Date End Date Jane Piedra MD [address] [place] [phone] PCP - General Family Medicine 02/18/17 documented as of this encounter
--- OUTSIDE RECORDS SUMMARY | 2025-05-18 19:52 | XMS_ITS | Encounter Summary ---
Author Organization [employer] Address [address] [place] [address] 7t [place] [address] Care Team Providers Care Worship Director Name Role Phone Jane Piedra MD Primary Care Provider + Reason for Visit * Reason Comments Med Change Request Encounter Details Date Type Department Care Team ([facility] st Contact Info) Description 07/11/2024 Refill [facility] 230 [place], [place] [phone] Jane Piedra MD 230 [place], [place] [phone] Obesity (BMI 35.0-39.9 without comorbidity) Social History [...] Info) Description 05/28/2025 1:00 PM EST Immunization [facility] [address] [place] [address] 06/05/2025 11:00 AM EST Office Visit [facility] [address] [place] [address] Jane Piedra MD [address] [place] [address] documented as of this encounter Visit Diagnoses Diagnosis Obesity (BMI 35.0-39.9 without comorbidity) documented in this encounter Additional Health Concerns Assessment Noted Time PHQ-9 Depression Total Score: 24 024 11:20 AM EDT documented as of this encounter Care Teams Worship Director Relationship Specialty Start Date End Date Jane Piedra MD [address] [place] [phone] PCP - General Family Medicine 02/18/17 documented as of this encounter
--- OUTSIDE RECORDS SUMMARY | 2025-05-18 19:52 | XMS_ITS | Encounter Summary ---
Author Organization [employer] [facility] Address [address] [place] [address] 7t [place] [address] Care Team Providers Care Private Branch Exchange Operator Name Role Phone Jane Piedra MD Primary Care Provider + Encounter Details Date Type Department Care Team (Late st Contact Info) Description 05/19/2022 Abstract [facility] [address] [place] [phone] ProviderRaffaele MD Social History Tobacco Use Types [...] Info) Description 05/28/2025 1:00 PM EST Immunization [address] [phone] 06/05/2025 11:00 AM EST Office Visit [address] [address] Jane Piedra MD [address] [place] [address] documented as of this encounter Visit Diagnoses Not on filedocumented in this encounter Care Teams Private Branch Exchange Operator Relationship Specialty Start Date End Date Jane Piedra MD 230 [place] [address] PCP - General Family Medicine 02/18/17 documented as of this encounter
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
--- OUTSIDE RECORDS SUMMARY | 2025-05-18 19:52 | XMS_ITS | Encounter Summary ---
Author Organization [facility] Address [address] [place] [address] Care Team Providers Care Artificial Breeding Technician Name Role Phone Physician, No Pcp Primary Care Provider Unavaila ble Encounter Details Date Type Department Care Team (Late st Contact Info) Description 04/05/2025 Results Follow-Up Obstetrics and Gynecology - [address] [place] [phone] Guerita Yanez MA Social History Tobacco Use Types Packs/Day Years [...] on file documented as of this encounter Plan of Treatment Not on file documented as of this encounter Visit Diagnoses Not on filedocumented in this encounter Care Teams Artificial Breeding Technician Relationship Specialty Start Date End Date Physician, No Pcp PCP - General 04/30/25 documented as of this encounter
--- OUTSIDE RECORDS SUMMARY | 2025-05-18 19:52 | XMS_ITS | Encounter Summary ---
Author Organization [facility] Address [address] [place] [address] 7t [place] [address] Care Team Providers Care Housing Inspector Name Role Phone Jane Piedra MD Primary Care Provider + Encounter Details Date Type Department Care Team (Late st Contact Info) Description 05/19/2022 Orders Only [facility] [address] [place] [phone] Selin Alston RN [address] [place] [phone] Social History Tobacco Use Types Packs/Day Years [...] Info) Description 05/28/2025 1:00 PM EST Immunization [facility] [address] [place] [phone] 06/05/2025 11:00 AM EST Office Visit [facility] [address] [place] [phone] Jane Piedra MD [address] [place] [phone] documented as of this encounter Visit Diagnoses Not on filedocumented in this encounter Care Teams Housing Inspector Relationship Specialty Start Date End Date Jane Piedra MD [address] [place] [phone] PCP - General Family Medicine 02/18/17 documented as of this encounter
--- OUTSIDE RECORDS SUMMARY | 2025-05-18 19:52 | XMS_ITS | Clinical Summary ---
Author Organization [facility] Address [address] [place] [address] Phone Care Team Providers Care Curtain Cutter Name Role Phone Physician, No Pcp Primary Care Provider Unavaila ble Allergies Active Allergy Reactions Criticality Noted Date Comments Aspirin Other 09/17/2016 Unknown reaction had allergy testing done that confirmed ASA allergy Medications valACYclovir (VALTREX) 500 mg tablet TAKE 1 TABLET BY MOUTH two (2) times a day 60 tablet 6 07/10/19 25 Active zolpidem (AMBIEN) 10 mg tablet Take by mouth at bedtime as needed. Active venlafaxine XR (EFFEXOR-XR) 75 mg 24 hr capsule Take 1 capsule (75 mg total) by mouth 1 (one) time each day in the morning. Active simethicone (MYLICON,GAS-X ) 180 mg capsule TAKE ONE CAPSULE BY MOUTH 4 (FOUR) TIMES DAILY 06/04/20 21 Active plecanatide (Trulance) 3 mg tablet Take 1 tablet (3 mg total) by mouth 1 (one) time each day. 03/27/20 21 Active lurasidone (Latuda) 40 mg tablet Take 1 tablet (40 mg total) by mouth 1 (one) time each day. 06/19/20 21 Active Creon 24,000-76,000 -120,000 unit capsule TAKE ONE CAPSULE BY MOUTH 4 (FOUR) TIMES DAILY 06/19/20 21 Active Linzess 290 mcg capsule Take 1 capsule (290 mcg total) by mouth 1 (one) time each day in the morning. 06/10/20 21 Active imipramine (TOFRANIL) 25 mg tablet TAKE 2 TABLETS BY MOUTH DAILY AT BEDTIME 06/04/20 Active gabapentin (NEURONTIN) 100 mg capsule TAKE ONE CAPSULE BY MOUTH 3 (THREE) TIMES A DAY 06/19/20 Active fluticasone propionate (Flovent Diskus) 100 mcg/actuation diskus inhaler Inhale into the lungs as needed. Active Dexilant [address] capsule Take 1 capsule (60 mg total) by mouth 1 (one) time each day. 06/04/20 Active clonazePAM (KlonoPIN) 0.5 mg tablet Take 1 mg by mouth 2 times daily as needed. Active calcium carbonate-krista min D (Oysco 500/D) 500 mg-5 mcg (200 unit) per tablet TAKE ONE TABLET BY MOUTH two (2) times a day 06/19/20 Active buPROPion XL (WELLBUTRIN XL) 300 mg 24 hr tablet Take 1 tablet (300 mg total) by mouth 1 (one) time each day in the morning. 06/04/20 Active Lactobacillus acidophilus (PROBIOTIC ORAL) Take 1 capsule by mouth 1 (one) time each day. 03/22/20 18 Active ALBUTEROL INHL Inhale into the lungs as needed. Active calcium carbonate (CALCIUM ORAL) Take 2 tablets by mouth 1 (one) time each day. Active UNABLE TO FIND Lactobacillus Acid-Pectin (ACIDOPHILUS/CIT CAREN PECTIN) Tab 90 Tab 3 04/24/2019 Sig - Route: Take 1 Tab by mouth daily. - Oral Sent to pharmacy as: Acidophilus/Citr us Pectin Oral Tablet 04/24/20 19 Active topiramate (TOPAMAX) 50 mg tablet 05/08/20 24 Active Trintellix 20 mg tablet 05/09/20 24 Active topiramate (TOPAMAX) 25 mg tablet TAKE 1 TABLET (25 MG) BY MOUTH EVERY 12 (TWELVE) HOURS. 05/15/20 24 Active tiZANidine (ZANAFLEX) 2 mg tablet PLEASE SEE ATTACHED FOR DETAILED DIRECTIONS 06/20/20 24 Active albuterol HFA (PROAIR HFA ; PROVENTIL HFA ; VENTOLIN HFA) 90 mcg/actuation inhaler Inhale 2 puffs by mouth every 4 hours. 03/12/20 25 Active cetirizine (ZyrTEC) 10 mg tablet Take 1 tablet (10 mg total) by mouth 1 (one) time each day. 03/12/20 Active ergocalciferol (VITAMIN D-2) 1,250 mcg (50,000 unit) capsule Take 1.25 mg by mouth. Active pantoprazole (PROTONIX) 40 mg EC tablet Take 1 tablet (40 mg total) by mouth. 03/12/20 Active prazosin (MINIPRESS) 1 mg capsule Take 1 capsule (1 mg total) by mouth. Active senna-docusate (PERICOLACE) 8.6-50 mg per tablet Take 1 tablet by mouth. 03/12/20 25 2025 Active Zepbound 2.5 mg/0.5 mL injection Inject 0.5 mL (2.5 mg total) under the skin. 03/12/20 Active estradioL (ESTRACE) 0.01 % (0.1 mg/gram) vaginal cream 1g PV nightly x 2 weeks then twice weekly thereafter 34 g 4 05/15/20 Active conjugated estrogens (Premarin) vaginal cream Place 1 Applicator vaginally twice a week. 09/29/19 23 2024 Discontinued Active Problems Problem Noted Date Diagnosed Date [...] on cytologic smear cervix (lgsil) 07/02/2020 Overview (03/28/2025): 06/2020 PAP- LSIL. Neg HPV Per [facility]CCP- repeat co-testing in one year 07/2020 PAP LSIL, HPV not done Plan: [facility] for Colpo- benign 08/2021 Plan: repeat PAP one year 06/2022 PAP Ascus, neg hpv Repeat one year 11/2023 PAP LSIL, neg HPV RECOMMENDATION 1-year follow-up RISK 5 year risk of CIN3+ is 3.1% 03/2025- LSIL/HPV neg Recommend repeat colposcopy Abnormal TSH 10/14/2018 Stress incontinence of urine 10/14/2018 Precordial pain 04/25/2018 Mild intermittent asthma 11/17/2017 Constipation 07/12/2012 Gastroesophageal reflux disease 07/12/2012 Recurrent major depression ([facility] V24) 012 Allergic rhinitis 1959 Anxiety 1959 Iron deficiency anemia 1961 Encounters Date Type Department Care Team Description 05/15/2025 9:45 AM EST [facility] [place] [address] Vandana De La O DO LGSIL on Pap smear of cervix (Primary Dx); Vaginal atrophy 04/05/2025 Results Follow-Up Obstetrics and Gynecology - [address] [phone] Guerita Yanez MA 03/29/2025 Telephone Obstetrics and Gynecology - [address] [phone] Guerita Yanez MA 03/27/2025 Telephone Obstetrics and Gynecology [address] [phone] Michaelle Roberts CNM 03/23/2025 Telephone Obstetrics & Gynecology [address] [phone] Iris Russo CNM 03/21/2025 10:00 AM EDT Office Visit Obstetrics & Gynecology [address] [phone] Michaelle Roberts CNM Encounter for gynecological examination without abnormal finding (Primary Dx); Screen for STD (sexually transmitted disease) 02/16/2025 Telephone Obstetrics & Gynecology - [address] [phone] Iris Russo CNM from Last 3 Months Immunizations Immunization Administration Dates Next Due Hepatitis B Pediatric [...] 3 3 Date Outcome GA Total Labor Labor/2nd/3rd Weight Sex Type Anes PTL Georgina A1 A5 Name Clin 991 Term 40w 0d 3345 g (118 oz) F Vag-S pont None Living Delivery Location:[facility] 997 Term 40w 0d 3912 g (138 oz) M Vag-S pont None Living Delivery Location:[facility] 005 Term 40w 0d 3430 g (121 oz) M Vag-S pont None Living Delivery Location:[facility] Last Filed Vital Signs Vital Sign [...] Mass Index 30.29 05/15/2025 9:46 AM EST Plan of Treatment Health Maintenance Due Date Last Done Comments Colorectal Cancer Screening: Colonoscopy 1973 Hepatitis B Vaccines (1 of 3 - 19+ 3-dose series) 1992 11/11/2010, 12/05/2009, 08/13/2008 Cholesterol Screening (Lipid Panel) 06/13/2022 Social Influencers of Health Screening 06/13/2022 RSV Immunization Adult Patients (1 - Risk 50-74 years 1-dose series) 2023 Depression Screening 2024 COVID-19 Vaccine ( - 2024- season) 2025 10/31/2020, 10/02/2020 Zoster Vaccines (2 of 2) 05/16/2025 03/21/2025 Breast Cancer Screening 07/20/2026 07/20/2024, 07/30 Cervical Cancer Screening: HPV 03/21/2030 03/21/2025, 11/08/2023 DTaP,Tdap,and Td Vaccines (4 - Td or Tdap) 09/08/2031 09/07/2021, 07/17/2013, 07/11/2001 Pneumococcal Vaccine: 50+ Years Completed 06/04/2022 Influenza Vaccine Completed 03/12/2025, , 05/07/2023, Additional history exists HIV Screening Completed 03/21/2025, 0512/2023, 11/08/2023 Hepatitis C Screening Completed 03/21/2025, 024 [...] Procedure Name Priority Date/Time Associated Diagnosis Comments WI COLPOSCOPY CERVIX Routine 05/15/2025 10:07 AM EST LGSIL on Pap smear of cervix HEPATITIS C ANTIBODY Routine 03/21/2025 11:02 AM [...] Encounter for gynecological examination without abnormal finding PAP SMEAR Routine 03/21/2025 10:43 AM EDT Encounter for [...] Recently Relevant to Health Maintenance Results * WI COLPOSCOPY CERVIX (05/15/2025 10:07 AM EST) Vandana [...] draped in the dorsal lithotomy position: yes Bingen speculum was placed in the vagina: yes Endometrial biopsy performed: no Specimen to pathology: no Post-procedure: Findings comment: Cervix is atrophic without visible evidence of abnormality Impression: normal appearance Colposcopy satisfactory: yes Patient tolerance of procedure: Patient tolerated the procedure well with no immediate complications Comments: Pt to use vaginal estrogen for this next year prior to repeating pap smear in 2025 us Vandana De La O DO IN CLINIC/BEDSIDE ORDERABLES Final Result * Hepatitis C antibody (03/21/2025 11:02 AM EDT) Hepatitis C Antibody Negative Negative LAB CHEMISTRY METHOD 03/21/2025 2:00 PM EDT [facility] ([facility]) [facility] Blood Venous blood specimen / Unknown Venipuncture / Unknown 03/21/2025 11:02 AM EDT 03/21/2025 11:37 AM EDT us Michaelle BRIGGS LAB BLOOD ORDERABLES Final Res ult Performing Organization Address City/[facility]/ZIP Co de Phone Number [facility] [address] [place] [address], [place] [phone] * HIV 1,2 antibody, p24 antigen with reflex to differentiation (03/21/2025 11:02 AM EDT) HIV Combo AB/AG Negative Negative LAB CHEMISTRY METHOD 03/21/2025 2:00 PM EDT [facility] Blood Venous blood specimen / Unknown Venipuncture / Unknown 03/21/2025 11:02 AM EDT 03/21/2025 11:37 AM EDT Narrative [facility] - 03/21/2025 2:00 PM EDT This assay is a 4th generation assay allowing for earlier detection of HIV infection by detecting the presence of the HIV-1 p24 antigen as well as the traditional antibodies to HIV type 1 (including group O) and type 2. Use of a 4th generation assay is the current CDC recommendation for HIV screening. us Michaelle Roberts [facility] BLOOD ORDERABLES Final Res ult Performing Organization Address City/[facility]/ZIP Co de Phone Number [facility] [address] [place] [address], [place] [phone] * Hepatitis B surface antigen with reflex to confirmation (03/21/2025 11:02 AM EDT) Hepatitis B Surface Ag Negative Negative LAB CHEMISTRY METHOD 03/21/2025 1:31 PM EDT [facility] Blood Venous blood specimen / Unknown Venipuncture / Unknown 03/21/2025 11:02 AM EDT 03/21/2025 11:37 AM EDT Narrative [facility] - 03/21/2025 1:31 PM EDT Over the counter supplements containing high doses of biotin may interfere with this assay. If interference is suspected, patients shoud be retested after refraining from biotin supplements for 72 hours. us Michaelle Roberts [facility] BLOOD ORDERABLES Final Res ult Performing Organization Address [facility]/ZIP Co de Phone Number [facility] [address] [place] [address], [place] [phone] * Treponema pallidum antibody with reflex to RPR and particle agglutination (03/21/2025 11:02 AM EDT) T. Pallidum Antibodies Negative Negative LAB CHEMISTRY METHOD 03/21/2025 2:33 PM EDT [facility] Blood Venous blood specimen / Unknown Venipuncture / Unknown 03/21/2025 11:02 AM EDT 03/21/2025 11:37 AM EDT us Michaelle Roberts [facility] BLOOD ORDERABLES Final Res ult Performing Organization Address [facility] Co de Phone Number [facility] [address] [place] [address], [place] [phone] * Chlamydia trachomatis and neisseria gonorrhoeae by tma, thinprep (03/21/2025 10:43 AM EDT) N. gonorrhoeae, RNA Probe Negative Negative LAB MICROBIOLOGY METHOD 03/23/2025 1:10 PM EDT [facility] Chlamydia, RNA Probe Negative Negative LAB MICROBIOLOGY METHOD 03/23/2025 1:10 PM EDT [facility] Brushing/Spatula Cervix uteri structure / Unknown 03/21/2025 10:43 AM EDT 03/22/2025 6:10 AM EDT us Michaelle Roberts [facility] CYTOLOGY ORDERABLES Final Result Performing Organization Address City/[facility]/ZIP Co de Phone Number [facility] [address] [place] [address], [place] [phone] * HPV with reflex genotype (03/21/2025 10:43 AM EDT) HPV Negative Negative LAB MICROBIOLOGY METHOD 03/22/2025 2:47 PM EDT [facility] Brushing/Spatula Cervix uteri structure / Unknown 03/21/2025 10:43 AM EDT 03/22/2025 6:10 AM EDT us Michaelle Roberts CNM LAB MOLECULAR DIAGNOSTICS ORDE RABLES Final Result Performing Organization Address [facility] Co de Phone Number [facility] [address] [place] [address], [place] [phone] * Trichomonas vaginalis molecular study (03/21/2025 10:43 AM EDT) Pathologist [facility] Trichomonas vaginalis Negative Negative LAB MICROBIOLOGY METHOD 03/23/2025 1:20 PM EDT [facility] Brushing/Spatula Cervix uteri structure / Unknown 03/21/2025 10:43 AM EDT 03/22/2025 6:10 AM EDT us Michaelle Roberts CNM LAB BLOOD ORDERABLES Final Res ult Performing Organization Address City/[facility]/ZIP Co de Phone Number [facility] [address] [place] [address], [place] [phone] * (ABNORMAL) Pap smear (03/21/2025 10:43 AM EDT) Interpretation Low grade squamous intraepithelial lesion(A) 03/26/2025 4:52 PM EDT [facility] General Categorization Epithelial cell abnormality, see interpretation 03/26/2025 4:52 PM EDT [facility] Specimen Adequacy Satisfactory for evaluation, endocervical/dial sformation zone component present 03/26/2025 4:52 PM EDT [facility] Pap Methodology Liquid Based Pap Test 03/26/2025 4:52 PM EDT [facility] Disclaimer The Pap test is a screening test which carries an inherent false negative rate. These test results should be correlated with the patient's clinical findings and history. This Pap test was processed using an automated screening system. Technical cytopathology services provided by [facility], at [address] [place] [id number] (CLIA # [id number]/Holger Palacios MD, Parachute Marker.) 03/26/2025 4:52 PM EDT [facility] Console Pap Interpretation Reported 03/26/2025 4:52 PM EDT [facility] Brushing/Spatula Cervix uteri structure / Unknown 03/21/2025 10:43 AM EDT 03/22/2025 6:10 AM EDT Michaelle BRIGGS LAB CYTOLOGY ORDERABLES Final Result [facility]) [facility] [address] [place] [address], * MG Mammo Digital Diagnostic bilat (07/20/2024 11:09 AM EST) Anatomical Region Laterality Modality Breast Bilateral Mammography us Historical Provider IMOlivia BI PROCEDURES Final R esult from Last 3 Months or Most Recently Relevant to Health Maintenance Insurance Member Subscriber Plan / Payer (Ef fective 2013-Present) Name:JESICA BOOTHE Relation to Subscriber:Self Name:Jesica Boothe Payer ID:[id number] Group ID:[id number] Type:Not on file Address: [facility] [address] [phone] Care Teams Curtain Cutter Relationship Specialty Start Date End Date Physician, No Pcp PCP - General 04/30/25
--- OUTSIDE RECORDS SUMMARY | 2025-05-18 19:52 | XMS_ITS | Data Portability ---
Author Organization [employer], [facility] Address [address] [place] [address] Care Team Providers Care Immigration Judge Name Role Phone [facility] PRIMARY CARE Referring Provider [phone] Assessment Encounter Date Assessment Date Assessment LastModified by Organization Details LastModified Time 08/23/2024 08/23/2024 I provided real -time medical direction via phone for this encounter and was available for additional phone-based assistance as needed. I have reviewed and agree with the Assessment and Plan as documented by the Platinum And Palladium Kettle Tender. Patient given the opportunity to ask questions. Our service contacted for an assessment of: Viral URI symptoms and possible asthma exacerbation As per above, patient with approximately several days of viral URI symptoms. Denies fever or chills. Denies chest pain, shortness of breath, dyspnea on exertion. Positive nasal congestion and dry cough. Positive sick contacts. Also feels like is exacerbated asthma. Per field contact person on the scene, vital signs are stable and patient is afebrile. No wheezing heard on exam. COVID and Flu are both negative. No increased work of breathing and no distress. Impression: Common cold and likely asthma exacerbation Plan: Continue with [id number] medications to control symptoms. Additionally will prescribe prednisone 40 mg in the field x1 with 40 mg for the next 4 days sent to her pharmacy. Additionally she needs a refill of albuterol nebs which were prescribed for her. I have also included a prescription for Mucinex to see if she would benefit from an vwqo-dzs-hteqcio solution for congestion. Red flags discussed as [...] Ag, QL IA, respiratory specimen [address], [address] [place] [address], [id number] 5 22:06:41 rapid flu (A+B) [address], [address] [place] [address], [id number] 5 22:06:41 rapid flu (A+B) 2022 023 [facility], [address] [place] [address], [id number] 3 13:41:16 rapid SARS CoV 2 Ag, QL IA, respiratory specimen 2022 023 [facility], [address] [place] [address], [id number] 3 13:41:18 Referral None recorded. Procedures None recorded. Surgeries None recorded. Imaging electrocard iogram 2022 023 [facility], [address] [place] [address], [id number] 3 13:41:14 Medication Orders prednisone 20 mg tablet [address]/Pharmacy #[id number], [address] [place], [address], 5 22:06:41 prednisone 20 mg tablet 2024 025 [facility]/Pharmacy #[id number], [address] [place], [address], 5 22:06:43 albuterol sulfate 2.5 mg/3 mL (0.083 %) solution for nebulizatio n 2024 025 [id number] [address] [place], [address], 5 22:09:42 Mucinex 600 mg tablet, extended release 2024 025 [facility]/Pharmacy #[id number], [address] [facility] [place], [address], 5 22:09:42 ipratropium 0.5 mg-albutero l 3 [...] specimen negati ve Not Available Main - [facility] ed [address] [place] [address], [id number] 05/21/2023 13:40:19 05/21/20 23 05/21/2023 rapid flu (A+B) Flu negati ve Not Available [facility] - [facility] ed [address] [place] [address], [id number] 05/21/2023 13:40:18 08/23/19 25 08/23/2024 rapid flu (A+B) Flu negati ve Not Available Main - [facility] ed [address] [place] [address], [id number] 08/23/2024 22:05:33 08/23/19 25 08/23/2024 rapid SARS CoV 2 Ag, QL IA, respi rator y speci men rapid SARS CoV 2 Ag, QL IA, respiratory specimen negati ve Not Available [facility] - [facility] ed [address] [place] [address], [id number] 08/23/2024 22:05:33 05/21/20 23 elect isabella [email or web address] am No observ ation record ed. [email or web address] [facility] - [facility] [address] [place] [address], [id number] 05/21/2023 13:41:05 Result Notes None recorded. Medical Equipment None Reported. Allergies Allergen ID Allergen Name Allergen Category Reaction Reaction Severity Criticality Documentation Date Start Date Code Code System Note Provider Name and Address Organization Details Recorded Time 7276 aspirin medicatio n Not available Not available Not available 05/02/2024 1191 RxNorm Not Available [facility] - production 4 03:36:15 Medications Name Sig Start Date Stop [...] Available No t Available Vitals Date Recorded Body height Body weight Respiratory rate Body temperature Heart rate Oxygen saturation Oxygen saturation in Arterial blood by Pulse oximetry Systolic And Diastolic Provider Name and Address Organization Details Last Updated DateTime 5 165.1 cm 235238. 792 g 18 /min 98.6 [degF] 108 /min 97 % 97 % 149/89 mm[Hg] Not Available [facility] 5 17:24:25 Date Recorded Oxygen saturation Oxygen saturation in Arterial blood by Pulse oximetry Body temperature Respiratory rate Heart rate Systolic And Diastolic Provider Name and Address Organization Details Last Updated DateTime 3 98 % 98 % 98.1 [degF] 18 /min 93 /min 130/85 mm[Hg] Not Available [facility] 3 11:07:54 Social History None recorded. Functional Status None recorded. Mental Status None recorded. Family History Nothing Reported. Medical History No medical history recorded. Gynecological HistoryNo gynecological history recorded. Obstetrics History GPAL:G 0 P 0 0 0 0 Past Encounters Encounter ID Performer Location Encounter Start Date Encounter Closed Date Diagnosis/Indication Diagnosis SNOMED-CT Code Diagnosis ICD10 Code Diagnosis IMO Codes Diagnosis Note [id number] Jerome Shearer MD Main - [facility] [address] [place] [phone] 05/21/2023 11:07:44 05/23/2023 15:40:57 Acute upper respiratory infection 78424713 J06.9 Patient reports URI symptoms. COVID and Influenza obtained and negative. Reports at least several days of sharp, seconds-lo ng chest pain, not associated with activity nor respiratio ns. EKG without ischemia. Provided with DuoNeb and advised PCP follow-up for chest pain evaluation . [id number] Susanna Germain MD Main - [address] [phone] 08/23/2024 17:24:23 08/24/2024 08:56:23 Common cold 47974798 J00 Exacerbati on of intermittent asthma 239480916 J45.21 Health Concerns Section Related Observation LastModified by Organization Detai ls LastModified Time None Recorded Concern Status LastModified by Organization Details LastModified Time None Recorded Advance Directives Directive None Recorded Payers Insurance Date Sequence Insurance Name Policy Number Policy Cummings Covered Member ID Cummings Member ID Guarantor Name 08/24/2024 1 [facility] - DOS ON OR AFTER 2022 - DUAL ELIGIBLE - [facility] OPTIONS AND ONE CARE (MEDICARE REPLACEMENT/ADV ANTAGE - HMO) [facility] [id number] [facility] Notes Date Note Type Note Provider Name [...] .................. .................. .................. .................. .................. .................. ............... Platinum And Pall[employer] Kettle Tender Note From Kelly Bardales: Upon arrival pt [...] pain, dizziness, nausea and/or diarrhea. Pt states she s been taking her Albuterol inhaler every 4 hours and the last time she gave herself an albuterol neb treatment was 7am this morning. Pt has Hx of asthma and tachycardia. Pt takes naproxen daily for back pain. Vitals as noted. Bilateral breath sounds reveal diminished on right side. No fever is noted. [facility] contacted and duoneb administered. Pt is Covid and flu negative. After duoneb, bilateral breath sounds reveal right side wheezing. A 12 lead EKG reveals no ST elevations. PT was advised to continue neb treatments when needed and if SOB increases despite treatment to be evaluated in the ED. Pt was also advised to contact her appliance tester regarding chest pain. Call was then cleared. [employer] Pall[employer] Kettle Tender Allergies: Aspirin .................. .................. .................. .................. .................. .................. .................. ............... Disposition: Kathryn Shearer MD [address] [facility],[address], [place], [phone], [place] [employer] 05/21/2023 13:41:31 08/23/2024 text/html CRC Nurse Triage Notes (Jessica Boyd - RN): Reason For Request: Pt has cold symptoms and is not feeling well Patient Reports: Cough, fever greater than 2 days ; History of asthma, increased use of inhaler; Sputum increase ; Cough Denies: Increased work of breathing/labored with or without fever Unable to speak in full sentences without distress Discoloration of skin -cyanosis Needs to sleep sitting up, can t catch breath Shortness of breath in setting of confusion COPD Shortness of breath with exertion Pain with inspiration Chief Complaints: Common cold symptoms PMH: COPD/Asthma, Severe Persistent Mental Illness (SPMI), Asthma, Anxiety Disorder, Depression PMH Reviewed at 08/23/2024 Allergies Reviewed at 08/23/2024:43 Comments: Iron Molder Helper verified the name//address and phone number. Call was completed with an diplomatic interpreter. She has had symptoms since wednesday. She [...] s/s and seek emergency treatment if needed Platinum And Palladium Kettle Tender Organization Information for [facility] Business Legal Name: [employer]. Address: [address] [place] [address], Manager Sound: Jerald Fine MD CLIA No.: [id number] [employer] Kettle Tender POC Test Results from [facility] Rapid COVID antigen (18:33:35) COVID: - Rapid influenza antigen (18:33:36) Flu: - .................. .................. .................. .................. .................. .................. .................. ............... Platinum And Palladium Kettle Tender Note From [facility]: [facility] visit for female pt. Pt presents complaining [...] and found to be negative. Consulted with [facility] Dr. Germain who ordered 40 mg oral prednisone given on scene with additional prednisone sent to the pharmacy. Rx also sent for mucinex and refilled albuterol for pt's nebulizer. Reviewed red flags for ED. Pt education provided. .................. .................. .................. .................. .................. .................. .................. ............... [facility] Consulted: Susanna Germain .................. .................. .................. .................. .................. .................. .................. ............... Disposition: Fulfilled Susanna Germain MD [address] [place] [address],[address] [facility], [place], [phone], [employer] 08/23/2024 22:10:14 OBGyn Episode No OBEpisode recorded.
--- OUTSIDE RECORDS SUMMARY | 2025-05-18 19:52 | XMS_ITS | Encounter Summary ---
Author Organization [employer] Address [address] [facility] [address] [place] [address] Care Team Providers Care Pipe Organ Installer Name Role Phone Jane Piedra MD Primary Care Provider + Encounter Details Date Type Department Care Team (Late st Contact Info) Description 06/15/2024 Orders Only [facility] [address] [place] [address] Kristal Monroy Social History Tobacco Use Types [...] Info) Description 05/28/2025 1:00 PM EST Immunization [facility] [address] [place] [address] [phone] 06/05/2025 11:00 AM EST Office Visit [address] [address] Jane Piedra MD [address] [place] [address] [phone] documented as of this encounter Procedures Procedure [...] documented as of this encounter Care Teams Pipe Organ Installer Relationship Specialty Start Date End Date Jane Piedra MD [address] [place] [address] [phone] PCP - General Family Medicine 02/18/17 documented as of this encounter
== END 2025-05-18 14:20 | disposition home or self-care (01) ==
LOC: HO.PMC 13:32
PROVIDERS: PCP Internal Medicine; Visit Provider Registered Nurse Emergency
DX: M79.18 Myalgia, other site (principal); M54.9 Dorsalgia, unspecified; G89.29 Other chronic pain; G89.4 Chronic pain syndrome; M25.50 Pain in unspecified joint; M47.816 Spondylosis without myelopathy or radiculopathy, lumbar region; G62.9 Polyneuropathy, unspecified; M54.10 Radiculopathy, site unspecified
CPT/HCPCS: 99213; G2211

== ENCOUNTER → 2025-05-18 13:31 | Outpatient (BNVA) | payer OTHER, SELFPAY | PROVIDERS: PCP Internal Medicine; Visit Provider Registered Nurse Emergency | DX: M79.18 Myalgia, other site (principal); M54.9 Dorsalgia, unspecified; G89.4 Chronic pain syndrome; M25.50 Pain in unspecified joint; M47.816 Spondylosis without myelopathy or radiculopathy, lumbar region; G62.9 Polyneuropathy, unspecified | CPT/HCPCS: 99212 ==

== ENCOUNTER 2025-06-11 09:29 | Outpatient (AMB) | payer OTHER, SELFPAY ==
--- NOTE | 2025-06-11 09:32 | A.OFFVIS_ITS ---
Vital Signs 06/11/25 09:33 Height 5 ft 5 in Weight 178 lb 2.136 oz BMI 29.6 BP 90/62 Blood Pressure Location Lt brachial Position Sitting Pulse 90 Pulse Source Monitor Intake Visit Reasons: 1 yr follow up Waste Water Treatment Plant Operator Required: Yes Waste Water Treatment Plant Operator Language: Vascular Nurse Name: voice gordon [id number] Caser: Caser Present Allergies aspirin (ASPIRIN) Allergy (Unknown, Verified 06/11/25 09:36) UNKNOWN REACTION PER PT. Medication List - Last Reconciled 06/11/25 by MARIANGEL Llanes albuterol sulfate 90 mcg/actuation 2 puffs inhalation Q4-6H PRN bupropion HCl XL 300 mg PO QAM dexlansoprazole 60 mg PO DAILY fluticasone furoate-vilanterol 200-25 mcg/dose (Breo Ellipta) 1 ea inhalation DAILY gabapentin 300 mg PO TID ibuprofen 600 mg PO Q6H PRN imipramine HCl 10 mg PO BEDTIME 30 days lidocaine 5% (Lidoderm) 1 patch topical DAILY linaclotide (Linzess) 290 mcg PO QAM lithium carbonate mg PO metoclopramide HCl (Reglan) 10 mg PO QIDACHS metoprolol tartrate 25 mg PO BID 90 days sennosides-docusate sodium 8.6-50 mg (Senexon-S) 1 tab-cap PO BEDTIME simethicone 180 mg PO QID topiramate 25 mg PO BID valacyclovir 500 mg PO BID venlafaxine ER 225 mg PO DAILY vortioxetine (Trintellix) 20 mg PO DAILY zolpidem ER 12.5 mg PO BEDTIME PRN HPI HPI 1 yr follow up: Details: Jesica is a 49-year-old female with past medical history of asthma, noncardiac chest discomfort, heart palpitations who presents for follow-up. Her last prior visit to our office was 12/28/23. Today she reports that she still gets heart palpitations. She can feel her heart beating hard and fast. No lightheadedness, presyncope, syncope, falls. She will get periodic discomfort in her chest that feels like someone is sitting on her and it will make her feel short of breath and last 5-7 minutes before resolving. She does not feel this is her asthma. It does not happen often but when it does it causes her concern. She feels her asthma is well controlled. No PND, orthopnea. She does get some mild swelling in her legs. Compliant with her meds. Admits to being mostly sedendary. Certified insurance verification representative used. [facility] Medical History Oropharyngeal dysphagia Acute bronchitis Right upper quadrant abdominal pain Numbness of left foot Back pain Radiculopathy Fracture of left tibial plateau Pre-op examination Palpitations Chest pain Cardiomyopathy Left flank pain Myalgia, multiple sites Reactive airway disease ANTHONY (obstructive sleep apnea) Small bowel motility disorder Bile reflux gastritis Small intestinal bacterial overgrowth Abdominal pain Anxiety Chest tightness Tachycardia Upper abdominal pain GERD (gastroesophageal reflux disease) Chronic idiopathic constipation Surgical History History of cardiac cath Hx of cholecystectomy Hx of endoscopy History of colonoscopy Family History Father No problems noted. Mother Arthritis Social History Household Members: Children Are you a primary skin care instructor to a significant other at home: No Do you presently have visiting nurse or other home services: No Alcohol intake: current Alcohol intake frequency: holidays/special occasions only Patient Tobacco Use Status: Never used Tobacco Current occupational status: unemployed Review of Systems Const All systems reviewed & are unremarkable except as noted in HPI and below Card Reports chest pain, Reports chest pain at rest, Denies chest pain with activity, Reports rapid heart rate, Denies lightheadedness, Denies dyspnea and Denies dyspnea on exertion Resp Denies dyspnea and Denies dyspnea on exertion GI Denies no additional complaints Musc Details: leg swelling at times Psych Denies no additional complaints Physical Exam Vital Signs: BMI result Body Mass Index 29.6 Const General: cooperative, healthy appearing, comfortable and no acute distress Orientation/consciousness: patient oriented x3 Neck Neck: Yes normal visual inspection and Yes no JVD Resp Effort & Inspection: normal respiratory effort Auscultation: clear to auscultation bilaterally, no crackles, no rales, no rhonchi and no wheezes Cardio Jugular venous distension: no JVD Rate: regular rate Rhythm: regular rhythm Heart sounds: S1 normal heart sound present, S2 normal heart sound present, no murmurs and no rubs Neuro General: patient oriented x3 Extrem General: Yes normal to inspection, No no pedal edema and No calf tenderness Psych Appearance: grossly normal Mental Status: mental status grossly normal Speech and movement: Normal speech and movement present Office Procedures EKG Details: Today, read by me, normal sinus rhythm, nonspecific T-wave abnormality, rate 90, QTC 428 milliseconds [id number], Complete Assessment & Plan Assessment & Plan (1) Palpitations: Code(s): R00.2 - Palpitations Category: Medical Plan: Report of ongoing issue of heart palpitations that cause her concern. Prevously evaluated without signficant findings. Holter monitor done 01/29/2021 showed sinus rhythm with average heart rate 91, 16% of the time heart rate greater than 100, rare PACs. Last echo showed normal EF. She was previously put on low-dose metoprolol with some improvement in symptoms however she now states it is a recurrent problem. EKG today showing sinus rhythm, nonspecific T-wave abnormality, rate 90. Will update echocardiogram to assess for structural abnormalities. Will check a Holter monitor to assess for any arrhythmia or inappropriate sinus tach. Continue to avoid caffeinated beverages, stimulants. Maintain good hydration and exercise as tolerated. Cardiology follow-up 2 months, sooner if needed (2) Chest pain: Code(s): R07.9 - Chest pain, unspecified Category: Medical Plan: Report of atypical sounding chest discomfort, nonexertional. Prior cardiac evaluation included CTA of the coronary arteries done on 08/19/2021 for chest discomfort symptoms showing no hemodynamically significant stenosis. She continued to report symptoms and underwent cardiac catheterization on 05/07/2022 showing normal coronary arteries. Last echo 06/16/2021 had shown EF 55-60%, normal RV, no regional wall motion abnormalities. Test results reviewed with her and offered reassurance that her chest discomfort is noncardiac in nature. She does have a history of asthma which can contribute. (3) History of cardiac cath: Comment: 04/2022 normal coronary arteries Code(s): Z98.890 - Other specified postprocedural states Category: Surgical Plan: As above (4) Cardiomyopathy: Code(s): I42.9 - Cardiomyopathy, unspecified Category: Medical Plan: Echocardiogram from 01/29/2021 had shown EF 45-50%. A repeat echo 06/16/2021 had shown EF 55-60%. On exam today she has no clinical signs of heart failure. She is on low-dose metoprolol. Updating echo. Plan I informed the patient that even though she is experiencing chest discomfort, her prior heart workup, including a cardiac catheterization, was normal, and it is unlikely her pain is heart-related. I explained that due to her persistent palpitations and new complaint of leg swelling, we would order a new three-day Holter monitor and an updated echocardiogram to reassess her heart rhythm and function. We discussed that depending on the monitor's findings, we might increase her metoprolol dose.I advised her that centralized scheduling would contact her to arrange these tests and that we would schedule a follow-up a ppointment in two months to discuss all the results. I also explained that being deconditioned from a lack of exercise can cause the heart to pound harder with activity, and I encouraged more physical activity. Orders: Orders ECG 3 day holter monitor Today I42.9 - Cardiomyopathy, unspecified, R00.2 - Palpitations, R07.9 - Chest pain, unspecified CA echo transthoracic complete Today I42.9 - Cardiomyopathy, unspecified, R00.2 - Palpitations, R07.9 - Chest pain, unspecified Patient Instructions: - Continue taking your metoprolol medication as prescribed. - We have ordered a 3-day heart monitor (Holter) and an ultrasound of your heart (echocardiogram). - Our scheduling office will call you to set up appointments for these tests. - Try to start doing some regular physical activity, as exercise is good for your heart. - Please follow up in our office in two months to review the results of your tests. - Your past tests showed that your chest pain is not coming from your heart, so you do not need to worry that it is a heart attack. Patient was informed and verbally consented to the use of an ambient scribe for clinic note documentation during this visit. Visit time spent on chart review, interview, assessment, orders, documentation. Coding Level of Care Code Est Pt Level 4 (79674) Complex visit Add On G2211 Diagnoses Palpitations R00.2 Chest pain R07.9 History of cardiac cath Z98.890 Cardiomyopathy I42.9 CPT Codes EKG - CPT: 55370-Xzqasnvwzpctlczls, Complete ([id number]) Time Spent (min) 30
[2025-06-11 09:33] VITALS: BP 90/62; PULSE 90; BMI 29.6
== END 2025-06-11 10:03 | disposition home or self-care (01) ==
LOC: HO.HCS 09:30
PROVIDERS: PCP Internal Medicine; Visit Provider Nurse Practitioner Family
DX: R00.2 Palpitations (principal); R07.9 Chest pain, unspecified; Z98.890 Other specified postprocedural states; I42.9 Cardiomyopathy, unspecified
CPT/HCPCS: 93010; 99214; G2211

== ENCOUNTER → 2025-06-11 09:29 | Outpatient (BNVA) | payer OTHER, SELFPAY | PROVIDERS: PCP Internal Medicine; Visit Provider Nurse Practitioner Family | DX: R00.2 Palpitations (principal); R07.9 Chest pain, unspecified; I42.9 Cardiomyopathy, unspecified; Z98.890 Other specified postprocedural states | CPT/HCPCS: 93005; 99212 ==

== ENCOUNTER 2025-06-19 09:12 | Outpatient (REF) | payer OTHER, SELFPAY ==
--- NOTE | ~2025-06-19 | US_ITS ---
CLINICAL HISTORY: . US abdomen complete Comparison: None provided Findings: The visualized pancreas is normal. The aorta and inferior vena cava are normal caliber. The liver is normal in size and echotexture. There is no intrahepatic bile duct dilatation. The common duct is 3 mm in diameter. The gallbladder is surgically absent. The main portal vein is antegrade. The right kidney is 10.4 cm in length. The left kidney is 10.9 cm in length. The spleen is normal. No ascites. IMPRESSION: 1. Normal complete abdominal ultrasound. This document has been electronically signed by: Terry Vo MD on 06/19/2025 11:17:20
--- OUTSIDE RECORDS SUMMARY | 2025-06-19 10:32 | XMS_ITS | Encounter Summary ---
Author Organization [facility] Address [address] [place] [address] [address] [place] [address] Care Team Providers Care Meat Butcher Name Role Phone Jane Piedra MD Primary Care Provider + Encounter Details Date Type Department Care Team (Late st Contact Info) Description 05/19/2022 Orders Only [facility] [address] [place] [phone] Selin Alston RN [address] [place] [address] Social History Tobacco Use Types Packs/Day Years [...] Care Team (Late st Contact Info) Description 08/17/2025 9:00 AM EST Office Visit [facility] [address] [place] [address] [phone] Jane Piedra MD [address] [place] [address] [phone] documented as of this encounter Visit Diagnoses Not on filedocumented in this encounter Care Teams Meat Butcher Relationship Specialty Start Date End Date Jane Piedra MD [address] [place] [phone] PCP - General Family Medicine 02/18/17 documented as of this encounter
--- OUTSIDE RECORDS SUMMARY | 2025-06-19 10:32 | XMS_ITS | Encounter Summary ---
Author Organization [employer] Address [address] [place] [address] [address] [place] [address] Care Team Providers Care Career Guidance Technician Name Role Phone Jane Piedra MD Primary Care Provider + Reason for Visit * Reason Comments Med Refill Encounter Details Date Type Department Care Team (Late Contact Info) Description 10/06/2022 Refill [facility] [address] [place] [address] Jane Piedra MD [address] [place], [place] [phone] Allergic rhinitis due to other allergic trigger, [...] Upcoming Encounters Date Type Department Care Team ([facility] Contact Info) Description 08/17/2025 9:00 AM EST Office Visit [facility] [address] [place], [place] [phone] Jane Piedra MD [address] [place] [address] documented as of this encounter Visit Diagnoses Diagnosis Allergic rhinitis due to other allergic trigger, unspecified seasonality documented in this encounter Care Teams Career Guidance Technician Relationship Specialty Start Date End Date Jane Piedra MD [address] [place] [phone] PCP - General Family Medicine 02/18/17 documented as of this encounter
--- OUTSIDE RECORDS SUMMARY | 2025-06-19 10:32 | XMS_ITS | Encounter Summary ---
Author Organization [employer] Address [address] [facility] 7t [place] [address] Care Team Providers Care Technical Specialist Cytogenetics Name Role Phone Jane Piedra MD Primary Care Provider + Encounter Details Date Type Department Care Team (Late st Contact Info) Description 06/15/2024 Orders Only [facility] MEDICINE [address] [place] [address] Kristal Monroy Social History Tobacco Use Types [...] Description 08/17/2025 9:00 AM EST Office Visit [facility] MED[facility]INE [address] [place] [address] [phone] Jane Piedra MD [address] [place] [address] documented as of this encounter Procedures Procedure [...] as of this encounter Care Teams Technical Specialist Cytogenetics Relationship Specialty Start Date End Date Jane Piedra MD [address] [place] [address] PCP - General Family Medicine 02/18/17 documented as of this encounter
--- OUTSIDE RECORDS SUMMARY | 2025-06-19 10:32 | XMS_ITS | Encounter Summary ---
Author Organization [employer] Address [address] [facility] [address] [place] [address] Care Team Providers Care Concrete Crusher Loader Operator Name Role Phone Jane Piedra MD Primary Care Provider + Reason for Visit * Reason Comments Med Refill Encounter Details Date Type Department Care Team ([facility] st Contact Info) Description 05/29/2023 Refill [facility] [address] [place] [address] Jane Piedra MD [address] [place] [address] Allergic rhinitis due to other allergic trigger, [...] Description 08/17/2025 9:00 AM EST Office Visit [facility] [address] [place] [address] Jane Piedra MD [address] [place] [address] documented as of this encounter Visit Diagnoses Diagnosis Allergic rhinitis due to other allergic trigger, unspecified seasonality documented in this encounter Care Teams Concrete Crusher Loader Operator Relationship Specialty Start Date End Date Jnae Piedra MD [address] [place] [address] PCP - General Family Medicine 02/18/17 documented as of this encounter
--- OUTSIDE RECORDS SUMMARY | 2025-06-19 10:32 | XMS_ITS | Data Portability ---
Author Organization [employer], [facility] Address [address] [place] [address] Care Team Providers Care Customer Specialist Name Role Phone [facility] Referring Provider Assessment Encounter Date Assessment Date Assessment LastModified by Organization Details LastModified Time 08/23/2024 08/23/2024 I provided real -time medical direction via phone for this encounter and was available for additional phone-based assistance as needed. I have reviewed and agree with the Assessment and Plan as documented by the Snapper On. Patient given the opportunity to ask questions. Our service contacted for an assessment of: Viral URI symptoms and possible asthma exacerbation As per above, patient with approximately several days of viral URI symptoms. Denies fever or chills. Denies chest pain, shortness of breath, dyspnea on exertion. Positive nasal congestion and dry cough. Positive sick contacts. Also feels like is exacerbated asthma. Per scissors sharpener on the scene, vital signs are stable and patient is afebrile. No wheezing heard on exam. COVID and Flu are both negative. No increased work of breathing and no distress. Impression: Common cold and likely asthma exacerbation Plan: Continue with bzzn-wrg-[id number] medications to control symptoms. Additionally will prescribe prednisone 40 mg in the field x1 with 40 mg for the next 4 days sent to her pharmacy. Additionally she needs a refill of albuterol nebs which were prescribed for her. I have also included a prescription for Mucinex to see if she would benefit from an kpze-mqj-gozwzat solution for congestion. Red flags discussed as [...] Ag, QL IA, respiratory specimen [address], [address] [place] [address], [phone] 5 22:06:41 rapid flu (A+B) [address], [address] [place] [address], [phone] 5 22:06:41 rapid flu (A+B) 2022 023 [facility], [address] [place] [address], [phone] 3 13:41:16 rapid SARS CoV 2 Ag, QL IA, respiratory specimen 2022 023 [facility], [address] [place] [address], [id number] 3 13:41:18 Referral None recorded. Procedures None recorded. Surgeries None recorded. Imaging electrocard iogram 2022 023 [facility], [address] [place] [address], [phone] 3 13:41:14 Medication Orders prednisone 20 mg tablet [address]/Pharmacy #[id number], [address] [place], [address], 5 22:06:41 prednisone 20 mg tablet 2024 025 [facility]/Pharmacy #[id number], [address] [place], [address], 5 22:06:43 albuterol sulfate 2.5 mg/3 mL (0.083 %) solution for nebulizatio n 2024 025 [id number] [address] [place], [address], 5 22:09:42 Mucinex 600 mg tablet, extended release 2024 025 [facility]/Pharmacy #[id number], [address] [facility] [place], [address], 5 22:09:42 ipratropium 0.5 mg-albutero l 3 [...] specimen negati ve Not Available Main - [facility] ed [address] [place] [address], [phone] 05/21/2023 13:40:19 05/21/20 23 05/21/2023 rapid flu (A+B) Flu negati ve Not Available [facility] - [facility] ed [address] [place] [address], [phone] 05/21/2023 13:40:18 08/23/19 25 08/23/2024 rapid flu (A+B) Flu negati ve Not Available Main - [facility] ed [address] [place] [address], [address] 08/23/2024 22:05:33 08/23/19 25 08/23/2024 rapid SARS CoV 2 Ag, QL IA, respi rator y speci men rapid SARS CoV 2 Ag, QL IA, respiratory specimen negati ve Not Available [facility] - [facility] ed [address] [place] [address], [phone] 08/23/2024 22:05:33 05/21/20 23 elect isabella zamangr am No observ ation record ed. [email or web address] [facility] - [facility] [address] [place] [address], [phone] 05/21/2023 13:41:05 Result Notes None recorded. Medical [...] rate Body temperature Heart rate Oxygen saturation Systolic And Diastolic Provider Name and Address Organization Details Last Updated DateTime 5 165.1 cm 960568. 792 g 18 /min 98.6 [degF] 108 /min 97 % 149/89 mm[Hg] Not Available [employer] - [employer] 5 17:24:25 Date Recorded Oxygen saturation Body temperature Respiratory rate Heart rate Systolic And Diastolic Provider Name and Address Organization Details Last Updated DateTime 3 98 % 98.1 [degF] 18 /min 93 /min 130/85 mm[Hg] Not Available [employer] 3 11:07:54 Social History None recorded. Functional Status None recorded. Mental Status None recorded. Family History Nothing Reported. Medical History No medical history recorded. Gynecological HistoryNo gynecological history recorded. Obstetrics History GPAL:G 0 P 0 0 0 0 Past Encounters Encounter ID Performer Location Encounter Start Date Encounter Closed Date Diagnosis/Indication Diagnosis SNOMED-CT Code Diagnosis ICD10 Code Diagnosis IMO Codes Diagnosis Note [id number] Jerome Shearer MD Main - [facility] [address] [place] [address] 05/21/2023 11:07:44 05/23/2023 15:40:57 Acute upper respiratory infection 43016626 J06.9 Patient reports URI symptoms. COVID and Influenza obtained and negative. Reports at least several days of sharp, seconds-lo ng chest pain, not associated with activity nor respiratio ns. EKG without ischemia. Provided with DuoNeb and advised PCP follow-up for chest pain evaluation . [id number] Susanna Germain MD Main - [facility] [address] [place] [address] 08/23/2024 17:24:23 08/24/2024 08:56:23 Common cold 02985155 J00 Exacerbati on of intermittent asthma 262941286 J45.21 Health Concerns Section Related Observation LastModified by Organization Detai ls LastModified Time None Recorded Concern Status LastModified by Organization Details LastModified Time None Recorded Advance Directives Directive None Recorded Payers Insurance Date Sequence Insurance Name Policy Number Policy Cummings Covered Member ID Cummings Member ID Guarantor Name 08/24/2024 1 [facility] - DOS ON OR AFTER 2022 - DUAL ELIGIBLE - PRISON OPTIONS AND ONE CARE (MEDICARE REPLACEMENT/ADV ANTAGE - HMO) [facility] [id number] [facility] Notes Date Note Type Note Provider [...] .................. .................. .................. .................. .................. .................. ............... Snapper On Note From Kelly Bardales: Upon arrival pt [...] on right side. No fever is noted. [facility] contacted and duoneb administered. Pt is Covid and flu negative. After duoneb, bilateral breath sounds reveal right side wheezing. A 12 lead EKG reveals no ST elevations. PT was advised to continue neb treatments when needed and if SOB increases despite treatment to be evaluated in the ED. Pt was also advised to contact her academic adviser regarding chest pain. Call was then cleared. Snapper On Allergies: Aspirin .................. .................. .................. .................. .................. .................. .................. ............... Disposition: Fulfilled Jerome Shearer MD [address] [facility],[address], [place], [address], [employer] 05/21/2023 13:41:31 08/23/2024 text/html CRC Nurse Triage [...] PMH Reviewed at 08/23/2024 Allergies Reviewed at 08/23/2024: Comments: Customer Manager verified the name//address and phone number. Call was completed with an orthotic fitter. She has had symptoms since wednesday. She [...] s/s and seek emergency treatment if needed Snapper On Organization Information for [facility] Business Legal Name: [employer] Address: [address] [place] [address], Insurance Agency Owner: Jerald Fine MD CLIA No.: [id number] [facility] On POC Test Results from [facility] Rapid COVID antigen (18:33:35) COVID: - Rapid influenza antigen (18:33:36) Flu: - .................. .................. .................. .................. .................. .................. .................. ............... Snapper On Note From [facility] Farris: [facility] visit for female pt. Pt presents [...] and found to be negative. Consulted with [facility] Dr. Germain who ordered 40 mg oral prednisone given on scene with additional prednisone sent to the pharmacy. Rx also sent for mucinex and refilled albuterol for pt's nebulizer. Reviewed red flags for ED. Pt education provided. .................. .................. .................. .................. .................. .................. .................. ............... [facility] Consulted: Susanna Germain .................. .................. .................. .................. .................. .................. .................. ............... Disposition: Fulfilled Susanna Germain MD [address] [facility],[address], [place], [address], [facility] [place] [facility] 08/23/2024 22:10:14 OBGyn Episode No OBEpisode recorded.
--- OUTSIDE RECORDS SUMMARY | 2025-06-19 10:32 | XMS_ITS | Clinical Summary ---
Author Organization [facility] Address [address] [place] [address] Phone Care Team Providers Care Credit Card Interviewer Name Role Phone Physician, No Pcp Primary [...] mg total) under the skin. 5 Active estradioL (ESTRACE) 0.01 % (0.1 mg/gram) vaginal cream 1g PV nightly x 2 weeks then twice weekly thereafter 34 g 4 5 Active Active Problems Problem Noted Date [...] LSIL, HPV not done Plan: [facility] for Colpo- benign 08/2021 Plan: repeat PAP one year 06/2022 PAP Ascus, neg hpv Repeat one year 11/2023 PAP LSIL, neg HPV RECOMMENDATION 1-year follow-up RISK 5 year risk of CIN3+ is 3.1% 03/2025- LSIL/HPV neg Recommend repeat colposcopy Abnormal TSH 10/14/2018 Stress incontinence of urine 10/14/2018 Precordial pain 04/25/2018 Mild intermittent asthma 11/17/2017 Constipation 07/12/2012 Gastroesophageal reflux disease 07/12/2012 Recurrent major depression 03/25/2012 Allergic rhinitis 1959 Anxiety 1959 Iron deficiency anemia 1961 Encounters Date Type Department Care Team Description 05/15/2025 9:45 AM EST Procedure visit Obstetrics and Gynecology - [address] [phone] Vandana De La O DO LGSIL on Pap smear of cervix (Primary Dx); Vaginal atrophy 04/05/2025 Results Follow-Up Obstetrics and Gynecology - [address] [phone] Guerita Yanez MA 03/29/2025 Telephone Obstetrics and Gynecology - [address] [phone] Guerita Yanez MA 03/27/2025 Telephone Obstetrics and Gynecology - [address] [phone] Michaelle Roberts CNM 03/23/2025 Telephone Obstetrics & Gynecology [address] [phone] Iris Russo CNM 03/21/2025 10:00 AM EDT Office Visit Obstetrics & [address] [phone] Michaelle Roberts CNM Encounter for gynecological examination without abnormal finding (Primary Dx); Screen for STD (sexually transmitted disease) from Last 3 Months Immunizations Immunization Administration [...] oz) F Vag-S pont None Living Delivery Location:[facility] 997 Term 40w 0d 3912 g (138 oz) M Vag-S pont None Living Delivery Location:[facility] 005 Term 40w 0d 3430 g (121 oz) M Vag-S pont None Living Delivery Location:[facility] Last Filed Vital Signs Vital Sign [...] series) 2023 Depression Screening 2024 COVID-19 Vaccine (3 - season) 2025 10/31/2020, 10/02/2020 Zoster Vaccines (2 [...] Procedure Name Priority Date/Time Associated Diagnosis Comments MT COLPOSCOPY CERVIX Routine 05/15/2025 10:07 AM EST [...] Recently Relevant to Health Maintenance Results * MT COLPOSCOPY CERVIX (05/15/2025 10:07 AM EST) Vandana [...] draped in the dorsal lithotomy position: yes [place] speculum was placed in the vagina: yes [...] LAB CHEMISTRY METHOD 03/21/2025 2:00 PM EDT [facility] Blood Venous blood specimen / Unknown Venipuncture / Unknown 03/21/2025 11:02 AM EDT 03/21/2025 11:37 AM EDT Michaelle BRIGGS LAB BLOOD ORDERABLES Final Res ult [facility] [address] [place] [address], [place] [phone] * HIV 1,2 antibody, p24 antigen with reflex to differentiation (03/21/2025 11:02 AM EDT) HIV Combo AB/AG Negative Negative LAB CHEMISTRY METHOD 03/21/2025 2:00 PM EDT [facility] Blood Venous blood specimen / Unknown Venipuncture / Unknown 03/21/2025 11:02 AM EDT 03/21/2025 11:37 AM EDT Oscar [facility] - 03/21/2025 2:00 PM [...] recommendation for HIV screening. us Michaelle Roberts [facility] BLOOD ORDERABLES Final Res ult [facility] [address] [place] [address], [place] [phone] * Hepatitis B surface antigen with reflex to confirmation (03/21/2025 11:02 AM EDT) Pathologist [facility] Hepatitis B Surface Ag Negative Negative LAB CHEMISTRY METHOD 03/21/2025 1:31 PM EDT [facility] Blood Venous blood specimen / Unknown Venipuncture / Unknown 03/21/2025 11:02 AM EDT 03/21/2025 11:37 AM EDT Narrative [facility] - 03/21/2025 1:31 PM EDT Over the counter supplements containing high doses of biotin may interfere with this assay. If interference is suspected, patients shoud be retested after refraining from biotin supplements for 72 hours. us Michaelle Roberts [facility] BLOOD ORDERABLES Final Res ult [facility] [address] [place] [address], [place] [phone] * Treponema pallidum antibody with reflex to RPR and particle agglutination (03/21/2025 11:02 AM EDT) T. Pallidum Antibodies Negative Negative LAB CHEMISTRY METHOD 03/21/2025 2:33 PM EDT [facility] Blood Venous blood specimen / Unknown Venipuncture / Unknown 03/21/2025 11:02 AM EDT 03/21/2025 11:37 AM EDT us Michaelle Roberts CNM LAB BLOOD ORDERABLES Final Res ult Performing Organization Address [facility] Co de Phone Number [facility] [address] [place] [address], [place] [phone] * Chlamydia trachomatis and neisseria gonorrhoeae by tma, thinprep (03/21/2025 10:43 AM EDT) Pathologist [facility] N. gonorrhoeae, RNA Probe Negative Negative LAB MICROBIOLOGY METHOD 03/23/2025 1:10 PM EDT [facility] Chlamydia, RNA Probe Negative Negative LAB MICROBIOLOGY METHOD 03/23/2025 1:10 PM EDT [facility] Brushing/Spatula Cervix uteri structure / Unknown 03/21/2025 10:43 AM EDT 03/22/2025 6:10 AM EDT us Michaelle Roberts CNM LAB CYTOLOGY ORDERABLES Final Result Performing Organization Address [facility]/ZIP Co de Phone Number [facility] [address] [place] [address], [place] [phone] * HPV with reflex genotype (03/21/2025 10:43 AM EDT) HPV Negative Negative LAB MICROBIOLOGY METHOD 03/22/2025 2:47 PM EDT [facility] Brushing/Spatula Cervix uteri structure / Unknown 03/21/2025 10:43 AM EDT 03/22/2025 6:10 AM EDT Michaelle BRIGGS LAB MOLECULAR DIAGNOSTICS ORDE RABLES Final Result Performing Organization Address City/[facility]/ZIP Co de Phone Number [facility] [address] [place] [address], [place] [phone] * Trichomonas vaginalis molecular study (03/21/2025 10:43 AM EDT) Trichomonas vaginalis Negative Negative LAB MICROBIOLOGY METHOD 03/23/2025 1:20 PM EDT [facility] Brushing/Spatula Cervix uteri structure / Unknown 03/21/2025 10:43 AM EDT 03/22/2025 6:10 AM EDT Michaelle Roberts [facility] BLOOD ORDERABLES Final Res ult Performing Organization Address City/[facility]/ZIP Co de Phone Number [facility] [address] [place] [address], [place] [phone] * (ABNORMAL) Pap smear (03/21/2025 10:43 AM EDT) Interpretation Low grade squamous intraepithelial lesion(A) 03/26/2025 4:52 PM EDT [facility] at 1652 EDT General Categorization Epithelial cell abnormality, see interpretation 03/26/2025 4:52 PM EDT [facility] Specimen Adequacy Satisfactory for evaluation, endocervical/dial sformation zone component present 03/26/2025 4:52 PM EDT [facility] Pap Methodology Liquid Based Pap Test 03/26/2025 4:52 PM EDT [facility] Disclaimer The Pap test is a screening test which carries an inherent false negative rate. These test results should be correlated with the patient's clinical findings and history. This Pap test was processed using an automated screening system. Technical cytopathology services provided by [facility], at [address] [place] [address] (CLIA # [id number]/Holger Palacios MD, Phlebotomy Instructor.) 03/26/2025 4:52 PM EDT [facility] Console Pap Interpretation Reported 03/26/2025 4:52 PM EDT [facility] Brushing/Spatula Cervix uteri structure / Unknown 03/21/2025 10:43 AM EDT 03/22/2025 6:10 AM EDT Michaelle BRIGGS LAB CYTOLOGY ORDERABLES Final Result [facility] [address] [place] [address], [place] [phone] * MG Mammo Digital Diagnostic bilat (07/20/2024 11:09 AM EST) Anatomical Region Laterality Modality Breast Bilateral Mammography Historical Provider MD RAMEY BI PROCEDURES Final R esult from Last 3 Months or Most Recently Relevant to Health Maintenance Insurance Member Subscriber Plan / Payer (Ef fective 2013-Present) Name:JESICA BOOTHE Relation to Subscriber:Self Name:Jesica Boothe Payer ID:[id number] Group ID:[id number] Type:Not on file Address: [place] [address] [address] [phone] Care Teams Credit Card Interviewer Relationship Specialty Start Date End Date Physician, No Pcp PCP - General 04/30/25
--- OUTSIDE RECORDS SUMMARY | 2025-06-19 10:32 | XMS_ITS | Encounter Summary ---
Author Organization [email or web address] [facility] Address [address] [place] [address] 7[address] [place] [address] Care Team Providers Care Supplier Specialist Name Role Phone Jane Piedra MD Primary Care Provider + Encounter Details Date Type Department Care Team (Late st Contact Info) Description 05/19/2022 Abstract [facility] MEDICINE [address] [place] [id number] ProviderRaffaele MD Social History Tobacco Use Types [...] Description 08/17/2025 9:00 AM EST Office Visit [facility] MEDICINE [address] [place] [phone] Jane Piedra MD [address] [place] [phone] documented as of this encounter Visit Diagnoses Not on filedocumented in this encounter Care Teams Supplier Specialist Relationship Specialty Start Date End Date Jane Piedra MD [address] [place] [phone] PCP - General Family Medicine 02/18/17 documented as of this encounter
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
--- OUTSIDE RECORDS SUMMARY | 2025-06-19 10:32 | XMS_ITS | Encounter Summary ---
Author Organization [employer] Address [address] [facility] 7t [place] [address] Care Team Providers Care Pin Maker Name Role Phone Jane Piedra MD Primary Care Provider + Encounter Details Date Type Department Care Team (Late st Contact Info) Description 07/20/2023 Abstract [facility] [address] [place], [place] [phone] Jane Piedra MD [address] [place], [place] [phone] Social History Tobacco Use Types Packs/Day Years [...] Office Visit [facility] [address] [place] [phone] Jane Piedra MD [address] [place] [address] documented as of this encounter Procedures Procedure Name Priority Date/Time Associated Diagnosis Comments COLONOSCOPY Routine 08/30/2019 1:34 PM EST documented in this encounter Visit Diagnoses Not on filedocumented in this encounter Additional Health Concerns Assessment Noted Time PHQ-9 Depression Total Score: 17 024 9:32 AM EST documented as of this encounter Care Teams Pin Maker Relationship Specialty Start Date End Date Jane Piedra MD [address] [place] [address] PCP - General Family Medicine 02/18/17 documented as of this encounter
--- OUTSIDE RECORDS SUMMARY | 2025-06-19 10:32 | XMS_ITS | Encounter Summary ---
Author Organization [employer] Address [address] [place] [address] 7t [place] [address] Care Team Providers Care Laboratory Animal Facility Supervisor Name Role Phone Jane Piedra MD Primary Care Provider + Reason for Visit * Reason Comments Med Change Request Encounter Details Date Type Department Care Team ([facility] st Contact Info) Description 07/11/2024 Refill [facility] [address] [place], [place] [phone] Jane Piedra MD [address] [place], [place] [phone] Obesity (BMI 35.0-39.9 without comorbidity) Social History [...] Description 08/17/2025 9:00 AM EST Office Visit [facility] [address] [place] [address] Jane Piedra MD [address] [place] [address] documented as of this encounter Visit Diagnoses Diagnosis Obesity (BMI 35.0-39.9 without comorbidity) documented in this encounter Additional Health Concerns Assessment Noted Time PHQ-9 Depression Total Score: 24 024 11:20 AM EDT documented as of this encounter Care Teams Laboratory Animal Facility Supervisor Relationship Specialty Start Date End Date Jane Piedra MD [address] [place] [address] PCP - General Family Medicine 02/18/17 documented as of this encounter
--- OUTSIDE RECORDS SUMMARY | 2025-06-19 10:32 | XMS_ITS | Encounter Summary ---
Author Organization [employer] [facility] Address [address] [place] [address] 7 [place] [address] Care Team Providers Care Welder Journeyman Name Role Phone Jane Piedra MD Primary Care Provider + Reason for Visit * Reason Comments Med Refill Encounter Details Date Type Department Care Team (Late st Contact Info) Description 02/25/2023 Refill [facility] [address] [place] [phone] Jane Piedra MD [address] [place], [place] [phone] Social History Tobacco Use Types Packs/Day Years [...] Description 08/17/2025 9:00 AM EST Office Visit [facility] [address] [place] [address] [phone] Jane Piedra MD [address] [place], [place] [phone] documented as of this encounter Visit Diagnoses Not on filedocumented in this encounter Care Teams Welder Journeyman Relationship Specialty Start Date End Date Jane Piedra MD [address] [place] [address] PCP - General Family Medicine 02/18/17 documented as of this encounter
--- OUTSIDE RECORDS SUMMARY | 2025-06-19 10:32 | XMS_ITS | Encounter Summary ---
Author Organization [email or web address] Address [address] [facility] 7t [place] [address] Care Team Providers Care Safety Deposit Clerk Name Role Phone Jane Piedra MD Primary Care Provider + Reason for Visit * Reason Onset Date Comments Appointment Request 06/03/2023 Encounter Details Date Type Department Care Team ([facility] st Contact Info) Description 06/03/2023 Telephone [facility] [address] [place], [place] [phone] Jane Pidera MD [address] [place], [place] [phone] Appointment Request Social History Tobacco Use Types [...] by PCP . Please contact pt at [phone] Polish Speaker documented in this encounter Plan of Treatment Upcoming Encounters Date Type Department Care Team (Late st Contact Info) Description 08/17/2025 9:00 AM EST Office Visit [facility] [address] [place] [address] Jane Piedra MD [address] [place] [address] documented as of this encounter Visit Diagnoses Not on filedocumented in this encounter Care Teams Safety Deposit Clerk Relationship Specialty Start Date End Date Jane Piedra MD [address] [place] [address] PCP - General Family Medicine 02/18/17 documented as of this encounter
--- OUTSIDE RECORDS SUMMARY | 2025-06-19 10:32 | XMS_ITS | Encounter Summary ---
Author Organization [employer] Address [address] [place] [address] 7t [place] [address] Care Team Providers Care Dental Treatment Coordinator Name Role Phone Jane Piedra MD Primary Care Provider + Reason for Visit * Reason Onset Date Comments Error 08/03/2023 Encounter Details Date Type Department Care Team ([facility] st Contact Info) Description 08/03/2023 Telephone [facility] [address] [place], [place] [phone] Jane Piedra MD [address] [place], [place] [phone] Error Social History Tobacco Use Types Packs/Day [...] Description 08/17/2025 9:00 AM EST Office Visit [facility] [address] [place] [address] Jane Pidera MD [address] [place] [address] documented as of this encounter Visit Diagnoses Not on filedocumented in this encounter Additional Health Concerns Assessment Noted Time PHQ-9 Depression Total Score: 17 024 9:32 AM EST documented as of this encounter Care Teams Dental Treatment Coordinator Relationship Specialty Start Date End Date Jane Piedra MD [address] [place] [address] PCP - General Family Medicine 02/18/17 documented as of this encounter
--- OUTSIDE RECORDS SUMMARY | 2025-06-19 10:32 | XMS_ITS | Encounter Summary ---
Author Organization [employer] Address [address] [place] [address] 7t [place] [address] Care Team Providers Care Fur Joiner Name Role Phone Jane Piedra MD Primary Care Provider + Reason for Visit * Reason Comments Med Refill Encounter Details Date Type Department Care Team (Late st Contact Info) Description 03/25/2024 Refill [facility] [address] [place], [place] [phone] Jane Piedra MD [address] [place], [place] [phone] Chronic idiopathic constipation; Gastro-esophageal reflux disease without [...] Description 08/17/2025 9:00 AM EST Office Visit [facility] [address] [place] [address] Jane Piedra MD [address] [place] [address] documented as of this encounter Visit Diagnoses Diagnosis Chronic idiopathic constipation Unspecified constipation Gastro-esophageal reflux disease without esophagitis documented in this encounter Additional Health Concerns Assessment Noted Time PHQ-9 Depression Total Score: 24 024 11:20 AM EDT documented as of this encounter Care Teams Fur Joiner Relationship Specialty Start Date End Date Jane Piedra MD [address] [place] [address] PCP - General Family Medicine 02/18/17 documented as of this encounter
--- OUTSIDE RECORDS SUMMARY | 2025-06-19 10:32 | XMS_ITS | Encounter Summary ---
Author Organization [email or web address] Address [address] [facility] 7t [place] [address] Care Team Providers Care Process Artist Name Role Phone Jane Piedra MD Primary Care Provider + Reason for Visit * Reason Comments Med Refill Encounter Details Date Type Department Care Team (Late st Contact Info) Description 01/24/2024 Refill [facility] 230 [place], [place] [phone] Name, MD Adarsh [address] [place] [address] Other cardiac arrhythmia Social History Tobacco Use [...] Description 08/17/2025 9:00 AM EST Office Visit [facility] [address] [place] [address] Jane Piedra MD [address] [place] [address] documented as of this encounter Visit Diagnoses Diagnosis Other cardiac arrhythmia documented in this encounter Additional Health Concerns Assessment Noted Time PHQ-9 Depression Total Score: 24 024 11:20 AM EDT documented as of this encounter Care Teams Process Artist Relationship Specialty Start Date End Date Jane Piedra MD [address] [place] [address] PCP - General Family Medicine 02/18/17 documented as of this encounter
--- OUTSIDE RECORDS SUMMARY | 2025-06-19 10:32 | XMS_ITS | Encounter Summary ---
Author Organization [employer] Address [address] [place] [address] 7t [place] [address] Care Team Providers Care Inspector Toys Name Role Phone Jane Piedra MD Primary Care Provider + Reason for Visit * Reason Comments Med Refill Encounter Details Date Type Department Care Team ([facility] st Contact Info) Description 06/16/2025 Refill [facility] [address] [place], [place] [phone] Jane Piedra MD [address] [place], [place] [phone] Social History Tobacco Use Types Packs/Day Years [...] Description 08/17/2025 9:00 AM EST Office Visit [facility] [address] [place] [address] Jane Piedra MD [address] [place] [address] documented as of this encounter Visit Diagnoses Not on filedocumented in this encounter Additional Health Concerns Assessment Noted Time PHQ-9 Depression Total Score: 19 025 10:56 AM EDT documented as of this encounter Care Teams Inspector Toys Relationship Specialty Start Date End Date Jane Piedra MD [address] [place] [address] PCP - General Family Medicine 02/18/17 documented as of this encounter
== END 2025-06-19 09:13 ==
LOC: HO.US 09:12
PROVIDERS: PCP Internal Medicine; Visit Provider Nurse Practitioner
DX: R10.9 Unspecified abdominal pain (principal)
CPT/HCPCS: 76700

== ENCOUNTER → 2025-06-19 09:12 | Outpatient (BNV) | payer OTHER, SELFPAY | PROVIDERS: PCP Internal Medicine; Visit Provider Radiology Vascular & Interventional Radiology | DX: R10.9 Unspecified abdominal pain (principal) | CPT/HCPCS: 76700 ==